=== PATIENT | male | born 1950 | race Caucasian/White ===

== ENCOUNTER 2017-08-29 11:04 | Emergency (ER) | payer MEDICARE, OTHER ==
[~2017-08-29] VITALS: Ht 170.2 cm; Wt 131.5 kg
[~2017-08-29 11:04] MED LIST: CERAVE355 ML TP; IBUPROFEN800 MG PO; LEVOTHYROXINE25 MCG PO; NORCO 5-325 TA1 EACH PO; NYSTATIN15 GM TOP; TRAMADOL HCL50 MG PO; TYLENOL325 MG PO
[2017-08-29] MEDS ORDERED: FLOMAX0.4 MG PO (11:17)
[2017-08-29] MEDS ORDERED: PREPARATION H1 EAC3 PR (12:56)
== END 2017-08-29 13:23 | disposition home or self-care (01) ==
LOC: ED 11:04
DX: K64.9 Unspecified hemorrhoids (principal); I10 Essential (primary) hypertension; E66.01 Morbid (severe) obesity due to excess calories; E03.9 Hypothyroidism, unspecified; Z88.8 Allergy status to other drugs, medicaments and biological substances; Z88.2 Allergy status to sulfonamides; Z88.1 Allergy status to other antibiotic agents; Z79.899 Other long term (current) drug therapy
CPT/HCPCS: 99283

== ENCOUNTER 2019-04-09 03:25 | Inpatient (IN) | payer MEDICARE, OTHER ==
[~2019-04-09] VITALS: Ht 170.2 cm; Wt 156.0 kg
--- OUTSIDE RECORDS SUMMARY | ~2019-04-09 | XMS | Encounter Summary ---
Demographics + + + | Address | [address] | | | [place] [address] | + + + | Home Phone | | + + + | Preferred Language | Unknown | + + + | Marital Status | Single | + + + | Quaker Affiliation | 1041 | + + + | Race | Unknown | + + + | Ethnic Group | Unknown | + + + Author + + + | Author | [facility] | | | and [place] | + + + | Organization | [facility] | | | and [place] | + + + | Address | Unknown | + + + | Phone | Unavailable | + + + Support + + +---------+ + | Name | Relationship | Address | Phone | + + +---------+ + | Ingrid Patel | ECON | Unknown | | + + +---------+ + Care Team Providers + +------+ + | Care Medical Record Transcriber Name | Role | Phone | + +------+ + PCP | Unavailable | + +------+ + Encounter Details +--------+ + + + + | Date | Type | Department | Care Team | Description | +--------+ + + + + | 06/21/ | Hospital | [facility] | Jaziel Billy, | Ulcer of other part | | 2013 | Encounter | CENTER OUTPATIENT | MD Umm AMADOR | of lower limb (HCC) | | | | WOUND CARE [address] | [facility] [address], | | | | | [place] | [place] [address] | | | | | [address] | [phone] | | | | | [phone] | | | +--------+ + + + + Social History + +-------+ +--------+------+ | Tobacco Use | Types | Packs/Day | Years | Date | | | | | Used | | + +-------+ +--------+------+ | Never Assessed | | | | | + +-------+ +--------+------+ + + + | Sex Assigned at | Date Recorded | | | | + + + | Not on file | | + + + + + + + | Job Start Date | Occupation | Industry | + + + + | Not on file | Not on file | Not on file | + + + + + + + + | Travel History | Travel Start | Travel End | + + + + + + | No recent travel history available. | + + documented as of this encounter Progress Notes Jaziel Billy MD - 06/21/2013 3:28 PM PDTFormatting of this note might be different fro m the original. Progress Notes by Jaziel Billy MD at 06/21/13 1528 Author: Jaziel Billy MD Service: (none) Author Type: Physician Filed: 06/21/13 1531 Encounter Date: 06/21/2013 Status: Signed Specimen Preparation Assistant: Jaziel Billy MD (Physician) Subjective: Jono Tabares is a 62 y.o. male who presents for follow up for wound healing. He reports th at the wound has been doing well. He reports that he has been compliant with his treatment regimen. See flowsheet for measurements and specific treatment data. Review of Systems Constitutional: negative Respiratory: negative Cardiovascular: negative Gastrointestinal: negative Integument/breast: wound stable Objective: General appearance: alert, appears stated age and cooperative Head: Normocephalic, without obvious abnormality, atraumatic Musculoskeletal: there is no redness, warmth, or swelling of the joints Skin: wound stalled Assessment / Plan: [place] ulcer tissues examined. There is no induration, is no signs of skin breakdown, is no tenderness, is no redness, is no odor, is no discharge.right leg debridement of wound floor . Left leg selective debridement Excisional debridement medically necessary to accelerate wound healing. Excisional debride ment performed, after appropriate wound cleansing and topical anesthetic application as/as n ot required, by using a 15 blade scalpel/sharp metal currette to go into the level of the SQ tissue and remove fibrin/slough and necrotic as well as other nonviable and devitalized SQ tissue from the base of the ulcer. Rolled edges sharply excised. Pt had a small amount of bleeding controlled w/pressure. Pt t olerated procedure well. See flowsheet for wound details (pre and post). No exposed tendon, muscle or bone noted. Dressing applied by nursing. Pt to f/u as scheduled. Continue treatmen t onversio n Transaction, Provider Unknown - 06/21/2013 2:14 PM PDTFormatting of this note might be di fferent from the original. Progress Notes by Brooklyn Garcia RN at 06/21/13 2967 Author: Brooklyn Garcia RN Service: (none) Author Type: Registered Nurse Filed: 06/21/13 1416 Encounter Date: 06/21/2013 Status: Signed Specimen Preparation Assistant: Brooklyn Garcia RN (Registered Nurse) Jono Tabares is a 62 y.o. male who presents today for Wound Care visit. He presents accom panied by transport assistance. He arrived: Wheelchair. Transfer Assistance: None Patient identification verified: yes Secondary verification process completed: yes Patient in isolation precaution: no If yes, what kind?: Fall Risk Assessment reviewed: yes Experienced any changes in pain level or management since last visit?: no Any signs or symptoms of abuse and/or neglect?: no Hospitalized since last visit: no Dressing in place as prescribed: yes Compression in place as prescribed: n/a Offloading in place as prescribed: n/a Footwear in place on this visit: Other Footwear: socks Ronal fernandes in this encounter Plan of Treatment Not on filedocumented as of this encounter Visit Diagnoses + + | Diagnosis | + + | Ulcer of other part of lower limb | + + documented in this encounter Additional Health Concerns + + + + | Infection | Noted Time | Resolved Time | + + + + | Methicillin-resistant Staphylococcus aureus | 12/13/2012 12:00 AM | | | | PDT | | + + + + documented as of this encounter"
--- OUTSIDE RECORDS SUMMARY | ~2019-04-09 | XMS | Encounter Summary ---
Demographics + + + | Address | [address] | | | [place] [address] | + + + | Home Phone | | + + + | Preferred Language | Unknown | + + + | Marital Status | Single | + + + | Holiness Affiliation | 1041 | + + + | Race | Unknown | + + + | Ethnic Group | Unknown | + + + Author + + + | Author | [facility] | | | and [place] | + + + | Organization | [facility] | | | [...] Team Providers + +------+ + | Care Slot Floorperson Name | Role | Phone | + +------+ + PCP | Unavailable | + +------+ + Encounter Details +--------+ + + + + | Date | Type | Department | Care Team | Description | +--------+ + + + + | 06/13/ | Hospital | [facility] | Conversion | Open wound of knee, | | 2013 | Encounter | MEDICAL [facility]ENTER | Transaction, | leg (except thigh), | | | | ULTRASOUND [address] | Provider Unknown | and ankle, | | | | [address] | [phone] | complicated | | | | [place], [place] | | | | | | [address] | | | | | | [phone] | | | +--------+ + + + [...] + + documented as of this encounter Plan of Treatment Not on filedocumented as of this encounter Procedures + +--------+ + + + | Procedure Name | Priori | Date/Time | Associated Diagnosis | Comments | | | ty | | | | + +--------+ + + + | VAS LOWER EXTREMITY | Routin | 06/13/2013 | | Results for this | | ARTERIES BILATERAL | e | 3:15 PM | | procedure are in the | | | | PDT | | results section. | + +--------+ + + + documented in this encounter Results VAS Lower Extremity Arteries Bilateral (06/13/2013 3:15 PM PDT) + + | Specimen | + + | | + + + + + | Impressions | Performed At | + + + | 1. Normal triphasic waveforms seen bilaterally. Electronically | | | signed by Jaziel Aguero MD on 06/13/2013 7:17 PM | | + + + + + + | Narrative | Performed At | + + + | [facility] LOWER EXTREMITY ARTERIAL DUPLEX BILAT 06/13/2013 | | | 3:15 PM HISTORY: 62 years. Male. Wounds both knees, open | | | TECHNIQUE: Imaging was performed using a linear array transducer. | | | Josue scale, color flow, and power Doppler techniques utilized. This | | | included a duplex study with Doppler spectral analysis including color | | | flow imaging. COMPARISON: None. FINDINGS: RIGHT LEG: | | | Common femoral artery: PSV: 96 (cm/s). Flow: Triphasic. Profunda | | | femoral artery: PSV: 49 (cm/s). Flow: Triphasic. Superficial femoral | | | artery - proximal: PSV: 105 (cm/s). Flow: Triphasic. Superficial | | | femoral artery - mid: PSV: 82 (cm/s). Flow: Triphasic. Superficial | | | femoral artery - distal: PSV: 90 (cm/s). Flow: Triphasic. Popliteal | | | artery: PSV: 67 (cm/s). Flow: Triphasic. Anterior tibial artery: PSV: | | | 89 (cm/s). Flow: Triphasic. Posterior tibial artery: PSV: 132 | | | (cm/s). Flow: Triphasic. Dorsalis pedis artery: PSV: 63 (cm/s). Flow: | | | Triphasic. Peroneal artery: PSV: 89 (cm/s). Flow: Triphasic. | | | LEFT LEG: Common femoral artery: PSV: 92 (cm/s). Flow: Triphasic. | | | Profunda femoral artery: PSV: 49 (cm/s). Flow: Triphasic. Superficial | | | femoral artery - proximal: PSV: 90 (cm/s). Flow: Triphasic. | | | Superficial femoral artery - mid: PSV: 76 (cm/s). Flow: Triphasic. | | | Superficial femoral artery - distal: PSV: 71 (cm/s). Flow: Triphasic. | | | Popliteal artery: PSV: 67 (cm/s). Flow: Triphasic. Anterior tibial | | | artery: PSV: 74 (cm/s). Flow: Triphasic. Posterior tibial artery: | | | PSV: 74 (cm/s). Flow: Triphasic. Dorsalis pedis artery: PSV: 100 | | | (cm/s). Flow: Triphasic. Peroneal artery: PSV: 67 (cm/s). Flow: | | | Triphasic. | | + + + + + | Procedure Note | + + | Jorge Alberto, Rad Conversion - 11/17/2018 12:43 PM PDT [facility] LOWER EXTREMITY | | ARTERIAL DUPLEX BIL06/13/2013 3:15 PM HISTORY:62 years. Male. Wounds both knees, open | | TECHNIQUE:Imaging was performed using a linear array transducer. Josue scale, color | | flow, and power Doppler techniques utilized. This included a duplex study with Doppler | | spectral analysis including color flow imaging. COMPARISON:None. FINDINGS: RIGHT | | LEG:Common femoral artery: PSV: 96 (cm/s). Flow: Triphasic.Profunda femoral artery: PSV: | | 49 (cm/s). Flow: Triphasic.Superficial femoral artery - proximal: PSV: 105 (cm/s). | | Flow: Triphasic.Superficial femoral artery - mid: PSV: 82 (cm/s). Flow: | | Triphasic.Superficial femoral artery - distal: PSV: 90 (cm/s). Flow: Triphasic.Popliteal | | artery: PSV: 67 (cm/s). Flow: Triphasic.Anterior tibial artery: PSV: 89 (cm/s). Flow: | | Triphasic.Posterior tibial artery: PSV: 132 (cm/s). Flow: Triphasic.Dorsalis pedis | | artery: PSV: 63 (cm/s). Flow: Triphasic.Peroneal artery: PSV: 89 (cm/s). Flow: | | Triphasic. LEFT LEG:Common femoral artery: PSV: 92 (cm/s). Flow: Triphasic.Profunda | | femoral artery: PSV: 49 (cm/s). Flow: Triphasic.Superficial femoral artery - proximal: | | PSV: 90 (cm/s). Flow: Triphasic.Superficial femoral artery - mid: PSV: 76 (cm/s). Flow: | | Triphasic.Superficial femoral artery - distal: PSV: 71 (cm/s). Flow: Triphasic.Popliteal | | artery: PSV: 67 (cm/s). Flow: Triphasic.Anterior tibial artery: PSV: 74 (cm/s). Flow: | | Triphasic.Posterior tibial artery: PSV: 74 (cm/s). Flow: Triphasic.Dorsalis pedis | | artery: PSV: 100 (cm/s). Flow: Triphasic.Peroneal artery: PSV: 67 (cm/s). Flow: | | Triphasic. IMPRESSION: 1. Normal triphasic waveforms seen bilaterally. Electronically | | signed by Jaziel Aguero MD on 06/13/2013 7:17 PM | |Popliteal artery: PSV: 67 (cm/s). Flow: Triphasic. | |Anterior tibial artery: PSV: 89 (cm/s). Flow: Triphasic. | |Posterior tibial artery: PSV: 132 (cm/s). Flow: Triphasic. | |Dorsalis pedis artery: PSV: 63 (cm/s). Flow: Triphasic. | |Peroneal artery: PSV: 89 (cm/s). Flow: Triphasic. | | | |LEFT LEG: | |Common femoral artery: PSV: 92 (cm/s). Flow: Triphasic. | |Profunda femoral artery: PSV: 49 (cm/s). Flow: Triphasic. | |Superficial femoral artery - proximal: PSV: 90 (cm/s). Flow: Triphasic. | |Superficial femoral artery - mid: PSV: 76 (cm/s). Flow: Triphasic. | |Superficial femoral artery - distal: PSV: 71 (cm/s). Flow: Triphasic. | |Popliteal artery: PSV: 67 (cm/s). Flow: Triphasic. | |Anterior tibial artery: PSV: 74 (cm/s). Flow: Triphasic. | |Posterior tibial artery: PSV: 74 (cm/s). Flow: Triphasic. | |Dorsalis pedis artery: PSV: 100 (cm/s). Flow: Triphasic. | |Peroneal artery: PSV: 67 (cm/s). Flow: Triphasic. | | | |IMPRESSION: | |1. Normal triphasic waveforms seen bilaterally. | | | | | + + documented in this encounter Visit Diagnoses + + | Diagnosis | + + | Open wound of knee, leg (except thigh), and ankle, complicated | + + documented in this encounter Additional Health Concerns + + + + | Infection | Noted Time | Resolved Time | + + + + | Methicillin-resistant Staphylococcus aureus | 12/13/2012 12:00 AM | | | | PDT | | + + + + documented as of this encounter"
--- OUTSIDE RECORDS SUMMARY | ~2019-04-09 | XMS | Encounter Summary ---
Demographics + + + | Address | [address] | | | [place] [address] | + + + | Home Phone | | + + + | Preferred Language | Unknown | + + + | Marital Status | Single | + + + | Catholic Affiliation | 1041 | + + + | Race | Unknown | + + + | Ethnic Group | Unknown | + + + Author + + + | Author | [facility] | | | and [place] | + + + | Organization | [facility] | | | and [...] Team Providers + +------+ + | Care Buffer Inflated Pad Name | Role | Phone | + +------+ + PCP | Unavailable | + +------+ + Encounter Details +--------+ + + + + | Date | Type | Department | Care Team | Description | +--------+ + + + + | 05/31/ | Hospital | [facility] | Jaziel Billy, | Open wound of both | | 2014 | Encounter | CENTER OUTPATIENT | MD Umm AMADOR | legs with | | | | WOUND CARE [address] | [place], | complication | | | | [place] | [place] [address] | | | | | [address] | [phone] | | | | | [phone] | | | +--------+ + + + [...] encounter Progress Notes Jaziel Billy MD - 05/31/2013 4:51 PM PSTFormatting of this note might be different fro m the original. Progress Notes by Jaziel Billy MD at 05/31/13 2509 Author: Jaziel Billy MD Service: (none) Author Type: Physician Filed: 06/07/13 1236 Encounter Date: 05/31/2013 Status: Signed Scrap Metal Collector: Jaziel Billy MD (Physician) Related Notes: Original Note by Jaziel Billy MD (Physician) filed at 05/31/13 2489 CHIEF COMPLAINT This is a 62-year-old man who was seen at the wound care clinic for the first time because of wounds to his lower extremities. HISTORY OF PRESENT ILLNESS Patient's difficulties started approximately 1 month ago, when he had a rash with possible open area and was placed on antibiotic by his primary physician in the [facility]. The r camron went on to become more extensive after the antibiotic. Steroids were tried and patient w as sent to [facility] 3 days later for possible redmans' or scalde d skin syndrome-type problems; the patient is unsure of exactly what the diagnosis was. He w as treated with IV antibiotics, etc., at the [facility] and his up per and lower extremities were involved in rash, bright-red rash. The upper extremities and lower extremities did develop some pustules. The upper extremity wounds have now almost totally closed. There are eschars and papules th at are scattered, approximately 4 lesions per 10 square centimeters are noted. Patient state s this is significantly less than when he first had the difficulty. His lower extremities zapata ve expansive areas of sloughing or dry skin along with some much smaller areas of deroo fed lesions. The patient has a history of lymphedema symptoms before the current difficulty that are consistent with the open wounds that he currently has. Patient's history is significant for morbid obesity. 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 See our Epic note for vital signs, allergies, medications history, problem list, etc., that I reviewed before this dictation. PAST SURGICAL HISTORY His hospitalizations are few, but they do include: 1. 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 2. Tonsillectomy in [facility] in 1957. FAMILY HISTORY Positive for his father having throat cancer. He at 99. His mother at 94 from an NH. She had had renal failure as well as a CVA shortly before she . His oldest half-brot her had pancreatic cancer and at 78. SOCIAL HISTORY He is a long-term member of the [facility] community and is currently in a nursing faci lity in that area until he is more able to care for himself. He states the wounds are much m ore improved than just earlier last week. REVIEW OF SYSTEMS ALLERGIC/IMMUNOLOGIC: Negative. CARDIOVASCULAR: Negative. HEENT: Ears, nose, and throat: Negative. Eyes: Negative. IMMUNIZATIONS: Negative. ENDOCRINE: Negative. GASTROINTESTINAL: Negative. GENITOURINARY: Negative. HEMATOLOGIC/LYMPHATICS: Negative. MUSCULOSKELETAL: Negative except for osteoarthritis symptoms. He also states there are some osteoarthritis-type symptoms in his feet as well. NEUROLOGIC: Negative. PSYCHIATRIC: No psychiatric history. No confinement history. RESPIRATORY: Negative. DERMATOLOGIC: Negative. ONCOLOGIC: Negative. REPRODUCTIVE: No complaints. PHYSICAL EXAMINATION HEENT: Normocephalic, atraumatic. Sclerae are anicteric. Pupils are pinpoint, consistent wi narcotic use currently. NECK: Supple. No stepoff or tenderness. Anterior and posterior nodes are not increased. Thy roid gland shows no nodularity. Trachea is midline. LUNGS: Sounds are clear anteriorly, posteriorly, and laterally. HEART: Distant S1 and S2, hardly appreciable. No murmurs or gallops appreciated. ABDOMEN: Morbid obesity. No tenderness. EXTREMITIES: Upper and lower extremities show grossly normal motor and sensory function. SKIN: Multiple 1 to 2 mm papules, some of which are nearly flattened and healed; others hav e crust or eschar on top of them and are scattered on the upper extremities up to his deltoi d areas. 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 There are s ome areas open that appear consistent with ruptured lymphedema blebs. The lymphedema bleb ar eas were not healing well and had a fibrin slough, were dressed with wound cleanser, then li docaine, then debrided with curettes. This was a small area and was done gently, as not to p rovoke further infection, etc. The other extremity and the majority of the wound areas on th e left extremity had large amounts of hyperkeratotic, superfluous skin that were remove d vigorously by nursing staff and myself. Patient expressed pleasure with the results of stef ridement. IMPRESSION/PLAN He was warned to be very careful about possible infection, given that some areas had slight bleeding after the debridement, but this was a small number. We will ask the people at the facility where the patient resides to redress the area every 2 to 3 days, sooner if the woun d dressings become saturated. We will use silver Aquacel and Kerlix mainly to help with the drainage and infection control. Recheck here in 1 week. onversio n Transaction, Provider Unknown - 05/31/2013 3:05 PM PSTFormatting of this note might be di fferent from the original. Progress Notes by Brooklyn Garcia RN at 05/31/13 7350 Author: Brooklyn Garcia RN Service: (none) Author Type: Registered Nurse Filed: 05/31/13 1507 Encounter Date: 05/31/2013 Status: Signed Scrap Metal Collector: Brooklyn Garcia RN (Registered Nurse) Jono Tabares is a 62 y.o. male who presents today for InitialWound Care visit. He present s accompanied by [employer]. He arrived: Wheelchair. Transfer Assistance: Manual Pending Amputation on Presentation: no Wound under treatment by Physician outside of Wound Care Center: no Patient identification verified: yes Secondary verification process completed: yes Patient in isolation precaution: no If yes, what kind?: Nutrition Risk Screen Score: Nutrition Screen Score: 1 Fall Risk Assessment Score: Score: 40 Abuse/Suicide Risk Screening: See Wound Care New Patient Flowsheet Education Assessment: See Wound Care New Patient Flowsheet Neuropathy Assessment: See Lower Extremity Assessment Flowsheet Patient temporarily living at [facility] in [place]. States developed bright red rash ab out 3 weeks ago after taking antibiotics (unknown type) and steroids. Wounds on legs and fee t developed About two days later. Presents with wrap bilaterally to lower extremities. docume nted in this encounter Plan of Treatment Not on filedocumented as of this encounter Visit Diagnoses + + | Diagnosis | + + | Open wound of both legs with complication Open wound of knee, leg (except thigh), and | | ankle, complicated | + + documented in this encounter Additional Health Concerns + + + + | Infection | Noted Time | Resolved Time | + + + + | Methicillin-resistant Staphylococcus aureus | 12/13/2012 12:00 AM | | | | PDT | | + + + + documented as of this encounter"
--- OUTSIDE RECORDS SUMMARY | ~2019-04-09 | XMS | Encounter Summary ---
Demographics + + + | Address | [address] | | | [place] [address] | + + + | Home Phone | | + + + | Preferred Language | Unknown | + + + | Marital Status | Single | + + + | Baptism Affiliation | 1041 | + + + | Race | Unknown | + + + | Ethnic Group | Unknown | + + + Author + + + | Author | [facility] | | | and [place] | + + + | Organization | [facility] | | | and [...] Team Providers + +------+ + | Care High School Football Coach Name | Role | Phone | + +------+ + PCP | Unavailable | + +------+ + Encounter Details +--------+ + + + + | Date | Type | Department | Care Team | Description | +--------+ + + + + | 09/27/ | Hospital | [facility] | Jaziel Billy, | Ulcer of leg, | | 2013 | Encounter | CENTER OUTPATIENT | MD Umm AMADOR | chronic, unspecified | | | | WOUND CARE [address] | [place], | laterality, limited | | | | [place] | [place] [address] | to breakdown of | | | | [address] | [phone] | skin (HCC) | | | | [phone] | | | +--------+ + + + [...] encounter Progress Notes Jaziel Billy MD - 09/27/2013 1:08 PM PDTFormatting of this note might be different fro m the original. Progress Notes by Jaziel Billy MD at 09/27/13 0272 Author: Jaziel Billy MD Service: (none) Author Type: Physician Filed: 09/27/13 1914 Encounter Date: 09/27/2013 Status: Signed Funeral Car Driver: Jaziel Billy MD (Physician) Subjective: Jono Tabares is a 63 y.o. male who presents for follow up for wound healing. He reports th at the wound has been doing poorly. He reports that he has not been compliant with his jill tment regimen.new support hose from Dr. Saha rx too tight skin breakdown with a day of use l eft wounds deep into subcutaneous tissue on posterior calf . Right leg larger area of more s uperfical skin breakdown See flowsheet for measurements and specific treatment data. Review of Systems Constitutional: negative Respiratory: negative Cardiovascular: negative Gastrointestinal: negative Integument/breast: wounds open after new compreeion socks Objective: General appearance: alert, appears stated age and cooperative Head: Normocephalic, without obvious abnormality, atraumatic Musculoskeletal: there is no redness, warmth, or swelling of the joints Skin: large area of superfical pin point skin denuding on right left similar but blebs on c alg with deeper ulceration Assessment / Plan: [place] ulcer tissues examined. There is induration, is signs of skin breakdown, is no tender ness, is redness, is no odor, is discharge.right leg with large area of superificial skin br eakdown left leg same but with deeper ruptured blebs on calf Excisional debridement medically necessary to accelerate wound healing. Excisional debride ment performed, after appropriate wound cleansing and topical anesthetic application as/as n ot required, by using a 15 blade scalpel/sharp metal currette to go into the level of the SQ tissue and remove fibrin/slough and necrotic as well as other nonviable and devitalized SQ tissue from the base of the ulcer. Pt had a medium amount of bleeding controlled w/pressure. Pt tolerated procedure well. See flowsheet for wound details (pre and post). No exposed tendon, muscle or bone noted. Dressin g applied by nursing. Pt to f/u as scheduled. Continue with gent twice daily and tubigrip as tolerated one ot two layers. Discuss possible alternative compression with Dr. Steele onversio n Transaction, Provider Unknown - 09/27/2013 12:49 PM PDTFormatting of this note might be di fferent from the original. Progress Notes by Brooklyn Garcia RN at 09/27/13 0347 Author: Brooklyn Garcia RN Service: (none) Author Type: Registered Nurse Filed: 09/27/13 8868 Encounter Date: 09/27/2013 Status: Signed Funeral Car Driver: Brooklyn Garcia RN (Registered Nurse) Jono Tabares is a 63 y.o. male who presents today for Wound Care visit. He presents accom panied by driver salesman. He arrived: Wheelchair. Transfer Assistance: None Patient [...] prescribed: yes Compression in place as prescribed: tubi systems administrator Offloading in place as prescribed: n/a Footwear in place on this visit: Other Footwear: socks Patient was wearing compression socks provided by Dr. Steele; new wounds noted with compressio n; has not been wearing them this week because of deterioration with them. Has been wearing tubigrips. docume nted in this encounter Plan of Treatment Not on filedocumented as of this encounter Visit Diagnoses + + | Diagnosis | + + | Ulcer of leg, chronic, unspecified laterality, limited to breakdown of skin (HCC) | + + documented in this encounter Additional Health Concerns + + + + | Infection | Noted Time | Resolved Time | + + + + | Methicillin-resistant Staphylococcus aureus | 12/13/2012 12:00 AM | | | | PDT | | + + + + documented as of this encounter"
--- OUTSIDE RECORDS SUMMARY | ~2019-04-09 | XMS | Encounter Summary ---
Demographics + + + | Address | [address] | | | [place] [address] | + + + | Home Phone | | + + + | Preferred Language | Unknown | + + + | Marital Status | Single | + + + | Voodoo Affiliation | 1041 | + + + | Race | Unknown | + + + | Ethnic Group | Unknown | + + + Author + + + | Author | [facility] | | | and [place] | + + + | Organization | [facility] | | [...] Team Providers + +------+ + | Care Level Vial Sealer Name | Role | Phone | + +------+ + PCP | Unavailable | + +------+ + Encounter Details +--------+ + + + + | Date | Type | Department | Care Team | Description | +--------+ + + + + | 07/12/ | Hospital | [facility] | Jaziel Billy, | Venous insufficiency | | 2013 | Encounter | CENTER OUTPATIENT | MD Umm AMADOR | | | | | WOUND CARE [address] | [facility] [place], | | | | | [place] | [place] [address] | | | | | [address] | [phone] | | | | | [phone] | | | +--------+ + + + [...] encounter Progress Notes Jaziel Billy MD - 07/12/2013 2:43 PM PDTFormatting of this note might be different fro m the original. Progress Notes by Jaziel Billy MD at 07/12/13 1446 Author: Jaziel Billy MD Service: (none) Author Type: Physician Filed: 07/12/13 4697 Encounter Date: 07/12/2013 Status: Signed Patient Financial Services Coordinator: Jaziel Billy MD (Physician) Subjective: Jono Tabares is a 63 y.o. male who presents for follow up for wound healing. He reports th at the wound has been doing well. He reports that he has been compliant with his treatment regimen. See flowsheet for measurements and specific treatment data. Review of Systems Constitutional: negative Eyes: negative Respiratory: negative Cardiovascular: negative Gastrointestinal: negative Integument/breast: wounds closing new wound forv 2 days Objective: General appearance: alert, appears stated age and cooperative Head: Normocephalic, without obvious abnormality, atraumatic Musculoskeletal: there is no redness, warmth, or swelling of the joints Skin: wound closing on ankle new bleb type wound on right lateral lower leg Assessment / Plan: [place] ulcer tissues examined. There is no induration, is signs of skin breakdown, is tender ness, is no redness, is odor, is discharge. Excisional debridement medically necessary to accelerate [...] by nursing. Pt to f/u as scheduled. treat as before on open wounds where tubies at night to stop nail injuries onversio n Transaction, Provider Unknown - 07/12/2013 12:43 PM PDTFormatting of this note might be di fferent from the original. Progress Notes by Demetria Padilla RN at 07/12/13 1703 Author: Demetria Padilla RN Service: (none) Author Type: Registered Nurse Filed: 07/12/13 1453 Encounter Date: 07/12/2013 Status: Signed Patient Financial Services Coordinator: Demetria Padilla RN (Registered Nurse) Jono Tabares is a 63 y.o. male who presents today for Wound Care visit. He presents alone . He arrived: Wheelchair. Transfer Assistance: None Patient identification verified: yes Secondary verification process completed: yes Patient in isolation precaution: no If yes, what kind?: n/a Fall Risk Assessment reviewed: yes Experienced any changes in pain level or management since last visit?: no Any signs or symptoms of abuse and/or neglect?: no Hospitalized since last visit: no Dressing in place as prescribed: yes Compression in place as prescribed: n/a Offloading in place as prescribed: n/a Footwear in place on this visit: Waldemar: Ronal fernandes in this encounter Plan of Treatment Not on filedocumented as of this encounter Visit Diagnoses + + | Diagnosis | + + | Venous insufficiency Unspecified venous (peripheral) insufficiency | + + documented in this encounter Additional Health Concerns + + + + | Infection | Noted Time | Resolved Time | + + + + | Methicillin-resistant Staphylococcus aureus | 12/13/2012 12:00 AM | | | | PDT | | + + + + documented as of this encounter"
--- OUTSIDE RECORDS SUMMARY | ~2019-04-09 | XMS | Clinical Summary ---
Demographics + + + | Address | [address] | | | [place] [address] | + + + | Home Phone | | + + + | Preferred Language | Unknown | + + + | Marital Status | Single | + + + | Rastafarian Affiliation | 1041 | + + + | Race | Unknown | + + + | Ethnic Group | Unknown | + + + Author + + + | Author | [facility] | | | and [place] | + + + | Organization | [facility] | | | and [...] Team Providers + +------+ + | Care Appraisal Specialist Name | Role | Phone | + +------+ + | Tay Chino MD | PCP | | + +------+ + Allergies Not on File Medications Not on file Active Problems Not on file Family History + + +------+ + | Medical History | Relation | Name | Comments | + + +------+ + | Cancer | Father | | | + + +------+ + | Kidney disease | Mother | | | + + +------+ + | Seizures | Mother | | | + + +------+ + | Cancer | Sister | | | + + +------+ + + +------+ + + | Relation | Name | Status | Comments | + +------+ + + | Brother | | Alive | | + +------+ + + | Brother | | Alive | | + +------+ + + | Father | | | | + +------+ + + | Father | | | | + +------+ + + | Mother | | | | + +------+ + + | Mother | | | | + +------+ + + | Sister | | | | + +------+ + + | Sister | | Alive | | + +------+ + + | Sister | | Alive | | + +------+ + + | Sister | | | | + +------+ + + Social History + +-------+ +--------+------+ | Tobacco Use | Types | Packs/Day | Years | Date | | | | | Used | | + +-------+ +--------+------+ | Never Smoker | | | | | + +-------+ [...] recent travel history available. | + + Last Filed Vital Signs Not on file Plan of Treatment + + + + + | Health Maintenance | Due Date | Last Done | Comments | + + + + + | Vaccine: | | | | | Dtap/Tdap/Td (1 - | 4 | | | | Tdap) | | | | + + + + + | Vaccine: Zoster (1 | | | | | of 2) | 3 | | | + + + + + | Vaccine: | | | | | Pneumococcal 65+ (1 | 8 | | | | of 2 - PCV13) | | | | + + + + + | Vaccine: Influenza | | | | | (#1) | 9 | | | + + + + + Results Not on filefrom Last 3 Months Additional Health Concerns + + + + | Infection | Noted Time | Resolved Time | + + + + | Methicillin-resistant Staphylococcus aureus | 12/13/2012 12:00 AM | | | | PDT | | + + + +"
--- OUTSIDE RECORDS SUMMARY | ~2019-04-09 | XMS | Encounter Summary ---
Demographics + + + | Address | [address] | | | [place] [address] | + + + | Home Phone | | + + + | Preferred Language | Unknown | + + + | Marital Status | Single | + + + | Oriental Orthodox Affiliation | 1041 | + + + | Race | Unknown | + + + | Ethnic Group | Unknown | + + + Author + + + | Author | [facility] | | | and [place] | + + + | Organization | [facility] | | [...] Team Providers + +------+ + | Care Child & Adolescent Psychiatrist Name | Role | Phone | + +------+ + PCP | Unavailable | + +------+ + Encounter Details +--------+ + + + + | Date | Type | Department | Care Team | Description | +--------+ + + + + | 09/06/ | Hospital | [facility] | Jaziel Billy, | Ulcer of leg, | | 2013 | Encounter | CENTER OUTPATIENT | MD Umm AMADOR | chronic, unspecified | | | | WOUND CARE [address] | [place], | laterality, limited | | | | [place] | [place] [address] | to breakdown of | | | | [address] | [phone] | skin (HCC) | | | | [phone] | | | +--------+ + + + [...] encounter Progress Notes Jaziel Billy MD - 09/06/2013 1:43 PM PDTFormatting of this note might be different fro m the original. Progress Notes by Jaziel Billy MD at 09/06/13 6113 Author: Jaziel Billy MD Service: (none) Author Type: Physician Filed: 09/06/13 1412 Encounter Date: 09/06/2013 Status: Signed Process Improvement Consultant: Jaziel Billy MD (Physician) Subjective: Jono Tabares is a 63 y.o. male who presents for follow up for wound healing. He reports th at the wound has been doing well. He reports that he has been compliant with his treatment regimen. See flowsheet for measurements and specific treatment data. Review of Systems Constitutional: negative Respiratory: negative Cardiovascular: negative Gastrointestinal: negative Integument/breast: skin torn with tubi and bandage removal Objective: General appearance: alert, appears stated age and cooperative Head: Normocephalic, without obvious abnormality, atraumatic Skin: wound s healing new skin tearsd apparent` Assessment / Plan: [place] ulcer tissues examined. [...] by nursing. Pt to f/u as scheduled. onversio n Transaction, Provider Unknown - 09/06/2013 12:45 PM PDTFormatting of this note might be di fferent from the original. Progress Notes by Elaine Bach RN at 09/06/13 3259 Author: Elaine Bahc RN Service: (none) Author Type: Registered Nurse Filed: 09/06/13 1246 Encounter Date: 09/06/2013 Status: Signed Process Improvement Consultant: Elaine Bach RN (Registered Nurse) Jono Tabares is a 63 y.o. male who presents today for Wound Care visit. He presents alone . He arrived: Wheelchair. Transfer Assistance: Manual Patient identification verified: yes Secondary verification process completed: yes Patient in isolation precaution: no If yes, what kind?: NA Fall Risk Assessment reviewed: yes Experienced any changes in pain level or management since last visit?: no Any signs or symptoms of abuse and/or neglect?: no Hospitalized since last visit: no Dressing in place as prescribed: yes Compression in place as prescribed: yes Offloading in place as prescribed: no Footwear in place on this visit: Other Footwear: SOCKS docume vinayed in this encounter Plan of Treatment Not [...]
--- OUTSIDE RECORDS SUMMARY | ~2019-04-09 | XMS | Encounter Summary ---
Demographics + + + | Address | [address] | | | [place] [address] | + + + | Home Phone | | + + + | Preferred Language | Unknown | + + + | Marital Status | Single | + + + | Hinduism Affiliation | 1041 | + + + | Race | Unknown | + + + | Ethnic Group | Unknown | + + + Author + + + | Author | [facility] | | | and [place] | + + + | Organization | [facility] | | | and [...] Team Providers + +------+ + | Care Collection Card Clerk Name | Role | Phone | + +------+ + PCP | Unavailable | + +------+ + Encounter Details +--------+ + + + + | Date | Type | Department | Care Team | Description | +--------+ + + + + | 07/26/ | Hospital | [facility] | Cassie Yin, | Ulcer of leg, | | 2013 | Encounter | CENTER OUTPATIENT | MD Umm Saravia | chronic, left, with | | | | WOUND CARE [address] | [address] | unspecified severity | | | | [address] [place], [place] | [place] [address] | (HCC); Ulcer of | | | | [address] | [phone] | leg, chronic, right, | | | | [phone] | | with unspecified | | | | | | severity (HCC); | | | | | | Blister; Edema; | | | | | | Venous insufficiency | +--------+ + + + + Social [...] + documented as of this encounter Progress Cassie Zaldivar - 07/26/2013 1:23 PM PDTFormatting of this note might be different from tripp mccann. Progress Notes by Cassie Yin MD at 07/26/13 1323 Author: Cassie Yin MD Service: (none) Author Type: Physician Filed: 07/26/13 1548 Encounter Date: 07/26/2013 Status: Signed Agri Business Agent: Cassie Yin MD (Physician) Subjective: Jono Tabares is a pleasant 63 y.o. male who presents for follow up for wound care for chronic ulceration of right and leg legs. he reports that the wound has been doing well. he reports that he has been compliant with his treatment regimen. No significant changes in PMHx since last visit. Has a new blister on the left leg. Review of Systems Constitutional: No fatigue, sweats or weight loss HEENT: No visual changes, loss of vision, blurriness or sinus complaints Throat: No sore throat or stridor Lungs: No cough productive of blood GI: No blood in stools, no vomiting blood : No hematuria or urinary incontinence Skeletal: No swelling of joints, no atrophy of muscles, no loss of strength Skin: Ulcers right and left legs Neuro: No new loss of sensation in arms/legs, no new weakness, no seizures All systems reviewed and otherwise negative Pertinent items are noted in HPI. Objective: General appearance: alert, appears stated age and cooperative Skin - ulcers left leg with blisters and right leg lateral and posterior calf clean looking but wet. Edema. See above note for wound description and measurements. Assessment / Plan: PROCEDURE left leg and right leg lateral: Excisional debridement medically necessary to accelerate wound healing. Excisional debride ment performed, after appropriate topical anesthetic application as required, by using a 15 blade scalpel to go into the level of the SQ tissue and remove fibrin/slough and necrotic a s well as other nonviable and devitalized SQ tissue from the base of the ulcer.Pt had a smal l amount of bleeding controlled w/pressure. Will continue plain Aquacel and compressions. Pt tolerated procedure well. See flowsheet for wound details (pre and post). No exposed tendon , muscle or bone noted. Dressing applied by nursing. Pt to f/u as scheduled. CASSIE YIN MD 07/26/2013 PROCEDURE: Selective debridement performed by using a 15 blade scalpel after appropriate topical anest hetic application as required. Tissue debrided included fibrin/slough, necrotic, as well a s other nonviable and devitalized tissue. No bleeding was noted. Will continue plain Aquace l and compressions. Pt tolerated procedure well. See flowsheet for wound details (pre and post). Dressing applied by nursing. Pt to f/u as scheduled. CASSIE YIN MD 07/26/2013 I am evaluating this patient for their wound care needs. They will continue to be seen and taken care of by their primary physician/Specialist and have their medications prescribed as well. See below for procedure(s) if applicable. CASSIE YIN MD 07/26/2013 onversion Transaction, Provider Unknown - 07/26/2013 1:09 PM PDTFormatting of this note might be different from tripp mccann. Progress Notes by Brooklyn Garcia RN at 07/26/13 6189 Author: Brooklyn Garcia RN Service: (none) Author Type: Registered Nurse Filed: 07/26/13 2865 Encounter Date: 07/26/2013 Status: Signed Agri Business Agent: Brooklyn Garcia RN (Registered Nurse) Jono Tabares is a 63 y.o. male who presents today for Wound Care visit. He presents accom panied by caregiver. He arrived: Wheelchair. Transfer Assistance: None Patient [...] prescribed: yes Offloading in place as prescribed: n/a Footwear in place on this visit: Other Footwear: socks Patient arrives with 2 layer 3M wraps intact; upon removal new open areas noted to left low er leg, open blisters with large amount of serous fluid. docume nted in this encounter Plan of Treatment Not on filedocumented as of this encounter Visit Diagnoses + + | Diagnosis | + + | Ulcer of leg, chronic, left, with unspecified severity (HCC) | + + | Ulcer of leg, chronic, right, with unspecified severity (HCC) | + + | Blister Other, multiple, and unspecified sites, blister, without mention of infection | + + | Edema | + + | Venous insufficiency Unspecified [...]
--- OUTSIDE RECORDS SUMMARY | ~2019-04-09 | XMS | Encounter Summary ---
Demographics + + + | Address | [address] | | | [place] [address] | + + + | Home Phone [...] Author + + + | Author | [facility] | | | and [place] | + + + | Organization | Located [facility] | | [...] Team Providers + +------+ + | Care Entertainment Centre Manager Name | Role | Phone | + +------+ + | Tay Chino MD | PCP | | + +------+ + Encounter Details +--------+ + + + + | Date | Type | Department | Care Team | Description | +--------+ + + + + | 05/07/ | Orders Only | [facility] | Lorenzo Chan MD | | | 2013 | | NEPHROLOGY [facility] | [address] [place] | | | | | [address] [place] | [address] [place], [place] | | | | | [address] [place], [place] | [address] | | | | | [address] | | | | | | [phone] | | | +--------+ + + + [...] | + +--------+ + + + | URINALYSIS WITH | Routin | 05/07/2013 | | Results for this | | MICROSCOPIC WITH | e | 12:00 AM | | procedure are in the | | CULTURE IF INDICATED | | PST | | results section. | + +--------+ + + + | PROTEIN/CREATININE | Routin | 05/07/2013 | | Results for this | | RATIO, URINE | e | 12:00 AM | | procedure are in the | | | | PST | | results section. | + +--------+ + + + | PROTEIN, URINE, | Routin | 05/07/2013 | | Results for this | | RANDOM | e | 12:00 AM | | procedure are in the | | | | PST | | results section. | + +--------+ + + + | CREATININE, URINE, | Routin | 05/07/2013 | | Results for this | | RANDOM | e | 12:00 AM | | procedure are in the | | | | PST | | results section. | + +--------+ + + + | CULTURE, URINE | Routin | 05/07/2013 | | Results for this | | | e | 12:00 AM | | procedure are in the | | | | PST | | results section. | + +--------+ + + + | EXTERNAL LAB: CBC | Routin | 05/02/2013 | | Results for this | | | e | 12:00 AM | | procedure are in the | | | | PST | | results section. | + +--------+ + + + | URIC ACID | Routin | 05/02/2013 | | Results for this | | | e | 12:00 AM | | procedure are in the | | | | PST | | results section. | + +--------+ + + + | TSH | Routin | 05/02/2013 | | Results for this | | | e | 12:00 AM | | procedure are in the | | | | PST | | results section. | + +--------+ + + + | T4, FREE | Routin | 05/02/2013 | | Results for this | | | e | 12:00 AM | | procedure are in the | | | | PST | | results section. | + +--------+ + + + | B TYPE NATRIURETIC | Routin | 05/02/2013 | | Results for this | | PEPTIDE | e | 12:00 AM | | procedure are in the | | | | PST | | results section. | + +--------+ + + + | MAGNESIUM | Routin | 05/02/2013 | | Results for this | | | e | 12:00 AM | | procedure are in the | | | | PST | | results section. | + +--------+ + + + | RENAL FUNCTION PANEL | Routin | 05/02/2013 | | Results for this | | | e | 12:00 AM | | procedure are in the | | | | PST | | results section. | + +--------+ + + + | COMPREHENSIVE | Routin | 05/02/2013 | | Results for this | | METABOLIC PANEL | e | 12:00 AM | | procedure are in the | | | | PST | | results section. | + +--------+ + + + documented in this encounter Results Urinalysis with Microscopic with Culture if Indicated (05/07/2013 12:00 AM PST) + + + + + + | Component | Value | Ref Range | Performed | Pathologist | | | | | At | Signature | + + + + + + | Color | Jannie | | EXTERNAL | | | | | | LAB | | + + + + + + | Clarity | Clear | | EXTERNAL | | | | | | LAB | | + + + + + + | Spec Grav, | 1.020 | | EXTERNAL | | | Fluid | | | LAB | | + + + + + + | Leukocyte | Negative | | EXTERNAL | | | Esterase, | | | LAB | | | Urine | | | | | + + + + + + | Nitrite, | Negative | | EXTERNAL | | | Urine | | | LAB | | + + + + + + | Urobilinoge | Normal | | EXTERNAL | | | n, Urine | | | LAB | | + + + + + + | Total | 75 | | EXTERNAL | | | Protein | | | LAB | | + + + + + + | pH, Urine | 6 | | EXTERNAL | | | | | | LAB | | + + + + + + | Blood, | PositiveComment: 250 | | EXTERNAL | | | Urine | | | LAB | | + + + + + + | Ketones | Negative | | EXTERNAL | | | | | | LAB | | + + + + + + | Bilirubin, | Negative | | EXTERNAL | | | Urine | | | LAB | | + + + + + + | Glucose, | Negative | | EXTERNAL | | | Urine | | | LAB | | + + + + + + | WBC, UA | | | EXTERNAL | | | | | | LAB | | + + + + + + | RBC, UA | | | EXTERNAL | | | | | | LAB | | + + + + + + | Epithelial | | | EXTERNAL | | | Cells | | | LAB | | + + + + + + | Bacteria, | | | EXTERNAL | | | UA | | | LAB | | + + + + + + | HYALINE | | | EXTERNAL | | | CASTS UA | | | LAB | | + + + + + + + + | Specimen | + + | | + + + +---------+ + + | Performing | Address | City/State/Zipcode | Phone Number | | Organization | | | | + +---------+ + + | EXTERNAL LAB | | | | + +---------+ + + Protein/Creatinine Ratio, Urine (05/07/2013 12:00 AM PST) + +-------+ + + + | Component | Value | Ref Range | Performed | Pathologist | | | | | At | Signature | + +-------+ + + + | Protein/Cre | 949.2 | | EXTERNAL | | | at Ratio | | | LAB | | + +-------+ + + + + + | Specimen | + + | Urine specimen | | (specimen) | + + + +---------+ + + | Performing | Address | City/State/Zipcode | Phone Number | | Organization | | | | + +---------+ + + | EXTERNAL LAB | | | | + +---------+ + + Protein, Urine, Random (05/07/2013 12:00 AM PST) + +-------+ + + + | Component | Value | Ref Range | Performed | Pathologist | | | | | At | Signature | + +-------+ + + + | Protein, | 168 | | EXTERNAL | | | Urine | | | LAB | | + +-------+ + + + + + | Specimen | + + | Urine specimen | | (specimen) | + + + +---------+ + + | Performing | Address | City/State/Zipcode | Phone Number | | Organization | | | | + +---------+ + + | EXTERNAL LAB | | | | + +---------+ + + Creatinine, Urine, Random (05/07/2013 12:00 AM PST) + +-------+ + + + | Component | Value | Ref Range | Performed | Pathologist | | | | | At | Signature | + +-------+ + + + | Creatinine, | 177 | | EXTERNAL | | | 24H Ur | | | LAB | | + +-------+ + + + + + | Specimen | + + | Urine specimen | | (specimen) | + + + +---------+ + + | Performing | Address | City/State/Zipcode | Phone Number | | Organization | | | | + +---------+ + + | EXTERNAL LAB | | | | + +---------+ + + Culture, Urine (05/07/2013 12:00 AM PST) + + | Specimen | + + | Urine specimen | | (specimen) | + + + + + | Narrative | Performed At | + + + | Specimen Description Urine CULTURE | EXTERNAL LAB | | Probable Contaminants, suggest | | | recollection. REPORT STATUS Final | | | | | + + + + +---------+ + + | Performing | Address | City/State/Zipcode | Phone Number | | Organization | | | | + +---------+ + + | EXTERNAL LAB | | | | + +---------+ + + External Lab: CBC (05/02/2013 12:00 AM PST) + +-------+ + + + | Component | Value | Ref Range | Performed | Pathologist | | | | | At | Signature | + +-------+ + + + | WBC | 7.9 | 10 | EXTERNAL | | | | | | LAB | | + +-------+ + + + | RED CELL | 4.48 | 10 | EXTERNAL | | | COUNT | | | LAB | | + +-------+ + + + | Hgb | 12.7 | g/dL | EXTERNAL | | | | | | LAB | | + +-------+ + + + | Hematocrit, | 38.8 | % | EXTERNAL | | | POC | | | LAB | | + +-------+ + + + | MCV | 86.5 | fL | EXTERNAL | | | | | | LAB | | + +-------+ + + + | MCH | 28 | pg | EXTERNAL | | | | | | LAB | | + +-------+ + + + | MCHC | 33 | g/dL | EXTERNAL | | | | | | LAB | | + +-------+ + + + | Platelet | 336 | K/ L | EXTERNAL | | | Count | | | LAB | | | Plasma | | | | | + +-------+ + + + | RDW-CV | 15.9 | % | EXTERNAL | | | | | | LAB | | + +-------+ + + + | MPV | | fL | EXTERNAL | | | | | | LAB | | + +-------+ + + + | Differentia | Auto | | EXTERNAL | | | l Type | | | LAB | | + +-------+ + + + | % Segmented | 72.4 | % | EXTERNAL | | | | | | LAB | | | Neutrophils | | | | | + +-------+ + + + | % | 13.2 | % | EXTERNAL | | | Lymphocytes | | | LAB | | + +-------+ + + + | % Monocytes | 9.2 | % | EXTERNAL | | | | | | LAB | | + +-------+ + + + | % | 4.0 | % | EXTERNAL | | | Eosinophils | | | LAB | | + +-------+ + + + | % Basophils | 1.2 | % | EXTERNAL | | | | | | LAB | | + +-------+ + + + | Absolute | | / L | EXTERNAL | | | Segmented | | | LAB | | | Neutrophils | | | | | + +-------+ + + + | Absolute | | / L | EXTERNAL | | | Lymphocytes | | | LAB | | + +-------+ + + + | Absolute | | / L | EXTERNAL | | | Monocytes | | | LAB | | + +-------+ + + + | Absolute | | / L | EXTERNAL | | | Eosinophils | | | LAB | | + +-------+ + + + | Absolute | | / L | EXTERNAL | | | Basophils | | | LAB | | + +-------+ + + + + + | Specimen | + + | Blood specimen | | (specimen) | + + + +---------+ + + | Performing | Address | City/State/Zipcode | Phone Number | | Organization | | | | + +---------+ + + | EXTERNAL LAB | | | | + +---------+ + + Uric Acid (05/02/2013 12:00 AM PST) + +-------+ + + + | Component | Value | Ref Range | Performed | Pathologist | | | | | At | Signature | + +-------+ + + + | Uric Acid | 9.2 | | EXTERNAL | | | | | | LAB | | + +-------+ + + + + + | Specimen | + + | Blood specimen | | (specimen) | + + + +---------+ + + | Performing | Address | City/State/Zipcode | Phone Number | | Organization | | | | + +---------+ + + | EXTERNAL LAB | | | | + +---------+ + + TSH (05/02/2013 12:00 AM PST) + +-------+ + + + | Component | Value | Ref Range | Performed | Pathologist | | | | | At | Signature | + +-------+ + + + | TSH | 5.84 | uIU/mL | EXTERNAL | | | | | | LAB | | + +-------+ + + + + + | Specimen | + + | Blood specimen | | (specimen) | + + + +---------+ + + | Performing | Address | City/State/Zipcode | Phone Number | | Organization | | | | + +---------+ + + | EXTERNAL LAB | | | | + +---------+ + + T4, Free (05/02/2013 12:00 AM PST) + +-------+ + + + | Component | Value | Ref Range | Performed | Pathologist | | | | | At | Signature | + +-------+ + + + | FREE T4 | 0.796 | | EXTERNAL | | | (REF) | | | LAB | | + +-------+ + + + + + | Specimen | + + | Blood specimen | | (specimen) | + + + +---------+ + + | Performing | Address | City/State/Zipcode | Phone Number | | Organization | | | | + +---------+ + + | EXTERNAL LAB | | | | + +---------+ + + B Type Natriuretic Peptide (05/02/2013 12:00 AM PST) + +-------+ + + + | Component | Value | Ref Range | Performed | Pathologist | | | | | At | Signature | + +-------+ + + + | BNP | 12 | pg/mL | EXTERNAL | | | | | | LAB | | + +-------+ + + + + + | Specimen | + + | Blood specimen | | (specimen) | + + + +---------+ + + | Performing | Address | City/State/Zipcode | Phone Number | | Organization | | | | + +---------+ + + | EXTERNAL LAB | | | | + +---------+ + + Magnesium (05/02/2013 12:00 AM PST) + +-------+ + + + | Component | Value | Ref Range | Performed | Pathologist | | | | | At | Signature | + +-------+ + + + | Magnesium | 1.9 | mg/dL | EXTERNAL | | | | | | LAB | | + +-------+ + + + + + | Specimen | + + | Blood specimen | | (specimen) | + + + +---------+ + + | Performing | Address | City/State/Zipcode | Phone Number | | Organization | | | | + +---------+ + + | EXTERNAL LAB | | | | + +---------+ + + Renal Function Panel (05/02/2013 12:00 AM PST) + +-------+ + + + | Component | Value | Ref Range | Performed | Pathologist | | | | | At | Signature | + +-------+ + + + | Glucose, | 90 | mg/dL | EXTERNAL | | | Fasting | | | LAB | | + +-------+ + + + | BUN | 11 | mg/dL | EXTERNAL | | | | | | LAB | | + +-------+ + + + | Creatinine | 0.89 | mg/dL | EXTERNAL | | | | | | LAB | | + +-------+ + + + | PHOSPHORUS | | mg/dL | EXTERNAL | | | | | | LAB | | + +-------+ + + + | Albumin | 3.5 | | EXTERNAL | | | | | | LAB | | + +-------+ + + + | Na | 139 | mmol/L | EXTERNAL | | | | | | LAB | | + +-------+ + + + | K | 4.1 | mmol/L | EXTERNAL | | | | | | LAB | | + +-------+ + + + | Cl | 105 | mmol/L | EXTERNAL | | | | | | LAB | | + +-------+ + + + | CO2 | 25 | mmol/L | EXTERNAL | | | | | | LAB | | + +-------+ + + + | Anion Gap | 16.1 | mmol/L | EXTERNAL | | | | | | LAB | | + +-------+ + + + | eGFR if not | | | EXTERNAL | | | | | | LAB | | | PERUVIAN | | | | | + +-------+ + + + | Phosphorus, | 3.8 | | EXTERNAL | | | Inorganic | | | LAB | | + +-------+ + + + | BUN/Creatin | 12.4 | | EXTERNAL | | | ine Ratio | | | LAB | | + +-------+ + + + | Calcium | 8.8 | mg/dL | EXTERNAL | | | | | | LAB | | + +-------+ + + + | Estimated | 93 | mg/dL | EXTERNAL | | | GFR | | | LAB | | + +-------+ + + + + + | Specimen | + + | Blood specimen | | (specimen) | + + + +---------+ + + | Performing | Address | City/State/Zipcode | Phone Number | | Organization | | | | + +---------+ + + | EXTERNAL LAB | | | | + +---------+ + + Comprehensive Metabolic Panel (05/02/2013 12:00 AM PST) + +-------+ + + + | Component | Value | Ref Range | Performed | Pathologist | | | | | At | Signature | + +-------+ + + + | Glucose, | 94 | mg/dL | EXTERNAL | | | Fasting | | | LAB | | + +-------+ + + + | BUN | 11 | mg/dL | EXTERNAL | | | | | | LAB | | + +-------+ + + + | Creatinine | 0.92 | mg/dL | EXTERNAL | | | | | | LAB | | + +-------+ + + + | BUN/Creatin | 12.0 | | EXTERNAL | | | ine Ratio | | | LAB | | + +-------+ + + + | Calcium | 8.8 | mg/dL | EXTERNAL | | | | | | LAB | | + +-------+ + + + | Protein, | 6.3 | g/dL | EXTERNAL | | | Total | | | LAB | | + +-------+ + + + | Albumin | 3.6 | | EXTERNAL | | | | | | LAB | | + +-------+ + + + | Globulin | 2.7 | | EXTERNAL | | | | | | LAB | | + +-------+ + + + | A/G Ratio | 1.3 | | EXTERNAL | | | | | | LAB | | + +-------+ + + + | Bilirubin | 1.1 | mg/dL | EXTERNAL | | | Total | | | LAB | | + +-------+ + + + | ALP, | 111 | | EXTERNAL | | | External | | | LAB | | + +-------+ + + + | ALT | 11 | U/L | EXTERNAL | | | | | | LAB | | + +-------+ + + + | AST | 12 | U/L | EXTERNAL | | | | | | LAB | | + +-------+ + + + | Na | 139 | mmol/L | EXTERNAL | | | | | | LAB | | + +-------+ + + + | K | 4.2 | mmol/L | EXTERNAL | | | | | | LAB | | + +-------+ + + + | Cl | 103 | mmol/L | EXTERNAL | | | | | | LAB | | + +-------+ + + + | CO2 | 29 | mmol/L | EXTERNAL | | | | | | LAB | | + +-------+ + + + | Anion Gap | 11.2 | mmol/L | EXTERNAL | | | | | | LAB | | + +-------+ + + + | Estimated | 90 | mg/dL | EXTERNAL | | | GFR | | | LAB | | + +-------+ + + + + + | Specimen | + + | Blood specimen | | (specimen) | + + + +---------+ + + | Performing | Address | City/State/Zipcode | Phone Number | | Organization | | | | + +---------+ + + | EXTERNAL LAB | | | | + +---------+ + + documented in this encounter Visit Diagnoses Not on filedocumented in this encounter Additional Health Concerns + + + + | Infection | Noted Time | Resolved Time | + + + + | Methicillin-resistant Staphylococcus aureus | 12/13/2012 12:00 AM | | | | PDT | | + + + + documented as of this encounter"
--- OUTSIDE RECORDS SUMMARY | ~2019-04-09 | XMS | Encounter Summary ---
Demographics + + + | Address | [address] | | | [place] [address] | + + + | Home Phone | | + + + | Preferred Language | Unknown | + + + | Marital Status | Single | + + + | Taoism Affiliation | 1041 | + + + | Race | Unknown | + + + | Ethnic Group | Unknown | + + + Author + + + | Author | [facility] | | | and [place] | + + + | Organization | [facility] | | [...] Team Providers + +------+ + | Care C 13 Catapult Operator Name | Role | Phone | + +------+ + PCP | Unavailable | + +------+ + Encounter Details +--------+ + + + + | Date | Type | Department | Care Team | Description | +--------+ + + + + | 06/21/ | Hospital | [facility] | Conversion | Open wound of knee, | | 2013 | Encounter | [facility] | Transaction, | leg (except thigh), | | | | [address] | Provider Unknown | and ankle, | | | | [place] | [phone] | complicated | | | | [place], [place] | | | | | | [address] | | | | | | [phone] | | | +--------+ + + + [...] + + | SETH TABARES LOWER EXTREMITY REFLUX BILATERAL 06/21/2013 1:45 | [...] Note | + + | Dennis Azul Conversion - 11/17/2018 12:43 PM PDT SETH KEATON LOWER EXTREMITY REFLUX | | BILATERAL06/21/2013 1:45 PM HISTORY:62 years. Male. TECHNIQUE:Bilateral lower [...]
--- OUTSIDE RECORDS SUMMARY | ~2019-04-09 | XMS | Encounter Summary ---
Demographics + + + | Address | [address] | | | [place] [address] | + + + | Home Phone | | + + + | Preferred Language | Unknown | + + + | Marital Status | Single | + + + | Uatsdin Affiliation | 1041 | + + + | Race | Unknown | + + + | Ethnic Group | Unknown | + + + Author + + + | Author | [facility] | | | and [place] | + + + | Organization | [facility] | | | [...] Team Providers + +------+ + | Care Business Continuity Planner Name | Role | Phone | + +------+ + PCP | Unavailable | + +------+ + Encounter Details +--------+ + + + + | Date | Type | Department | Care Team | Description | +--------+ + + + + | 06/14/ | Hospital | [facility] | Conversion | Open wound of knee, | | 2013 | Encounter | [facility]ICAL [facility]ENTER | Transaction, | leg (except thigh), | | | | [address] | Provider Unknown | and ankle, | | | | [place] | [phone] | complicated | | | | [place], [place] | | | | | | [address] | | | | | | [phone] | | | +--------+ + + + [...] + +--------+ + + + | VAS ANKLE BRACHIAL | Routin | 06/14/2013 | | Results for this | | INDEX RESTING | e | 5:29 PM | | procedure are in the | | | | PDT | | results section. | + +--------+ + + + documented in this encounter Results VAS Ankle Brachial Index Resting (06/14/2013 5:29 PM PDT) + + | Specimen | + + | | + + + + + | Impressions | Performed At | + + + | 1. Marked reduction right TBI, clearly ischemic at 0.21. Other | | | stations inquired are normal | | + + + + + + | Narrative | Performed At | + + + | SETH TABARES SANIYA RESTING 06/14/2013 5:29 PM HISTORY: 62 | | | years. Male. Patient has an open and in the knee. Evaluate for | | | vascular compromise. SANIYA and TBI request TECHNIQUE: Bilateral SANIYA | | | and TBI acquired with right brachial artery of the index vessel. Left | | | brachial artery is 0.91. COMPARISON: None FINDINGS: Right | | | posterior tibialis 1.03, right dorsalis pedis 1.08 and the right TBI | | | is 0.21. Left posterior tibialis SANIYA is 1.01 and the left dorsalis | | | pedis is 1.13. Left TBI 0.83. The right TBI is only 0.21. A small | | | phasic pulse is seen in the right great toe; a better pulse is seen on | | | the left side. | | + + + + + | Procedure Note | + + | Dennis Azul Conversion - 11/17/2018 12:43 PM PDT SETH PUGH SANIYA RESTING06/14/2013 | | 5:29 PM HISTORY:62 years. Male. Patient has an open and in the knee. Evaluate for | | vascular compromise. SANIYA and TBI request TECHNIQUE:Bilateral SANIYA and TBI acquired with | | right brachial artery of the index vessel. Left brachial artery is 0.91. COMPARISON:None | | FINDINGS:Right posterior tibialis 1.03, right dorsalis pedis 1.08 and the right TBI is | | 0.21. Left posterior tibialis SANIYA is 1.01 and the left dorsalis pedis is 1.13. Left TBI | | 0.83. The right TBI is only 0.21. A small phasic pulse is seen in the right great toe; a | | better pulse is seen on the left side. IMPRESSION: 1. Marked reduction right TBI, | | clearly ischemic at 0.21. Other stations inquired are normal | |COMPARISON: | |None | | | |FINDINGS: | |Right posterior tibialis 1.03, right dorsalis pedis 1.08 and the right TBI is 0.21. | | | |Left posterior tibialis SANIYA is 1.01 and the left dorsalis pedis is 1.13. Left TBI 0.83. The right TBI is only 0.21. A small phasic pulse is seen in the right great toe; a better pulse is seen on the left side. | | | |IMPRESSION: | |1. Marked reduction right TBI, clearly ischemic at 0.21. Other stations inquired are monica l | | | | | + + [...]
--- OUTSIDE RECORDS SUMMARY | ~2019-04-09 | XMS | Encounter Summary ---
Demographics + + + | Address | [address] | | | [place] [address] | + + + | Home Phone | | + + + | Preferred Language | Unknown | + + + | Marital Status | Single | + + + | Scientology Affiliation | 1041 | + + + | Race | Unknown | + + + | Ethnic Group | Unknown | + + + Author + + + | Author | [facility] | | | and [place] | + + + | Organization | [facility] | | | [...] Team Providers + +------+ + | Care Boring Mill Set Up Operator Name | Role | Phone | + +------+ + PCP | Unavailable | + +------+ + Encounter Details +--------+ + + + + | Date | Type | Department | Care Team | Description | +--------+ + + + + | 07/19/ | Hospital | [facility] | Jaziel Billy, | Venous insufficiency | | 2013 | Encounter | CENTER OUTPATIENT | MD [place] | | | | | WOUND CARE [address] | [facility] [place], | | | | | [place] | [place] [address] | | | | | [address] | [phone] | | | | | [phone] | | | +--------+ + + + [...] encounter Progress Notes Jaziel Billy MD - 07/19/2013 1:41 PM PDTFormatting of this note might be different fro m the original. Progress Notes by Jaziel Billy MD at 07/19/13 7321 Author: Jaziel Billy MD Service: (none) Author Type: Physician Filed: 07/19/13 0604 Encounter Date: 07/19/2013 Status: Addendum Sugar Grinder: Jaziel Billy MD (Physician) Related Notes: Original Note by Jaziel Billy MD (Physician) filed at 07/19/13 7463 Subjective: Jono Tabares is a 63 y.o. male who presents for follow up for wound healing. He reports th at the wound has been doing well. He reports that he has been compliant with his treatment regimen. See flowsheet for measurements and specific treatment data. Review of Systems Constitutional: negative Respiratory: negative Cardiovascular: negative Gastrointestinal: negative Integument/breast: wound closing Objective: General appearance: alert, appears stated age and cooperative Head: Normocephalic, without obvious abnormality, atraumatic Musculoskeletal: there is no redness, warmth, or swelling of the joints Skin: wound closing Assessment / Plan: [place] ulcer tissues examined. There is no induration, no change noted signs of skin breakdo wn, is no tenderness, is no redness, is [...] base of the ulcer. Pt had a small amount of bleeding controlled w/pressure. Pt tolerated procedure well. See f theodore for wound details (pre and post). No exposed tendon, muscle or bone noted. Dressing applied by nursing. Pt to f/u as scheduled.more wounds opening will try 2 layer wrap bilate rally onversio n Transaction, Provider Unknown - 07/19/2013 1:04 PM PDTFormatting of this note might be di fferent from the original. Progress Notes by Leon Pierre RN at 07/19/13 6912 Author: Leon Pierre RN Service: (none) Author Type: Registered Nurse Filed: 07/19/13 2874 Encounter Date: 07/19/2013 Status: Signed Sugar Grinder: Leon Pierre RN (Registered Nurse) Jono Tabares is a [...] prescribed: yes Offloading in place as prescribed: N/A Footwear in place on this visit: Slipper: PERLITA SAW DR. ENGEL TODAY. PATIENT REPORTS THAT DR. ENGEL WANTS HIM TO WEAR COMPRESSION WRAPS AT ALL TIMES BILATERAL LOWER LEGS. docume nted in this encounter Plan of [...]
--- OUTSIDE RECORDS SUMMARY | ~2019-04-09 | XMS | Encounter Summary ---
Demographics + + + | Address | [address] | | | [place] [address] | + + + | Home Phone | | + + + | Preferred Language | Unknown | + + + | Marital Status | Single | + + + | Anglican Affiliation | 1041 | + + + | Race | Unknown | + + + | Ethnic Group | Unknown | + + + Author + + + | Author | [facility] | | | and [place] | + + + | Organization | [facility] | | [...] Team Providers + +------+ + | Care Wheel Roller Name | Role | Phone | + +------+ + PCP | Unavailable | + +------+ + Encounter Details +--------+ + + + + | Date | Type | Department | Care Team | Description | +--------+ + + + + | 08/16/ | Hospital | [facility] | Jaziel Billy, | Ulcer of leg, | | 2013 | Encounter | CENTER OUTPATIENT | MD Umm AMADOR | chronic, left, | | | | WOUND CARE [address] | [facility] [place], | limited to breakdown | | | | [place] | [place] [address] | of skin (HCC) | | | | [address] | [phone] | | | | | [phone] | | | +--------+ + + + [...] documented as of this encounter Progress Notes Jaizel Billy MD - 08/16/2013 1:42 PM PDTFormatting of this note might be different fro m the original. Progress Notes by Jaziel Billy MD at 08/16/13 9995 Author: Jaziel Billy MD Service: (none) Author Type: Physician Filed: 08/16/13 0536 Encounter Date: 08/16/2013 Status: Signed Educational Technology Coordinator: Jaziel Billy MD (Physician) Subjective: Jono [...] Cardiovascular: negative Gastrointestinal: negative Integument/breast: wound closing new wounds on left leg Objective: General appearance: alert, appears stated age and cooperative Head: Normocephalic, without obvious abnormality, atraumatic Musculoskeletal: there is no redness, warmth, or swelling of the joints Skin: wound has edema blebs and open wounds Assessment / Plan: [place] ulcer tissues examined. There is induration, is no signs of skin breakdown, is no ten derness, is redness, is no odor, is no discharge. [...] scheduled. onversio n Transaction, Provider Unknown - 08/16/2013 12:32 PM PDTFormatting of this note might be di fferent from the original. Progress Notes by Elaine Bach RN at 08/16/13 5709 Author: Elaine Bach RN Service: (none) Author Type: Registered Nurse Filed: 08/16/13 1232 Encounter Date: 08/16/2013 Status: Signed Educational Technology Coordinator: Elaine Bach RN (Registered Nurse) Jono Tabares is a 63 y.o. male who presents today for Wound Care visit. He presents alone . He arrived: Wheelchair. Transfer Assistance: Manual Patient identification verified: yes Secondary verification process completed: yes Patient in isolation precaution: no If yes, what kind?: na Fall Risk Assessment reviewed: yes Experienced any changes in pain level or management since last visit?: no Any signs or symptoms of abuse and/or neglect?: no Hospitalized since last visit: no Dressing in place as prescribed: yes Compression in place as prescribed: yes Offloading in place as prescribed: yes Footwear in place on this visit: Other Footwear: slippers docume fernandes in this encounter Plan of Treatment Not on filedocumented as of this encounter Visit Diagnoses + + | Diagnosis | + + | Ulcer of leg, chronic, left, limited to breakdown of skin (HCC) | [...]
--- OUTSIDE RECORDS SUMMARY | ~2019-04-09 | XMS | Encounter Summary ---
Demographics + + + | Address | [address] | | | [place] [address] | + + + | Home Phone [...] + + + | Author | [facility] | | | and [place] | + + + | Organization | [facility] | | [...] Team Providers + +------+ + | Care Civil Engineer'S Aide Name | Role | Phone | + +------+ + PCP | Unavailable | + +------+ + Encounter Details +--------+ + + + + | Date | Type | Department | Care Team | Description | +--------+ + + + + | 10/18/ | Hospital | [facility] | Jaziel Billy, | Ulcer of leg, | | 2013 | Encounter | CENTER OUTPATIENT | MD Umm AMADOR | chronic, unspecified | | | | WOUND CARE [address] | [place], | laterality, limited | | | | [place] | [place] [address] | to breakdown of | | | | [address] | [phone] | skin (HCC) | | | | [phone] | | | +--------+ + + + [...] encounter Progress Notes Jaziel Billy MD - 10/18/2013 1:03 PM PDTFormatting of this note might be different fro m the original. Progress Notes by Jaziel Billy MD at 10/18/13 2114 Author: Jaziel Billy MD Service: (none) Author Type: Physician Filed: 10/25/13 1093 Encounter Date: 10/18/2013 Status: Addendum Tire Mechanic: Jaziel Billy MD (Physician) Related Notes: Original Note by Jaziel Billy MD (Physician) filed at 10/18/13 5665 Subjective: Jono Tabares is a 63 y.o. male who presents for follow up for wound healing. He reports th at the wound has been doing well. He reports that he has been compliant with his treatment regimen. See flowsheet for measurements and specific treatment data. Review of Systems Constitutional: negative Respiratory: negative Cardiovascular: negative Gastrointestinal: negative Integument/breast: legs no discharge for several days Objective: General appearance: alert, appears stated age and cooperative Head: Normocephalic, without obvious abnormality, atraumatic Musculoskeletal: there is no redness, warmth, or swelling of the joints Skin: wounds closed except small area 1cm on left cafv that is bloody Assessment / Plan: [place] ulcer tissues examined. There is induration, is signs of skin breakdown, is no tender ness, is redness, is no odor, is no discharge. Wound healed no debridement needed. Continue with dressings with home health in [place] . recheck here soul new wounds develop or per provider . You are still our patient for 30 days . YConlc Venegas, Provider Unknown - 10/18/2013 12:31 PM PDTFormatting of this note might be di fferent from the original. Progress Notes by Joann Leigh RN at 10/18/13 1231 Author: Joann Leigh RN Service: (none) Author Type: Registered Nurse Filed: 10/18/13 1238 Encounter Date: 10/18/2013 Status: Signed Tire Mechanic: Joann Leigh RN (Registered Nurse) Jono Tabares is a [...] prescribed: yes Offloading in place as prescribed: na Footwear in place on this visit: Other Footwear: na docume nted in this encounter Plan of [...]
--- OUTSIDE RECORDS SUMMARY | ~2019-04-09 | XMS | Encounter Summary ---
Demographics + + + | Address | [address] | | | [place] [address] | + + + | Home Phone | | + + + | Preferred Language | Unknown | + + + | Marital Status | Single | + + + | Pentecostalism Affiliation | 1041 | + + + | Race | Unknown | + + + | Ethnic Group | Unknown | + + + Author + + + | Author | [facility] | | | and [place] | + + + | Organization | [facility] | | | [...] Team Providers + +------+ + | Care English Language Arts Teacher Name | Role | Phone | + +------+ + PCP | Unavailable | + +------+ + Encounter Details +--------+ + + + + | Date | Type | Department | Care Team | Description | +--------+ + + + + | 10/04/ | Hospital | [facility] | Jaziel Billy, | Ulcer of leg, | | 2013 | Encounter | CENTER OUTPATIENT | MD Umm AMADOR | chronic, left, | | | | WOUND CARE [address] | [facility] [place], | limited to breakdown | | | | [place] | [place] [address] | of skin (HCC) | | | | [address] | [phone] | | | | | [phone] | | | +--------+ + + + [...] encounter Progress Notes Jaziel Billy MD - 10/04/2013 3:23 PM PDTFormatting of this note might be different fro m the original. Progress Notes by Jaziel Billy MD at 10/04/13 1523 Author: Jaziel Billy MD Service: (none) Author Type: Physician Filed: 10/04/13 1525 Encounter Date: 10/04/2013 Status: Signed Continuous Mining Machine Coal Miner: Jaziel Billy MD (Physician) Subjective: Jono Tabares [...] Head: Normocephalic, without obvious abnormality, atraumatic Musculoskeletal: full range of motion noted Skin: wound closing Assessment / Plan: [place] [...] scheduled. onversio n Transaction, Provider Unknown - 10/04/2013 12:32 PM PDTFormatting of this note might be di fferent from the original. Progress Notes by Nyasia Graham RN at 10/04/13 1142 Author: Nyasia Graham RN Service: (none) Author Type: Registered Nurse Filed: 10/04/13 1525 Encounter Date: 10/04/2013 Status: Signed Continuous Mining Machine Coal Miner: Nyasia Graham RN (Registered Nurse) Jono Tabares is a 63 y.o. male who presents today for Wound Care visit. He presents accom panied by train driver. He arrived: Wheelchair. Transfer Assistance: None [...] yes Compression in place as prescribed: tubi oracle fusion middleware architect Offloading in place as prescribed: n/a Footwear in place on this visit: Other Footwear: socks Patient was wearing compression socks provided by Dr. Steele; new wounds noted with compressio n; has not been wearing them this week because of deterioration with them. Has been wearing tubigrips. Ronal fernandes in this encounter Plan of [...]
--- OUTSIDE RECORDS SUMMARY | ~2019-04-09 | XMS | Encounter Summary ---
Demographics + + + | Address | [address] | | | [place] [address] | + + + | Home Phone | | + + + | Preferred Language | Unknown | + + + | Marital Status | Single | + + + | Jain Affiliation | [id number] | + + + [...] Team Providers + +------+ + | Care Shingles Roofer Name | Role | Phone | + +------+ + PCP | Unavailable | + +------+ + Encounter Details +--------+ + + + + | Date | Type | Department | Care Team | Description | +--------+ + + + + | 12/12/ | Hospital | [facility] | Alexx Boyd MD | Urosepsis; Chest | | 2012 - | Encounter | [facility] | [address] | pain; Hip pain, | | | | CLINICAL DECISION | RYAN Wilson | chronic; Acute | | 12/16/ | | [address] | [address] | kidney injury ([facility]); | | 2012 | | [place], [place] | | Morbid obesity | | | | [address] | | ([facility]); Septic shock | | | | [phone] | | ([facility]); Urinary tract | | | | | | infection, site not | | | | | | specified | +--------+ + + + + Social [...] + + documented as of this encounter Discharge Summaries Pete Fish - 12/16/2012 10:00 AM PDT Discharge Summaries by Pete Fish MD at 12/16/12 1000 Author: Pete Fish MD Service: Hospitalist Author Type: Physician Filed: 12/16/12 1002 Date of Service: 12/16/12 1000 Status: Signed Machine Silk Screen Printer: Pete Fish MD (Physician) [facility] Service: Hospitalist Physician Discharge Summary Pt: Seth Tabares AGE/SEX: 62 y.o. male ROOM: [facility]317-1 PCP: ABRAN VALDOVINOS : 1950 Admit date: 12/12/2012 Discharge date and time: 12/16/2012 10:01 AM Admitting Physician: Alexx Boyd MD Discharge Physician: Pete Fish MD Consults: Nill Primary Discharge Diagnoses: Morbid obesity [278.01] Urinary tract infection, site not specified [599.0] Septic shock [785.52] Urosepsis [599.0] Chest pain [786.50] Acute kidney injury [584.9] Hip pain, chronic [719.45] Secondary Discharge Diagnoses: Nill Discharged Condition: stable Significant Diagnostic Studies: Ct Abdomen Pelvis Without Contrast 12/13/2012 1. Inflammatory or irregular 8 mm nodule in the posterior right lung. 2. Sever e destructive and remodeled cystic change to both femoral acetabular joints 3. No hydroneph rosis, but some equivocal perinephric fat changes and a 13 x 7 mm calcification in the pelvi s of the left kidney, which could be explanatory to some symptoms described above. Electron ically signed by Bran Juarez MD on 12/13/2012 12:34 PM X-ray Chest 1 View 12/14/2012 1. Stable position of right IJ central catheter. 2. Improvement in peribronchi al thickening which suggests improvement in edema or bronchitis. 3. There is a residual sma ll right pleural effusion or scarring. Electronically signed by Remi Shelley MD on 12/03 7:49 AM HPI and Hospital Course: The patient is a 62 y.o. male with significant past medical history of OA, GERD presents wi th generalised weakness to [facility] in [place] Pt had a fever of 101.3, maintained a BP over 100 systolic per EMS and admitted to ICU with Sepsis From E-Coli UTI Septic shock due to E-Coli Urinary tract infection: Resolved. velazquez sensitive E-coli and will continue with Cipro for 7 days Morbid obesity: counseled regarding Wt reduction Acute kidney injury: Resolved He Had no CP, SOB, N/V, Diarrhea, Abdominal pain or MOORE. No constipation or change in bowel habits. No orthopnea or PND. Appetite is good without abdominal bloating. No cough or fever. No dizziness, lightheadedness or any symptoms suggestive of stroke. Discharge Vitals: Filed Vitals: 12/15/12 2010 12/15/12 2258 12/16/12 0333 12/16/12 0748 BP: 147/75 145/76 144/68 156/75 Pulse: 68 60 59 60 Temp: 98.5 F (36.9 C) 97.6 F (36.4 C) 97.6 F (36.4 C) 98.5 F (36.9 C) TempSrc: Oral Oral Oral Oral Resp: 18 18 16 16 Height: Weight: 180 kg (396 lb 13.3 oz) SpO2: 96% 96% 98% 93% Discharge Exam: Constitutional: Alert and oriented to person, place, and time. Appears well-developed and w ell-nourished. Cardiovascular: Normal rate, regular rhythm, normal heart sounds with S1 and S2 and intact distal pulses. Exam reveals no gallop and no friction rub. No murmur heard. Pulmonary/Chest: Effort normal and breath sounds normal. No stridor. No respiratory distres s. no wheezes. no rales. exhibits no tenderness. Abdominal: Soft. Bowel sounds are normal. exhibits no distension and no mass. There is no t enderness. There is no rebound and no guarding. Musculoskeletal: Normal range of motion.exhibits no tenderness. exhibits no edema. Neurological: Alert and oriented to person, place, and time. Has normal reflexes. display s normal reflexes. No cranial nerve deficit. Exhibits normal muscle tone. Coordination norm al. Skin: Skin is warm and dry. No rash noted. No erythema. No pallor. Psychiatric: Has a normal mood and affect. Behavior is normal. Judgment normal. LABS: Lab 12/15/128 12/14/12 0416 12/13/12 0233 WBC 6.6 8.7 21.8* HGB 11.6* 11.7* 11.7* HCT 34.6* 34.8* 35.5* PLT 200 190 268 NEUTOPHILPCT 76.5* 83.8* -- MONOPCT 7.6 7.1 -- Lab 12/15/12 0457 12/14/12 1255 12/13/12 0233 12/12/12 2130 NA 137 -- 142 140 K 4.0 4.2 4.0 -- CL 104 -- 109 108 CO2 27 -- 22* 22* BUN 13 -- 22 21 CREATININE 0.63* -- 1.58* 1.85* CALCIUM -- -- -- -- PROT -- -- -- 6.1* BILITOT -- -- -- 1.9* ALKPHOS -- -- -- -- ALT -- -- -- 47 AST -- -- -- 78* GLUCOSE -- -- -- -- Lab 12/15/12 0457 12/14/12 1255 12/14/12 0416 MG 1.8 2.0 2.0 Lab 12/12/12 2130 APTT 35 INR 1.4 PTT -- Lab 12/13/12 1838 12/13/12 1247 12/13/12 0233 CKTOTAL 473* 660* 838* TROPONINI 0.035 0.037 0.083 TROPONINT -- -- -- CKMBINDEX 1.6 1.3 0.9 Disposition: Same facility Patient Instructions: Current Discharge Medication List START taking these medications Details ciprofloxacin (CIPRO) 500 MG tablet Take 1 tablet by mouth 2 (two) times daily. Qty: 14 tablet, Refills: 0 CONTINUE these medications which have CHANGED Details HYDROcodone-acetaminophen (NORCO) 5-325 MG per tablet Take 1 tablet by mouth every 6 (six) hours as needed. Qty: 30 tablet, Refills: 0 Activity: activity as tolerated Diet: regular diet Wound Care: as directed and none needed Discharge took more than 35 minutes, to include final examination, discussion of admission, and preparation of prescriptions, instructions for ongoing care, follow up and dictation of summary. Follow-up with PCP 1 week Signed: PETE FISH MD 12/16/2012 10:01 AM documented in this encount er Progress Notes Conversion Transaction, Provider Unknown - 12/16/2012 4:15 PM PDTFormatting of this note m ight be different from the original. Progress Notes by Ignacio Tobar RN at 12/16/12 6235 Author: Ignacio Tobar RN Service: (none) Author Type: Registered Nurse Filed: 12/16/12 5750 Date of Service: 09/14/13 1615 Status: Signed Machine Silk Screen Printer: Ignacio Tobar RN (Registered Nurse) Pt VSS. Pt transported to [place] by [facility]. Pt has no complaints at this time. IGNACIO VILLANUEVA RN onver keith Transaction, Provider Unknown - 12/15/2012 5:58 PM PDT Progress Notes by Cady Collins RN at 12/15/121757 Author: Cady Collins RN Service: (none) Author Type: Registered Nurse Filed: 12/15/12 180 Date of Service: 12/15/121757 Status: Signed Machine Silk Screen Printer: Cady Collins RN (Registered Nurse) Pt up in chair for most of morning shift. Pt worked with PT and is looking forward to worki ng with PT tomorrow. Medicated with tylenol for hip pain which was ineffective and was given Percocet with good relief. Vital signs stable. Will continue to monitor. Cady Collins RN onver keith Transaction, Provider Unknown - 12/15/2012 2:35 PM PDT Case Management by Ruth Giron RN at 12/15/12 1435 Author: Ruth Giron RN Service: (none) Author Type: Registered Nurse Filed: 12/15/12 1440 Date of Service: 12/15/12 1435 Status: Signed Machine Silk Screen Printer: Ruth Giron RN (Registered Nurse) Discharge Planning: Called [facility] ph: [phone] and spoke to Luna pa re: transport back to [facility] in [place], [place]. Milo stated pt is in their syste m and is eligible to receive free rides under his [facility] ([facility] [employer]) . After several calls-Milo called back and stated that d/t to issues surrounding pt's requi ring at least 2 person max assist for transfers, requiring a W/C (they do not provide), requ iring oxygen they would not be able to provide transportation over the weekend. They do not have adequate staff over the weekend to provide this level of transportation-however, if pt discharges on Tuesday they will likely be able to provide ride (pt or [facility] will still need t o provide W/C and 02 will need to be arranged). Milo recommended that pt be transferred to [place] via ambulance. Will notify MD. RUTH GIRON 12/15/2012 2:40 PM onver keith Transaction, Provider Unknown - 12/15/2012 1:14 PM PDT Case Management by Ruth Giron RN at 12/15/12 1314 Author: Ruth Giron RN Service: (none) Author Type: Registered Nurse Filed: 12/15/12 2044 Date of Service: 12/15/124 Status: Signed Machine Silk Screen Printer: Ruth Giron RN (Registered Nurse) Discharge Planning: Received return call from Manny at [facility] in [place], [place]. Stated they have obta ined insur auth from [facility] for pt to return to [facility]. Manny stated they will accept pt over weekend. SNF paperwork placed on chart-MD needs to s ign. Dr. Ravi will be accepting MD at [facility], MD to MD call is not needed per Manny. If pt is discharged over weekend, please call Manny #[phone] and she will coordinate admit time with their charge nurse. Please fax completed orders and copies of prescription s, and updated MD notes/dc summary to [facility] fax#[phone]. RUTH GIRON 12/15/2012 1:28 PM onver keith Transaction, Provider Unknown - 12/15/2012 11:07 AM PDT Case Management by Ruth Giron RN at 12/15/12 7577 Author: Ruth Giron RN Service: (none) Author Type: Registered Nurse Filed: 12/15/12 1116 Date of Service: 12/15/12 1107 Status: Signed Machine Silk Screen Printer: Ruth Giron RN (Registered Nurse) Discharge Planning: Per MD, anticipate possible discharge tomorrow (12/16/12). Reviewed previous CRM notes. Met w/pt in room to discuss dc plan. Pt sitting up in chair, A/O, pleasant, conversant. Stated he has been living at [facility] prior to admit to hospital. He would like to return to [facility] until he gets stronger, then possibly go to an [facility] in the future. Discussed transportation-stated his friend Ingrid Patel ph#[phone] may be able to give him a ride-called this no# left VM, requested he call myself or pt re: if she can provide t ransportation. Pt stated he also has a friend Scott Palafox who is the deacon of his scientology ph#[phone] who may be able to help if Ingrid can't. Stated he has a couple of other friends but does n ot have their phone numbers. Briefly discussed cost of taxi, keenan, w/c taxi-stated he cannot afford to pay anything for a ride. Called Manny-transfer coordinator at [facility] [phone]-stated they will accept pt back to their facility pending auth from [facility] (she will try to obtain auth to day). Faxed MD Tika notes to [place] fax# [phone]. Awaiting call from [place] re: final acceptance/insurance auth. RUTH GIRON 12/15/2012 11:16 AM Pete Nogueira 12/15/2012 9:41 AM PDTFormatting of this note might be different from the marylu chandra. Progress Notes by Pete Fish MD at 12/15/12 0941 Author: Pete Fish MD Service: Hospitalist Author Type: Physician Filed: 12/15/12 0956 Date of Service: 12/15/12 0941 Status: Signed Machine Silk Screen Printer: Pete Fish MD (Physician) [facility] Service: Hospitalist Progress Note Pt: Seth Tabares AGE/SEX: 62 y.o. male ROOM: 317/317-1 : 1950 PCP: ABRAN VALDOVINOS ADMIT DATE: 12/12/2012 TODAY'S DATE: 12/15/2012 Hospital Day/Hospital Course: LOS: 3 days The patient is a 62 y.o. male with significant past medical history of OA, GERD presents wi th generalised weakness to [facility] in [place] Pt had a fever of 101.3, maintained a BP over 100 systolic per EMS and admitted to ICU with Sepsis From E-Coli UTI SUBJECTIVE: Patient seen and examine. He is feeling better and showed concern about safe DC plan. No c hest pain, SOB, MOORE. No cough on recumbency. Had no orthopnea or PND. No Abdominal pain, N/V or fever. Still feeling tired and fatigued. No dizziness or lightheadedness. Scheduled Medications: cefTRIAXone 1 g Intravenous Q24H docusate sodium 100 mg Oral BID Or docusate 100 mg Oral BID heparin (porcine) 5,000 Units Subcutaneous Q8H lidocaine buffered 1% 0.5 mL Intradermal Once sodium chloride 10 mL Intravenous Q8H DISCONTD: chlorhexidine gluconate 15 mL Mouth/Throat Q12H Continuous Infusions lactated ringers 75 mL/hr at 12/15/12 0759 DISCONTD: norepinephrine in D5W 64 mcg/mL Stopped (12/13/12 0530) PRN Medications acetaminophen, acetaminophen, HYDROcodone-acetaminophen, HYDROcodone-acetaminophen, lip herb sturizer, nystatin, ondansetron, ondansetron, petrolatum, DISCONTD: magnesium sulfate, DISCO NTD: magnesium sulfate, DISCONTD: magnesium sulfate, DISCONTD: nystatin, DISCONTD: potassium chloride, DISCONTD: potassium chloride, DISCONTD: potassium chloride, DISCONTD: sodium glyc erophosphate IVPB 20 mMol, DISCONTD: sodium glycerophosphate IVPB 45 mMol Allergy: No Known Allergies OBJECTIVE: Vitals: Patient Vitals for the past 24 hrs: BP Temp Temp src Pulse Resp SpO2 Height Weight 12/15/12 0726 143/67 mmHg 98.4 F (36.9 C) Oral 69 18 92 % - - 12/15/12 0600 - - - - - - - 181 kg (399 lb 0.5 oz) 12/15/12 0432 142/68 mmHg 97.9 F (36.6 C) Oral 60 18 97 % - - 12/15/12 0024 135/74 mmHg 98.7 F (37.1 C) Oral 62 20 93 % - - 12/14/12 1908 131/71 mmHg 98 F (36.7 C) Oral 75 20 94 % - - 12/14/12 1448 104/56 mmHg 98.7 F (37.1 C) Oral 64 20 96 % - - 12/14/12 1100 105/56 mmHg 97.9 F (36.6 C) Oral 77 20 95 % 1.727 m (5' 8") 181.2 kg (3 99 lb 7.6 oz) 12/14/12 1000 109/54 mmHg - - 73 - 97 % - - I&O Detailed Table: Intake/Output Summary (Last 24 hours) at 12/15/12 0941 Last data filed at 12/15/12 0833 Gross per 24 hour Intake 3462.53 ml Output 2850 ml Net 612.53 ml Patient Vitals for the past 96 hrs: Weight 12/15/12 0600 181 kg (399 lb 0.5 oz) 12/14/12 1100 181.2 kg (399 lb 7.6 oz) 12/14/12 0407 180.8 kg (398 lb 9.5 oz) 12/13/12 0400 178.6 kg (393 lb 11.9 oz) 12/13/12 0000 178.6 kg (393 lb 11.9 oz) 12/12/12 2120 181.439 kg (400 lb) Hemodynamics Last 24hrs: Physical Examination: Constitutional: Alert and oriented to person, place, and time. Appears well-developed and w ell-nourished. HEENT: Neck supple, no JVD, non icteric sclera. Cardiovascular: Normal rate, regular rhythm, normal heart sounds with S1 and S2, and intact distal pulses. Exam reveals no gallop and no friction rub. No murmur heard. Pulmonary/Chest: Effort normal and breath sounds normal. No stridor. No respiratory distres s. no wheezes. no rales. exhibits no tenderness. Abdominal: Obese. Soft. Bowel sounds are normal. exhibits no distension and no mass. There is no tenderness. There is no rebound and no guarding. Extremeties/Musculoskeletal: Normal range of motion.exhibits no tenderness. exhibits no ed pamella. Neurological: Alert and oriented to person, place, and time. Has normal reflexes. display s normal reflexes. No cranial nerve deficit. Exhibits normal muscle tone. Coordination norm al. Skin: Skin is warm and dry. No rash noted. No erythema. No pallor. Psychiatric: Has a normal mood and affect. Behavior is normal. Judgment normal. LABS: Lab 12/15/128 12/14/12 0416 12/13/12 0233 WBC 6.6 8.7 21.8* HGB 11.6* 11.7* 11.7* HCT 34.6* 34.8* 35.5* PLT 200 190 268 NEUTOPHILPCT 76.5* 83.8* -- MONOPCT 7.6 7.1 -- Lab 12/15/12 0457 12/14/12 1255 12/13/12 0233 12/12/12 2130 NA 137 -- 142 140 K 4.0 4.2 4.0 -- CL 104 -- 109 108 CO2 27 -- 22* 22* BUN 13 -- 22 21 CREATININE 0.63* -- 1.58* 1.85* CALCIUM -- -- -- -- PROT -- -- -- 6.1* BILITOT -- -- -- 1.9* ALKPHOS -- -- -- -- ALT -- -- -- 47 AST -- -- -- 78* GLUCOSE -- -- -- -- Phosphorus: Lab Results Component Value Date PHOS 2.0* 12/15/2012 Lab 12/15/127 12/14/12 1255 12/14/12 0416 MG 1.8 2.0 2.0 Lab 12/12/12 2130 APTT 35 INR 1.4 PTT -- Lab 12/13/12 1838 12/13/12 1247 12/13/12 0233 CKTOTAL 473* 660* 838* TROPONINI 0.035 0.037 0.083 TROPONINT -- -- -- CKMBINDEX 1.6 1.3 0.9 PROBLEM LIST Active Problems: Septic shock Urinary tract infection, site not specified Morbid obesity Acute kidney injury ASSESSMENT & PLAN The patient is a 62 y.o. male with significant past medical history Of OA, GERD presents w ith generalised weakness to [facility] in [place] Pt had a fever of 101.3, maintained a BP over 100 systolic per EMS and admitted to ICU with Sepsis From E-Coli UTI Septic shock due to E-Coli Urinary tract infection: Resolved. velazquez sensitive E-coli and will continue with ceftriaxone for now. Morbid obesity: counseled regarding Wt reduction Acute kidney injury: Resolved SENIOR STAFF PSYCHOLOGIST to initiate the DC plan PETE FISH MD, FACP 12/15/2012 9:41 AM onversion Transaction, Pr ovider Unknown - 12/15/2012 8:15 AM PDT Progress Notes by Meño Miller PT at 12/15/12814 Author: Meño Miller PT Service: (none) Author Type: Physical Therapist Filed: 12/15/12916 Date of Service: 12/15/12814 Status: Signed Machine Silk Screen Printer: Meño Miller PT (Physical Therapist) 12/15/12814 PT Last Visit PT Received On 12/15/12 Requires PT Follow Up Yes Follow up PT Only? No Assistance Required 2 person Other Comments Comments Pt. seems to be in better spirits today. Pt. reports 3/10 pain in L hip/knee. BP is 143/67, HR 67. After activity HR is 79 bpm. SpO2 97 on 2L. Pt. tolerated activity dewey r. Amb'd approx. 15 ft. w/ multiple standing rest breaks for 3-4 minutes each. Pt. amb'd a total of 60 ft. using FWW and modA from PT. PT tech followed close behind w/ chair/IV pole . Cognition Overall Cognitive Status WFL Bed Mobility Supine to Sit Max assist (BLEs OOB & trunk to upright);x 2 person Scooting Moderate assist;Maximal assist Transfers Sit to/from Stand Maximal assist (to arise AND lower);x 2 person Bed to/from Chair Maximal assist (to arise AND lower);x 2 person Mobility Ambulation Assistance Moderate assist;X2;Verbal instruction Maximal Ambulation Distance (feet) 15 Total Ambulation Distance (feet) 60 Distance limited by? Patient's ability Pattern Decreased johann;Right swing foot doesn't pass stance foot;Left swing foot doesn't pass stance foot;Wide base;Forward flexed Assistive Device Walker front wheeled Activity Tolerance Activity Tolerance Patient tolerated treatment without report of fatigue Nurse Made Aware yes Plan Treatment/Interventions Continue per Primary PT POC Progress Progressing toward goals Recommendation Recommendations SNF (rec. continued PT while at SNF) Equipment Recommended Walker front wheeled Alexx Campos MD - 12/14/2012 3:57 AM PDTFormatting of this note might be different from the domenica jh. Progress Notes by Alexx Boyd MD at 12/14/12 0357 Author: Alexx Boyd MD Service: Java J2Ee Application Developer Author Type: Physician Filed: 12/14/12 0704 Date of Service: 12/14/12 035 Status: Addendum Machine Silk Screen Printer: Alexx Boyd MD (Physician) Related Notes: Original Note by Alexx Boyd MD (Physician) filed at 12/14/12 0703 [facility] Service: Java J2Ee Application Developer Progress Note Seth Tabares 62 y.o. Hospital Day: LOS: 2 days Post-Op Day: * No surgery found * Treatment Team: Admitting Provider: Alexx Boyd MD SUBJECTIVE Patient Summary: The patient is a 62 y.o. male with significant past medical history as below who presents with generalised weakness to [facility] in [place] . The pt was a t [facility] around 4 pm with complaints of chest pain, SOB, and nausea. Pt was weak and unable to stand very well per EMS. Pt was treated with 9 liters of normal saline, and 3.375 Zosyn. Pt had a fever of 101.3, maintained a BP over 100 systolic per EMS. While the pt was being transferred his BP was 104/77. Pt did not come with any imaging. Pt indicates that his hips were hurting him from chronic pain but has no other complaints at this time. He also c omplains of pain while urination and occasional blood. He was told by his warehouse hand that he has thickening of his carotid artery. The patient was seen in the Er and he was found to be hypotensive. He was started on presso rs which was increased to current level. The patient is dependent for his activities on the senior care staff due to being obese. ICU TIMELINE:12/13/2012 started in pressors. A line and central line. Managed with ear ly goal directed therapy of sepsis Events Overnight: Patient remained off pressors. He has good urine output . Afebrile PAST MEDICAL HISTORY: Past Medical History Diagnosis Date E. coli sepsis Cellulitis GERD (gastroesophageal reflux disease) Osteoarthrosis PAST SURGICAL HISTORY: Past Surgical History Procedure Date Tonsillectomy Testicle surgery MEDICATION ALLERGIES: No Known Allergies MEDICATIONS PRIOR TO ADMISSION: Prescriptions prior to admission Medication Sig Dispense Refill HYDROcodone-acetaminophen (NORCO) 5-325 MG per tablet Take 1 tablet by mouth every 6 (s ix) hours as needed. Scheduled Medications cefTRIAXone 1 g Intravenous Q24H chlorhexidine gluconate 15 mL Mouth/Throat Q12H docusate sodium 100 mg Oral BID Or docusate 100 mg Oral BID heparin (porcine) 5,000 Units Subcutaneous Q8H lidocaine buffered 1% 0.5 mL Intradermal Once sodium chloride 10 mL Intravenous Q8H DISCONTD: influenza trivalent-split vaccine 0.5 mL Intramuscular Once Immunization Continuous Infusions lactated ringers 75 mL/hr at 12/14/12 0407 norepinephrine in D5W 64 mcg/mL Stopped (12/13/12 0530) PRN Medications acetaminophen, acetaminophen, HYDROcodone-acetaminophen, HYDROcodone-acetaminophen, lip herb sturizer, magnesium sulfate, magnesium sulfate, magnesium sulfate, nystatin, nystatin, ondan setron, ondansetron, petrolatum, potassium chloride, potassium chloride, potassium chloride, sodium glycerophosphate IVPB 20 mMol, sodium glycerophosphate IVPB 45 mMol OBJECTIVE Vital Signs: BP 123/57 | Pulse 63 | Temp 98.8 F (37.1 C) (Axillary) | Resp 16 | Ht 1.727 m (5' 8") | Wt 180.8 kg (398 lb 9.5 oz) | BMI 60.61 kg/m2 | SpO2 98% Intake/Output Summary (Last 24 hours) at 12/14/12 0703 Last data filed at 12/14/12 0500 Gross per 24 hour Intake 3264 ml Output 2270 ml Net 994 ml EXAM GEN: Awake, alert, oriented x3, NAD NEURO: PERRLA, EOMI, no facial asymmetry, speech normal, moves all extremities well GCS: 15 HEENT: sclerae clear, nonicteric, oral mmm, pink, no exudates NECK: supple, trachea midline HEART: RRR, no murmur, rub or gallop LUNGS: clear b/l, no wheezing, crackles or rhonchi ABD: obese nondistended, nontender to palpation, no masses EXTR: no edema, clubbing or cyanosis SKIN: warm, dry, no rash or mottling; no e/o skin breakdown over the occiput, scapulae, elb ows, sacrum or heels He has abrasion on the buttocks bilterally . Please see the photo documentation of the nurs es. DATA Lab 12/14/12 0416 12/13/12 0233 12/12/12 2130 WBC 8.7 21.8* 12.8* HGB 11.7* 11.7* 11.7* HCT 34.8* 35.5* 35.6* PLT 190 268 248 Lab 12/13/12 0233 12/12/12 2130 NA 142 140 K 4.0 3.7 CL 109 108 CO2 22* 22* BUN 22 21 CREATININE 1.58* 1.85* LABGLOM -- -- GLUCOSE -- -- CALCIUM -- -- Lab 12/14/12 0416 MG 2.0 Lab 12/12/12 2130 INR 1.4 Xray chest 12/14/[address] Abdomen Pelvis Without Contrast 12/13/2012 1. Inflammatory or irregular 8 mm nodule in the posterior right lung. 2. Sever e destructive and remodeled cystic change to both femoral acetabular joints 3. No hydroneph rosis, but some equivocal perinephric fat changes and a 13 x 7 mm calcification in the pelvi s of the left kidney, which could be explanatory to some symptoms described above. Electron ically signed by Bran Juarez MD on 12/13/2012 12:34 PM X-ray Chest 1 View 12/13/2012 1. Status post placement of a right IJ central catheter without complication. 2 . There is mild bronchitis versus interstitial edema. There is no significant change from p revious exam. LEM LIST Active Problems: Septic shock Urinary tract infection, site not specified Morbid obesity Acute kidney injury ASSESSMENT & PLAN NEURO: The patient is awake and alert . CARDIOVASCULAR: Hemodynamically stable . Off pressors PULMONARY: Oxygen as needed Possible sleep apnea. Sleep study as outpatient Solitary pulmonary nodule- follow up CT in 3 months GI: Po diet as tolerated RENAL: LESLY resolving Monitor the renal function Increased po intake Urology follow up for the renal calculi INFECTIOUS DISEASE: Ecoli UTI pansensitive organism as per [facility] cultures Continue ceftriaxone HEME: Leucocytosis resolved Stable H/h ENDOCRINE: Blood sugar goal 140-180 MUSCULOSKELETAL: Patient will beed PT,OT for his knees osteoarthrosis PROPHYLAXIS: Stress ulcer prophylaxis: not indicated DVT prophylaxis: Heparin sq. scd Disposition: Will transfer the patient to the floors Code Status: Full Code *Please bill 35 minutes of critical care time spent evaluating the patient, reviewing the d abril and formulating a plan exclusive of all other procedures. Alexx Boyd MD 12/14/2012 7:03 AM onversion Transaction , Provider Unknown - 12/13/2012 4:25 PM PDT Case Management by CAMERON Bryant at 12/13/12 0233 Author: CAMERON Bryant Service: (none) Author Type: Traffic Director Filed: 12/13/12 8922 Date of Service: 12/13/124 Status: Signed Machine Silk Screen Printer: CAMERON Bryant (Traffic Director) Called [place] Stock Unloader Manny to discuss 62 y.o pt's referral. CM spoke to Manny about pt's financial concerns about going over the 20 day coverage at [facility]. MARIKA let Manny know that [place] Medicaid application had been started, as per guarantor account maint enance notes, and is pending. Manny assured MARIKA that Valente would check in on the pt's application at the local office as soon as possible. Benjamin Nunes Food Service Utility Worker Student Supervised, CAMERON Bryant onver keith Transaction, Provider Unknown - 12/13/2012 3:51 PM PDT Case Management by CAMERON Bryant at 12/13/12 1551 Author: CAMERON Bryant Service: (none) Author Type: Traffic Director Filed: 12/13/12 6394 Date of Service: 12/13/121550 Status: Signed Machine Silk Screen Printer: CAMERON Bryant (Traffic Director) Met with 62 y.o. Pt to discuss future d/c plans. Introduced CM's role in d/c planning and meeting pts needs. Before being transferred from [place] pt was a resident at [facility]. Pt reports being in and out of [place] twice. The pt was first in [place] for PT rehab from July 24-August 11. Pt returned to [place] after a fall on Dec 10. Whe n he is not at [facility] pt lives alone in a one-story apartment. The apartment has four steps to get in and out of the residence. Pt reports that he believes a ramp was to be put in. Pt uses a walker and cane to ambulate but does not have a wheelchair. Pt has no bed ba rs and reports having trouble getting in and out of bed. Pt also reports having trouble get ting on and off commode and that bars or a heightened commode would be necessary for pt to r eturn home. Pt states that he can no longer get in and out of his bathtub. Pt was driving and cooking his own meals. Pt's social support appears to be lacking as he reports that his neighbors are constantly changing. Though pt has a half brother and half sister in [facility] [place] he has not seen or talked to them for five years. CM explained to pt that he would l ikely need rehab and discussed options. Pt prefers to go back to [facility] but fears abou t paying for it when his 20 days coverage expires. CM faxed referral to [facility]. Benjamin Nunes Food Service Utility Worker Student Supervised, CAMERON Bryant onver keith Transaction, Provider Unknown - 12/13/2012 3:14 PM PDT Progress Notes by Lisa Bowen RN at 12/13/121513 Author: Lisa Bowen RN Service: Infectious Disease Author Type: Registered Nurse Filed: 12/13/121513 Date of Service: 12/13/121513 Status: Signed Machine Silk Screen Printer: Lisa Bowen RN (Registered Nurse) Infection Prevention Note: Patient with hx of MRSA. Currently, nasal PCR is positive for MRSA on 12/13/12. Contact Pr ecautions are required for this admission. Lisa Bowen RN, BA, Blast Furnace Keeper Helper onver keith Transaction, Provider Unknown - 12/13/2012 9:36 AM PDT Progress Notes by Nohemy Uribe RN at 12/13/12935 Author: Nohemy Uribe RN Service: Wound/Ostomy Care Author Type: Registered Nurse Filed: 12/13/12938 Date of Service: 12/13/12935 Status: Signed Machine Silk Screen Printer: Nohemy Uribe RN (Registered Nurse) Patient seen today by sample book maker for evaluation due to a low Catrachito score. Today's Brade n scale score is 11 indicating the patient is at high risk for pressure ulcer development or injury. Pt is not very mobile and has a moderate sized abrasion to his buttocks/hip area bu t has no s/s of pressure at this time. However, due to his high risk for pressure ulcer deve lopment, please implement SPOT precautions. If pt is incontinent, use sensicare on his butto cks but if he is not please use a PUP. Please consult wound care if further needs arise. Thank you, Nohemy Uribe RN 9:36 AM 12/13/2012 onver keith Transaction, Provider Unknown - 12/13/2012 1:01 AM PDT Progress Notes by Cheli Crowley RPH at 12/13/12 0101 Author: Cheli Crowley RPH Service: (none) Author Type: Pharmacist Filed: 12/13/12100 Date of Service: 12/13/12100 Status: Signed Machine Silk Screen Printer: Cheli Crowley RPH (Pharmacist) Clinical Pharmacy Note: Renal Monitoring Seth Tabares 62 y.o. male Height: 172.7 cm Weight: 181.4 kg Serum Creatinine: 1.85 mg/dL Pharmacy dosing for renal function per Dr. Boyd. Currently, there are no medications needing to be adjusted. Pharmacy will continue to monit or for changes in medication orders and in renal function and adjust accordingly. Cheli Crowley, PharmD 12/13/2012 1:00 AM docume nted in this encounter Plan of Treatment Not on filedocumented as of this encounter Procedures + +--------+ + + + | Procedure Name | Priori | Date/Time | Associated Diagnosis | Comments | | | ty | | | | + +--------+ + + + | XR CHEST 1 VIEW | Routin | 12/14/2012 | | Results for this | | | e | 5:17 AM | | procedure are in the | | | | PDT | | results section. | + +--------+ + + + | CT ABDOMEN PELVIS WO | Routin | 12/13/2012 | | Results for this | | CONTRAST | e | 11:36 AM | | procedure are in the | | | | PDT | | results section. | + +--------+ + + + | CULTURE, BLOOD | Timed | 12/13/2012 | | Results for this | | | | 3:54 AM | | procedure are in the | | | | PDT | | results section. | + +--------+ + + + | CULTURE, BLOOD | Timed | 12/13/2012 | | Results for this | | | | 3:50 AM | | procedure are in the | | | | PDT | | results section. | + +--------+ + + + | MRSA NAAT | Timed | 12/13/2012 | | Results for this | | | | 1:58 AM | | procedure are in the | | | | PDT | | results section. | + +--------+ + + + | XR CHEST 1 VIEW | Routin | 12/13/2012 | | Results for this | | | e | 1:41 AM | | procedure are in the | | | | PDT | | results section. | + +--------+ + + + | ECG 12 LEAD | Routin | 12/12/2012 | | Results for this | | | e | 9:53 PM | | procedure are in the | | | | PDT | | results section. | + +--------+ + + + | XR CHEST 1 VIEW | Routin | 12/12/2012 | | Results for this | | | e | 9:44 PM | | procedure are in the | | | | PDT | | results section. | + +--------+ + + + | CULTURE, URINE | STAT | 12/12/2012 | | Results for this | | | | 9:30 PM | | procedure are in the | | | | PDT | | results section. | + +--------+ + + + documented in this encounter Results XR Chest 1 Vw (12/14/2012 5:17 AM PDT) + + | Specimen | + + | | + + + + + | Impressions | Performed At | + + + | 1. Stable position of right IJ central catheter. 2. Improvement | | | in peribronchial thickening which suggests improvement in edema or | | | bronchitis. 3. There is a residual small right pleural effusion or | | | scarring. Electronically signed by Remi Shelley MD on | | | 12/14/2012 7:49 AM | | + + + + + + | Narrative | Performed At | + + + | SETH TABARES 1950 62 years XR CHEST 1 VIEW 12/14/2012 5:17 | | | AM INDICATION: Urinary tract infection, septic shock and chest | | | pain, line placement COMPARISON: 12/13/12 TECHNIQUE: Chest 1 | | | view, AP view of the chest FINDINGS: Position of the right IJ | | | central catheter is stable. There is moderate cardiomegaly. There is | | | no mediastinal widening or shift. There is no pneumothorax. Scattered | | | patchy bibasilar atelectasis is noted. Mild peribronchial thickening | | | is slightly improved from previous study. There is a opacity along | | | the right lower lung which may reflect some pleural fluid. The | | | vasculature is normal in caliber. | | + + + + + | Procedure Note | + + | Jorge Alberto, Rad Conversion - 11/24/2018 7:30 PM PDT S[facility] TAB[facility]89 yearsXR CHEST 1 | | VIEW12/14/2012 5:17 AM INDICATION: Urinary tract infection, septic shock and chest pain, | | line placement COMPARISON: 12/13/12 TECHNIQUE: Chest 1 view, AP view of the chest | | FINDINGS: Position of the right IJ central catheter is stable. There is moderate | | cardiomegaly. There is no mediastinal widening or shift. There is no pneumothorax. | | Scattered patchy bibasilar atelectasis is noted. Mild peribronchial thickening is | | slightly improved from previous study. There is a opacity along the right lower lung | | which may reflect some pleural fluid. The vasculature is normal in caliber. IMPRESSION: | | 1. Stable position of right IJ central catheter.2. Improvement in peribronchial | | thickening which suggests improvement in edema or bronchitis.3. There is a residual | | small right pleural effusion or scarring. | |FINDINGS: Position of the right IJ central catheter is stable. There is moderate cardiomeg carmencita. There is no mediastinal widening or shift. There is no pneumothorax. Scattered patchy b ibasilar atelectasis is noted. Mild peribronchial thickening is | |slightly improved from previous study. There is a opacity along the right lower lung which may reflect some pleural fluid. The vasculature is normal in caliber. | | | |IMPRESSION: | |1. Stable position of right IJ central catheter. | |2. Improvement in peribronchial thickening which suggests improvement in edema or bronchit is. | |3. There is a residual small right pleural effusion or scarring. | | | | | + + CT Abdomen Pelvis wo Contrast (12/13/2012 11:36 AM PDT) + + | Specimen | + + | | + + + + + | Impressions | Performed At | + + + | 1. Inflammatory or irregular 8 mm nodule in the posterior right | | | lung. 2. Severe destructive and remodeled cystic change to both | | | femoral acetabular joints 3. No hydronephrosis, but some equivocal | | | perinephric fat changes and a 13 x 7 mm calcification in the pelvis | | | of the left kidney, which could be explanatory to some symptoms | | | described above. Electronically signed by Bran Juarez MD on | | | 12/13/2012 12:34 PM | | + + + + + + | Narrative | Performed At | + + + | HISTORY: 62-year-old male with urosepsis, hematuria-possible stone. | | | TECHNIQUE: Non-contrast enhanced CT through the urinary system, | | | abdomen and pelvis. With coronal reconstructions of the kidneys and | | | ureters. Prior study for comparison -- none. FINDINGS: Analytics Manager | | | demonstrates prominent body habitus which is limiting. There is | | | pronounced arthropathy of both hips with cystic loss of joint space | | | -remodeling and deformity of both femoral acetabular joints. Lung | | | bases demonstrate some peripheral pleural thickening. A small but | | | reticular nodule in the posterior sulcus of the right lung which | | | measures 8 mm. Pleural thickening and pulmonary parenchymal scarring.. | | | Bone windows demonstrate pars defects of the lumbosacral junction | | | and severe destructive and cystic arthropathy of both femoral | | | acetabular joints. Demineralization and more conventional appearing | | | osteoarthropathy of the lower lumbar spine and SI joints. Soft | | | tissue windows: Are limited by combination of lower contrast | | | sensitivity due to body habitus and lack of contrast. There is a | | | hiatus hernia. Some fatty infiltration and reticular change about the | | | pancreas and celiac axis. The kidneys are without hydronephrosis | | | or perinephric fat stranding but there is a dense exophytic uniform | | | lesion of about 13 mm arising from the anterior cortex of the lower | | | left kidney does perhaps a dense cyst. At least Bosniak 2. About | | | the lower pole of the left kidney there is a dense calcification which | | | on image 133 series 4 measures about 13 x 7 mm. Samuels catheter in | | | a collapsed urinary bladder. There is no other potential urolithiasis | | | or of, although there are vascular calcifications in the pelvis | | | Bowel demonstrates no evidence of obstruction, not fully imaged here | | | though as the patient is not entirely within the field of view | | | obtained. The kidneys demonstrate : Some subtle reticular changes | | | about the kidneys, perhaps greater on the right. No adjacent fluid or | | | abscess Within the pelvis there are distal enteric | | | diverticula occasionally seen. | | + + + + -------+ | Procedure Note | + -------+ | Jorge Alberto, Rad Conversion - 11/24/2018 7:30 PM PDT HISTORY: 62-year-old male with | | urosepsis, hematuria-possible stone. TECHNIQUE: Non-contrast enhanced CT through the | | urinary system, abdomen and pelvis. With coronal reconstructions of the kidneys and | | ureters. Prior study for comparison -- none. FINDINGS: Analytics Manager demonstrates prominent body | | habitus which is limiting. There is pronounced arthropathy of both hips with cystic | | loss of joint space -remodeling and deformity of both femoral acetabular joints. Lung | | bases demonstrate some peripheral pleural thickening. A small but reticular nodule in | | the posterior sulcus of the right lung which measures 8 mm. Pleural thickening and | | pulmonary parenchymal scarring.. Bone windows demonstrate pars defects of the | | lumbosacral junction and severe destructive and cystic arthropathy of both femoral | | acetabular joints. Demineralization and more conventional appearing osteoarthropathy of | | the lower lumbar spine and SI joints. Soft tissue windows: Are limited by combination of | | lower contrast sensitivity due to body habitus and lack of contrast. There is a hiatus | | hernia. Some fatty infiltration and reticular change about the pancreas and celiac axis. | | The kidneys are without hydronephrosis or perinephric fat stranding but there is a | | dense exophytic uniform lesion of about 13 mm arising from the anterior cortex of the | | lower left kidney does perhaps a dense cyst. At least Bosniak 2. About the lower pole of | | the left kidney there is a dense calcification which on image 133 series 4 measures | | about 13 x 7 mm. Samuels catheter in a collapsed urinary bladder. There is no other | | potential urolithiasis or of, although there are vascular calcifications in the pelvis | | Bowel demonstrates no evidence of obstruction, not fully imaged here though as the | | patient is not entirely within the field of view obtained. The kidneys demonstrate : | | Some subtle reticular changes about the kidneys, perhaps greater on the right. No | | adjacent fluid or abscess Within the pelvis there are distal enteric diverticula | | occasionally seen. IMPRESSION: 1. Inflammatory or irregular 8 mm nodule in the | | posterior right lung. 2. Severe destructive and remodeled cystic change to both femoral | | acetabular joints 3. No hydronephrosis, but some equivocal perinephric fat changes and a | | 13 x 7 mm calcification in the pelvis of the left kidney, which could be explanatory to | | some symptoms described above. Electronically signed by Bran Juarez MD on | | 12/13/2012 12:34 PM | | | |IMPRESSION: | | | |1. Inflammatory or irregular 8 mm nodule in the posterior right lung. | | | |2. Severe destructive and remodeled cystic change to both femoral acetabular joints | | | |3. No hydronephrosis, but some equivocal perinephric fat changes and a 13 x 7 mm calcificat ion in the pelvis of the left kidney, which could be explanatory to some symptoms described above. | | | | | + -------+ Culture, Blood (12/13/2012 3:54 AM PDT) + + | Specimen | + + | Blood specimen | | (specimen) | + + + + + | Narrative | Performed At | + + + | Specimen Description BLOOD, LINE DRAW | EXTERNAL LAB | | Testing performed at | | | [address] [address] SPECIAL REQUESTS | | | CENTRAL | | | Testing performed at [facility];[address] [place] [id number] | | | CULTURE NO GROWTH 6 DAYS | | | Testing performed at | | | [address], [address] [place] [address] REPORT STATUS | | | 12/19/2012 FINAL | | + + + + +---------+ + + | Performing | Address | City/State/Zipcode | Phone Number | | Organization | | | | + +---------+ + + | EXTERNAL LAB | | | | + +---------+ + + Culture, Blood (12/13/2012 3:50 AM PDT) + + | Specimen | + + | Blood specimen | | (specimen) | + + + + + | Narrative | Performed At | + + + | Specimen Description BLOOD, LINE DRAW | EXTERNAL LAB | | Testing performed at | | | [facility];[address] [place] [address];[place] [address] SPECIAL REQUESTS | | | ART LINE | | | Testing performed at [facility];[address] [place] [address];[place] [address] | | | CULTURE NO GROWTH 6 DAYS | | | Testing performed at | | | [facility], [address] [place] [address] REPORT STATUS | | | 12/19/2012 FINAL | | + + + + +---------+ + + | Performing | Address | City/State/Zipcode | Phone Number | | Organization | | | | + +---------+ + + | EXTERNAL LAB | | | | + +---------+ + + MRSA NAAT (12/13/2012 1:58 AM PDT) + + | Specimen | + + | | + + + + + | Narrative | Performed At | + + + | SOURCE NARES(NOSE) | EXTERNAL LAB | | Testing performed at [facility];[address] [place] [address];[place] [address] MRSA PCR | | | POSITIVE for MRSA by PCRAbnormal | | | Testing performed at [facility];[address] [place] [address];[place] [address] | | + + + + +---------+ + + | Performing | Address | City/State/Zipcode | Phone Number | | Organization | | | | + +---------+ + + | EXTERNAL LAB | | | | + +---------+ + + XR Chest 1 Vw (12/13/2012 1:41 AM PDT) + + | Specimen | + + | | + + + + + | Impressions | Performed At | + + + | 1. Status post placement of a right IJ central catheter without | | | complication. 2. There is mild bronchitis versus interstitial | | | edema. There is no significant change from previous exam. | | | | | + + + + + + | Narrative | Performed At | + + + | SETH TABARES 1950 62 years XR CHEST 1 VIEW 12/13/2012 1:41 | | | AM INDICATION: Urosepsis, chest pain COMPARISON: 12/12/12 | | | TECHNIQUE: Chest 1 view, AP view of the chest FINDINGS: There is | | | a new right IJ central catheter is in position with the tip overlying | | | the SVC. The cardiac silhouette is stable in size without mediastinal | | | widening. There is no pneumothorax. Peribronchial cuffing is | | | demonstrated along the right hilar region. Coarsened bronchovascular | | | markings are noted bilaterally. The vasculature is mildly distended | | | in appearance. No overt pulmonary edema is noted. Bony structures | | | appear within normal limits. | | + + + + + | Procedure Note | + + | Dennis Azul Conversion - 11/24/2018 7:30 PM EMELY [id number] yearsXR CHEST 1 | | VIEW12/13/2012 1:41 AM INDICATION: Urosepsis, chest pain COMPARISON: 12/12/12 TECHNIQUE: | | Chest 1 view, AP view of the chest FINDINGS: There is a new right IJ central catheter | | is in position with the tip overlying the SVC. The cardiac silhouette is stable in size | | without mediastinal widening. There is no pneumothorax. Peribronchial cuffing is | | demonstrated along the right hilar region. Coarsened bronchovascular markings are noted | | bilaterally. The vasculature is mildly distended in appearance. No overt pulmonary edema | | is noted. Bony structures appear within normal limits. IMPRESSION: 1. Status post | | placement of a right IJ central catheter without complication.2. There is mild | | bronchitis versus interstitial edema. There is no significant change from previous exam. | | | | | |FINDINGS: There is a new right IJ central catheter is in position with the tip overlying t he SVC. The cardiac silhouette is stable in size without mediastinal widening. There is no p neumothorax. Peribronchial cuffing is demonstrated along the right | |hilar region. Coarsened bronchovascular markings are noted bilaterally. The vasculature is mildly distended in appearance. No overt pulmonary edema is noted. Bony structures appear wi thin normal limits. | | | |IMPRESSION: | |1. Status post placement of a right IJ central catheter without complication. | |2. There is mild bronchitis versus interstitial edema. There is no significant change from previous exam. | | | | | + + ECG 12 lead (12/12/2012 9:53 PM PDT) + + + + + + | Component | Value | Ref Range | Performed | Pathologist | | | | | At | Signature | + + + + + + | DIAGNOSIS: | Sinus | | EXTERNAL | | | | tachycardiaOtherwise | | LAB | | | | normal ECGNo previous | | | | | | ECGs availableThis ECG | | | | | | contains Unconfirmed | | | | | | Interpretation | | | | | | Statements. See ED | | | | | | Record for Physician | | | | | | Interpretation. | | | | | | Confirmed by MUSE READ | | | | | | ONLY, -COMPUTER ([id number]), | | | | | | magazine editor SANDIP KAMARA (2) | | | | | | on 12/13/2012 8:58:48 AM | | | | | | | | | | + + + + + + + + | Specimen | + + | | + + + + + | Narrative | Performed At | + + + | Historically converted procedure from [facility] Epic environment | EXTERNAL LAB | + + + + +---------+ + + | Performing | Address | City/State/Zipcode | Phone Number | | Organization | | | | + +---------+ + + | EXTERNAL LAB | | | | + +---------+ + + XR Chest 1 Vw (12/12/2012 9:44 PM PDT) + + | Specimen | + + | | + + + + + | Impressions | Performed At | + + + | 1. Probable mild interstitial pulmonary edema. 2. Right basilar | | | atelectasis. Electronically signed by Rocky Falcon MD on | | | 12/12/2012 9:55 PM | | + + + + + + | Narrative | Performed At | + + + | SETH TABARES XR CHEST 1 VIEW 12/12/2012 9:44 PM History: 62 | | | years. Male. Acute dyspnea and chest pain, presenting to the | | | emergency room. Technique: AP portable supine technique was | | | performed at 0939 hours. Comparison: No prior exam. Findings: | | | The inspiratory effort is moderate. Interstitial peribronchial | | | infiltrates suggest mild interstitial pulmonary edema. Some increased | | | density partially secures the right hemidiaphragm, suggesting | | | atelectasis. The right hemidiaphragm is mildly elevated, probably | | | a chronic finding. The cardiac volume is normal. The upper lobe | | | pulmonary vasculature is distended due to the supine position. | | | Ossicles appear intact. The thoracic aorta is normal, without | | | dilatation or calcification. | | + + + + + | Procedure Note | + + | Jorge Alberto, Rad Conversion - 11/24/2018 7:30 PM PDT [facility] CHEST 1 VIEW12/12/2012 | | 9:44 PM History: 62 years. Male. Acute dyspnea and chest pain, presenting to the | | emergency room. Technique: AP portable supine technique was performed at 0939 | | hours.Comparison: No prior exam. Findings: The inspiratory effort is moderate. | | Interstitial peribronchial infiltrates suggest mild interstitial pulmonary edema. Some | | increased density partially secures the right hemidiaphragm, suggesting atelectasis. The | | right hemidiaphragm is mildly elevated, probably a chronic finding. The cardiac volume | | is normal. The upper lobe pulmonary vasculature is distended due to the supine position. | | Ossicles appear intact. The thoracic aorta is normal, without dilatation or | | calcification. IMPRESSION: 1. Probable mild interstitial pulmonary edema.2. Right | | basilar atelectasis. | |The right hemidiaphragm is mildly elevated, probably a chronic finding. The cardiac volume is normal. The upper lobe pulmonary vasculature is distended due to the supine position. Oss icles appear intact. The thoracic | |aorta is normal, without dilatation | |or calcification. | | | |IMPRESSION: | |1. Probable mild interstitial pulmonary edema. | |2. Right basilar atelectasis. | | | | | + + Culture, Urine (12/12/2012 9:30 PM PDT) + + | Specimen | + + | Urine specimen | | (specimen) | + + + + + | Narrative | Performed At | + + + | Specimen Description CATHETERIZED URINE | EXTERNAL LAB | | CULTURE 10,000 TO 50,000 | | | CFU/ML MIXED GRAM NEGATIVE BENTLEY | | | NO FURTHER WORKUP | | | Testing performed at [facility], [address] [place] [address], | | | [place] [address] REPORT STATUS | | | 12/14/2012 FINAL | | + + + + +---------+ + + | Performing | Address | City/State/Zipcode | Phone Number | | Organization | | | | + +---------+ + + | EXTERNAL LAB | | | | + +---------+ + + documented in this encounter Visit Diagnoses + + | Diagnosis | + + | Urosepsis Urinary tract infection, site not specified | + + | Chest pain Chest pain, unspecified | + + | Hip pain, chronic Pain in joint, pelvic region and thigh | + + | Acute kidney injury (HCC) Acute kidney failure, unspecified | + + | Morbid obesity (HCC) Morbid obesity | + + | Septic shock(785.52) Septic shock | + + | Urinary tract infection, site not specified | + + documented in this encounter Additional Health Concerns + + + + | Infection | Noted Time | Resolved Time | + + + + | Methicillin-resistant Staphylococcus aureus | 12/13/2012 12:00 AM | | | | PDT | | + + + + documented as of this encounter
--- OUTSIDE RECORDS SUMMARY | ~2019-04-09 | XMS | Encounter Summary ---
Demographics + + + | Address | [address] | | | [place] [address] | + + + | Home Phone | | + + + | Preferred Language | Unknown | + + + | Marital Status | Single | + + + | Mandaeism Affiliation | 1041 | + + + | Race | Unknown | + + + | Ethnic Group | Unknown | + + + Author + + + | Author | [facility] | | | and [place] | + + + | Organization | [facility] | | | [...] Team Providers + +------+ + | Care Incident Response Analyst Name | Role | Phone | + +------+ + PCP | Unavailable | + +------+ + Encounter Details +--------+ + + + + | Date | Type | Department | Care Team | Description | +--------+ + + + + | 08/16/ | Hospital | [facility] | Jaziel Billy, | Ulcer of leg, | | 2013 | Encounter | CENTER OUTPATIENT | MD Umm AMADOR | chronic, left, | | | | WOUND CARE [address] | [facility] [place], | limited to breakdown | | | | [place] | [place] [address] | of skin (HCC) | | | | [address] | [phone] | | | | | [phone] | | | +--------+ + + + [...] encounter Progress Notes Jaziel Billy MD - 08/16/2013 1:42 PM PDTFormatting of this note might be different fro m the original. Progress Notes by Jaziel Billy MD at 08/16/13 4004 Author: Jaziel Billy MD Service: (none) Author Type: Physician Filed: 08/16/13 0735 Encounter Date: 08/16/2013 Status: Signed Real Estate Salesperson: Jaziel Billy MD (Physician) Subjective: Jono Tabares [...] Notes by Elaine Bach RN at 08/16/13 8955 Author: Elaine Bach RN Service: (none) Author Type: Registered Nurse Filed: 08/16/13 1233 Encounter Date: 08/16/2013 Status: Signed Real Estate Salesperson: Elaine Bach RN (Registered Nurse) Jono Tabares [...]
--- OUTSIDE RECORDS SUMMARY | ~2019-04-09 | XMS | Encounter Summary ---
Demographics + + + | Address | [address] | | | [place] [address] | + + + | Home Phone [...] Author + + + | Author | [facility] | | | and [place] | + + + | Organization | [facility] | | | and [...] Team Providers + +------+ + | Care Lap Winding Machine Operator Name | Role | Phone | + +------+ + PCP | Unavailable | + +------+ + Encounter Details +--------+ + + + + | Date | Type | Department | Care Team | Description | +--------+ + + + + | 09/13/ | Hospital | [facility] | Jaziel Billy, | Ulcer of leg, | | 2013 | Encounter | CENTER OUTPATIENT | MD Umm AMADOR | chronic, unspecified | | | | WOUND CARE [address] | [place], | laterality, limited | | | | [place] | [place] [address] | to breakdown of | | | | [address] | [phone] | skin (HCC); Venous | | | | [phone] | | insufficiency | +--------+ + + + + [...] encounter Progress Notes Jaziel Billy MD - 09/13/2013 1:36 PM PDTFormatting of this note might be different fro m the original. Progress Notes by Jaziel Billy MD at 09/13/13 0781 Author: Jaziel Billy MD Service: (none) Author Type: Physician Filed: 09/13/13 6012 Encounter Date: 09/13/2013 Status: Signed Carton Counter Feeder: Jaziel Billy MD (Physician) Subjective: Jono Tabares is a 63 y.o. male who presents for follow up for wound healing. He reports th at the wound has been doing well. He reports that he has been compliant with his treatment regimen. See flowsheet for measurements and specific treatment data. Review of Systems Constitutional: negative Respiratory: negative Cardiovascular: negative Gastrointestinal: negative Integument/breast: wound closed on left anterior right leg open Objective: General appearance: alert, appears stated age and cooperative Head: Normocephalic, without obvious abnormality, atraumatic Musculoskeletal: there is no redness, warmth, or swelling of the joints Skin: wound closed on left open right Assessment / Plan: [place] ulcer tissues examined. [...] SQ tissue from the base of the ulcer.. Pt had a small amount of bleeding controlled w/pressure. Pt tolerated procedure well. See f theodore for wound details (pre and post). No exposed tendon, muscle or bone noted. Dressing applied by nursing. Pt to f/u as scheduled. onversio n Transaction, Provider Unknown - 09/13/2013 12:57 PM PDTFormatting of this note might be di fferent from the original. Progress Notes by Deonna Adkins RN at 09/13/13 1257 Author: Deonna Adkins RN Service: (none) Author Type: Registered Nurse Filed: 09/13/13 1259 Encounter Date: 09/13/2013 Status: Signed Carton Counter Feeder: Deonna Adkins RN (Registered Nurse) Jono Tabares is a [...] yes Compression in place as prescribed: yes single layer tubigrip Offloading in place as prescribed: yes Footwear in place on this visit: Slipper: skid free sock Ronal fernandes in this encounter Plan of Treatment Not on filedocumented as of this encounter Visit Diagnoses + + | Diagnosis | + + | Ulcer of leg, chronic, unspecified laterality, limited to breakdown of skin (HCC) | + + | Venous insufficiency Unspecified [...]
--- OUTSIDE RECORDS SUMMARY | ~2019-04-09 | XMS | Encounter Summary ---
Demographics + + + | Address | [address] | | | [place] [address] | + + + | Home Phone | | + + + | Preferred Language | Unknown | + + + | Marital Status | Single | + + + | Jehovah'S Witness Affiliation | 1041 | + + + | Race | Unknown | + + + | Ethnic Group | Unknown | + + + Author + + + | Author | [facility] | | | and [place] | + + + | Organization | [facility] | | | [...] Team Providers + +------+ + | Care Phlebotomy Manager Name | Role | Phone | + +------+ + PCP | Unavailable | + +------+ + Encounter Details +--------+ + + + + | Date | Type | Department | Care Team | Description | +--------+ + + + + | 06/14/ | Hospital | [facility] | Jaziel Billy, | Ulcer of lower limb, | | 2013 | Encounter | CENTER OUTPATIENT | MD Umm AMADOR | unspecified (HCC) | | | | WOUND CARE [address] | [facility] [place], | | | | | [place] | [place] [address] | | | | | [address] | [phone] | | | | | [phone] | | | +--------+ + + + [...] MD Service: (none) Author Type: Physician Filed: 06/14/131810 Encounter Date: 06/14/2013 Status: Signed Poultry Raiser: Jaziel Billy MD (Physician) Subjective: Jono Tabares [...] for debridement documente d in this encounter Plan of Treatment Not [...]
--- OUTSIDE RECORDS SUMMARY | ~2019-04-09 | XMS | Encounter Summary ---
Demographics + + + | Address | [address] | | | [place] [address] | + + + | Home Phone [...] Author + + + | Author | [facility] | | | and [place] | + + + | Organization | [facility] | | | [...] Team Providers + +------+ + | Care Community Liaison Name | Role | Phone | + +------+ + PCP | Unavailable | + +------+ + Encounter Details +--------+ + + + + | Date | Type | Department | Care Team | Description | +--------+ + + + + | 07/26/ | Hospital | [facility] | Cassie Yin, | Ulcer of leg, | | 2013 | Encounter | CENTER OUTPATIENT | MD Umm [place] | chronic, left, with | | | | WOUND CARE [address] | [address] | unspecified severity | | | | [address] [place], [place] | [place] [address] | (HCC); Ulcer of | | | | [address] | [phone] | leg, chronic, right, | | | | [phone] | | with unspecified | | | [...] 07/26/13 1548 Encounter Date: 07/26/2013 Status: Signed Ecology Professor: Cassie Yin MD (Physician) Subjective: Jono Tabares [...] Notes by Brooklyn Garcia RN at 07/26/13 0631 Author: Brooklyn Garcia RN Service: (none) Author Type: Registered Nurse Filed: 07/26/13 7946 Encounter Date: 07/26/2013 Status: Signed Ecology Professor: Brooklyn Garcia RN (Registered Nurse) Jono Tabares [...]
--- OUTSIDE RECORDS SUMMARY | ~2019-04-09 | XMS | Encounter Summary ---
Demographics + + + | Address | [address] | | | [place] [address] | + + + | Home Phone | | + + + | Preferred Language | Unknown | + + + | Marital Status | Single | + + + | Episcopalian Affiliation | 1041 | + + + [...] Team Providers + +------+ + | Care Certified Orthotic Fitter Name | Role | Phone | + +------+ + PCP | Unavailable | + +------+ + Encounter Details +--------+ + + + + | Date | Type | Department | Care Team | Description | +--------+ + + + + | 05/31/ | Hospital | [facility] | Jaziel Billy, | Open wound of both | | 2014 | Encounter | CENTER OUTPATIENT | MD Umm AMADOR | legs with | | | | WOUND CARE [address] | [place], | complication | | | | [place] | [place] [address] | | | | | [address] | [phone] | | | | | [phone] | | | +--------+ + + + [...] Notes by Jaziel Billy MD at 05/31/13 5755 Author: Jaziel Billy MD Service: (none) Author Type: Physician Filed: 06/07/13 1236 Encounter Date: 05/31/2013 Status: Signed Manager Club: Jaziel Billy MD (Physician) Related Notes: Original Note by Jaziel Billy MD (Physician) filed at 05/31/13 9835 CHIEF COMPLAINT This is a 62-year-old man who was seen at the wound care clinic for the first time because of wounds to his lower extremities. HISTORY OF PRESENT ILLNESS Patient's difficulties started approximately 1 month ago, when he had a rash with possible open area and was placed on antibiotic by his primary physician in the [facility]. The r camron went on to become more extensive after the antibiotic. Steroids were tried and patient w as sent to [facility] 3 days later for possible redmans' or scalde d skin syndrome-type problems; the patient is unsure of exactly what the diagnosis was. He w as treated with IV antibiotics, etc., at the [facility] and his up per and lower extremities [...] he has been to ld he has [id number] grinding on the left hip and 80% [...] a left undescended testis. 2. Tonsillectomy in [facility] in 1957. FAMILY HISTORY Positive for his father having throat cancer. He at 99. His mother at 94 from an OR. She had had renal failure as well as a CVA shortly before she . His oldest half-brot her had pancreatic cancer and at 78. SOCIAL HISTORY He is a long-term member of the [facility] community and is currently in a nursing [...] Notes by Brooklyn Garcia RN at 05/31/13 9565 Author: Brooklyn Garcia RN Service: (none) Author Type: Registered Nurse Filed: 05/31/13 1507 Encounter Date: 05/31/2013 Status: Signed Manager Club: Brooklyn Garcia RN (Registered Nurse) Jono Tabares is a 62 y.o. male who presents today for InitialWound Care visit. He present s accompanied by ADJUNCT PSYCHOLOGY FACULTY MEMBER. He arrived: Wheelchair. Transfer Assistance: Manual Pending [...] Extremity Assessment Flowsheet Patient temporarily living at [facility] in [place]. States developed bright red rash ab out [...]
--- OUTSIDE RECORDS SUMMARY | ~2019-04-09 | XMS | Encounter Summary ---
Demographics + + + | Address | [address] | | | [place] [address] | + + + | Home Phone [...] + + + | Author | [facility] | | | and [place] | + + + | Organization | [facility] | | [...] Team Providers + +------+ + | Care [employer] Dean Name | Role | Phone | + +------+ + PCP | Unavailable | + +------+ + Encounter Details +--------+ + + + + | Date | Type | Department | Care Team | Description | +--------+ + + + + | 08/02/ | Hospital | [facility] | Jaziel Billy, | Ulcer of leg, | | 2013 | Encounter | CENTER OUTPATIENT | MD Umm AMADOR | chronic, unspecified | | | | WOUND CARE [address] | [facility] [place], | laterality, with | | | | [place] | [place] [address] | unspecified severity | | | | [address] | [phone] | (HCC); Venous | | | | [phone] | | insufficiency | +--------+ + + [...] Notes by Jaziel Billy MD at 08/02/13 2580 Author: Jaziel Billy MD Service: (none) Author Type: Physician Filed: 08/02/13 7937 Encounter Date: 08/02/2013 Status: Signed Clinical Support Tech: Jaziel Billy MD (Physician) Subjective: Jono Tabares [...] Notes by Leon Pierre RN at 08/02/13 6640 Author: Leon Pierre RN Service: (none) Author Type: Registered Nurse Filed: 08/02/13 1524 Encounter Date: 08/02/2013 Status: Signed Clinical Support Tech: Leon Pierre RN (Registered Nurse) Jono Tabares [...] Slipper: PATIENT HAS MOVED FROM [facility] TO [facility] [place]. doar fernandes in this encounter Plan of Treatment [...]
--- OUTSIDE RECORDS SUMMARY | ~2019-04-09 | XMS | Encounter Summary ---
Demographics + + + | Address | [address] | | | [place] [address] | + + + | Home Phone | | + + + | Preferred Language | Unknown | + + + | Marital Status | Single | + + + | Sabianist Affiliation | 1041 | + + + | Race | Unknown | + + + | Ethnic Group | Unknown | + + + Author + + + | Author | [facility] | | | and [place] | + + + | Organization | [facility] | | | [...] Team Providers + +------+ + | Care Expeller Operator Name | Role | Phone | + +------+ + PCP | Unavailable | + +------+ + Encounter Details +--------+ + + + + | Date | Type | Department | Care Team | Description | +--------+ + + + + | 10/18/ | Hospital | [facility] | Jaziel Billy, | Ulcer of leg, | | 2013 | Encounter | CENTER OUTPATIENT | MD Umm AMADOR | chronic, unspecified | | | | WOUND CARE [address] | [place], | laterality, limited | | | | [place] | [place] [address] | to breakdown of | | | | [address] | [phone] | skin (HCC) | | | | [phone] | | | +--------+ + + + [...] Notes by Jaziel Billy MD at 10/18/13 9530 Author: Jaziel Billy MD Service: (none) Author Type: Physician Filed: 10/25/13 1003 Encounter Date: 10/18/2013 Status: Addendum Front Of House Manager: Jaziel Billy MD (Physician) Related Notes: Original Note by Jaziel Billy MD (Physician) filed at 10/18/13 2905 Subjective: Jono Tabares is a 63 y.o. [...] Continue with dressings with home health in [place] . recheck here soul new wounds develop [...] 10/18/13 1238 Encounter Date: 10/18/2013 Status: Signed Front Of House Manager: Joann Leigh RN (Registered Nurse) Jono Tabares [...]
--- OUTSIDE RECORDS SUMMARY | ~2019-04-09 | XMS | Encounter Summary ---
Demographics + + + | Address | [address] | | | [place] [address] | + + + | Home Phone | | + + + | Preferred Language | Unknown | + + + | Marital Status | Single | + + + | Restoration Affiliation | 1041 | + + + | Race | Unknown | + + + | Ethnic Group | Unknown | + + + Author + + + | Author | [facility] | | | and [place] | + + + | Organization | [facility]erged [facility] | | | [...] Team Providers + +------+ + | Care Tobacco Sprayer Name | Role | Phone | + +------+ + PCP | Unavailable | + +------+ + Encounter Details +--------+ + + + + | Date | Type | Department | Care Team | Description | +--------+ + + + + | 12/12/ | Hospital | [facility] | Alexx Boyd MD | Urosepsis; Chest | | 2012 - | Encounter | [facility] | [address] | pain; Hip pain, | | | | CLINICAL DECISION | [place] | chronic; Acute | | 12/16/ | | [address] | [address] | kidney injury ([facility]); | | 2012 | | [place], [place] | | Morbid obesity | | | | [address] | | ([facility]); Septic shock | | | | [phone] | | ([facility]); Urinary tract | | | | | [...] Date of Service: 12/16/12 1000 Status: Signed Vasc Tech: Pete Fish MD (Physician) [facility] Service: Hospitalist Physician Discharge Summary Pt: Seth Tabares AGE/SEX: 62 y.o. male ROOM: [facility]317-1 PCP: ABRAN VALDOVINOS : 1950 Admit date: [...] GERD presents wi th generalised weakness to [facility] in [place] Pt had a fever of 101.3, maintained [...] Notes by Ignacio Tobar RN at 12/16/12 1302 Author: Ignacio Tobar RN Service: (none) Author Type: Registered Nurse Filed: 12/16/12 4259 Date of Service: 09/14/13 1615 Status: Signed Vasc Tech: Ignacio Tobar RN (Registered Nurse) Pt VSS. Pt transported to [facility] by [facility]. Pt has no complaints at this time. IGNACIO VILLANUEVA RN onver keith Transaction, Provider Unknown - 12/15/2012 5:58 PM PDT Progress Notes by Cady Collins RN at 12/15/121757 Author: Cady Collins RN Service: (none) Author Type: Registered Nurse Filed: 12/15/12 180 Date of Service: 12/15/121757 Status: Signed Vasc Tech: Cady Collins RN (Registered Nurse) Pt up [...] Date of Service: 12/15/12 1435 Status: Signed Vasc Tech: Ruth Giron RN (Registered Nurse) Discharge Planning: Called [place] [employer] [facility] ph: [phone] and spoke to Luna pa re: transport back to [facility] in [place], [place]. Milo stated pt is in their syste m and is eligible to receive free rides under his [facility] Health Plan ([facility]) . After [...] Milo recommended that pt be transferred to [facility] via ambulance. Will notify MD. RUTH GIRON 12/15/2012 2:40 PM onver keith Transaction, Provider Unknown - 12/15/2012 1:14 PM PDT Case Management by Ruth Giron RN at 12/15/12 1314 Author: Ruth Giron RN Service: (none) Author Type: Registered Nurse Filed: 12/15/12 5878 Date of Service: 12/15/124 Status: Signed Vasc Tech: Ruth Giron RN (Registered Nurse) Discharge Planning: Received return call from Manny at [facility] in [place], [place]. Stated they have obta ined insur auth from [facility] Health Plan for pt to return to [facility]. Manny stated they will accept pt over weekend. SNF paperwork placed on chart-MD needs to s ign. Dr. Ravi will be accepting MD at [facility], MD to MD call is not needed per Manny. If pt is discharged over weekend, please call Manny #[phone] and she will coordinate admit time with their charge nurse. Please fax completed orders and copies of prescription s, and updated MD notes/dc summary to [facility] fax#[phone]. RUTH GIRON 12/15/2012 1:28 PM onver keith Transaction, Provider Unknown - 12/15/2012 11:07 AM PDT Case Management by Ruth Giron RN at 12/15/12 0906 Author: Ruth Giron RN Service: (none) Author Type: Registered Nurse Filed: 12/15/12 1116 Date of Service: 12/15/12 1107 Status: Signed Vasc Tech: Ruth Giron RN (Registered Nurse) Discharge Planning: Per MD, anticipate possible discharge tomorrow (12/16/12). Reviewed previous CRM notes. Met w/pt in room to discuss dc plan. Pt sitting up in chair, A/O, pleasant, conversant. Stated he has been living at [facility] prior to admit to hospital. He would like to return to [facility] until he gets stronger, then possibly go to an [facility] in the future. Discussed transportation-stated his friend Ingrid Patel ph#[phone] may be able to give him a ride-called this no# left VM, requested he call myself or pt re: if she can provide t ransportation. Pt stated he also has a friend Scott Palafox who is the deacon of his voodoo ph#[phone] who may be able to help if Ingrid can't. Stated he has a couple of other friends but does n ot have their phone numbers. Briefly discussed cost of taxi, keenan, w/c taxi-stated he cannot afford to pay anything for a ride. Called Manny-college admissions counselor at [facility] [phone]-stated they will accept pt back to their facility pending auth from [facility] Health Plan (she will try to obtain auth to day). Faxed MD Tika notes to [facility] fax# [phone]. Awaiting call from [facility] re: final acceptance/insurance auth. RUTH GIRON 12/15/2012 11:16 AM Pete Nogueira 12/15/2012 9:41 AM PDTFormatting of this note might be different from the marylu chandra. Progress Notes by Pete Fish MD at 12/15/12 0941 Author: Pete Fish MD Service: Hospitalist Author Type: Physician Filed: 12/15/12 0956 Date of Service: 12/15/12 0941 Status: Signed Vasc Tech: Pete Fish MD (Physician) [facility] Service: Hospitalist Progress Note Pt: Seth Tabares AGE/SEX: 62 y.o. male ROOM: 317/317-1 : 1950 PCP: ABRAN VALDOVINOS ADMIT DATE: 12/12/2012 TODAY'S DATE: 12/15/2012 Hospital Day/Hospital Course: LOS: 3 days The patient is a 62 y.o. male with significant past medical history of OA, GERD presents wi th generalised weakness to [facility] in [place] Pt had a fever of 101.3, maintained [...] GERD presents w ith generalised weakness to [facility] in [place] Pt had a fever of 101.3, maintained a BP over 100 systolic per EMS and admitted to ICU with Sepsis From E-Coli UTI Septic shock due to E-Coli Urinary tract infection: Resolved. velazquez sensitive E-coli and will continue with ceftriaxone for now. Morbid obesity: counseled regarding Wt reduction Acute kidney injury: Resolved CLOCK MECHANIC to initiate the DC plan PETE FISH MD, FACP 12/15/2012 9:41 AM onversion Transaction, Pr ovider Unknown - 12/15/2012 8:15 AM PDT Progress Notes by Meño Miller PT at 12/15/12814 Author: Meño Miller PT Service: (none) Author Type: Physical Therapist Filed: 12/15/12916 Date of Service: 12/15/12814 Status: Signed Vasc Tech: Meño Miller PT (Physical Therapist) 12/15/12814 PT [...] 12/14/12 0357 Author: Alexx Boyd MD Service: Fpga Engineer Author Type: Physician Filed: 12/14/12 0704 Date of Service: 12/14/12 035 Status: Addendum Vasc Tech: Alexx Boyd MD (Physician) Related Notes: Original Note by Alexx Boyd MD (Physician) filed at 12/14/12 0703 [facility] Service: Fpga Engineer Progress Note Seth Tabares 62 y.o. Hospital Day: LOS: 2 days Post-Op Day: * No surgery found * Treatment Team: Admitting Provider: lAexx Boyd MD SUBJECTIVE Patient Summary: The patient is a 62 y.o. male with significant past medical history as below who presents with generalised weakness to [facility] in [place] . The pt was a t [facility] around 4 pm with complaints of chest [...] occasional blood. He was told by his oven laborer that he has thickening of his carotid [...] DISEASE: Ecoli UTI pansensitive organism as per [facility] cultures Continue ceftriaxone HEME: Leucocytosis resolved Stable [...] Case Management by CAMERON Bryant at 12/13/12 3987 Author: CAMERON Bryant Service: (none) Author Type: Marine Services Technician Filed: 12/13/12 9003 Date of Service: 12/13/122 Status: Signed Vasc Tech: CAMERON Bryant (Marine Services Technician) Called [facility] [employer] Manny to discuss 62 y.o pt's referral. CM spoke to Manny about pt's financial concerns about going over the [address] [facility]. MARIKA let Manny know that [place] Medicaid application had been started, as per guarantor account maint enance notes, and is pending. Manny assured MARIKA that Valente would check in on the pt's application at the local office as soon as possible. Benjamin Nunes Medical Transcriber Student Supervised, CAMERON Bryant onver keith Transaction, Provider Unknown - 12/13/2012 3:51 PM PDT Case Management by CAMERON Bryant at 12/13/12 1551 Author: CAMERON Bryant Service: (none) Author Type: Marine Services Technician Filed: 12/13/12 5215 Date of Service: 12/13/121550 Status: Signed Vasc Tech: CAMERON Bryant (Marine Services Technician) Met with 62 y.o. Pt to discuss future d/c plans. Introduced CM's role in d/c planning and meeting pts needs. Before being transferred from [facility] pt was a resident at [facility]. Pt reports being in and out of [facility] twice. The pt was first in [facility] for PT rehab from July 24-August 11. Pt returned to [facility] after a fall on Dec 10. Whe n he is not at [facility] pt lives alone in a one-story apartment. [...] a half brother and half sister in [facility] [place], [place] he has not seen or talked to them for five years. CM explained to pt that he would l ikely need rehab and discussed options. Pt prefers to go back to [facility] but fears abou t paying for it when his 20 days coverage expires. CM faxed referral to [facility]. Benjamin Nunes Medical Transcriber Student Supervised, CAMERON Bryant onver keith Transaction, Provider Unknown - 12/13/2012 3:14 PM PDT Progress Notes by Lisa Bowen RN at 12/13/121513 Author: Lisa Bowen RN Service: Infectious Disease Author Type: Registered Nurse Filed: 12/13/121513 Date of Service: 12/13/121513 Status: Signed Vasc Tech: Lisa Bowen RN (Registered Nurse) Infection Prevention Note: Patient with hx of MRSA. Currently, nasal PCR is positive for MRSA on 12/13/12. Contact Pr ecautions are required for this admission. Lisa Bowen RN, BA, Alum Plant Operator onver keith Transaction, Provider Unknown - 12/13/2012 9:36 AM PDT Progress Notes by Nohemy Uribe RN at 12/13/12935 Author: Nohemy Uribe RN Service: Wound/Ostomy Care Author Type: Registered Nurse Filed: 12/13/12938 Date of Service: 12/13/12935 Status: Signed Vasc Tech: Nohemy Uribe RN (Registered Nurse) Patient seen today by biofuels plant construction worker for evaluation due to a low Catrachito [...] 12/13/12100 Date of Service: 12/13/12100 Status: Signed Vasc Tech: Cheli Crowley RPH (Pharmacist) Clinical Pharmacy Note: [...] Prior study for comparison -- none. FINDINGS: Cleaning Machine Operator | | | demonstrates prominent body habitus [...] Prior study for comparison -- none. FINDINGS: Cleaning Machine Operator demonstrates prominent body | | habitus which [...] | Testing performed at | | | [address] [address] SPECIAL REQUESTS | | | CENTRAL | | | Testing performed at [facility];[address] [place] [address] | | | CULTURE NO GROWTH 6 DAYS | | | Testing performed at | | | [address], [address] [place] [address] REPORT STATUS | | | 12/19/2012 FINAL [...] | Testing performed at | | | [facility];[address] [place] [address];[place] [address] SPECIAL REQUESTS | | | ART LINE | | | Testing performed at [facility];[address] [place] [address];[place] [address] | | | CULTURE NO GROWTH 6 DAYS | | | Testing performed at | | | [facility], [address] [place] [address] REPORT STATUS | | | 12/19/2012 FINAL [...] EXTERNAL LAB | | Testing performed at [facility];[address] [place] [address];[place] [address] MRSA PCR | | | POSITIVE for MRSA by PCRAbnormal | | | Testing performed at [facility];[address] [place] [address];[place] [address] | | + + + + +---------+ [...] Azul Conversion - 11/24/2018 7:30 PM EMELY [id number] yearsXR CHEST 1 | | VIEW12/13/2012 1:41 [...] (500), | | | | | | features editor SANDIP KAMARA (2) | | | | | | on 12/13/2012 8:58:48 AM | | | | | | | | | | + + + + + + + + | Specimen | + + | | + + + + + | Narrative | Performed At | + + + | Historically converted procedure from [facility] Epic environment | EXTERNAL LAB | [...] Rad Conversion - 11/24/2018 7:30 PM PDT [facility] CHEST 1 VIEW12/12/2012 | | 9:44 [...] WORKUP | | | Testing performed at [facility], [address] [place] [address], | | | [place] [address] REPORT STATUS | | | 12/14/2012 FINAL [...]
--- OUTSIDE RECORDS SUMMARY | ~2019-04-09 | XMS | Encounter Summary ---
Demographics + + + | Address | [address] | | | [place] [address] | + + + | Home Phone | | + + + | Preferred Language | Unknown | + + + | Marital Status | Single | + + + | Yazidi Affiliation | 1041 | + + + | Race | Unknown | + + + | Ethnic Group | Unknown | + + + Author + + + | Author | [facility] | | | and [place] | + + + | Organization | [facility] | | | [...] Team Providers + +------+ + | Care Aspnet Developer Name | Role | Phone | + +------+ + PCP | Unavailable | + +------+ + Encounter Details +--------+ + + + + | Date | Type | Department | Care Team | Description | +--------+ + + + + | 06/21/ | Hospital | [facility] | Conversion | Open wound of knee, | | 2013 | Encounter | MEDICAL CENTER | Transaction, | leg (except thigh), | | | | [address]OUND [address] | Provider Unknown | and ankle, | | | | [address] [place] | [phone] | complicated | | | | [place], [place] | | | | | | [address] | | | | | | [phone] | | | +--------+ + + + [...]
--- OUTSIDE RECORDS SUMMARY | ~2019-04-09 | XMS | Encounter Summary ---
Demographics + + + | Address | [address] | | | [place] [address] | + + + | Home Phone | | + + + | Preferred Language | Unknown | + + + | Marital Status | Single | + + + | Faith Affiliation | 1041 | + + + | Race | Unknown | + + + | Ethnic Group | Unknown | + + + Author + + + | Author | [facility] | | | and [place] | + + + | Organization | [facility] | [...] Team Providers + +------+ + | Care Trimmer Sorter Name | Role | Phone | + +------+ + PCP | Unavailable | + +------+ + Encounter Details +--------+ + + + + | Date | Type | Department | Care Team | Description | +--------+ + + + + | 06/13/ | Hospital | [facility] | Conversion | Open wound of knee, | | 2013 | Encounter | MEDICAL CENTER | Transaction, | leg (except thigh), | | | | UL[address]OUND [address] | Provider Unknown | and ankle, | | | | [address] | [phone] | complicated | | | | [place], [place] | | | | | | [address] | | | | | | [phone] | | | +--------+ + + + [...]
--- OUTSIDE RECORDS SUMMARY | ~2019-04-09 | XMS | Encounter Summary ---
Demographics + + + | Address | [address] | | | [place] [address] | + + + | Home Phone | | + + + | Preferred Language | Unknown | + + + | Marital Status | Single | + + + | Denominational Affiliation | 1041 | + + + | Race | Unknown | + + + | Ethnic Group | Unknown | + + + Author + + + | Author | [facility] | | | and [place] | + + + | Organization | [facility] | | [...] Team Providers + +------+ + | Care Precision Honer Name | Role | Phone | + +------+ + PCP | Unavailable | + +------+ + Encounter Details +--------+ + + + + | Date | Type | Department | Care Team | Description | +--------+ + + + + | 07/12/ | Hospital | [facility] | Jaziel Billy, | Venous insufficiency | | 2013 | Encounter | CENTER OUTPATIENT | MD [address] | | | | | WOUND CARE [address] | [facility] [place], | | | | | [place] | [place] [address] | | | | | [address] | [phone] | | | | | [phone] | | | +--------+ + + + [...] Notes by Jaziel Billy MD at 07/12/13 1442 Author: Jaziel Billy MD Service: (none) Author Type: Physician Filed: 07/12/13 4575 Encounter Date: 07/12/2013 Status: Signed Reducing Machine Operator: Jaziel Billy MD (Physician) Subjective: Jono Tabares [...] Notes by Demetria Padilla RN at 07/12/13 5473 Author: Demetria Padilla RN Service: (none) Author Type: Registered Nurse Filed: 07/12/13 1457 Encounter Date: 07/12/2013 Status: Signed Reducing Machine Operator: Demetria Padilla RN (Registered Nurse) Jono Tabares [...]
--- OUTSIDE RECORDS SUMMARY | ~2019-04-09 | XMS | Encounter Summary ---
Demographics + + + | Address | [address] | | | [place] [address] | + + + | Home Phone | | + + + | Preferred Language | Unknown | + + + | Marital Status | Single | + + + | Methodist Affiliation | 1041 | + + + | Race | Unknown | + + + | Ethnic Group | Unknown | + + + Author + + + | Author | [facility] | | | and [place] | + + + | Organization | [facility] | | | [...] Team Providers + +------+ + | Care Professional Employer Consultant Name | Role | Phone | + +------+ + PCP | Unavailable | + +------+ + Encounter Details +--------+ + + + + | Date | Type | Department | Care Team | Description | +--------+ + + + + | 07/19/ | Hospital | [facility] | Jaziel Billy, | Venous insufficiency | | 2013 | Encounter | CENTER OUTPATIENT | MD [address] [place] | | | | | WOUND CARE [address] | [facility] [place], | | | | | [place] | [place] [address] | | | | | [address] | [phone] | | | | | [phone] | | | +--------+ + + + [...] Notes by Jaziel Billy MD at 07/19/13 7666 Author: Jaziel Billy MD Service: (none) Author Type: Physician Filed: 07/19/13 3715 Encounter Date: 07/19/2013 Status: Addendum Target Setter: Jaziel Billy MD (Physician) Related Notes: Original Note by Jaziel Billy MD (Physician) filed at 07/19/13 5453 Subjective: Jono Tabares is a 63 y.o. [...] Notes by Leon Pierre RN at 07/19/13 8331 Author: Leon Pierre RN Service: (none) Author Type: Registered Nurse Filed: 07/19/13 9737 Encounter Date: 07/19/2013 Status: Signed Target Setter: Leon Pierre RN (Registered Nurse) Jono Tabares [...]
--- OUTSIDE RECORDS SUMMARY | ~2019-04-09 | XMS | Clinical Summary ---
Demographics + + + | Address | [address] | | | [place] [address] | + + + | Home Phone | | + + + | Preferred Language | Unknown | + + + | Marital Status | Single | + + + | Confucianist Affiliation | 1041 | + + + | Race | Unknown | + + + | Ethnic Group | Unknown | + + + Author + + + | Author | [facility] (Historical as of | | | 11-18-18) | + + + | Organization | [facility] (Historical as of | | | 11-18-18) | + + + | Address | Unknown | + + + | Phone | Unavailable | + + + Support + + +---------+ + | Name | Relationship | Address | Phone | + + +---------+ + | Ingrid Patel | ECON | Unknown | | + + +---------+ + Care Team Providers + +------+ + | Care Product Development Chemist Name | Role | Phone | + +------+ + | Tay Chino MD | PP | | + +------+ + Allergies + + + + + + | Active Allergy | Reactions | Severity | Noted | Comments | | | | | Date | | + + + + + + | Other-Drug | Rash | Medium | 05/31/19 | Took an antibiotic | | | | | 14 | last month and had | | | | | | general body rash, | | | | | | bright red, still | | | | | | resolving. Patient | | | | | | will ask care | | | | | | provider which | | | | | | antibiotic. | + + + + + + | Sulfamethoxazole-Tri | Red Man Syndrome | Medium | 06/09/19 | | | methoprim | | | 14 | | + + + + + + Current Medications + + +-------+---------+------+------+-------+ | Prescription | Sig. | Disp. | Refills | Star | End | Statu | | | | | | t | Date | s | | | | | | Date | | | + + +-------+---------+------+------+-------+ | Multiple Vitamin | Take 1 capsule by | | | | | Activ | | (MULTIVITAMIN) | mouth daily. | | | | | e | | capsule | | | | | | | + + +-------+---------+------+------+-------+ | levothyroxine | Take 50 mcg by mouth | | | | | Activ | | (SYNTHROID, | every morning | | | | | e | | LEVOTHROID) 25 MCG | before breakfast. | | | | | | | tabletIndications: | | | | | | | | Ulcer of other part | | | | | | | | of lower limb | | | | | | | + + +-------+---------+------+------+-------+ | senna-docusate | Take 1 tablet by | | | | | Activ | | (PERICOLACE) 8.6-50 | mouth daily. | | | | | e | | MG per | | | | | | | | tabletIndications: | | | | | | | | Ulcer of other part | | | | | | | | of lower limb | | | | | | | + + +-------+---------+------+------+-------+ | tamsulosin | Take 0.4 mg by mouth | | | | | Activ | | (FLOMAX) 0.4 MG | After dinner. | | | | | e | | capsuleIndications: | Administer 30 | | | | | | | Ulcer of other part | minutes after the | | | | | | | of lower limb | same meal each day. | | | | | | | | Capsules should be | | | | | | | | swallowed whole; do | | | | | | | | not crush, chew, or | | | | | | | | open | | | | | | + + +-------+---------+------+------+-------+ | Ascorbic Acid | Take 500 mg by mouth | | | | | Activ | | (VITAMIN C) 500 MG | daily. | | | | | e | | tabletIndications: | | | | | | | | Ulcer of other part | | | | | | | | of lower limb | | | | | | | + + +-------+---------+------+------+-------+ | HYDROmorphone | Take 2 mg by mouth | | | | | Activ | | (DILAUDID) 2 MG | every 4 (four) hours | | | | | e | | tabletIndications: | as needed. | | | | | | | Ulcer of other part | | | | | | | | of lower limb | | | | | | | + + +-------+---------+------+------+-------+ | nystatin | Apply topically 2 | | | | | Activ | | (MYCOSTATIN) | (two) times daily. | | | | | e | | powderIndications: | | | | | | | | Ulcer of other part | | | | | | | | of lower limb | | | | | | | + + +-------+---------+------+------+-------+ | acetaminophen | Take 650 mg by mouth | | | | | Activ | | (TYLENOL) 650 MG CR | every 4 (four) | | | | | e | | tablet | hours. | | | | | | + + +-------+---------+------+------+-------+ | bisacodyl | Place 10 mg rectally | | | | | Activ | | (DULCOLAX) 10 MG | as needed. | | | | | e | | suppository | | | | | | | + + +-------+---------+------+------+-------+ | | Take 3 mLs by | | | | | Activ | | ipratropium-albutero | nebulization. | | | | | e | | l (DUO-NEB) 0.5-2.5 | | | | | | | | mg/3mL | | | | | | | + + +-------+---------+------+------+-------+ | Skin Protectants, | Apply topically as | | | | | Activ | | Misc. (EUCERIN) | needed. | | | | | e | | cream | | | | | | | + + +-------+---------+------+------+-------+ | gabapentin | Take 300 mg by mouth | | | | | Activ | | (NEURONTIN) 300 MG | nightly. | | | | | e | | capsule | | | | | | | + + +-------+---------+------+------+-------+ | magnesium citrate | Take 150 mLs by | | | | | Activ | | solution | mouth once. | | | | | e | + + +-------+---------+------+------+-------+ | Magnesium | Take 30 mLs by mouth | | | | | Activ | | Hydroxide (MP MILK | daily. | | | | | e | | OF MAGNESIA PO) | | | | | | | + + +-------+---------+------+------+-------+ | Dimethicone | Apply topically. | | | | | Activ | | (CAVILON DURABLE | | | | | | e | | BARRIER) 1.3 % CREA | | | | | | | + + +-------+---------+------+------+-------+ | Vitamin D, | Take 1 capsule by | | | | | Activ | | Cholecalciferol, | mouth 2 (two) times | | | | | e | | 1000 UNITS TABS | daily. | | | | | | + + +-------+---------+------+------+-------+ Active Problems + + + | Problem | Noted Date | + + + | Ulcer of leg, chronic | 07/26/2013 | + + + | Ulcer of leg, chronic | 07/26/2013 | + + + | Blister | 07/26/2013 | + + + | Edema | 07/26/2013 | + + + | Venous insufficiency | 2013 | + + + | Septic shock(785.52) | 12/12/2012 | + + + | Urinary tract infection, site not specified | 12/12/2012 | + + + | Morbid obesity (HCC) | 12/12/2012 | + + + | Acute kidney injury (HCC) | 12/12/2012 | + + + Family History + + +------+ + | [...] Alive | | + +------+ + + Social History + +-------+ +--------+------+ | Tobacco Use | Types | Packs/Day | Years | Date | | | | | Used | | + +-------+ +--------+------+ | Never Smoker | | | | | + +-------+ +--------+------+ + +---+---+---+ | Smokeless Tobacco: | | | | | Never Used | | | | + +---+---+---+ + + +---------+ + | Alcohol Use | Drinks/We | oz/Week | Comments | | | ek | | | + + +---------+ + | No | | | | + + +---------+ + + + + | Sex Assigned at | Date Recorded | | | | + + + | Not on file | | + + + Last Filed Vital Signs + + + + | Vital Sign | Reading | Time Taken | + + + + | Blood Pressure | 131/76 | 03/21/2014 1:37 PM PST | + + + + | Pulse | 55 | 03/21/2014 1:37 PM PST | + + + + | Temperature | 36.4 C (97.5 F) | 03/21/2014 1:37 PM PST | + + + + | Respiratory Rate | 18 | 10/18/2013 12:28 PM PDT | + + + + | Oxygen Saturation | 97% | 03/21/2014 1:37 PM PST | + + + + | Inhaled Oxygen | - | - | | Concentration | | | + + + + | Weight | 150.1 kg (331 lb) | 09/10/2013 1:12 PM PDT | + + + + | Height | 170.2 cm (5' 7") | 09/10/2013 1:12 PM PDT | + + + + | Body Mass Index | 51.84 | 09/10/2013 1:12 PM PDT | + + + + Plan of Treatment + + + + + | Health Maintenance | Due Date | Last Done | Comments | + + + + + | Vaccine: | | | | | Dtap/Tdap/Td (1 - | 2 | | | | Tdap) | | | | + + + + + | Vaccine: Zoster (1 | | | | | of 2) | 3 | | | + + + + + | Vaccine: | | | | | Pneumococcal 65+ | 8 | | | | Low/Medium Risk (1 | | | | | of 2 - PCV13) | | | | + + + + + | Vaccine: Influenza | | | | | (#1) | 9 | | | + + + + + Results Not on filefrom Last 3 Months Insurance + +--------+ +------+-------+ + | Payer | Benefi | Subscriber | Type | Phone | Address | | | t Plan | ID | | | | | | / | | | | | | | Group | | | | | + +--------+ +------+-------+ + | MEDICAID | [employer]ER | [id number] | | | [address] | | | N | | | | [place] | | | [place] | | | | [address] | | | FORENSIC SERGEANT | | | | | + +--------+ +------+-------+ + + +--------+ +--------+ + + | Guarantor Name | Accoun | Relation to | Date | Phone | Billing Address | | | t Type | Patient | of | | | | | | | | | | + +--------+ +--------+ + + | SETH DUGGAN | Person | Self | [birth year] | Home: | [address] | | | al/Fam | | [phone] | [phone] [place] | | | [place] | | | [phone] | [address] | + +--------+ +--------+ + +
--- OUTSIDE RECORDS SUMMARY | ~2019-04-09 | XMS | Encounter Summary ---
Demographics + + + | Address | [address] | | | [place] [address] | + + + | Home Phone | | + + + | Preferred Language | Unknown | + + + | Marital Status | Single | + + + | Samaritan Affiliation | 1041 | + + + | Race | Unknown | + + + | Ethnic Group | Unknown | + + + Author + + + | Author | [facility] | | | and [place] | + + + | Organization | [facility] | | | [...] Team Providers + +------+ + | Care Pipe Washer Name | Role | Phone | + +------+ + PCP | Unavailable | + +------+ + Encounter Details +--------+ + + + + | Date | Type | Department | Care Team | Description | +--------+ + + + + | 08/30/ | Hospital | [facility] | Jaziel Billy, | Ulcer of leg, | | 2013 | Encounter | CENTER OUTPATIENT | MD Umm AMADOR | chronic, unspecified | | | | WOUND CARE [address] | [facility] [place], | laterality, with | | | | [place] | [place] [address] | unspecified severity | | | | [address] | [phone] | (HCC) | | | | [phone] | | | +--------+ + + + [...] encounter Progress Notes Jaziel Billy MD - 08/30/2013 2:24 PM PDTFormatting of this note might be different fro m the original. Progress Notes by Jaziel Billy MD at 08/30/13 1423 Author: Jaziel Billy MD Service: (none) Author Type: Physician Filed: 09/06/13 1226 Encounter Date: 08/30/2013 Status: Addendum Coil Winding Machines Set Up Mechanic: Jaziel Billy MD (Physician) Related Notes: Original Note by Jaziel Billy MD (Physician) filed at 08/30/13 0723 Subjective: Jono Tabares is a 63 y.o. male who presents for follow up for wound healing. He reports th at the wound has been doing well. He reports that he has been compliant with his treatment regimen. See flowsheet for measurements and specific treatment data. Review of Systems Constitutional: negative Respiratory: negative Cardiovascular: negative Gastrointestinal: negative Integument/breast: wounds are smaller Objective: General appearance: alert, appears stated age and cooperative Head: Normocephalic, without obvious abnormality, atraumatic Musculoskeletal: there is no redness, warmth, or swelling of the joints Skin: wound closing Assessment / Plan: [place] ulcer tissues examined. There is no induration, is no signs of skin breakdown, is no tenderness, is no redness, is no odor, is no discharge. Selective debridement only . Pt tolerated procedure well. See flowsheet for wound details (pre and post). No exposed t endon, muscle or bone noted. Dressing applied by nursing. Pt to f/u as scheduled. Erna Venegas, Provider Unknown - 08/30/2013 1:38 PM PDTFormatting of this note might be di fferent from the original. Progress Notes by Leon Pierre RN at 08/30/13 9899 Author: Leon Pierre RN Service: (none) Author Type: Registered Nurse Filed: 08/30/13 1427 Encounter Date: 08/30/2013 Status: Signed Coil Winding Machines Set Up Mechanic: Leon Pierre RN (Registered Nurse) Jono Tabares [...] Footwear in place on this visit: Slipper: docume nted in this encounter Plan of Treatment Not on filedocumented as of this encounter Visit Diagnoses + + | Diagnosis | + + | Ulcer of leg, chronic, unspecified laterality, with unspecified severity (HCC) | + + documented in this encounter Additional Health Concerns + + + + | Infection | Noted Time | Resolved Time | + + + + | Methicillin-resistant Staphylococcus aureus | 12/13/2012 12:00 AM | | | | PDT | | + + + + documented as of this encounter"
--- OUTSIDE RECORDS SUMMARY | ~2019-04-09 | XMS | Encounter Summary ---
Demographics + + + | Address | [address] | | | [place] [address] | + + + | Home Phone | | + + + | Preferred Language | Unknown | + + + | Marital Status | Single | + + + | Pentecostal Affiliation | 1041 | + + + [...] Team Providers + +------+ + | Care Composition Roll Maker And Cutter Name | Role | Phone | + +------+ + PCP | Unavailable | + +------+ + Encounter Details +--------+ + + + + | Date | Type | Department | Care Team | Description | +--------+ + + + + | 06/28/ | Hospital | [facility] | Jaziel Billy, | Ulcer of other part | | 2013 | Encounter | CENTER OUTPATIENT | MD Umm AMADOR | of lower limb (HCC) | | | | WOUND CARE [address] | [facility] [place], | | | | | [place] | [place] [address] | | | | | [address] | [phone] | | | | | [phone] | | | +--------+ + + + [...] encounter Progress Notes Jaziel Billy MD - 06/28/2013 4:18 PM PDTFormatting of this note might be different fro m the original. Progress Notes by Jaziel Billy MD at 06/28/13 0262 Author: Jaziel Billy MD Service: (none) Author Type: Physician Filed: 06/28/13 1542 Encounter Date: 06/28/2013 Status: Signed Yarn Preparation Supervisor: Jaziel Billy MD (Physician) Subjective: Jono Tabares is a 62 y.o. male who presents for follow up for wound healing. He reports th at the wound has been doing well. He reports that he has been compliant with his treatment regimen. See flowsheet for measurements and specific treatment data. Review of Systems Constitutional: negative Respiratory: negative Cardiovascular: negative Gastrointestinal: negative Integument/breast: legs wounds resolving Objective: General appearance: alert, appears stated age and cooperative Head: Normocephalic, without obvious abnormality, atraumatic Musculoskeletal: there is no redness, warmth, or swelling of the joints Skin: wound closing Assessment / Plan: [place] ulcer tissues examined. There is no induration, is signs of skin breakdown, is no ten derness, is no redness, is no [...] Pt to f/u as scheduled. See discharge for wound treatments onlc n Transaction, Provider Unknown - 06/28/2013 1:51 PM PDTFormatting of this note might be di fferent from the original. Progress Notes by Elaine Bach RN at 06/28/13 9567 Author: Elaine Bach RN Service: (none) Author Type: Registered Nurse Filed: 06/28/13 6960 Encounter Date: 06/28/2013 Status: Signed Yarn Preparation Supervisor: Elaine Bach RN (Registered Nurse) Jono Tabares [...] prescribed: yes Compression in place as prescribed: no Offloading in place as prescribed: no Footwear in place on this visit: Regular Shoe: bilateral doar fernandes in this encounter Plan of [...]
--- OUTSIDE RECORDS SUMMARY | ~2019-04-09 | XMS | Encounter Summary ---
Demographics + + + | Address | [address] | | | [place] [address] | + + + | Home Phone [...] Team Providers + +------+ + | Care Senior International Tax Manager Name | Role | Phone | + +------+ + PCP | Unavailable | + +------+ + Encounter Details +--------+ + + + + | Date | Type | Department | Care Team | Description | +--------+ + + + + | 08/16/ | Hospital | [facility] | Jaziel Billy, | Ulcer of leg, | | 2013 | Encounter | CENTER OUTPATIENT | MD Umm AMADOR | chronic, left, | | | | WOUND CARE [address] | [facility] [place], | limited to breakdown | | | | [place] | [place] [address] | of skin (HCC) | | | | [address] | [phone] | | | | | [phone] | | | +--------+ + + + [...] Notes by Jaziel Billy MD at 08/16/13 7510 Author: Jaziel Billy MD Service: (none) Author Type: Physician Filed: 08/16/13 1513 Encounter Date: 08/16/2013 Status: Signed Treating Engineer Helper: Jaziel Billy MD (Physician) Subjective: Jono Tabares [...] Notes by Elaine Bach RN at 08/16/13 3758 Author: Elaine Bach RN Service: (none) Author Type: Registered Nurse Filed: 08/16/13 1239 Encounter Date: 08/16/2013 Status: Signed Treating Engineer Helper: Elaine Bach RN (Registered Nurse) Jono Tabares [...]
--- OUTSIDE RECORDS SUMMARY | ~2019-04-09 | XMS | Encounter Summary ---
Demographics + + + | Address | [address] | | | [place] [address] | + + + | Home Phone | | + + + | Preferred Language | Unknown | + + + | Marital Status | Single | + + + | Jewish Affiliation | 1041 | + + + | Race | Unknown | + + + | Ethnic Group | Unknown | + + + Author + + + | Author | [facility] | | | and [place] | + + + | Organization | [facility] | | [...] Team Providers + +------+ + | Care Merchandise Flow Team Member Name | Role | Phone | + +------+ + PCP | Unavailable | + +------+ + Encounter Details +--------+ + + + + | Date | Type | Department | Care Team | Description | +--------+ + + + + | 07/05/ | Hospital | [facility] | Jaziel Billy, | Open wound of ankle, | | 2013 | Encounter | CENTER OUTPATIENT | MD Umm AMADOR | right, subsequent | | | | WOUND CARE [address] | [address] [address] [place], | encounter; Venous | | | | [place] | [place] [address] | insufficiency | | | | [address] | [phone] | | | | | [phone] | | | +--------+ + + + [...] documented as of this encounter Progress Notes [facility] Transaction, Provider Unknown - 2013 4:22 PM PDTFormatting of this note m ight be different from the original. Progress Notes by Deonna Adkins RN at 07/05/13 1628 Author: Deonna Adkins RN Service: (none) Author Type: Registered Nurse Filed: 07/05/13 1623 Encounter Date: 2013 Status: Signed Welt Rougher: Deonna Adkins RN (Registered Nurse) PT H&P, VENOUS, SANIYA, & ARTERIAL DUPLEX STUDIES FAXED TO DR WHITESIDE FOR VASCULAR EVAL, CONFIR MED WITH ANDREY THAT RECORDS WERE RECEIVED. Jaziel Boudreaux MD - 2013 2:16 PM PDTFormatting of this note might be different from the o riginal. Progress Notes by Jaziel Billy MD at 07/05/13 1416 Author: Jaziel Billy MD Service: (none) Author Type: Physician Filed: 07/05/13 1422 Encounter Date: 2013 Status: Signed Welt Rougher: Jaziel Billy MD (Physician) Subjective: Jono Tabares is a 63 y.o. male who presents for follow up for wound healing. He reports th at the wound has been doing well. He reports that he has been compliant with his treatment regimen. See flowsheet for measurements and specific treatment data. Review of Systems Constitutional: negative Respiratory: negative Cardiovascular: negative Gastrointestinal: negative, negitive Integument/breast: wound closing Objective: General appearance: alert, [...] scheduled. onversio n Transaction, Provider Unknown - 2013 1:28 PM PDTFormatting of this note might be di fferent from the original. Progress Notes by Elaine Bach RN at 07/05/13 9285 Author: Elaine Bach RN Service: (none) Author Type: Registered Nurse Filed: 07/05/13 1199 Encounter Date: 2013 Status: Signed Welt Rougher: Elaine Bach RN (Registered Nurse) Jono Tabares [...] place on this visit: Other Footwear: socks bilateral docume nted in this encounter Plan of Treatment Not on filedocumented as of this encounter Visit Diagnoses + + | Diagnosis | + + | Open wound of ankle, right, subsequent encounter | + + | Venous insufficiency Unspecified [...]
--- OUTSIDE RECORDS SUMMARY | ~2019-04-09 | XMS | Encounter Summary ---
Demographics + + + | Address | [address] | | | [place] [address] | + + + | Home Phone | | + + + | Preferred Language | Unknown | + + + | Marital Status | Single | + + + | Cheondoism Affiliation | 1041 | + + + | Race | Unknown | + + + | Ethnic Group | Unknown | + + + Author + + + | Author | [facility] | | | and [place] | + + + | Organization | [facility] | | | [...] Team Providers + +------+ + | Care Calender Let Off Helper Name | Role | Phone | + +------+ + PCP | Unavailable | + +------+ + Encounter Details +--------+ + + + + | Date | Type | Department | Care Team | Description | +--------+ + + + + | 06/21/ | Hospital | [facility] | Jaziel Billy, | Ulcer of other part | | 2013 | Encounter | CENTER OUTPATIENT | MD Umm AMADOR | of lower limb (HCC) | | | | WOUND CARE [address] | [facility] [address], | | | | | [place] | [place] [address] | | | | | [address] | [phone] | | | | | [phone] | | | +--------+ + + + [...] 06/21/13 1531 Encounter Date: 06/21/2013 Status: Signed Tactical Intelligence Officer: Jaziel Billy MD (Physician) Subjective: Jono Tabares [...] Notes by Brooklyn Garcia RN at 06/21/13 7318 Author: Brooklyn Garcia RN Service: (none) Author Type: Registered Nurse Filed: 06/21/13 1416 Encounter Date: 06/21/2013 Status: Signed Tactical Intelligence Officer: Brooklyn Garcia RN (Registered Nurse) Jono Tabares [...]
--- OUTSIDE RECORDS SUMMARY | ~2019-04-09 | XMS | Encounter Summary ---
Demographics + + + | Address | [address] | | | [place] [address] | + + + | Home Phone | | + + + | Preferred Language | Unknown | + + + | Marital Status | Single | + + + | Sikhism Affiliation | 1041 | + + + | Race | Unknown | + + + | Ethnic Group | Unknown | + + + Author + + + | Author | [facility] | | | and [place] | + + + | Organization | [facility] | | | [...] Team Providers + +------+ + | Care Polymerization Kettle Operator Name | Role | Phone | + +------+ + PCP | Unavailable | + +------+ + Encounter Details +--------+ + + + + | Date | Type | Department | Care Team | Description | +--------+ + + + + | 08/23/ | Hospital | [facility] | Jaziel Billy, | Morbid obesity | | 2013 | Encounter | CENTER OUTPATIENT | MD Umm AMADOR | ([facility]); Ulcer of leg, | | | | WOUND CARE [address] | [place] [address], | chronic, | | | | [address] [place] | [place] [address] | unspecified | | | | [address] | [phone] | laterality, limited | | | | [phone] | | to breakdown of skin | | | | | | (HCC) | +--------+ + + + + Social [...] encounter Progress Notes Jaziel Billy MD - 08/23/2013 1:04 PM PDTFormatting of this note might be different fro m the original. Progress Notes by Jaziel Billy MD at 08/23/13 6955 Author: Jaziel Billy MD Service: (none) Author Type: Physician Filed: 08/23/13 6678 Encounter Date: 08/23/2013 Status: Signed Exhibit Designer: Jaziel Billy MD (Physician) Subjective: Jono Tabares is a 63 y.o. male who presents for follow up for wound healing. He reports th at the wound has been doing well. He reports that he has been compliant with his treatment regimen. See flowsheet for measurements and specific treatment data. Review of Systems Constitutional: negative Respiratory: negative Cardiovascular: negative Gastrointestinal: negative Integument/breast: wound elements smaller overall size same Objective: General appearance: alert, appears stated age and cooperative Head: Normocephalic, without obvious abnormality, atraumatic Musculoskeletal: there is no redness, warmth, or swelling of the joints Skin: wounds idividually smaller wound easley same new blister left inner foot stop wraps t ubi electronic installer Assessment / Plan: [place] ulcer tissues examined. There is no induration, is no signs of skin breakdown, is no tenderness, is no redness, is no odor, is discharge. Excisional debridement medically necessary [...] scheduled. onversio n Transaction, Provider Unknown - 08/23/2013 12:38 PM PDTFormatting of this note might be di fferent from the original. Progress Notes by Demetria Padilla RN at 08/23/13 1231 Author: Demetria Padilla RN Service: (none) Author Type: Registered Nurse Filed: 08/23/13 1535 Encounter Date: 08/23/2013 Status: Signed Exhibit Designer: Demetria Padilla RN (Registered Nurse) Jono Tabares [...] n/a Footwear in place on this visit: Regular Shoe: docume vinayed in this encounter Plan of Treatment Not on filedocumented as of this encounter Visit Diagnoses + + | Diagnosis | + + | Morbid obesity (HCC) Morbid obesity | + + | Ulcer of leg, [...]
--- OUTSIDE RECORDS SUMMARY | ~2019-04-09 | XMS | Encounter Summary ---
Demographics + + + | Address | [address] | | | [place] [address] | + + + | Home Phone | | + + + | Preferred Language | Unknown | + + + | Marital Status | Single | + + + | Roman Catholic Affiliation | 1041 | + + [...] Team Providers + +------+ + | Care Director Of Partnerships Name | Role | Phone | + +------+ + PCP | Unavailable | + +------+ + Encounter Details +--------+ + + + + | Date | Type | Department | Care Team | Description | +--------+ + + + + | 07/19/ | Hospital | [facility] | Jaziel Billy, | Venous insufficiency | | 2013 | Encounter | CENTER OUTPATIENT | MD Umm AMADOR | | | | | WOUND CARE [address] | [facility] [place], | | | | | [place] | [place] [address] | | | | | [address] | [phone] | | | | | [phone] | | | +--------+ + + + [...] Notes by Jaziel Billy MD at 07/19/13 7723 Author: Jaziel Billy MD Service: (none) Author Type: Physician Filed: 07/19/13 5145 Encounter Date: 07/19/2013 Status: Addendum Build And Deployment Engineer: Jaziel Billy MD (Physician) Related Notes: Original Note by Jaziel Billy MD (Physician) filed at 07/19/13 2311 Subjective: Jono Tabares is a 63 y.o. [...] Notes by Leon Pierre RN at 07/19/13 0619 Author: Leon Pierre RN Service: (none) Author Type: Registered Nurse Filed: 07/19/13 4972 Encounter Date: 07/19/2013 Status: Signed Build And Deployment Engineer: Leon Pierre RN (Registered Nurse) Jono Tabares [...]
--- OUTSIDE RECORDS SUMMARY | ~2019-04-09 | XMS | Encounter Summary ---
Demographics + + + | Address | [address] | | | [place] [address] | + + + | Home Phone [...] Team Providers + +------+ + | Care Capital Project Engineer Name | Role | Phone | + +------+ + PCP | Unavailable | + +------+ + Encounter Details +--------+ + + + + | Date | Type | Department | Care Team | Description | +--------+ + + + + | 07/05/ | Hospital | [facility] | Jaziel Billy, | Open wound of ankle, | | 2013 | Encounter | CENTER OUTPATIENT | MD Umm AMADOR | right, subsequent | | | | WOUND CARE [address] | [place] [address], | encounter; Venous | | | | [place] | [place] [address] | insufficiency | | | | [address] | [phone] | | | | | [phone] | | | +--------+ + + + [...] documented as of this encounter Progress Notes [facility] Transaction, Provider Unknown - 2013 4:22 PM PDTFormatting of this note m ight be different from the original. Progress Notes by Deonna Adkins RN at 07/05/13 1620 Author: Deonna Adkins RN Service: (none) Author Type: Registered Nurse Filed: 07/05/13 1623 Encounter Date: 2013 Status: Signed Dynamicist: Deonna Adkins RN (Registered Nurse) PT H&P, [...] 07/05/13 1422 Encounter Date: 2013 Status: Signed Dynamicist: Jaziel Billy MD (Physician) Subjective: Jono Tabares [...] Notes by Elaine Bach RN at 07/05/13 0368 Author: Elaine Bach RN Service: (none) Author Type: Registered Nurse Filed: 07/05/13 9041 Encounter Date: 2013 Status: Signed Dynamicist: Elaine Bach RN (Registered Nurse) Jono Tabares [...]
--- OUTSIDE RECORDS SUMMARY | ~2019-04-09 | XMS | Encounter Summary ---
Demographics + + + | Address | [address] | | | [place] [address] | + + + | Home Phone | | + + + | Preferred Language | Unknown | + + + | Marital Status | Single | + + + | Mandaen Affiliation | 1041 | + + + [...] Team Providers + +------+ + | Care Coldfusion Name | Role | Phone | + +------+ + PCP | Unavailable | + +------+ + Encounter Details +--------+ + + + + | Date | Type | Department | Care Team | Description | +--------+ + + + + | 09/27/ | Hospital | [facility] | Jaziel Billy, | Ulcer of leg, | | 2013 | Encounter | CENTER OUTPATIENT | MD Umm AMADOR | chronic, unspecified | | | | WOUND CARE [address] | [place], | laterality, limited | | | | [place] | [place] [address] | to breakdown of | | | | [address] | [phone] | skin (HCC) | | | | [phone] | | | +--------+ + + + [...] Notes by Jaziel Billy MD at 09/27/13 7851 Author: Jaziel Billy MD Service: (none) Author Type: Physician Filed: 09/27/13 3123 Encounter Date: 09/27/2013 Status: Signed Sustainable Landscape Architect: Jaziel Billy MD (Physician) Subjective: Jono Tabares [...] Notes by Brooklyn Garcia RN at 09/27/13 4299 Author: Brooklyn Garcia RN Service: (none) Author Type: Registered Nurse Filed: 09/27/13 3894 Encounter Date: 09/27/2013 Status: Signed Sustainable Landscape Architect: Brooklyn Garcia RN (Registered Nurse) Jono Tabares is a 63 y.o. male who presents today for Wound Care visit. He presents accom panied by drivers' cash clerk. He arrived: Wheelchair. 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
--- OUTSIDE RECORDS SUMMARY | ~2019-04-09 | XMS | Encounter Summary ---
Demographics + + + | Address | [address] | | | [place] [address] | + + + | Home Phone | | + + + | Preferred Language | Unknown | + + + | Marital Status | Single | + + + | Zoroastrian Affiliation | 1041 | + + + [...] Team Providers + +------+ + | Care Billet Heater Name | Role | Phone | + +------+ + PCP | Unavailable | + +------+ + Encounter Details +--------+ + + + + | Date | Type | Department | Care Team | Description | +--------+ + + + + | 08/02/ | Hospital | [facility] | Jaziel Billy, | Ulcer of leg, | | 2013 | Encounter | CENTER OUTPATIENT | MD Umm AMADOR | chronic, unspecified | | | | WOUND CARE [address] | [facility] [place], | laterality, with | | | | [place] | [place] [address] | unspecified severity | | | | [address] | [phone] | (HCC); Venous | | | | [phone] | | insufficiency | +--------+ + + [...] Notes by Jaziel Billy MD at 08/02/13 8528 Author: Jaziel Billy MD Service: (none) Author Type: Physician Filed: 08/02/13 0867 Encounter Date: 08/02/2013 Status: Signed Trash Collector: Jaziel Billy MD (Physician) Subjective: Jono Tabares [...] Notes by Leon Pierre RN at 08/02/13 0835 Author: Leon Pierre RN Service: (none) Author Type: Registered Nurse Filed: 08/02/13 0394 Encounter Date: 08/02/2013 Status: Signed Trash Collector: Leon Pierre RN (Registered Nurse) Jono Tabares [...] this visit: Slipper: PATIENT HAS MOV[facility] FROM [facility] TO [facility] [place]. doar fernandes in this encounter Plan of [...]
--- OUTSIDE RECORDS SUMMARY | ~2019-04-09 | XMS | Encounter Summary ---
Demographics + + + | Address | [address] | | | [place] [address] | + + + | Home Phone [...] Team Providers + +------+ + | Care Labor Supervisor Name | Role | Phone | + +------+ + PCP | Unavailable | + +------+ + Encounter Details +--------+ + + + + | Date | Type | Department | Care Team | Description | +--------+ + + + + | 08/30/ | Hospital | [facility] | Jaziel Billy, | Ulcer of leg, | | 2013 | Encounter | CENTER OUTPATIENT | MD Umm AMADOR | chronic, unspecified | | | | WOUND CARE [address] | [facility] [place], | laterality, with | | | | [place] | [place] [address] | unspecified severity | | | | [address] | [phone] | (HCC) | | | | [phone] | | | +--------+ + + + [...] Notes by Jaziel Billy MD at 08/30/13 1422 Author: Jaziel Billy MD Service: (none) Author Type: Physician Filed: 09/06/13 1226 Encounter Date: 08/30/2013 Status: Addendum Oriental Medicine Practitioner: Jaziel Billy MD (Physician) Related Notes: Original Note by Jaziel Billy MD (Physician) filed at 08/30/13 7219 Subjective: Jono Tabares is a 63 y.o. [...] Notes by Leon Pierre RN at 08/30/13 4746 Author: Leon Pierre RN Service: (none) Author Type: Registered Nurse Filed: 08/30/13 1427 Encounter Date: 08/30/2013 Status: Signed Oriental Medicine Practitioner: Leon Pierre RN (Registered Nurse) Jono Tabares [...]
--- OUTSIDE RECORDS SUMMARY | ~2019-04-09 | XMS | Encounter Summary ---
Demographics + + + | Address | [address] | | | [place] [address] | + + + | Home Phone | | + + + | Preferred Language | Unknown | + + + | Marital Status | Single | + + + | Adventist Affiliation | 1041 | + + + | Race | Unknown | + + + | Ethnic Group | Unknown | + + + Author + + + | Author | [facility] | | | and [place] | + + + | Organization | [facility] | | [...] Team Providers + +------+ + | Care Supervisor Boilermaking Shop Name | Role | Phone | + +------+ + PCP | Unavailable | + +------+ + Encounter Details +--------+ + + + + | Date | Type | Department | Care Team | Description | +--------+ + + + + | 08/23/ | Hospital | [facility] | Jaziel Billy, | Morbid obesity | | 2013 | Encounter | CENTER OUTPATIENT | MD Umm AMADOR | ([facility]); Ulcer of leg, | | | | WOUND CARE [address] | [place] [address], | chronic, | | | | [address] [place] | [place] [address] | unspecified | | | | [address] | [phone] | laterality, limited | | | | [phone] | | to breakdown of skin | [...] Notes by Jaziel Billy MD at 08/23/13 9569 Author: Jaziel Billy MD Service: (none) Author Type: Physician Filed: 08/23/13 5343 Encounter Date: 08/23/2013 Status: Signed Disposal Operator: Jaziel Billy MD (Physician) Subjective: Jono [...] 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 [...] Notes by Demetria Padilla RN at 08/23/13 8088 Author: Demetria Padilla RN Service: (none) Author Type: Registered Nurse Filed: 08/23/13 1535 Encounter Date: 08/23/2013 Status: Signed Disposal Operator: Demetria Padilla RN (Registered Nurse) Jono [...]
--- OUTSIDE RECORDS SUMMARY | ~2019-04-09 | XMS | Encounter Summary ---
Demographics + + + | Address | [address] | | | [place] [address] | + + + | Home Phone | | + + + | Preferred Language | Unknown | + + + | Marital Status | Single | + + + | Muslim Affiliation | 1041 | + + + [...] Team Providers + +------+ + | Care Order Entry Administrator Name | Role | Phone | + +------+ + PCP | Unavailable | + +------+ + Encounter Details +--------+ + + + + | Date | Type | Department | Care Team | Description | +--------+ + + + + | 06/07/ | Hospital | [facility] | Jaziel Billy, | Open wound of knee, | | 2013 | Encounter | CENTER OUTPATIENT | MD Umm AMADOR | leg (except thigh), | | | | WOUND CARE [address] | [place] [address], | and ankle, | | | | [address] [place], [place] | [place] [address] | complicated | | | | [address] | [phone] | | | | | [phone] | | | +--------+ + + + [...] Notes by Jaziel Billy MD at 06/07/13 162 Author: Jaziel Billy MD Service: (none) Author Type: Physician Filed: 06/07/13 1626 Encounter Date: 06/07/2013 Status: Signed Veneer Clipper: Jaziel Billy MD (Physician) Subjective: Jono Tabares [...] Notes by Demetria Padilla RN at 06/07/13 5514 Author: Demetria Padilla RN Service: (none) Author Type: Registered Nurse Filed: 06/07/13 3649 Encounter Date: 06/07/2013 Status: Signed Veneer Clipper: Demetria Padilla RN (Registered Nurse) Jono Tabares [...] place on this visit: Other Footwear: wraps doar fernandes in this encounter Plan of [...]
--- OUTSIDE RECORDS SUMMARY | ~2019-04-09 | XMS | Encounter Summary ---
Demographics + + + | Address | [address] | | | [place] [address] | + + + | Home Phone | | + + + | Preferred Language | Unknown | + + + | Marital Status | Single | + + + | Shinto Affiliation | 1041 | + + + [...] Team Providers + +------+ + | Care Change Lead Name | Role | Phone | + +------+ + PCP | Unavailable | + +------+ + Encounter Details +--------+ + + + + | Date | Type | Department | Care Team | Description | +--------+ + + + + | 12/12/ | Hospital | [facility] | Alexx Boyd MD | Urosepsis; Chest | | 2012 - | Encounter | [facility] | [address] | pain; Hip pain, | | | | CLINICAL DECISION | RYAN Wilson | chronic; Acute | | 12/16/ | | [address] | [address] | kidney injury ([facility]); | | 2012 | | [place], [place] | | Morbid obesity | | | | [address] | | ([facility]); Septic shock | | | | [phone] | | ([facility]); Urinary tract | | | | [...] Date of Service: 12/16/12 1000 Status: Signed Political Cartoonist: Pete Fish MD (Physician) [facility] Service: Hospitalist Physician Discharge Summary Pt: Seth Tabares AGE/SEX: 62 y.o. male ROOM: [facility]317-1 PCP: ABRAN VALDOVINOS : 1950 Admit [...] GERD presents wi th generalised weakness to [facility] in [place] Pt had a fever of 101.3, maintained [...] Notes by Ignacio Tobar RN at 12/16/12 6399 Author: Ignacio Tobar RN Service: (none) Author Type: Registered Nurse Filed: 12/16/12 8570 Date of Service: 09/14/13 1615 Status: Signed Political Cartoonist: Ignacio Tobar RN (Registered Nurse) Pt VSS. Pt transported to [facility] by [facility]. Pt has no complaints at this time. IGNACIO VILLANUEVA RN onver keith Transaction, Provider Unknown - 12/15/2012 5:58 PM PDT Progress Notes by Cady Collins RN at 12/15/121757 Author: Cady Collins RN Service: (none) Author Type: Registered Nurse Filed: 12/15/12 180 Date of Service: 12/15/121757 Status: Signed Political Cartoonist: Cady Collins RN (Registered Nurse) Pt up [...] Date of Service: 12/15/12 1435 Status: Signed Political Cartoonist: Ruth Giron RN (Registered Nurse) Discharge Planning: Called [place] [facility] ph: [phone] and spoke to Luna pa re: transport back to [facility] in [place], [place]. Milo stated pt is in their syste m and is eligible to receive free rides under his [facility] Plan ([facility]) . After [...] Milo recommended that pt be transferred to [facility] via ambulance. Will notify MD. RUTH GIRON 12/15/2012 2:40 PM onver keith Transaction, Provider Unknown - 12/15/2012 1:14 PM PDT Case Management by Ruth Giron RN at 12/15/12 1314 Author: Ruth Giron RN Service: (none) Author Type: Registered Nurse Filed: 12/15/12 9988 Date of Service: 12/15/124 Status: Signed Political Cartoonist: Ruth Giron RN (Registered Nurse) Discharge Planning: Received return call from Manny at [facility] in [place], [place]. Stated they have obta ined insur auth from [facility] Health Plan for pt to return to [facility]. Manny stated they will accept pt over weekend. SNF paperwork placed on chart-MD needs to s ign. Dr. Ravi will be accepting MD at [facility], MD to MD call is not needed per Manny. If pt is discharged over weekend, please call Manny #[phone] and she will coordinate admit time with their charge nurse. Please fax completed orders and copies of prescription s, and updated MD notes/dc summary to [facility] fax#[phone]. RUTH GIRON 12/15/2012 1:28 PM onver keith Transaction, Provider Unknown - 12/15/2012 11:07 AM PDT Case Management by Ruth Giron RN at 12/15/12 0362 Author: Ruth Giron RN Service: (none) Author Type: Registered Nurse Filed: 12/15/12 1116 Date of Service: 12/15/12 1107 Status: Signed Political Cartoonist: Ruth Giron RN (Registered Nurse) Discharge Planning: Per MD, anticipate possible discharge tomorrow (12/16/12). Reviewed previous CRM notes. Met w/pt in room to discuss dc plan. Pt sitting up in chair, A/O, pleasant, conversant. Stated he has been living at [facility] prior to admit to hospital. He would like to return to [facility] until he gets stronger, then possibly go to an [facility] in the future. Discussed transportation-stated his friend Ingrid Patel ph#[phone] may be able to give him a ride-called this no# left VM, requested he call myself or pt re: if she can provide t ransportation. Pt stated he also has a friend Scott Palafox who is the deacon of his voodoo ph#[phone] who may be able to help if Ingrid can't. Stated he has a couple of other friends but does n ot have their phone numbers. Briefly discussed cost of taxi, keenan, w/c taxi-stated he cannot afford to pay anything for a ride. Called Manny-rehabilitation program coordinator at [facility] [phone]-stated they will accept pt back to their facility pending auth from [facility] Health Plan (she will try to obtain auth to day). Faxed MD Tika notes to [facility] fax# [phone]. Awaiting call from [facility] re: final acceptance/insurance auth. RUTH GIRON 12/15/2012 11:16 AM Pete Nogueira 12/15/2012 9:41 AM PDTFormatting of this note might be different from the marylu chandra. Progress Notes by Pete Fish MD at 12/15/12 0941 Author: Pete Fish MD Service: Hospitalist Author Type: Physician Filed: 12/15/12 0956 Date of Service: 12/15/12 0941 Status: Signed Political Cartoonist: Pete Fish MD (Physician) [facility] Service: Hospitalist Progress Note Pt: Seth Tabares AGE/SEX: 62 y.o. male ROOM: 317/317-1 : 1950 PCP: ABRAN VALDOVINOS ADMIT DATE: 12/12/2012 TODAY'S DATE: 12/15/2012 Hospital Day/Hospital Course: LOS: 3 days The patient is a 62 y.o. male with significant past medical history of OA, GERD presents wi th generalised weakness to [facility] in [place] Pt had a fever of 101.3, maintained [...] GERD presents w ith generalised weakness to [facility] in [place] Pt had a fever of 101.3, maintained a BP over 100 systolic per EMS and admitted to ICU with Sepsis From E-Coli UTI Septic shock due to E-Coli Urinary tract infection: Resolved. velazquez sensitive E-coli and will continue with ceftriaxone for now. Morbid obesity: counseled regarding Wt reduction Acute kidney injury: Resolved FARM MECHANIC APPRENTICE to initiate the DC plan PETE FISH MD, FACP 12/15/2012 9:41 AM onversion Transaction, Pr ovider Unknown - 12/15/2012 8:15 AM PDT Progress Notes by Meño Miller PT at 12/15/12814 Author: Meño Miller PT Service: (none) Author Type: Physical Therapist Filed: 12/15/12916 Date of Service: 12/15/12814 Status: Signed Political Cartoonist: Meño Miller PT (Physical Therapist) 12/15/12814 PT [...] 12/14/12 0357 Author: Alexx Boyd MD Service: Photographic Plate Maker Author Type: Physician Filed: 12/14/12 0704 Date of Service: 12/14/12 035 Status: Addendum Political Cartoonist: Alexx Boyd MD (Physician) Related Notes: Original Note by Alexx Boyd MD (Physician) filed at 12/14/12 0703 [facility] Service: Photographic Plate Maker Progress Note Seth Tabares 62 y.o. Hospital Day: LOS: 2 days Post-Op Day: * No surgery found * Treatment Team: Admitting Provider: Alexx Boyd MD SUBJECTIVE Patient Summary: The patient is a 62 y.o. male with significant past medical history as below who presents with generalised weakness to [facility] in [place] . The pt was a t [facility] around 4 pm with complaints of chest [...] occasional blood. He was told by his parts control clerk that he has thickening of his carotid artery. The patient was seen in the Er and he was found to be hypotensive. He was started on presso rs which was increased to current level. 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 ICU TIMELINE:12/13/2012 [...] DISEASE: Ecoli UTI pansensitive organism as per [facility] cultures Continue ceftriaxone HEME: Leucocytosis resolved Stable [...] Case Management by CAMERON Bryant at 12/13/12 2654 Author: CAMERON Bryant Service: (none) Author Type: Data Compiler Filed: 12/13/12 0106 Date of Service: 12/13/121 Status: Signed Political Cartoonist: CAMERON Bryant (Data Compiler) Called [facility] Manny to discuss 62 y.o pt's referral. CM spoke to Manny about pt's financial concerns about going over the 20 day coverage at [facility]. MARIKA let Manny know that [place] Medicaid application had been started, as per guarantor account maint enance notes, and is pending. Manny assured MARIKA that Valente would check in on the pt's application at the local office as soon as possible. Benjamin Nunes Rpg Developer Student Supervised, CAMERON Bryant onver keith Transaction, Provider Unknown - 12/13/2012 3:51 PM PDT Case Management by CAMERON Bryant at 12/13/12 1551 Author: CAMERON Bryant Service: (none) Author Type: Data Compiler Filed: 12/13/12 9972 Date of Service: 12/13/121550 Status: Signed Political Cartoonist: CAMERON Bryant (Data Compiler) Met with 62 y.o. Pt to discuss future d/c plans. Introduced CM's role in d/c planning and meeting pts needs. Before being transferred from [facility] pt was a resident at [facility]. Pt reports being in and out of [facility] twice. The pt was first in [facility] for PT rehab from July 24-August 11. Pt returned to [facility] after a fall on Dec 10. Whe n he is not at [facility] pt lives alone in a one-story apartment. [...] a half brother and half sister in [facility] [place], [place] he has not seen or talked to them for five years. CM explained to pt that he would l ikely need rehab and discussed options. Pt prefers to go back to [facility] but fears abou t paying for it when his 20 days coverage expires. CM faxed referral to [facility]. Benjamin Nunes Rpg Developer Student Supervised, CAMERON Bryant onver keith Transaction, Provider Unknown - 12/13/2012 3:14 PM PDT Progress Notes by Lisa Bowen RN at 12/13/121513 Author: Lisa Bowen RN Service: Infectious Disease Author Type: Registered Nurse Filed: 12/13/121513 Date of Service: 12/13/121513 Status: Signed Political Cartoonist: Lisa Bowen RN (Registered Nurse) Infection Prevention Note: Patient with hx of MRSA. Currently, nasal PCR is positive for MRSA on 12/13/12. Contact Pr ecautions are required for this admission. Lisa Bowen RN, BA, Bell Captain onver keith Transaction, Provider Unknown - 12/13/2012 9:36 AM PDT Progress Notes by Nohemy Uribe RN at 12/13/12935 Author: Nohemy Uribe RN Service: Wound/Ostomy Care Author Type: Registered Nurse Filed: 12/13/12938 Date of Service: 12/13/12935 Status: Signed Political Cartoonist: Nohemy Uribe RN (Registered Nurse) Patient seen today by heat and vent aircraft mechanic for evaluation due to a low Catrachito [...] 12/13/12100 Date of Service: 12/13/12100 Status: Signed Political Cartoonist: Cheli Crowley RPH (Pharmacist) Clinical Pharmacy Note: [...] Prior study for comparison -- none. FINDINGS: Senior Construction Manager | | | demonstrates prominent body [...] Prior study for comparison -- none. FINDINGS: Senior Construction Manager demonstrates prominent body | | habitus [...] | Testing performed at | | | [address] [address] SPECIAL REQUESTS | | | CENTRAL | | | Testing performed at [facility];[address] [place] [address] | | | CULTURE NO GROWTH 6 DAYS | | | Testing performed at | | | [address], [address] [place] [address] REPORT STATUS | | | 12/19/2012 FINAL [...] | Testing performed at | | | [facility];[address] [place] [address];[place] [address] SPECIAL REQUESTS | | | ART LINE | | | Testing performed at [facility];[address] [place] [address];[place] [address] | | | CULTURE NO GROWTH 6 DAYS | | | Testing performed at | | | [facility], [address] [place] [address] REPORT STATUS | | | 12/19/2012 FINAL [...] EXTERNAL LAB | | Testing performed at [facility];[address] [place] [address];[place] [address] MRSA PCR | | | POSITIVE for MRSA by PCRAbnormal | | | Testing performed at [facility];[address] [place] [address];[place] [address] | | + + + + +---------+ [...] Azul Conversion - 11/24/2018 7:30 PM EMELY [id number] yearsXR CHEST 1 | | VIEW12/13/2012 1:41 [...] (500), | | | | | | editor managing newspaper SANDIP KAMARA (2) | | | | | | on 12/13/2012 8:58:48 AM | | | | | | | | | | + + + + + + + + | Specimen | + + | | + + + + + | Narrative | Performed At | + + + | Historically converted procedure from [facility] Epic environment | EXTERNAL LAB | + [...] Rad Conversion - 11/24/2018 7:30 PM PDT [facility] CHEST 1 VIEW12/12/2012 | | 9:44 [...] WORKUP | | | Testing performed at [facility], [address] [place] [address], | | | [place] [address] REPORT STATUS | | | 12/14/2012 FINAL [...]
--- OUTSIDE RECORDS SUMMARY | ~2019-04-09 | XMS | Encounter Summary ---
Demographics + + + | Address | [address] | | | [place] [address] | + + + | Home Phone [...] Providers + +------+ + | Care Director Zone Name | Role | Phone | + +------+ + PCP | Unavailable | + +------+ + Encounter Details +--------+ + + + + | Date | Type | Department | Care Team | Description | +--------+ + + + + | 06/13/ | Hospital | [facility] | Conversion | Open wound of knee, | | 2013 | Encounter | MEDICAL [facility]ENTER | Transaction, | leg (except thigh), | | | | [address] | Provider Unknown | and ankle, | | | | [address] | [phone] | complicated | | | | [place], [place] | | | | | | [address] | | | | | | [phone] | | | +--------+ + + + [...]
--- OUTSIDE RECORDS SUMMARY | ~2019-04-09 | XMS | Encounter Summary ---
Demographics + + + | Address | [address] | | | [place] [address] | + + + | Home Phone | | + + + | Preferred Language | Unknown | + + + | Marital Status | Single | + + + | Religion Affiliation | 1041 | + + + [...] Team Providers + +------+ + | Care Sorting Machine Attendant Name | Role | Phone | + +------+ + PCP | Unavailable | + +------+ + Encounter Details +--------+ + + + + | Date | Type | Department | Care Team | Description | +--------+ + + + + | 06/21/ | Hospital | [facility] | Conversion | Open wound of knee, | | 2013 | Encounter | MEDICAL CENTER | Transaction, | leg (except thigh), | | | | [address] | Provider Unknown | and ankle, | | | | [address] | [phone] | complicated | | | | [place], [place] | | | | | | [address] | | | | | | [phone] | | | +--------+ + + + [...]
--- OUTSIDE RECORDS SUMMARY | ~2019-04-09 | XMS | Encounter Summary ---
Demographics + + + | Address | [address] | | | [place] [address] | + + + | Home Phone | | + + + | Preferred Language | Unknown | + + + | Marital Status | Single | + + + | Rastafari Affiliation | 1041 | + + + | Race | Unknown | + + + | Ethnic Group | Unknown | + + + Author + + + | Author | [facility] | | | and [place] | + + + | Organization | [facility] [...] Team Providers + +------+ + | Care Skylights Assembler Name | Role | Phone | + +------+ + PCP | Unavailable | + +------+ + Encounter Details +--------+ + + + + | Date | Type | Department | Care Team | Description | +--------+ + + + + | 09/06/ | Hospital | [facility] | Jaziel Billy, | Ulcer of leg, | | 2013 | Encounter | CENTER OUTPATIENT | MD [address] | chronic, unspecified | | | | WOUND CARE [address] | [place], | laterality, limited | | | | [place] | [place] [address] | to breakdown of | | | | [address] | [phone] | skin (HCC) | | | | [phone] | | | +--------+ + + + [...] Notes by Jaziel Billy MD at 09/06/13 9053 Author: Jaziel Billy MD Service: (none) Author Type: Physician Filed: 09/06/13 1412 Encounter Date: 09/06/2013 Status: Signed Oxyacetylene Cutter: Jaziel Billy MD (Physician) Subjective: Jono Tabares [...] Notes by Elaine Bach RN at 09/06/13 3740 Author: Elaine Bach RN Service: (none) Author Type: Registered Nurse Filed: 09/06/13 1246 Encounter Date: 09/06/2013 Status: Signed Oxyacetylene Cutter: Elaine Bach RN (Registered Nurse) Jono Tabares [...]
--- OUTSIDE RECORDS SUMMARY | ~2019-04-09 | XMS | Encounter Summary ---
Demographics + + + | Address | [address] | | | [place] [address] | + + + | Home Phone | | + + + | Preferred Language | Unknown | + + + | Marital Status | Single | + + + | Synagogue Affiliation | 1041 | + + + [...] Team Providers + +------+ + | Care Furniture Detailer Name | Role | Phone | + +------+ + PCP | Unavailable | + +------+ + Encounter Details +--------+ + + + + | Date | Type | Department | Care Team | Description | +--------+ + + + + | 10/18/ | Hospital | [facility] | Jaziel Billy, | Ulcer of leg, | | 2013 | Encounter | CENTER OUTPATIENT | MD [address] [place] | chronic, unspecified | | | | WOUND CARE [address] | [place], | laterality, limited | | | | [place] | [place] [address] | to breakdown of | | | | [address] | [phone] | skin (HCC) | | | | [phone] | | | +--------+ + + + [...] Notes by Jaziel Billy MD at 10/18/13 7352 Author: Jaziel Billy MD Service: (none) Author Type: Physician Filed: 10/25/13 2869 Encounter Date: 10/18/2013 Status: Addendum Specialty Molder: Jaziel Billy MD (Physician) Related Notes: Original Note by Jaziel Billy MD (Physician) filed at 10/18/13 9177 Subjective: Jono Tabares is a 63 y.o. [...] Continue with dressings with home health in [place] . recheck here soul new wounds develop [...] 10/18/13 1238 Encounter Date: 10/18/2013 Status: Signed Specialty Molder: Joann Leigh RN (Registered Nurse) Jono Tabares [...]
--- OUTSIDE RECORDS SUMMARY | ~2019-04-09 | XMS | Clinical Summary ---
Demographics + + + | Address | [address] | | | [place] [address] | + + + | Home Phone | | + + + | Preferred Language | Unknown | + + + | Marital Status | Single | + + + | Scientology Affiliation | 1041 | + + + | Race | Unknown | + + + | Ethnic Group | Unknown | + + + Author + + + | Author | [facility] | | | and [place] | + + + | Organization | [facility] | | | [...] Team Providers + +------+ + | Care Court Reporter Name | Role | Phone | + [...]
--- OUTSIDE RECORDS SUMMARY | ~2019-04-09 | XMS | Encounter Summary ---
Demographics + + + | Address | [address] | | | [place] [address] | + + + | Home Phone | | + + + | Preferred Language | Unknown | + + + | Marital Status | Single | + + + | Taoist Affiliation | 1041 | + + + [...] Team Providers + +------+ + | Care Tattoo Identifier Name | Role | Phone | + +------+ + PCP | Unavailable | + +------+ + Encounter Details +--------+ + + + + | Date | Type | Department | Care Team | Description | +--------+ + + + + | 06/28/ | Hospital | [facility] | Jaziel Billy, | Ulcer of other part | | 2013 | Encounter | CENTER OUTPATIENT | MD [address] [place] | of lower limb (HCC) | | | | WOUND CARE [address] | [facility] [address], | | | | | [place] | [place] [address] | | | | | [address] | [phone] | | | | | [phone] | | | +--------+ + + + [...] Notes by Jaziel Billy MD at 06/28/13 0326 Author: Jaziel Billy MD Service: (none) Author Type: Physician Filed: 06/28/13 3581 Encounter Date: 06/28/2013 Status: Signed Cutter Operator: Jaziel Billy MD (Physician) Subjective: Jono [...] Notes by Elaine Bach RN at 06/28/13 7273 Author: Elaine Bach RN Service: (none) Author Type: Registered Nurse Filed: 06/28/13 8702 Encounter Date: 06/28/2013 Status: Signed Cutter Operator: Elaine Bach RN (Registered Nurse) Jono Tabares [...]
--- OUTSIDE RECORDS SUMMARY | ~2019-04-09 | XMS | Encounter Summary ---
Demographics + + + | Address | [address] | | | [place] [address] | + + + | Home Phone [...] Team Providers + +------+ + | Care Grader Tender Name | Role | Phone | + +------+ + PCP | Unavailable | + +------+ + Encounter Details +--------+ + + + + | Date | Type | Department | Care Team | Description | +--------+ + + + + | 06/07/ | Hospital | [facility] | Jazeil Billy, | Open wound of knee, | | 2013 | Encounter | CENTER OUTPATIENT | MD [address] [place] | leg (except thigh), | | | | WOUND CARE [address] | [place] [address], | and ankle, | | | | [address] [place], [place] | [place] [address] | complicated | | | | [address] | [phone] | | | | | [phone] | | | +--------+ + + + [...] Notes by Jaziel Billy MD at 06/07/13 1620 Author: Jaziel Billy MD Service: (none) Author Type: Physician Filed: 06/07/13 1626 Encounter Date: 06/07/2013 Status: Signed National Accounts Sales: Jaziel Billy MD (Physician) Subjective: Jono Tabares [...] Notes by Demetria Padilla RN at 06/07/13 4615 Author: Demetria Padilla RN Service: (none) Author Type: Registered Nurse Filed: 06/07/13 9249 Encounter Date: 06/07/2013 Status: Signed National Accounts Sales: Demetria Padilla RN (Registered Nurse) Jono Tabares [...]
--- OUTSIDE RECORDS SUMMARY | ~2019-04-09 | XMS | Encounter Summary ---
Demographics + + + | Address | [address] | | | [place] [address] | + + + | Home Phone | | + + + | Preferred Language | Unknown | + + + | Marital Status | Single | + + + | Tenriism Affiliation | 1041 | + + + | Race | Unknown | + + + | Ethnic Group | Unknown | + + + Author + + + | Author | [facility] | | | and [place] | + + + | Organization | [facility] | | | and [...] Team Providers + +------+ + | Care Freelance Data Entry Name | Role | Phone | + +------+ + | Tay Chino MD | PCP | | + +------+ + Encounter Details +--------+ + + + + | Date | Type | Department | Care Team | Description | +--------+ + + + + | 05/07/ | Orders Only | [facility] | Lorenzo Chan MD | | | 2013 | | [facility] | [address] [place] | | | | | [address] [place] | [address] [place], [place] | | | | | [address] [place], [place] | [address] | | | | | [address] | | | | | | [phone] | | | +--------+ + + + [...] | | | LAB | | | GABONESE | | | | | + +-------+ [...]
--- OUTSIDE RECORDS SUMMARY | ~2019-04-09 | XMS | Encounter Summary ---
Demographics + + + | Address | [address] | | | [place] [address] | + + + | Home Phone [...] + + + | Author | [facility] | | | and [place] | + + + | Organization | [facility] | | | [...] Team Providers + +------+ + | Care Gluing Crew Leader Name | Role | Phone | + +------+ + PCP | Unavailable | + +------+ + Encounter Details +--------+ + + + + | Date | Type | Department | Care Team | Description | +--------+ + + + + | 10/04/ | Hospital | [facility] | Jaziel Billy, | Ulcer of leg, | | 2013 | Encounter | CENTER OUTPATIENT | MD Umm AMADOR | chronic, left, | | | | WOUND CARE [address] | [facility] [place], | limited to breakdown | | | | [place] | [place] [address] | of skin (HCC) | | | | [address] | [phone] | | | | | [phone] | | | +--------+ + + + [...] 10/04/13 1525 Encounter Date: 10/04/2013 Status: Signed Health Actuary: Jaziel Billy MD (Physician) Subjective: Jono Tabares [...] Notes by Nyasia Graham RN at 10/04/13 0652 Author: Nyasia Graham RN Service: (none) Author Type: Registered Nurse Filed: 10/04/13 1525 Encounter Date: 10/04/2013 Status: Signed Health Actuary: Nyasia Graham RN (Registered Nurse) Jono Tabares is a 63 y.o. male who presents today for Wound Care visit. 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 He arrived: Wheelchair. 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
--- OUTSIDE RECORDS SUMMARY | ~2019-04-09 | XMS | Encounter Summary ---
Demographics + + + | Address | [address] | | | [place] [address] | + + + | Home Phone | | + + + | Preferred Language | Unknown | + + + | Marital Status | Single | + + + | Mandaen Affiliation | 1041 | + + + | Race | Unknown | + + + | Ethnic Group | Unknown | + + + Author + + + | Author | [facility] | | | and [place] | + + + | Organization | [facility] | | [...] Providers + +------+ + | Care Supervisor Kosher Dietary Service Name | Role | Phone | + +------+ + PCP | Unavailable | + +------+ + Encounter Details +--------+ + + + + | Date | Type | Department | Care Team | Description | +--------+ + + + + | 06/14/ | Hospital | [facility] | Jaziel Billy, | Ulcer of lower limb, | | 2013 | Encounter | CENTER OUTPATIENT | MD Umm AMADOR | unspecified (HCC) | | | | WOUND CARE [address] | [facility] [place], | | | | | [place] | [place] [address] | | | | | [address] | [phone] | | | | | [phone] | | | +--------+ + + + [...] Filed: 06/14/131810 Encounter Date: 06/14/2013 Status: Signed Oiler Helper: Jaziel Billy MD (Physician) Subjective: Jono [...] as scheduled. See discharge instructions for debridement Electronically signed by Jorge Alberto, Novelty Balloon Assembler And Packer Conversion at 11/29/2018 12:08 AM PDTdocumente d in this encounter Plan of Treatment [...]
--- OUTSIDE RECORDS SUMMARY | ~2019-04-09 | XMS | Encounter Summary ---
Demographics + + + | Address | [address] | | | [place] [address] | + + + | Home Phone [...] Providers + +------+ + | Care Hot Roll Inspector Name | Role | Phone | + +------+ + PCP | Unavailable | + +------+ + Encounter Details +--------+ + + + + | Date | Type | Department | Care Team | Description | +--------+ + + + + | 06/14/ | Hospital | [facility] | Conversion | Open wound of knee, | | 2013 | Encounter | [facility]ENTER | Transaction, | leg (except thigh), | | | | [address] | Provider Unknown | and ankle, | | | | [place] | [phone] | complicated | | | | [place], [place] | | | | | | [address] | | | | | | [phone] | | | +--------+ + + + [...]
--- OUTSIDE RECORDS SUMMARY | ~2019-04-09 | XMS | Encounter Summary ---
Demographics + + + | Address | [address] | | | [place] [address] | + + + | Home Phone | | + + + | Preferred Language | Unknown | + + + | Marital Status | Single | + + + | Hinduism Affiliation | 1041 | + + + | Race | Unknown | + + + | Ethnic Group | Unknown | + + + Author + + + | Author | [facility] | | | and [place] | + + + | Organization | [facility] | | | [...] Team Providers + +------+ + | Care Non Destructive Testing Supervisor Name | Role | Phone | + +------+ + PCP | Unavailable | + +------+ + Encounter Details +--------+ + + + + | Date | Type | Department | Care Team | Description | +--------+ + + + + | 06/07/ | Hospital | [facility] | Jazeil Billy, | Open wound of knee, | | 2013 | Encounter | CENTER OUTPATIENT | MD Umm AMADOR | leg (except thigh), | | | | WOUND CARE [address] | [place] [address], | and ankle, | | | | BL[place], [place] | [place] [address] | complicated | | | | [address] | [phone] | | | | | [phone] | | | +--------+ + + + [...] Notes by Jaziel Billy MD at 06/07/13 1623 Author: Jaziel Billy MD Service: (none) Author Type: Physician Filed: 06/07/13 1626 Encounter Date: 06/07/2013 Status: Signed Jewelry Casting Model Maker Apprentice: Jaziel Billy MD (Physician) Subjective: Jono Tabares [...] Notes by Demetria Padilla RN at 06/07/13 2069 Author: Demetria Padilla RN Service: (none) Author Type: Registered Nurse Filed: 06/07/13 0638 Encounter Date: 06/07/2013 Status: Signed Jewelry Casting Model Maker Apprentice: Demetria Padilla RN (Registered Nurse) Jono Tabares [...]
--- OUTSIDE RECORDS SUMMARY | ~2019-04-09 | XMS | Encounter Summary ---
Demographics + + + | Address | [address] | | | [place] [address] | + + + | Home Phone | | + + + | Preferred Language | Unknown | + + + | Marital Status | Single | + + + | Yazidi Affiliation | 1041 | + + + | Race | Unknown | + + + | Ethnic Group | Unknown | + + + Author + + + | Author | [facility] | | | and [place] | + + + | Organization | [facility] | | [...] Team Providers + +------+ + | Care Remote Control Mirror Installer Name | Role | Phone | + +------+ + PCP | Unavailable | + +------+ + Encounter Details +--------+ + + + + | Date | Type | Department | Care Team | Description | +--------+ + + + + | 06/28/ [facility] | Jaziel Billy, | Ulcer of other part | | 2013 | Encounter | CENTER OUTPATIENT | MD Umm AMADOR | of lower limb (HCC) | | | | WOUND CARE [address] | [facility] [place], | | | | | [place] | [place] [address] | | | | | [address] | [phone] | | | | | [phone] | | | +--------+ + + + [...] Notes by Jaziel Billy MD at 06/28/13 4764 Author: Jaziel Billy MD Service: (none) Author Type: Physician Filed: 06/28/13 1837 Encounter Date: 06/28/2013 Status: Signed Blanket Binder: Jaziel Billy MD (Physician) Subjective: Jono Tabares [...] Notes by Elaine Bach RN at 06/28/13 6532 Author: Elaine Bach RN Service: (none) Author Type: Registered Nurse Filed: 06/28/13 0690 Encounter Date: 06/28/2013 Status: Signed Blanket Binder: Elaine Bach RN (Registered Nurse) Jono Tabares [...]
--- OUTSIDE RECORDS SUMMARY | ~2019-04-09 | XMS | Encounter Summary ---
Demographics + + + | Address | [address] | | | [place] [address] | + + + | Home Phone | | + + + | Preferred Language | Unknown | + + + | Marital Status | Single | + + + | Methodist Affiliation | 1041 | + + + | Race | Unknown | + + + | Ethnic Group | Unknown | + + + Author + + + | Author | [facility] | | | and [place] | + + + | Organization | [facility] | | [...] Team Providers + +------+ + | Care Thermodynamics Engineer Name | Role | Phone | + +------+ + PCP | Unavailable | + +------+ + Encounter Details +--------+ + + + + | Date | Type | Department | Care Team | Description | +--------+ + + + + | 08/02/ | Hospital | [facility] | Jaziel Billy, | Ulcer of leg, | | 2013 | Encounter | CENTER OUTPATIENT | MD Umm AMADOR | chronic, unspecified | | | | WOUND CARE [address] | [facility] [place], | laterality, with | | | | [place] | [place] [address] | unspecified severity | | | | [address] | [phone] | (HCC); Venous | | | | [phone] | | insufficiency | +--------+ + + [...] Notes by Jaziel Billy MD at 08/02/13 7548 Author: Jaziel Billy MD Service: (none) Author Type: Physician Filed: 08/02/13 3867 Encounter Date: 08/02/2013 Status: Signed Long Filler Cigar Roller Machine: Jaziel Billy MD (Physician) Subjective: Jono Tabares [...] Notes by Leon Pierre RN at 08/02/13 2520 Author: Leon Pierre RN Service: (none) Author Type: Registered Nurse Filed: 08/02/13 3454 Encounter Date: 08/02/2013 Status: Signed Long Filler Cigar Roller Machine: Leon Pierre RN (Registered Nurse) Jono Tabares [...] MOVED FROM [facility] TO [facility], [place]. doar fernandes in this encounter Plan of [...]
--- OUTSIDE RECORDS SUMMARY | ~2019-04-09 | XMS | Encounter Summary ---
Demographics + + + | Address | [address] | | | [place] [address] | + + + | Home Phone | | + + + | Preferred Language | Unknown | + + + | Marital Status | Single | + + + | Mu-Ism Affiliation | 1041 | + + + [...] Team Providers + +------+ + | Care Pneumatic Hoist Operator Name | Role | Phone | + +------+ + PCP | Unavailable | + +------+ + Encounter Details +--------+ + + + + | Date | Type | Department | Care Team | Description | +--------+ + + + + | 09/06/ | Hospital | [facility] | Jaziel Billy, | Ulcer of leg, | | 2013 | Encounter | CENTER OUTPATIENT | MD Umm AMADOR | chronic, unspecified | | | | WOUND CARE [address] | [place], | laterality, limited | | | | [place] | [place] [address] | to breakdown of | | | | [address] | [phone] | skin (HCC) | | | | [phone] | | | +--------+ + + + [...] Notes by Jaziel Billy MD at 09/06/13 4153 Author: Jaziel Billy MD Service: (none) Author Type: Physician Filed: 09/06/13 1412 Encounter Date: 09/06/2013 Status: Signed Outreach Librarian: Jaziel Billy MD (Physician) Subjective: Jono Tabares [...] Notes by Elaine Bach RN at 09/06/13 4432 Author: Elaine Bach RN Service: (none) Author Type: Registered Nurse Filed: 09/06/13 1246 Encounter Date: 09/06/2013 Status: Signed Outreach Librarian: Elaine Bach RN (Registered Nurse) Jono Tabares [...]
--- OUTSIDE RECORDS SUMMARY | ~2019-04-09 | XMS | Encounter Summary ---
Demographics + + + | Address | [address] | | | [place] [address] | + + + | Home Phone | | + + + | Preferred Language | Unknown | + + + | Marital Status | Single | + + + | Church Affiliation | 1041 | + + + [...] Team Providers + +------+ + | Care Artificial Breast Fabricator Name | Role | Phone | + +------+ + PCP | Unavailable | + +------+ + Encounter Details +--------+ + + + + | Date | Type | Department | Care Team | Description | +--------+ + + + + | 07/12/ | Hospital | [facility] | Jaziel Billy, | Venous insufficiency | | 2013 | Encounter | CENTER OUTPATIENT | MD Umm AMADOR | | | | | WOUND CARE [address] | [facility] [place], | | | | | [place] | [place] [address] | | | | | [address] | [phone] | | | | | [phone] | | | +--------+ + + + [...] Notes by Jaziel Billy MD at 07/12/13 1444 Author: Jaziel Billy MD Service: (none) Author Type: Physician Filed: 07/12/13 5735 Encounter Date: 07/12/2013 Status: Signed Battery Repairer: Jaziel Billy MD (Physician) Subjective: Jono Tabares [...] Notes by Demetria Padilla RN at 07/12/13 5583 Author: Demetria Padilla RN Service: (none) Author Type: Registered Nurse Filed: 07/12/13 1458 Encounter Date: 07/12/2013 Status: Signed Battery Repairer: Demetria Padilla RN (Registered Nurse) Jono Tabares [...]
--- OUTSIDE RECORDS SUMMARY | ~2019-04-09 | XMS | Encounter Summary ---
Demographics + + + | Address | [address] | | | [place] [address] | + + + | Home Phone [...] Team Providers + +------+ + | Care Risk And Insurance Consultant Name | Role | Phone | + +------+ + PCP | Unavailable | + +------+ + Encounter Details +--------+ + + + + | Date | Type | Department | Care Team | Description | +--------+ + + + + | 09/13/ | Hospital | [facility] | Jaziel Billy, | Ulcer of leg, | | 2013 | Encounter | CENTER OUTPATIENT | MD Umm AMADOR | chronic, unspecified | | | | WOUND CARE [address] | [place], | laterality, limited | | | | [place] | [place] [address] | to breakdown of | | | | [address] | [phone] | skin (HCC); Venous | | | | [phone] | | insufficiency | +--------+ + + [...] Notes by Jaziel Billy MD at 09/13/13 9455 Author: Jaziel Billy MD Service: (none) Author Type: Physician Filed: 09/13/13 0582 Encounter Date: 09/13/2013 Status: Signed Patient Registration Rep: Jaziel Billy MD (Physician) Subjective: Jono Tabares [...] 09/13/13 1259 Encounter Date: 09/13/2013 Status: Signed Patient Registration Rep: Deonna Adkins RN (Registered Nurse) Jono Tabares [...]
--- OUTSIDE RECORDS SUMMARY | ~2019-04-09 | XMS | Encounter Summary ---
Demographics + + + | Address | [address] | | | [place] [address] | + + + | Home Phone | | + + + | Preferred Language | Unknown | + + + | Marital Status | Single | + + + | Gnosticist Affiliation | 1041 | + + + [...] Team Providers + +------+ + | Care Lock Stitch Channeler Name | Role | Phone | + +------+ + PCP | Unavailable | + +------+ + Encounter Details +--------+ + + + + | Date | Type | Department | Care Team | Description | +--------+ + + + + | 06/21/ | Hospital | [facility] | Jaziel Billy, | Ulcer of other part | | 2013 | Encounter | CENTER OUTPATIENT | MD Umm AMADOR | of lower limb (HCC) | | | | WOUND CARE [address] | [facility] [address], | | | | | [place] | [place] [address] | | | | | [address] | [phone] | | | | | [phone] | | | +--------+ + + + [...] 06/21/13 1531 Encounter Date: 06/21/2013 Status: Signed Mineral Surveyor: Jaziel Billy MD (Physician) Subjective: Jono Tabares [...] to f/u as scheduled. Continue treatmen t Electronically signed by Jorge Alberto, Melter Supervisor Electric Arc Furnace Conversion at 11/29/2018 12:08 AM PDTConversio n Transaction, Provider Unknown - 06/21/2013 2:14 PM PDTFormatting of this note might be di fferent from the original. Progress Notes by Brooklyn Garcia RN at 06/21/13 9796 Author: Brooklyn Garcia RN Service: (none) Author Type: Registered Nurse Filed: 06/21/13 1416 Encounter Date: 06/21/2013 Status: Signed Mineral Surveyor: Brooklyn Garcia RN (Registered Nurse) Jono Tabares [...]
--- OUTSIDE RECORDS SUMMARY | ~2019-04-09 | XMS | Encounter Summary ---
Demographics + + + | Address | [address] | | | [place] [address] | + + + | Home Phone | | + + + | Preferred Language | Unknown | + + + | Marital Status | Single | + + + | Uatsdin Affiliation | 1041 | + + + | Race | Unknown | + + + | Ethnic Group | Unknown | + + + Author + + + | Author | [facility] | | | and [place] | + + + | Organization | [facility] | | | and [...] Team Providers + +------+ + | Care Stockfeed Miller Name | Role | Phone | + +------+ + PCP | Unavailable | + +------+ + Encounter Details +--------+ + + + + | Date | Type | Department | Care Team | Description | +--------+ + + + + | 07/26/ | Hospital | [facility] | Cassie Yin, | Ulcer of leg, | | 2013 | Encounter | CENTER OUTPATIENT | MD Umm Saravia | chronic, left, with | | | | WOUND CARE [address] | [address] | unspecified severity | | | | [address] [place], [place] | [place] [address] | (HCC); Ulcer of | | | | [address] | [phone] | leg, chronic, right, | | | | [phone] | | with unspecified | | | [...] 07/26/13 1548 Encounter Date: 07/26/2013 Status: Signed Reliner: Cassie Yin MD (Physician) Subjective: Jono Tabares [...] Notes by Brooklyn Garcia RN at 07/26/13 5598 Author: Brooklyn Garcia RN Service: (none) Author Type: Registered Nurse Filed: 07/26/13 3251 Encounter Date: 07/26/2013 Status: Signed Reliner: Brooklyn Garcia RN (Registered Nurse) Jono Tabares [...]
--- OUTSIDE RECORDS SUMMARY | ~2019-04-09 | XMS | Clinical Summary ---
Demographics + + + | Address | [address] | | | [place] [address] | + + + | Home Phone | | + + + | Preferred Language | Unknown | + + + | Marital Status | Single | + + + | Jew Affiliation | 1041 | + + + [...] Team Providers + +------+ + | Care Doula Name | Role | Phone | + [...]
--- OUTSIDE RECORDS SUMMARY | ~2019-04-09 | XMS | Encounter Summary ---
Demographics + + + | Address | [address] | | | [place] [address] | + + + | Home Phone | | + + + | Preferred Language | Unknown | + + + | Marital Status | Single | + + + | Alevism Affiliation | 1041 | + + + | Race | Unknown | + + + | Ethnic Group | Unknown | + + + Author + + + | Author | [facility] | | | and [place] | + + + | Organization | [facility] | | | [...] Team Providers + +------+ + | Care Fusing Line Inspector Name | Role | Phone | + +------+ + PCP | Unavailable | + +------+ + Encounter Details +--------+ + + + + | Date | Type | Department | Care Team | Description | +--------+ + + + + | 05/31/ | Hospital | [facility] | Jaziel Billy, | Open wound of both | | 2014 | Encounter | CENTER OUTPATIENT | MD Umm AMADOR | legs with | | | | WOUND CARE [address] | [place], | complication | | | | [place] | [place] [address] | | | | | [address] | [phone] | | | | | [phone] | | | +--------+ + + + [...] Notes by Jaziel Billy MD at 05/31/13 9499 Author: Jaziel Billy MD Service: (none) Author Type: Physician Filed: 06/07/13 1236 Encounter Date: 05/31/2013 Status: Signed Sales Representative Groceries: Jaziel Billy MD (Physician) Related Notes: Original Note by Jaziel Billy MD (Physician) filed at 05/31/13 4750 CHIEF COMPLAINT This is a 62-year-old man who was seen at the wound care clinic for the first time because of wounds to his lower extremities. HISTORY OF PRESENT ILLNESS Patient's difficulties started approximately 1 month ago, when he had a rash with possible open area and was placed on antibiotic by his primary physician in the [facility]. The r camron went on to become more extensive after the antibiotic. Steroids were tried and patient w as sent to [facility] 3 days later for possible redmans' or scalde d skin syndrome-type problems; the patient is unsure of exactly what the diagnosis was. He w as treated with IV antibiotics, etc., at the [facility] and his up per and lower [...] he has been to ld he has zcaf-fb-dbbw grinding on the left hip and 80% [...] a left undescended testis. 2. Tonsillectomy in [facility] in 1957. FAMILY HISTORY Positive for his father having throat cancer. He at 99. His mother at 94 from an [place]. She had had renal failure as well as a CVA shortly before she . His oldest half-brot her had pancreatic cancer and at 78. SOCIAL HISTORY He is a long-term member of the [facility] community and is currently in a nursing [...] Notes by Brooklyn Garcia RN at 05/31/13 6064 Author: Brooklyn Garcia RN Service: (none) Author Type: Registered Nurse Filed: 05/31/13 1507 Encounter Date: 05/31/2013 Status: Signed Sales Representative Groceries: Brooklyn Garcia RN (Registered Nurse) Jono Tabares is a 62 y.o. male who presents today for InitialWound Care visit. He present s accompanied by ACID EXTRACTOR. He arrived: Wheelchair. Transfer Assistance: Manual Pending [...] Extremity Assessment Flowsheet Patient temporarily living at [facility] in [place]. States developed bright red rash ab out [...]
--- OUTSIDE RECORDS SUMMARY | ~2019-04-09 | XMS | Encounter Summary ---
Demographics + + + | Address | [address] | | | [place] [address] | + + + | Home Phone [...] + +------+ + | Care Upper Cutter Out Name | Role | Phone | + +------+ + PCP | Unavailable | + +------+ + Encounter Details +--------+ + + + + | Date | Type | Department | Care Team | Description | +--------+ + + + + | 10/04/ | Hospital | [facility] | Jaziel Billy, | Ulcer of leg, | | 2013 | Encounter | CENTER OUTPATIENT | MD Umm AMADOR | chronic, left, | | | | WOUND CARE [address] | [facility] [place], | limited to breakdown | | | | [place] | [place] [address] | of skin (HCC) | | | | [address] | [phone] | | | | | [phone] | | | +--------+ + + + [...] 10/04/13 1525 Encounter Date: 10/04/2013 Status: Signed Technical Illustrator: Jaziel Billy MD (Physician) Subjective: Jono Tabares [...] Notes by Nyasia Graham RN at 10/04/13 3432 Author: Nyasia Graham RN Service: (none) Author Type: Registered Nurse Filed: 10/04/13 1525 Encounter Date: 10/04/2013 Status: Signed Technical Illustrator: Nyasia Graham RN (Registered Nurse) Jono Tabares is a 63 y.o. male who presents today for Wound Care visit. He presents accom panied by sales driver. He arrived: Wheelchair. Transfer Assistance: None [...] yes Compression in place as prescribed: tubi workplace relations adviser Offloading in place as prescribed: n/a Footwear [...]
--- OUTSIDE RECORDS SUMMARY | ~2019-04-09 | XMS | Encounter Summary ---
Demographics + + + | Address | [address] | | | [place] [address] | + + + | Home Phone [...] + + + | Author | [facility] | | | and [place] | + + + | Organization | [facility] | | | and [...] Team Providers + +------+ + | Care Instrumental Music Teacher Name | Role | Phone | + +------+ + PCP | Unavailable | + +------+ + Encounter Details +--------+ + + + + | Date | Type | Department | Care Team | Description | +--------+ + + + + | 09/27/ | Hospital | [facility] | Jaziel Billy, | Ulcer of leg, | | 2013 | Encounter | CENTER OUTPATIENT | MD Umm AMADOR | chronic, unspecified | | | | WOUND CARE [address] | [place], | laterality, limited | | | | [place] | [place] [address] | to breakdown of | | | | [address] | [phone] | skin (HCC) | | | | [phone] | | | +--------+ + + + [...] Notes by Jaziel Billy MD at 09/27/13 2634 Author: Jaziel Billy MD Service: (none) Author Type: Physician Filed: 09/27/13 8432 Encounter Date: 09/27/2013 Status: Signed Statue Maker: Jaziel Billy MD (Physician) Subjective: Jono Tabares [...] Notes by Brooklyn Garcia RN at 09/27/13 0731 Author: Brooklyn Garcia RN Service: (none) Author Type: Registered Nurse Filed: 09/27/13 6553 Encounter Date: 09/27/2013 Status: Signed Statue Maker: Brooklyn Garcia RN (Registered Nurse) Jono Tabares is a 63 y.o. male who presents today for Wound Care visit. He presents accom panied by regional flatbed truck driver. He arrived: Wheelchair. Transfer Assistance: [...] yes Compression in place as prescribed: tubi construction driver Offloading in place as prescribed: n/a Footwear [...]
--- OUTSIDE RECORDS SUMMARY | ~2019-04-09 | XMS | Encounter Summary ---
Demographics + + + | Address | [address] | | | [place] [address] | + + + | Home Phone | | + + + | Preferred Language | Unknown | + + + | Marital Status | Single | + + + | Quaker Affiliation | 1041 | + + + | Race | Unknown | + + + | Ethnic Group | Unknown | + + + Author + + + | Author | [facility] | | | and [place] | + + + | Organization | [facility] | | | [...] Team Providers + +------+ + | Care Stage Manager Name | Role | Phone | + +------+ + PCP | Unavailable | + +------+ + Encounter Details +--------+ + + + + | Date | Type | Department | Care Team | Description | +--------+ + + + + | 09/13/ | Hospital | [facility] | Jaziel Billy, | Ulcer of leg, | | 2013 | Encounter | CENTER OUTPATIENT | MD Umm AMADOR | chronic, unspecified | | | | WOUND CARE [address] | [place], | laterality, limited | | | | [place] | [place] [address] | to breakdown of | | | | [address] | [phone] | skin (HCC); Venous | | | | [phone] | | insufficiency | +--------+ + + [...] Notes by Jaziel Billy MD at 09/13/13 9867 Author: Jaziel Billy MD Service: (none) Author Type: Physician Filed: 09/13/13 4470 Encounter Date: 09/13/2013 Status: Signed Delivery Truck Driver Heavy: Jaziel Billy MD (Physician) Subjective: Jono Tabares [...] 09/13/13 1259 Encounter Date: 09/13/2013 Status: Signed Delivery Truck Driver Heavy: Deonna Adkins RN (Registered Nurse) Jono Tabares [...]
--- OUTSIDE RECORDS SUMMARY | ~2019-04-09 | XMS | Encounter Summary ---
Demographics + + + | Address | [address] | | | [place] [address] | + + + | Home Phone [...] + + + | Author | [facility] | | | and [place] | + + + | Organization | [facility] | | | [...] Team Providers + +------+ + | Care Franchise Sales Director Name | Role | Phone | + +------+ + PCP | Unavailable | + +------+ + Encounter Details +--------+ + + + + | Date | Type | Department | Care Team | Description | +--------+ + + + + | 08/09/ | Hospital | [facility] | Jaziel Billy, | Ulcer of leg, | | 2013 | Encounter | CENTER OUTPATIENT | MD Umm AMADOR | chronic, unspecified | | | | WOUND CARE [address] | [place], | laterality, limited | | | | [place] | [place] [address] | to breakdown of | | | | [address] | [phone] | skin (HCC) | | | | [phone] | | | +--------+ + + + [...] Notes by Jaziel Billy MD at 08/09/13 1349 Author: Jaziel Billy MD Service: (none) Author Type: Physician Filed: 08/09/13 3022 Encounter Date: 08/09/2013 Status: Signed Acid Dipper: Jaziel Billy MD (Physician) Subjective: Jono Tabares [...] Notes by Demetria Padilla RN at 08/09/13 0237 Author: Demetria Padilla RN Service: (none) Author Type: Registered Nurse Filed: 08/09/13 1517 Encounter Date: 08/09/2013 Status: Signed Acid Dipper: Demetria Padilla RN (Registered Nurse) Jono Tabares [...] place on this visit: Other Footwear: socks Ydocume fernandes in this encounter Plan of Treatment [...]
--- OUTSIDE RECORDS SUMMARY | ~2019-04-09 | XMS | Encounter Summary ---
Demographics + + + | Address | [address] | | | [place] [address] | + + + | Home Phone | | + + + | Preferred Language | Unknown | + + + | Marital Status | Single | + + + | Caodaism Affiliation | 1041 | + + + | Race | Unknown | + + + | Ethnic Group | Unknown | + + + Author + + + | Author | [facility] | | | and [place] | + + + | Organization | [facility] | | | [...] Team Providers + +------+ + | Care Service Engine Repairer Name | Role | Phone | + +------+ + PCP | Unavailable | + +------+ + Encounter Details +--------+ + + + + | Date | Type | Department | Care Team | Description | +--------+ + + + + | 07/05/ | Hospital | [facility] | Jaziel Billy, | Open wound of ankle, | | 2013 | Encounter | CENTER OUTPATIENT | MD Umm AMADOR | right, subsequent | | | | WOUND CARE [address] | [place] [address], | encounter; Venous | | | | [place] | [place] [address] | insufficiency | | | | [address] | [phone] | | | | | [phone] | | | +--------+ + + + [...] documented as of this encounter Progress Notes [facility] Transaction, Provider Unknown - 2013 4:22 PM PDTFormatting of this note m ight be different from the original. Progress Notes by Deonna Adkins RN at 07/05/13 1623 Author: Deonna Adkins RN Service: (none) Author Type: Registered Nurse Filed: 07/05/13 1623 Encounter Date: 2013 Status: Signed Adhesion Tester: Deonna Adkins RN (Registered Nurse) PT H&P, [...] 07/05/13 1422 Encounter Date: 2013 Status: Signed Adhesion Tester: Jaziel Billy MD (Physician) Subjective: Jono Tabares [...] Notes by Elaine Bach RN at 07/05/13 7450 Author: Elaine Bach RN Service: (none) Author Type: Registered Nurse Filed: 07/05/13 7263 Encounter Date: 2013 Status: Signed Adhesion Tester: Elaine Bach RN (Registered Nurse) Jono Tabares [...]
--- OUTSIDE RECORDS SUMMARY | ~2019-04-09 | XMS | Encounter Summary ---
Demographics + + + | Address | [address] | | | [place] [address] | + + + | Home Phone | | + + + | Preferred Language | Unknown | + + + | Marital Status | Single | + + + | Quaker Affiliation | 1041 | + + + | Race | Unknown | + + + | Ethnic Group | Unknown | + + + Author + + + | Author | [facility] | | | and [place] | + + + | Organization | [facility] | | [...] Team Providers + +------+ + | Care Beater Lead Name | Role | Phone | + +------+ + PCP | Unavailable | + +------+ + Encounter Details +--------+ + + + + | Date | Type | Department | Care Team | Description | +--------+ + + + + | 06/14/ | Hospital | [facility] | Conversion | Open wound of knee, | | 2013 | Encounter | MEDICAL CENTER | Transaction, | leg (except thigh), | | | | [facility] [address] | Provider Unknown | and ankle, | | | | [address] | [phone] | complicated | | | | [place], [place] | | | | | | [address] | | | | | | [phone] | | | +--------+ + + + [...]
--- OUTSIDE RECORDS SUMMARY | ~2019-04-09 | XMS | Encounter Summary ---
Demographics + + + | Address | [address] | | | [place] [address] | + + + | Home Phone | | + + + | Preferred Language | Unknown | + + + | Marital Status | Single | + + + | Latter-Day Affiliation | 1041 | + + + [...] Team Providers + +------+ + | Care Gas Maker Helper Name | Role | Phone | + +------+ + PCP | Unavailable | + +------+ + Encounter Details +--------+ + + + + | Date | Type | Department | Care Team | Description | +--------+ + + + + | 06/14/ | Hospital | [facility] | Jaziel Billy, | Ulcer of lower limb, | | 2013 | Encounter | CENTER OUTPATIENT | MD Umm AMADOR | unspecified (HCC) | | | | WOUND CARE [address] | [facility] [place], | | | | | [place] | [place] [address] | | | | | [address] | [phone] | | | | | [phone] | | | +--------+ + + + [...] Filed: 06/14/131810 Encounter Date: 06/14/2013 Status: Signed Sole Layer: Jaziel Billy MD (Physician) Subjective: Jono Tabares [...]
--- OUTSIDE RECORDS SUMMARY | ~2019-04-09 | XMS | Encounter Summary ---
Demographics + + + | Address | [address] | | | [place] [address] | + + + | Home Phone | | + + + | Preferred Language | Unknown | + + + | Marital Status | Single | + + + | Sabianism Affiliation | 1041 | + + + [...] Team Providers + +------+ + | Care Actuarial Trainee Name | Role | Phone | + +------+ + PCP | Unavailable | + +------+ + Encounter Details +--------+ + + + + | Date | Type | Department | Care Team | Description | +--------+ + + + + | 08/09/ | Hospital | [facility] | Jaziel Billy, | Ulcer of leg, | | 2013 | Encounter | CENTER OUTPATIENT | MD Umm AMADOR | chronic, unspecified | | | | WOUND CARE [address] | [place], | laterality, limited | | | | [place] | [place] [address] | to breakdown of | | | | [address] | [phone] | skin (HCC) | | | | [phone] | | | +--------+ + + + [...] Notes by Jaziel Billy MD at 08/09/13 7146 Author: Jaziel Billy MD Service: (none) Author Type: Physician Filed: 08/09/13 3854 Encounter Date: 08/09/2013 Status: Signed Reading Recovery Teacher: Jaziel Billy MD (Physician) Subjective: Jono Tabares [...] Notes by Demetria Padilla RN at 08/09/13 7682 Author: Demetria Padilla RN Service: (none) Author Type: Registered Nurse Filed: 08/09/13 1516 Encounter Date: 08/09/2013 Status: Signed Reading Recovery Teacher: Demetria Padilla RN (Registered Nurse) Jono Tabares [...]
--- OUTSIDE RECORDS SUMMARY | ~2019-04-09 | XMS | Encounter Summary ---
Demographics + + + | Address | [address] | | | [place] [address] | + + + | Home Phone | | + + + | Preferred Language | Unknown | + + + | Marital Status | Single | + + + | Orthodox Affiliation | 1041 | + + [...] Team Providers + +------+ + | Care Wood Calker Name | Role | Phone | + +------+ + | Tay Chino MD | PCP | | + +------+ + Encounter Details +--------+ + + + + | Date | Type | Department | Care Team | Description | +--------+ + + + + | 05/07/ | Orders Only | [facility] | Lorenzo Chan MD | | | 2013 | | [facility] | [address] [place] | | | | | [address] [place] | [address] [place], [place] | | | | | [address] [place], [place] | [address] | | | | | [address] | | | | | | [phone] | | | +--------+ + + + [...] | | | LAB | | | [facility] | | | | | + +-------+ [...]
--- OUTSIDE RECORDS SUMMARY | ~2019-04-09 | XMS | Encounter Summary ---
Demographics + + + | Address | [address] | | | [place] [address] | + + + | Home Phone | | + + + | Preferred Language | Unknown | + + + | Marital Status | Single | + + + | Mormonism Affiliation | 1041 | + + + [...] Team Providers + +------+ + | Care Sponge Diver Name | Role | Phone | + +------+ + PCP | Unavailable | + +------+ + Encounter Details +--------+ + + + + | Date | Type | Department | Care Team | Description | +--------+ + + + + | 08/09/ | Hospital | [facility] | Jaziel Billy, | Ulcer of leg, | | 2013 | Encounter | CENTER OUTPATIENT | MD Umm AMADOR | chronic, unspecified | | | | WOUND CARE [address] | [place], | laterality, limited | | | | [place] | [place] [address] | to breakdown of | | | | [address] | [phone] | skin (HCC) | | | | [phone] | | | +--------+ + + + [...] Notes by Jaziel Billy MD at 08/09/13 0967 Author: Jaziel Billy MD Service: (none) Author Type: Physician Filed: 08/09/13 9092 Encounter Date: 08/09/2013 Status: Signed Patent Leather Sorter: Jaziel Billy MD (Physician) Subjective: Jono Tabares [...] Notes by Demetria Padilla RN at 08/09/13 1638 Author: Demetria Padilla RN Service: (none) Author Type: Registered Nurse Filed: 08/09/13 1519 Encounter Date: 08/09/2013 Status: Signed Patent Leather Sorter: Demetria Padilla RN (Registered Nurse) Jono Tabares [...]
--- OUTSIDE RECORDS SUMMARY | ~2019-04-09 | XMS | Clinical Summary ---
Demographics + + + | Address | [address] | | | [place] [address] | + + + | Home Phone | | + + + | Preferred Language | Unknown | + + + | Marital Status | Single | + + + | Caodaism Affiliation | 1041 | + + + | Race | Unknown | + + + | Ethnic Group | Unknown | + + + Author + + + | Author | [facility] (Historical as of | | | 11-18-18) | + + + | Organization | [facility] (Historical as of | | | 11-18-18) [...] Team Providers + +------+ + | Care Lead Shipper Name | Role | Phone | + [...] +------+-------+ + | MEDICAID | AMPAROER | [id number] | | | [address] | | | [place] | | | | [place] | | | [place] | | | | [address] | | | MAINTENANCE AND ENGINEERING MANAGER | | | | | + +--------+ [...] | Self | [birth year] | Home: | [address] | | | al/Fam | | 1950 | [phone] | [place] | | | [place] | | | [phone] | [address] | + +--------+ +--------+ + +
--- OUTSIDE RECORDS SUMMARY | ~2019-04-09 | XMS | Clinical Summary ---
Demographics + + + | Address | [address] | | | [place] [address] | + + + | Home Phone | | + + + | Preferred Language | Unknown | + + + | Marital Status | Single | + + + | Restorationist Affiliation | 1041 | + + + | Race | Unknown | + + + | Ethnic Group | Unknown | + + + Author + + + | Author | [facility] (Historical as of | | | 11-18-18) | + + + | Organization | [facility] (Historical as of | | | 11-18-18) [...] Team Providers + +------+ + | Care Probation Manager Name | Role | Phone | [...] +------+-------+ + | MEDICAID | AMPAROER | [id number] | | | [address] | | | N | | | | [place] | | | [place] | | | | [address] | | | CLERK OF COURT | | | | | + +--------+ [...] | Self | [birth year] | Home: | [address] | | | al/Fam | | 1950 | [phone] | [place] | | | [place] | | | [phone] | [address] | + +--------+ +--------+ + +
--- OUTSIDE RECORDS SUMMARY | ~2019-04-09 | XMS | Encounter Summary ---
Demographics + + + | Address | [address] | | | [place] [address] | + + + | Home Phone | | + + + | Preferred Language | Unknown | + + + | Marital Status | Single | + + + | Christianity Affiliation | 1041 | + + + | Race | Unknown | + + + | Ethnic Group | Unknown | + + + Author + + + | Author | [facility] | | | and [place] | + + + | Organization | [facility] | | | [...] Team Providers + +------+ + | Care Financial Business Analyst Name | Role | Phone | + +------+ + PCP | Unavailable | + +------+ + Encounter Details +--------+ + + + + | Date | Type | Department | Care Team | Description | +--------+ + + + + | 08/30/ | Hospital | [facility] | Jaziel Billy, | Ulcer of leg, | | 2013 | Encounter | CENTER OUTPATIENT | MD Umm AMADOR | chronic, unspecified | | | | WOUND CARE [address] | [facility] [place], | laterality, with | | | | [place] | [place] [address] | unspecified severity | | | | [address] | [phone] | (HCC) | | | | [phone] | | | +--------+ + + + [...] Notes by Jaziel Billy MD at 08/30/13 1421 Author: Jaziel Billy MD Service: (none) Author Type: Physician Filed: 09/06/13 1226 Encounter Date: 08/30/2013 Status: Addendum Service Restorer Emergency: Jaziel Billy MD (Physician) Related Notes: Original Note by Jaziel Billy MD (Physician) filed at 08/30/13 1965 Subjective: Jono Tabares is a 63 y.o. [...] Notes by Leon Pierre RN at 08/30/13 7908 Author: Leon Pierre RN Service: (none) Author Type: Registered Nurse Filed: 08/30/13 1427 Encounter Date: 08/30/2013 Status: Signed Service Restorer Emergency: Leon Pierre RN (Registered Nurse) Jono Tabares [...]
--- OUTSIDE RECORDS SUMMARY | ~2019-04-09 | XMS | Encounter Summary ---
Demographics + + + | Address | [address] | | | [place] [address] | + + + | Home Phone | | + + + | Preferred Language | Unknown | + + + | Marital Status | Single | + + + | Denominational Affiliation | 1041 | + + + | Race | Unknown | + + + | Ethnic Group | Unknown | + + + Author + + + | Author | [facility] | | | and [place] | + + + | Organization | [facility] | | [...] Team Providers + +------+ + | Care Telephone Operator Name | Role | Phone | + +------+ + PCP | Unavailable | + +------+ + Encounter Details +--------+ + + + + | Date | Type | Department | Care Team | Description | +--------+ + + + + | 08/23/ | Hospital | [facility] | Jaziel Billy, | Morbid obesity | | 2013 | Encounter | CENTER OUTPATIENT | MD Umm AMADOR | ([facility] Ulcer of leg, | | | | WOUND CARE [address] | [place] [address], | chronic, | | | | [address] [place] | [place] [address] | unspecified | | | | [address] | [phone] | laterality, limited | | | | [phone] | | to breakdown of skin | [...] Notes by Jaziel Billy MD at 08/23/13 0952 Author: Jaziel Billy MD Service: (none) Author Type: Physician Filed: 08/23/13 8566 Encounter Date: 08/23/2013 Status: Signed Maintenance Shop Manager: Jaziel Billy MD (Physician) Subjective: Jono Tabares [...] left inner foot stop wraps t ubi treating plant pumper Assessment / Plan: [place] ulcer tissues examined. [...] Notes by Demetria Padilla RN at 08/23/13 8119 Author: Demetria Padilla RN Service: (none) Author Type: Registered Nurse Filed: 08/23/13 1535 Encounter Date: 08/23/2013 Status: Signed Maintenance Shop Manager: Demetria Padilla RN (Registered Nurse) Jono [...]
[~2019-04-09 03:25] MED LIST changes: +FLOMAX0.4 MG PO; +MAPAP500 MG PO; +PREPARATION H1 EAC3 PR; -TYLENOL325 MG PO
[2019-04-09] MEDS ORDERED: PRAVACHOL40 MG PO (09:33)
[2019-04-09] MEDS ORDERED: ZESTRIL20 MG PO (09:33)
[2019-04-09] MEDS ORDERED: FLOMAX0.4 MG PO (09:35)
[2019-04-09] MEDS ORDERED: VITAMIN D325 MC2 PO (09:37)
[2019-04-09] MEDS ORDERED: HYDROCORTISON28.4 G5 PR (09:38)
[2019-04-09] MEDS ORDERED: NYSTATIN1 EAC9 TOP (09:39)
[2019-04-09] MEDS ORDERED: LEVOTHYROXINE100 MCG PO (10:03)
[2019-04-09] MEDS ORDERED: NYSTATIN15 G1 TOP (10:26)
[2019-04-11] MEDS ORDERED: CEFPODOXIME PR200 MG PO (08:24)
== END 2019-04-11 11:15 | disposition home or self-care (01) | DRG 872 ==
LOC: ED 03:25 → CCU 03:26 → MS 04-10 11:25
PROVIDERS: ADMIT Student in an Organized Health Care Education/Training Program
DX: A40.1 Sepsis due to streptococcus, group B (principal); N39.0 Urinary tract infection, site not specified; Z68.43 Body mass index [BMI] 50.0-59.9, adult; R65.20 Severe sepsis without septic shock; B35.4 Tinea corporis; I10 Essential (primary) hypertension; E78.5 Hyperlipidemia, unspecified; G89.29 Other chronic pain; E03.9 Hypothyroidism, unspecified; R53.81 Other malaise; N40.0 Benign prostatic hyperplasia without lower urinary tract symptoms; E66.9 Obesity, unspecified; Z79.899 Other long term (current) drug therapy; Z66 Do not resuscitate; Z88.2 Allergy status to sulfonamides; Z88.8 Allergy status to other drugs, medicaments and biological substances
CPT/HCPCS: 36415; 51701; 71045; 80048; 80053; 81001; 83605; 83735; 85025; 87077; 87088; 87186; 87502; 97162; 97165; 99285-25; J0692; J1650; J3475; J7030; J7060; J7121

== ENCOUNTER 2020-01-19 08:10 | Emergency (ER) | payer MEDICARE, OTHER ==
[~2020-01-19] VITALS: Ht 170.2 cm; Wt 156.0 kg
--- OUTSIDE RECORDS SUMMARY | ~2020-01-19 | XMS | Encounter Summary ---
Demographics + + + | Address | [address] | | | [place] [address] | + + + | Home Phone | | + + + | Preferred Language | Unknown | + + + | Marital Status | Single | + + + | Rastafarian Affiliation | 1041 | + + + | Race | White | + + + | Ethnic Group | Not or | + + + Author + + + | Author | [facility] | | | and [place] | + + + | Organization | [facility] | | | and [...] Team Providers + +------+ + | Care Ad Clerk Name | Role | Phone | + +------+ + PCP | Unavailable | + +------+ + Encounter Details +--------+ + + + + | Date | Type | Department | Care Team | Description | +--------+ + + + + | 06/14/ | Hospital | [facility] | Jaziel Billy, | Ulcer of lower limb, | | 2013 | Encounter | CENTER OUTPATIENT | MD Umm AMADOR | unspecified (HCC) | | | | WOUND CARE [address] | [place], | | | | | [place] | [place] [address] | | | | | [address] | [phone] | | | | | [phone] | | | +--------+ + + + [...] on file | | + + + documented as of this encounter Progress Notes Jaziel Billy MD - 06/14/2013 6:07 PM PDTFormatting of this note might be different fro m the original. Progress Notes by Jaziel Billy MD at 06/14/131806 Author: Jaziel Billy MD Service: (none) Author Type: Physician Filed: 06/14/13 181 Encounter Date: 06/14/2013 Status: Signed Doctor Of Veterinary Medicine: Jaziel Billy MD (Physician) Subjective: Jono Tabares is a 62 y.o. male who presents for follow up for wound healing. He reports th at the wound has been doing well. He reports that he has been compliant with his treatment regimen. See flowsheet for measurements and specific treatment data. Review of Systems Constitutional: negative Respiratory: negative Cardiovascular: negative Gastrointestinal: negative Integument/breast: wound open Objective: Assessment / Plan: [place] ulcer tissues examined. There is no induration, is no signs of skin breakdown, is ten derness, is no redness, is no odor, is no discharge. Excisional debridement medically necessary to accelerate wound healing. Excisional debride ment performed, after appropriate wound cleansing and topical anesthetic application as/as n ot required, by using a 15 blade scalpel/sharp metal currette to go into the level of the SQ tissue and remove fibrin/slough and necrotic as well as other nonviable and devitalized SQ tissue from the base of the ulcer.P t had a small amount of bleeding controlled w/pressure. Pt tolerated procedure well. See robert wsheet for wound details (pre and post). No exposed tendon, muscle or bone noted. Dressing a pplied by nursing. Pt to f/u as scheduled. See discharge instructions for debridement documente d in this encounter Miscellaneous Notes Miscellaneous - Conversion Transaction, Provider Unknown - 06/14/2013 3:33 PM PDTFormattin g of this note might be different from the original. Patient Instructions by Deonna Adkins RN at 06/14/13 0020 Author: Deonna Adkins RN Service: (none) Author Type: Registered Nurse Filed: 06/14/13 1542 Encounter Date: 06/14/2013 Status: Addendum Doctor Of Veterinary Medicine: Deonna Adkins RN (Registered Nurse) Related Notes: Original Note by Deonna Adkins RN (Registered Nurse) filed at 06/14/13 5902 PLEASE READ THE FOLLOWING INSTRUCTIONS THOROUGHLY THERE ARE SOME CHANGES. BEFORE DOING WOUND CARE: 1. Wash your hands. 2. Put on gloves. 3. Remove dressing. 4. Remove gloves. 5. Wash your hands. 6. Put on new gloves. Every Other Day TO RIGHT AND LEFT LEGS: 1. Cleanse wound with Normal Saline or WOUND CLEANSER. (NOTE: DO NOT USE TAP WATER.) 2. PUT WOUND GEL ON BOTH LOWER LEGS AND FEET, IF APPLYING LOTION. THEN PUT EXTRA WOUND GEL (DOLLOP) ON THE OPEN AREAS WHERE AQUACEL SILVER WILL BE PLACED. 3. THEN COVER OPEN WOUNDS WITH AQUACEL SILVER 4. COVER WITH DRY GAUZE. 5. COVER ENTIRE LOWER LEGS AND OPEN AREAS WITH KERLIX AND SECURE WITH TAPE. Left toes are healed, or to leave open to air, if needed cover with dry gauze to protect. Please apply skin lotion to dry leg skin daily NOTE: Return to clinic in 1 Week(s) for doctor visit. Please bring your dressing sup plies to each visit. Hygiene of general wound care: Avoid tap water cleansing. Do not expose your wound to tim wer/bath water. Cleanse it only with wound center recommended solutions. Keep wound covere d with prescribed dressing. Maintain dressing clean and dry. 0.9% NORMAL SALINE RECIPE: 1 teaspoon salt in 2 cups boiling water. Allow to cool. Pour into container. Store in refrigerator one week. Dump out when one week old, or if left out of refrigerator for 24 hours. Pressure Relief Information: Use a pressure relief device on your bed, and in your wheelchair. (avoid donut styles) Reposition every 2 hours in bed. Reposition every 15 minutes while resting in a chair (jus t lifting bottom, adjusting to slight different position will make a difference). Avoid pressure to bony prominences like back of head, shoulder blades, elbows, hips, buttoc ks, and heels. Wear Foam boots on feet in bed. Or elevate lower legs with a towel/pillow so heels do not touch on resting surface. When resting on side in bed, place pillow between legs. If using an adjustable bed, Keep h ead as low as possible to prevent sheer from sliding. Do not rub reddened areas over bony prominences. Avoid pressure on your wound. These wound care orders are being faxed to: [facility] [place] MD Signature Date: 06/07/2013 Ronal fernandes in this encounter Plan of Treatment Not on filedocumented as of this encounter Visit Diagnoses + + | Diagnosis | + + | Ulcer of lower limb, unspecified | + + documented in this encounter Additional Health Concerns + + + + + | Infection | Onset Date | Last Indicated | Resolved Time | + + + + + | Methicillin-resistan | 12/13/2012 | 12/13/2012 | | | t Staphylococcus | | | | | aureus | | | | + + + + + documented as of this encounter"
--- OUTSIDE RECORDS SUMMARY | ~2020-01-19 | XMS | Encounter Summary ---
Demographics + + + | Address | [address] | | | [place] [address] | + + + | Home Phone | | + + + | Preferred Language | Unknown | + + + | Marital Status | Single | + + + | Buddhist Affiliation | 1041 | + + + | Race | White | + + + | Ethnic Group | Not or | + + + Author + + + | Author | [facility] | | | and [place] | + + + | Organization | [facility] | | | [...] Team Providers + +------+ + | Care Aids Counselor Name | Role | Phone | + +------+ + PCP | Unavailable | + +------+ + Encounter Details +--------+ + + + + | Date | Type | Department | Care Team | Description | +--------+ + + + + | 06/21/ | Hospital | [facility] | Conversion | Open wound of knee, | | 2013 | Encounter | [facility]ICAL [facility]ENTER | Transaction, | leg (except thigh), | | | | [address] | Provider Unknown | and ankle, | | | | [address] | [phone] | complicated | | | | [place], [place] | | | | | | [address] | | | | | | [phone] | | | +--------+ + + + [...] + +--------+ + + + | VAS VENOUS REFLUX | Routin | 06/21/2013 | | Results for this | | BILATERAL | e | 1:45 PM | | procedure are in the | | | | PDT | | results section. | + +--------+ + + + documented in this encounter Results VAS Venous Reflux Bilateral (06/21/2013 1:45 PM PDT) + + | Specimen | + + | | + + + + + | Impressions | Performed At | + + + | 1. No evidence of lower extremity deep vein thrombosis in either | | | leg. 2. Bilateral saphenofemoral junction reflux of greater than 1 | | | second. 3. Bilateral segmental greater saphenous vein reflux below | | | the knee greater than 1 second. 4. Right common femoral vein reflux | | | greater than 0.5 seconds. 5. Left superficial femoral vein reflux | | | greater than 1 second. 6. Right proximal calf lesser saphenous vein | | | reflux greater than 0.5 seconds. | | + + + + + + | Narrative | Performed At | + + + | SETH DEUTSCH LOWER EXTREMITY REFLUX BILATERAL 06/21/2013 1:45 | | | PM HISTORY: 62 years. Male. TECHNIQUE: Bilateral lower | | | extremity venous exam using grayscale, color Doppler and pulsed wave | | | spectral Doppler techniques. COMPARISON: None. FINDINGS: | | | RIGHT LEG: Normal compressibility, augmentation of flow, and Doppler | | | flow evident within the deep venous system. No evidence of deep venous | | | thrombosis. Deep venous reflux: Common femoral vein: >0.5s | | | reflux. Superficial femoral vein: No reflux. Greater saphenous vein: | | | Saphenofemoral junction: Diameter: 8.7 mm. Depth: 31 mm. >1s | | | reflux. Middle thigh: Diameter: 7.7 mm. Depth: 27 mm. No reflux. | | | Distal thigh: Diameter: 6.4 mm. Depth: 16 mm. No reflux. Knee: | | | Diameter: 5.5 mm. Depth: 15 mm. No reflux. Proximal calf: | | | Diameter: 5.5 mm. Depth: 17 mm. >1s reflux. Mid calf: Diameter: | | | 4.2 mm. Depth: 10 mm. >1s reflux. Distal calf: Diameter: 4.4 mm. | | | Depth: 15 mm. >1s reflux. Lesser saphenous vein: Proximal calf: | | | Diameter: 3.4 mm. Depth: 15 mm. >0.5s reflux. Mid calf: Diameter: | | | mm. Depth: mm. No reflux. LEFT LEG: Normal | | | compressibility, augmentation of flow, and Doppler flow evident within | | | the deep venous system. No evidence of deep venous thrombosis. Deep | | | venous reflux: Common femoral vein: No reflux. Superficial femoral | | | vein: >1s reflux. Greater saphenous vein: Saphenofemoral junction: | | | Diameter: 6.0 mm. Depth: 24 mm. >1s reflux. Middle thigh: | | | Diameter: 7.4 mm. Depth: 20 mm. No reflux. Distal thigh: | | | Diameter: 7.2 mm. Depth: 26 mm. No reflux. Knee: Diameter: 5.5 | | | mm. Depth: 19 mm. No reflux. Proximal calf: Diameter: 5.1 mm. | | | Depth: 7.2 mm. >1s reflux. Mid calf: Diameter: 4.7 mm. Depth: | | | 9.0 mm. >1s reflux. Distal calf: Diameter: 4.9 mm. Depth: 14 mm. | | | >1s reflux. Lesser saphenous vein: Saphenopopliteal junction: | | | Diameter: mm. Depth: mm. No reflux. Proximal calf: | | | Diameter: mm. Depth: mm. No reflux. Mid calf: | | | Diameter: mm. Depth: mm. No reflux. Distal calf: | | | Diameter: mm. Depth: mm. No reflux. | | + + + + + | Procedure Note | + + | Dennis Azul - 11/17/2018 12:43 PM PDT SETH PUGH LOWER EXTREMITY REFLUX | | 06/21/2013 1:45 PM HISTORY:62 years. Male. TECHNIQUE:Bilateral lower extremity | | venous exam using grayscale, color Doppler and pulsed wave spectral Doppler techniques. | | COMPARISON:None. FINDINGS:RIGHT LEG:Normal compressibility, augmentation of flow, and | | Doppler flow evident within the deep venous system. No evidence of deep venous | | thrombosis.Deep venous reflux:Common femoral vein: >0.5s reflux.Superficial femoral | | vein: No reflux.Greater saphenous vein:Saphenofemoral junction: Diameter: 8.7 mm. | | Depth: 31 mm. >1s reflux.Middle thigh: Diameter: 7.7 mm. Depth: 27 mm. No | | reflux.Distal thigh: Diameter: 6.4 mm. Depth: 16 mm. No reflux.Knee: Diameter: 5.5 mm. | | Depth: 15 mm. No reflux.Proximal calf: Diameter: 5.5 mm. Depth: 17 mm. >1s | | reflux.Mid calf: Diameter: 4.2 mm. Depth: 10 mm. >1s reflux.Distal calf: Diameter: 4.4 | | mm. Depth: 15 mm. >1s reflux.Lesser saphenous vein:Proximal calf: Diameter: 3.4 mm. | | Depth: 15 mm. >0.5s reflux.Mid calf: Diameter: mm. Depth: mm. No reflux. LEFT | | LEG:Normal compressibility, augmentation of flow, and Doppler flow evident within the | | deep venous system. No evidence of deep venous thrombosis.Deep venous reflux:Common | | femoral vein: No reflux.Superficial femoral vein: >1s reflux.Greater saphenous | | vein:Saphenofemoral junction: Diameter: 6.0 mm. Depth: 24 mm. >1s reflux.Middle thigh: | | Diameter: 7.4 mm. Depth: 20 mm. No reflux.Distal thigh: Diameter: 7.2 mm. Depth: 26 | | mm. No reflux.Knee: Diameter: 5.5 mm. Depth: 19 mm. No reflux.Proximal calf: | | Diameter: 5.1 mm. Depth: 7.2 mm. >1s reflux.Mid calf: Diameter: 4.7 mm. Depth: 9.0 | | mm. >1s reflux.Distal calf: Diameter: 4.9 mm. Depth: 14 mm. >1s reflux.Lesser | | saphenous vein:Saphenopopliteal junction: Diameter: mm. Depth: mm. No | | reflux.Proximal calf: Diameter: mm. Depth: mm. No reflux.Mid calf: Diameter: | | mm. Depth: mm. No reflux.Distal calf: Diameter: mm. Depth: mm. No | | reflux. IMPRESSION: 1. No evidence of lower extremity deep vein thrombosis in either | | leg.2. Bilateral saphenofemoral junction reflux of greater than 1 second.3. Bilateral | | segmental greater saphenous vein reflux below the knee greater than 1 second.4. Right | | common femoral vein reflux greater than 0.5 seconds.5. Left superficial femoral vein | | reflux greater than 1 second.6. Right proximal calf lesser saphenous vein reflux | | greater than 0.5 seconds. | | PM | |LEFT LEG: | |Normal compressibility, augmentation of flow, and Doppler flow evident within the deep veno us system. No evidence of deep venous thrombosis. | |Deep venous reflux: | |Common femoral vein: No reflux. | |Superficial femoral vein: >1s reflux. | |Greater saphenous vein: | |Saphenofemoral junction: Diameter: 6.0 mm. Depth: 24 mm. >1s reflux. | |Middle thigh: Diameter: 7.4 mm. Depth: 20 mm. No reflux. | |Distal thigh: Diameter: 7.2 mm. Depth: 26 mm. No reflux. | |Knee: Diameter: 5.5 mm. Depth: 19 mm. No reflux. | |Proximal calf: Diameter: 5.1 mm. Depth: 7.2 mm. >1s reflux. | |Mid calf: Diameter: 4.7 mm. Depth: 9.0 mm. >1s reflux. | |Distal calf: Diameter: 4.9 mm. Depth: 14 mm. >1s reflux. | |Lesser saphenous vein: | |Saphenopopliteal junction: Diameter: mm. Depth: mm. No reflux. | |Proximal calf: Diameter: mm. Depth: mm. No reflux. | |Mid calf: Diameter: mm. Depth: mm. No reflux. | |Distal calf: Diameter: mm. Depth: mm. No reflux. | | | |IMPRESSION: | |1. No evidence of lower extremity deep vein thrombosis in either leg. | |2. Bilateral saphenofemoral junction reflux of greater than 1 second. | |3. Bilateral segmental greater saphenous vein reflux below the knee greater than 1 second. | |4. Right common femoral vein reflux greater than 0.5 seconds. | |5. Left superficial femoral vein reflux greater than 1 second. | |6. Right proximal calf lesser saphenous vein reflux greater than 0.5 seconds. | | | | | + + [...]
--- OUTSIDE RECORDS SUMMARY | ~2020-01-19 | XMS | Encounter Summary ---
Demographics + + + | Address | [address] | | | [place] [address] | + + + | Home Phone | | + + + | Preferred Language | Unknown | + + + | Marital Status | Single | + + + | Christian Affiliation | 1041 | + + + | Race | White | + + + | Ethnic Group | Not or | + + + Author + + + | Author | [facility] | | | and [place] | + + + | Organization | [facility] | | | [...] Team Providers + +------+ + | Care Baker Head Name | Role | Phone | + +------+ + PCP | Unavailable | + +------+ + Encounter Details +--------+ + + + + | Date | Type | Department | Care Team | Description | +--------+ + + + + | 09/27/ | Hospital | [facility] | Jaziel Billy, | Ulcer of leg, | | 2013 | Encounter | CENTER OUTPATIENT | MD Umm AMADOR | chronic, unspecified | | | | WOUND CARE [address] | [facility] [address] [place], | laterality, limited | | | | [address] [place], [place] | [place] [address] | to breakdown of | | | | [address] | [phone] | skin (HCC) | | | | [phone] | | | +--------+ + + + [...] Notes by Jaziel Billy MD at 09/27/13 0939 Author: Jaziel Billy MD Service: (none) Author Type: Physician Filed: 09/27/13 7254 Encounter Date: 09/27/2013 Status: Signed Paint Stripper: Jaziel Billy MD (Physician) Subjective: Seth Tabares is a 63 y.o. male who [...] Notes by Brooklyn Garcia RN at 09/27/13 0526 Author: Brooklyn Garcia RN Service: (none) Author Type: Registered Nurse Filed: 09/27/13 1251 Encounter Date: 09/27/2013 Status: Signed Paint Stripper: Brooklyn Garcia RN (Registered Nurse) Seth Tabares is a 63 y.o. male who presents today for Wound Care visit. 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 He arrived: Wheelchair. 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 Steele; new wounds noted with compressio n; has not been wearing them this week because of deterioration with them. Has been wearing tubigrips. docume nted in this encounter Miscellaneous Notes Miscellaneous - Conversion Transaction, Provider Unknown - 09/27/2013 12:56 PM PDTFormattin g of this note might be different from the original. Patient Instructions by Elaine Bach RN at 09/27/13 1257 Author: Elaine Bach RN Service: (none) Author Type: Registered Nurse Filed: 09/27/13 0182 Encounter Date: 09/27/2013 Status: Addendum Paint Stripper: Elaine Bach RN (Registered Nurse) Related Notes: Original Note by Elaine Bach RN (Registered Nurse) filed at 09/27/13 13 17 BEFORE DOING WOUND CARE: 1. Wash your hands. 2. Put on gloves. 3. Remove dressing. 4. Remove gloves. 5. Wash your hands. 6. Put on new gloves. APPLY LOTION TO BOTH LOWER LEGS IN AREAS OF DRY SKIN DAILY EVERY OTHER DAY Wound Care TO Open areas on right lower leg : HOME HEALTH PLEASE THORNTON E ON MON/WED/FRI 1. Cleanse wound with normal saline. And pat dry. 2. Apply Gentamicin antibiotic ointment to wound bed. 3. Cover with gauze. Secure with gauze roll & tape. Do not apply tape directly to skin. DO CONTINUE TO HAVE SETH USE LIFT RECLINER. THE ENERGY HE SAVES USING IT TO GET UP AND D OWN WILL BE BEST USED TO WALK FURTHER. DO NOT HAVE SETH SHOWER EVERYDAY, 3 PER WEEK AT MOST IS SUFFICIENT. Tubigrips need to be put on upon arising. They should be taken off at bedtime. They may b e laundered in the washing machine, then machine dry on LOW heat setting. The doctor is veronica gamboaesting you wear a 1 Layer tubigrip that is equal to 8-10 mmHg compression. Please elevate legs as much as possible, when not in bed, a reclining chair would be prefer red. Short walks throughout the day with improve circulation. NOTE: Return to clinic in 1 Week(s) for doctor visit. Please bring your dressing sup plies to each visit. Hygiene of general wound care: Avoid tap water cleansing. Do not expose your wound to tim wer/bath water. Cleanse it only with wound center recommended solutions. Keep wound covere d with prescribed dressing. Maintain dressing clean and dry. Adequate protein is important to enhance wound healing. Unless otherwise medically restric moustapha 40% of your daily dietary intake should consist of protein. The formula to determine da otis grams of protein is: # of pounds you weigh divided by 2.2 = Kilograms. Multiply that b y 1.5 = daily grams of protein. *PLEASE INCREASE PATIENT'S PROTEIN INTAKE WE HAVE PRESCRIBED GENTAMICIN FOR YOU.PLEASE HAVE IT FILLED. 0.9% NORMAL SALINE RECIPE: 1 teaspoon salt in 2 cups boiling water. Allow to cool. Pour into container. Store in refrigerator one week. Dump out when one week old, or if left out of refrigerator for 24 hours. These wound care orders are being faxed to: [facility] (DR KASHIF Mike/RAFFAELE PUGA) Signature Date: 08/30/13 docume nted in this encounter Plan of [...]
--- OUTSIDE RECORDS SUMMARY | ~2020-01-19 | XMS | Encounter Summary ---
Demographics + + + | Address | [address] | | | [place] [address] | + + + | Home Phone | | + + + | Preferred Language | Unknown | + + + | Marital Status | Single | + + + | Gnosticism Affiliation | 1041 | + + + | Race | White | + + + | Ethnic Group | Not or | + + + Author + + + | Author | [facility] | | | and [place] | + + + | Organization | [facility] | | [...] Team Providers + +------+ + | Care Byproducts Supervisor Name | Role | Phone | + +------+ + PCP | Unavailable | + +------+ + Encounter Details +--------+ + + + + | Date | Type | Department | Care Team | Description | +--------+ + + + + | 08/09/ | Hospital | [facility] | Jaziel Billy, | Ulcer of leg, | | 2013 | Encounter | CENTER OUTPATIENT | MD Umm AMADOR | chronic, unspecified | | | | WOUND CARE [address] | [facility] [address], | laterality, limited | | | | [address] [place], [place] | [place] [address] | to breakdown of | | | | [address] | [phone] | skin (HCC) | | | | [phone] | | | +--------+ + + + [...] encounter Progress Notes Jaziel Billy MD - 08/09/2013 1:54 PM PDTFormatting of this note might be different fro m the original. Progress Notes by Jaziel Billy MD at 08/09/13 9962 Author: Jaziel Billy MD Service: (none) Author Type: Physician Filed: 08/09/13 7386 Encounter Date: 08/09/2013 Status: Signed Dish Up Person: Jaziel Billy MD (Physician) Subjective: Jono Tabares [...] controlled w/pressure. Pt tolerated procedure well. See jimmie luz for wound details (pre and post). No exposed tendon, muscle or bone noted. Dressing applied by nursing. Pt to f/u as scheduled. onversio n Transaction, Provider Unknown - 08/09/2013 1:17 PM PDTFormatting of this note might be di fferent from the original. Progress Notes by Demetria Padilla RN at 08/09/13 6032 Author: Demetria Padilla RN Service: (none) Author Type: Registered Nurse Filed: 08/09/13 7164 Encounter Date: 08/09/2013 Status: Signed Dish Up Person: Demetria Padilla RN (Registered Nurse) Jono Tabares [...] place on this visit: Other Footwear: socks docume nted in this encounter Miscellaneous Notes Miscellaneous - Conversion Transaction, Provider Unknown - 08/09/2013 1:28 PM PDTFormattin g of this note might be different from the original. Patient Instructions by Nyasia Graham RN at 08/09/13 1328 Author: Nyasia Graham RN Service: (none) Author Type: Registered Nurse Filed: 08/09/13 1636 Encounter Date: 08/09/2013 Status: Addendum Dish Up Person: Nyasia Graham RN (Registered Nurse) Related Notes: Original Note by Nyasia Graham RN (Registered Nurse) filed at 08/09/13 16 30 BEFORE DOING WOUND CARE: 1. Wash your hands. 2. Put on gloves. 3. Remove dressing. 4. Remove gloves. 5. Wash your hands. 6. Put on new gloves. [facility]: AT YOUR FIRST VISIT, PLEASE CUT THE 2 LAYER WRAP OFF OF THE LEFT LEG. THEN PROCEED WITH THE FOLLOWING WOUND INSTRUCTIONS: Every Other Day TO LEFT LOWER EXTREMITY : 1. Cleanse wound with Normal Saline. If residual zinc remains, may wipe off with mineral o il on a gauze. 2. Then reapply protective barrier (zinc oxide-desitin like) around wound. 3. Put Wound Gel on base of wound. 4. Then Alginate Silver. 5. Cover with dry gauze. 6. Secure with roll gauze, & tape. 7. APPLY 2 LAYER TUBI FINANCIAL CONTROLLER SIZE F RIGHT LEG: HAS NO OPEN WOUNDS AT THIS TIME. WEAR TUBI FINANCIAL CONTROLLER TO HELP WITH SWELLING. PLEASE APPLY LOTION TO THE RIGHT LEG FOR DRY SKIN. Tubigrips need to be put on upon arising. They should be taken off at bedtime. They may b e laundered in the washing machine, then hang to dry. The doctor is requesting you wear a 2 Layer tubigrip that is equal to 8-10 [...] of protein. *PLEASE INCREASE PATIENT'S PROTEIN INTAKE 0.9% NORMAL SALINE RECIPE: 1 teaspoon salt in 2 cups boiling water. Allow to cool. Pour into container. Store in refrigerator one week. Dump out when one week old, or if left out of refrigerator for 24 hours. These wound care orders are being faxed to: [facility] docume nted in this encounter Plan of [...]
--- OUTSIDE RECORDS SUMMARY | ~2020-01-19 | XMS | Encounter Summary ---
Demographics + + + | Address | [address] | | | [place] [address] | + + + | Home Phone | | + + + | Preferred Language | Unknown | + + + | Marital Status | Single | + + + | Yarsani Affiliation | 1041 | + + + | Race | White | + + + | Ethnic Group | Not or | + + + Author + + + | Author | [facility] | | | and [place] | + + + | Organization | [facility] | | | and [...] Team Providers + +------+ + | Care Surgical Supply Assistant Name | Role | Phone | + +------+ + PCP | Unavailable | + +------+ + Encounter Details +--------+ + + + + | Date | Type | Department | Care Team | Description | +--------+ + + + + | 06/14/ | Hospital | [facility] | Conversion | Open wound of knee, | | 2013 | Encounter | MEDICAL CENTER | Transaction, | leg (except thigh), | | | | [address] | Provider Unknown | and ankle, | | | | [address] | [phone] | complicated | | | | [place], [place] | | | | | | [address] | | | | | | [phone] | | | +--------+ + + + [...]
--- OUTSIDE RECORDS SUMMARY | ~2020-01-19 | XMS | Encounter Summary ---
Demographics + + + | Address | [address] | | | [place] [address] | + + + | Home Phone | | + + + | Preferred Language | Unknown | + + + | Marital Status | Single | + + + | Caodaism Affiliation | 1041 | + + + | Race | White | + + + | Ethnic Group | Not or | + + + Author + + + | Author | [facility] | | | and [place] | + + + | Organization | [facility] | | | [...] Team Providers + +------+ + | Care Upper Cutter Machine Name | Role | Phone | + +------+ + PCP | Unavailable | + +------+ + Encounter Details +--------+ + + + + | Date | Type | Department | Care Team | Description | +--------+ + + + + | 06/13/ | Hospital | [facility] | Conversion | Open wound of knee, | | 2013 | Encounter | MEDICAL CENTER | Transaction, | leg (except thigh), | | | | [address] | Provider Unknown | and ankle, | | | | [address] | [phone] | complicated | | | | [place], [place] | | | | | | [address] | | | | | | [phone] | | | +--------+ + + + [...] 12:43 PM PDT SETH KEATON LOWER EXTREMITY | | ARTERIAL DUPLEX BIL06/13/2013 [...]
--- OUTSIDE RECORDS SUMMARY | ~2020-01-19 | XMS | Encounter Summary ---
Demographics + + + | Address | [address] | | | [place] [address] | + + + | Home Phone | | + + + | Preferred Language | Unknown | + + + | Marital Status | Single | + + + | Latter Day Affiliation | 1041 | + + + | Race | White | + + + | Ethnic Group | Not or | + + + Author + + + | Author | [facility] | | | and [place] | + + + | Organization | [facility] | | [...] Team Providers + +------+ + | Care Social Economist Name | Role | Phone | + +------+ + PCP | Unavailable | + +------+ + Encounter Details +--------+ + + + + | Date | Type | Department | Care Team | Description | +--------+ + + + + | 08/02/ | Hospital | [facility] | Jaziel Billy, | Ulcer of leg, | | 2013 | Encounter | CENTER OUTPATIENT | MD Umm AMADOR | chronic, unspecified | | | | WOUND CARE [address] | [place] [address] [place], | laterality, with | | | | [place], [place] | [place] [address] | unspecified severity | | | | [address] | [phone] | (HCC); Venous | | | | [phone] | | insufficiency | +--------+ + + [...] encounter Progress Notes Jaziel Billy MD - 08/02/2013 2:55 PM PDTFormatting of this note might be different fro m the original. Progress Notes by Jaziel Billy MD at 08/02/13 5979 Author: Jaziel Billy MD Service: (none) Author Type: Physician Filed: 08/02/13 5493 Encounter Date: 08/02/2013 Status: Signed Gold Wheel Blocker And Polisher: Jaziel Billy MD (Physician) Subjective: Jono Tabares is a 63 y.o. male who presents for follow up for wound healing. He reports th at the wound has been doing well. He reports that he has been compliant with his treatment regimen. See flowsheet for measurements and specific treatment data. Review of Systems Constitutional: negative Respiratory: negative Cardiovascular: negative Gastrointestinal: negative Integument/breast: wound open new opening Objective: General appearance: alert, appears stated age and cooperative Head: Normocephalic, without obvious abnormality, atraumatic Musculoskeletal: there is no redness, warmth, or swelling of the joints Skin: wound opening Assessment / Plan: [place] ulcer tissues examined. [...] base of the ulcer.. Pt had a medium amount of bleeding controlled w/pressure. Pt tolerated procedure well. See flowsheet for wound details (pre and post). No exposed tendon, muscle or bone noted. Dressin g applied by nursing. Pt to f/u as scheduled. onversio n Transaction, Provider Unknown - 08/02/2013 12:58 PM PDTFormatting of this note might be di fferent from the original. Progress Notes by Leon Pierre RN at 08/02/13 0922 Author: Leon Pierre RN Service: (none) Author Type: Registered Nurse Filed: 08/02/13 0616 Encounter Date: 08/02/2013 Status: Signed Gold Wheel Blocker And Polisher: Leon Pierre RN (Registered Nurse) Jono Tabares [...] Footwear in place on this visit: Slipper: PATIENT HAS MOVED FROM [facility] TO [facility] [place]. docume nted in this encounter Miscellaneous Notes Miscellaneous - Conversion Transaction, Provider Unknown - 08/02/2013 1:15 PM PDTFormattin g of this note might be different from the original. Patient Instructions by Nyasia Graham RN at 08/02/13 5343 Author: Nyasia Graham RN Service: (none) Author Type: Registered Nurse Filed: 08/02/13 1319 Encounter Date: 08/02/2013 Status: Addendum Gold Wheel Blocker And Polisher: Nyasia Graham RN (Registered Nurse) Related Notes: Original Note by Nyasia Graham RN (Registered Nurse) filed at 08/02/13 13 17 [address] this wrap in place for 7 days. Do not get the wrap wet. IF THERE IS INCREASED PAIN, TINGLING, NUMBNESS, COLD TOES PLEASE CUT THE WRAPS OFF AND DRESS BEFORE AND USE THE TUBI PUBLIC IMPROVEMENT INSPECTOR. BEFORE DOING WOUND CARE: 1. Wash your hands. 2. Put on gloves. 3. Remove dressing. 4. Remove gloves. 5. Wash your hands. 6. Put on new gloves. Every Other Day TO RIGHT LOWER LEG AND LEFT LOWER LEG: Only if the compression wraps hav e been removed. 1. Cleanse WOUNDS with Normal Saline or WOUND CLEANSER. (NOTE: DO NOT USE TAP WATER.) 2. PUT WOUND GEL ON BOTH LOWER LEGS AND FEET, IF APPLYING LOTION. 3. THEN COVER OPEN WOUNDS WITH AQUACEL PLAIN 4. COVER WITH DRY GAUZE. 5. COMPRESSION WRAP. (IF YOU HAVE TO CUT WRAPS OFF THEN SECURE DRESSING WITH KERLIX) COMPRESSION WRAP CARE INSTRUCTIONS: Keep bandages in place at all times. Protect bandage from getting wet. Report signs of constriction: Swelling, numbness, tingling, blue toes, s evere discomfort, or shortness of breath that is unrelieved by lying down with elevation of leg for 30-60 minutes. IF bandage loosens, or slips call wound center at [phone]. If it is after our hours of 8-4, Tuesday through Tuesday, cut wrap off. Protect wound with clean , dry dressing until able to contact us. Please elevate legs as much as possible, when not in bed, a reclining chair would be prefer red. NOTE: Return to clinic in 1 Week(s) for doctor visit. Please bring your dressing sup plies to each visit. A culture has been taken of your wound today. The results should be available in 3 to 5 da ys. We will notify you if there is a need for antibiotic treatment. Hygiene of general wound care: Avoid tap [...] orders are being faxed to: MARIETTA BREWER MD Signature Date: docume fernandes in this encounter Plan of Treatment Not on filedocumented as of this encounter Procedures + +--------+ + + + | Procedure Name | Priori | Date/Time | Associated Diagnosis | Comments | | | ty | | | | + +--------+ + + + | CULTURE, WOUND, | Routin | 08/02/2013 | | Results for this | | SMEAR, W/ANAEROBE | e | 4:12 PM | | procedure are in the | | | | PDT | | results section. | + +--------+ + + + documented in this encounter Results Culture, Wound, Smear, w/Anaerobe (08/02/2013 4:12 PM PDT) + + | Specimen | + + | | + + + + + | Narrative | Performed At | + + + | Specimen Description OTHER SPECIAL | EXTERNAL LAB | | REQUESTS LLE CULTURE | | | 1+ | | | STAPHYLOCOCCUS AUREUSAbnormal REPORT | | | STATUS FINAL | | | 08/04/2013 Suscepibility for - | | | STAPHYLOCOCCUS AUREUS Penicillin G | | | RESISTANT Resistant Clindamycin | | | RESISTANT Resistant Erythromycin RESISTANT | | | Resistant Gentamicin | | | SUSCEPTIBLESensitive Levofloxacin | | | RESISTANT Resistant Moxifloxacin | | | RESISTANT Resistant Oxacillin | | | SUSCEPTIBLESensitive Tetracycline | | | SUSCEPTIBLESensitive Trimethoprim + | | | SulfamethoxazoleSUSCEPTIBLESensitive Vancomycin | | | SUSCEPTIBLESensitive | | + + + + +---------+ + + | Performing | Address | City/State/Zipcode | Phone Number | | Organization | | | | + +---------+ + + | EXTERNAL LAB | | | | + +---------+ + + documented in this encounter Visit Diagnoses + + | Diagnosis | + + | Ulcer of leg, chronic, unspecified laterality, with unspecified severity (HCC) | + + | Venous insufficiency [...]
--- OUTSIDE RECORDS SUMMARY | ~2020-01-19 | XMS | Encounter Summary ---
Demographics + + + | Address | [address] | | | [place] [address] | + + + | Home Phone | | + + + | Preferred Language | Unknown | + + + | Marital Status | Single | + + + | Cheondoism Affiliation | 1041 | + + + | Race | White | + + + | Ethnic Group | Not or | + + + Author + + + | Author | [facility] | | | and [place] | + + + | Organization | [facility] | | | and [...] Team Providers + +------+ + | Care Clinical Administrator Name | Role | Phone | + +------+ + PCP | Unavailable | + +------+ + Encounter Details +--------+ + + + + | Date | Type | Department | Care Team | Description | +--------+ + + + + | 06/07/ | Hospital | [facility] | Jaziel Billy, | Open wound of knee, | | 2013 | Encounter | CENTER OUTPATIENT | MD Umm AMADOR | leg (except thigh), | | | | WOUND CARE [address] | [place], | and ankle, | | | | [place] [place], [place] | [place] [address] | complicated | | | | [address] | [phone] | | | | | [phone] | | | +--------+ + + + [...] encounter Progress Notes Jaziel Billy MD - 06/07/2013 4:21 PM PSTFormatting of this note might be different fro m the original. Progress Notes by Jaziel Billy MD at 06/07/13 1621 Author: Jaziel Billy MD Service: (none) Author Type: Physician Filed: 06/07/13 1936 Encounter Date: 06/07/2013 Status: Signed Audio Recording Engineer: Jaziel Billy MD (Physician) Subjective: Seth Tabares is a 62 y.o. male who [...] redness, is no odor, is no discharge. Most areas on legs hyperkeratotic selective d ebrideement needed right lateral ankle open needed full debridement Excisional debridement medically necessary to accelerate [...] nursing. Pt to f/u as scheduled. Continue treatments onversio n Transaction, Provider Unknown - 06/07/2013 2:10 PM PSTFormatting of this note might be di fferent from the original. Progress Notes by Demetria Padilla RN at 06/07/13 1410 Author: Demetria Padilla RN Service: (none) Author Type: Registered Nurse Filed: 06/07/13 1626 Encounter Date: 06/07/2013 Status: Signed Audio Recording Engineer: Demetria Padilla RN (Registered Nurse) Seth Tabares is a 62 y.o. male who [...] in place on this visit: Other Footwear: wraps docume nted in this encounter Miscellaneous Notes Miscellaneous - Conversion Transaction, Provider Unknown - 06/07/2013 2:53 PM PSTFormattin g of this note might be different from the original. Patient Instructions by Nyasia Graham RN at 06/07/13 8424 Author: Nyasia Graham RN Service: (none) Author Type: Registered Nurse Filed: 06/07/13 1533 Encounter Date: 06/07/2013 Status: Addendum Audio Recording Engineer: Leon Pierre RN (Registered Nurse) Related Notes: Original Note by Leon Pierre RN (Registered Nurse) filed at 06/07/13 15 31 PLEASE READ THE FOLLOWING INSTRUCTIONS THOROUGHLY THERE ARE SOME CHANGES. ATTN: PLEASE FAX US A CURRENT MEDICATION LIST FOR SETH AND THE NAME OF THE ANTIBIOTIC TH AT CAUSED HIS LOWER EXTREMITY OUTBREAK. BEFORE DOING WOUND CARE: 1. Wash your hands. 2. Put on gloves. 3. Remove dressing. 4. Remove gloves. 5. Wash your hands. 6. Put on new gloves. Every Other Day TO RIGHT AND LEFT LEGS AND TOES: 1. Cleanse wound with Normal Saline or [...] AREAS WITH KERLIX AND SECURE WITH TAPE. NOTE: Return to clinic in 1 Week(s) for doctor visit. Please bring your dressing sup plies to each visit. NOTE: Call the [facility] Scheduling Department to make an appointment for your lower extremit y ultrasound studies at [phone]. Hygiene of general wound care: Avoid tap [...] HARPAL QUINTERO [place] MD Signature Date: 06/07/2013 docume nted in this encounter Plan of [...]
--- OUTSIDE RECORDS SUMMARY | ~2020-01-19 | XMS | Encounter Summary ---
Demographics + + + | Address | [address] | | | [place] [address] | + + + | Home Phone [...] Author + + + | Author | [facility] | | | and [place] | + + + | Organization | [facility] | | [...] Team Providers + +------+ + | Care Meat Team Lead Name | Role | Phone | + +------+ + PCP | Unavailable | + +------+ + Encounter Details +--------+ + + + + | Date | Type | Department | Care Team | Description | +--------+ + + + + | 10/18/ | Hospital | [facility] | Jaziel Billy, | Ulcer of leg, | | 2013 | Encounter | CENTER OUTPATIENT | MD Umm AMADOR | chronic, unspecified | | | | WOUND CARE [address] | [facility] [place], | laterality, limited | | | | [address] [place], [place] | [place] [address] | to breakdown of | | | | [address] | [phone] | skin (HCC) | | | | [phone] | | | +--------+ + + + [...] Notes by Jaziel Billy MD at 10/18/13 1303 Author: Jaziel Billy MD Service: (none) Author Type: Physician Filed: 10/25/13 1646 Encounter Date: 10/18/2013 Status: Addendum Product Lead: Jaziel Bilyl MD (Physician) Related Notes: Original Note by Jaziel Billy MD (Physician) filed at 10/18/13 1319 Subjective: Jono Tabares is a 63 y.o. [...] Continue with dressings with home health in [place] . recheck here soul new wounds develop or per provider . You are still our patient for 30 days . onversio n Transaction, Provider Unknown - 10/18/2013 12:31 PM PDTFormatting of this note might be di fferent from the original. Progress Notes by Joann Leigh RN at 10/18/13 1231 Author: Joann Leigh RN Service: (none) Author Type: Registered Nurse Filed: 10/18/13 6970 Encounter Date: 10/18/2013 Status: Signed Product Lead: Joann Leigh RN (Registered Nurse) Jono Tabares [...] Footwear: na docume nted in this encounter Miscellaneous Notes Miscellaneous - Conversion Transaction, Provider Unknown - 10/18/2013 12:54 PM PDTFormattin g of this note might be different from the original. Patient Instructions by Nyasia Graham RN at 10/18/13 4987 Author: Nyasia Graham RN Service: (none) Author Type: Registered Nurse Filed: 10/18/13 1258 Encounter Date: 10/18/2013 Status: Addendum Product Lead: Nyasia Graham RN (Registered Nurse) Related Notes: Original Note by Nyasia Graham RN (Registered Nurse) filed at 10/18/13 12 57 Congratulations! Your wound is healed. If you have any wound care questions, or experienc e a problem with continued healing, please call us, [facility], at [phone]. If a concern arises within 30 days of today, you will be scheduled as a returning pat ient. If beyond the 30 days, you will be scheduled as a new patient. The new skin is fragile, to protect it while it continues to mature and become stronger ple ase follow the guidelines below. General wound site directions: Avoid prolonged pressure on the wound site Inspect skin daily for new breaks, redness, tenderness, unusual warmth. Report changes pro mptly to your primary care provider. Apply non-fragranced moisturizer to skin daily. However, do not put between toes or in ski n folds as this can cause irritation & breakdown. Foot Wounds: Wear proper fitting shoes with inserts. Obtain them from a termite control service representative or an client development consultant. Wear white cotton socks without toe seams. Check shoes for objects that may have fallen into them prior to putting on. Do not soak feet. This dries them out. As well, if you have decreased sensation in your f eet, temperature of the water is difficult to assess which may result in ruano. Pressure Wounds: Use designed for pressure reduction products such as wheelchair, and bed mattress cushions. When repositioning, Lift-do not slide. This avoids shearing of skin. Do not massage reddened areas as this further aggravates damaged skin. Swelling of lower extremities: Wear the recommended compression device daily. Put them on first thing in the morning befo re swelling starts to worsen. Take them off when going to bed. These devices have a limited lifespan. Abran the date purchased on inside of cuff with a la undry marker to know when need to replace. Replace them as often as manufacture recommends for full effectiveness. Other: Patient Signature Date/T kassie Nurse Signature kassie docume nted in this encounter Plan of [...]
--- OUTSIDE RECORDS SUMMARY | ~2020-01-19 | XMS | Encounter Summary ---
Demographics + + + | Address | [address] | | | [place] [address] | + + + | Home Phone [...] Author + + + | Author | [facility] | | | and [place] | + + + | Organization | [facility] | | | and [...] Team Providers + +------+ + | Care Hot Cell Technician Name | Role | Phone | + +------+ + | Tay Chino MD | PCP | | + +------+ + Encounter Details +--------+ + + + + | Date | Type | Department | Care Team | Description | +--------+ + + + + | 05/07/ | Orders Only | [facility] | Lorenzo Chan MD | | | 2013 | | NEPHROLOGY ADONIS | [address] | | | | | [address] [place] | [address] [place], [place] | | | | | [address] [place] | [id number] | | | | | [address] | | | | | | [phone] | | | +--------+ + + + [...] + + + + + + | Clarity, | Clear | | EXTERNAL | | | Urine [...] | + +-------+ + + + | Non- | 4.48 | 10 | EXTERNAL | | | Red Blood | | | LAB | | | Cells | | | | | | Counted | | | | | + +-------+ + + + | Hemoglobin | 12.7 | g/dL | EXTERNAL | [...] | + +-------+ + + + | eGFR, | | | EXTERNAL | | | non- | | | LAB | | | [place] | | | | | + +-------+ [...]
--- OUTSIDE RECORDS SUMMARY | ~2020-01-19 | XMS | Encounter Summary ---
Demographics + + + | Address | [address] | | | [place] [address] | + + + | Home Phone | | + + + | Preferred Language | Unknown | + + + | Marital Status | Single | + + + | Confucianism Affiliation | 1041 | + + + [...] Team Providers + +------+ + | Care Sanforizing Machine Operator Name | Role | Phone | + +------+ + PCP | Unavailable | + +------+ + Encounter Details +--------+ + + + + | Date | Type | Department | Care Team | Description | +--------+ + + + + | 09/13/ | Hospital | [facility] | Jaziel Billy, | Ulcer of leg, | | 2013 | Encounter | CENTER OUTPATIENT | MD Umm AMADOR | chronic, unspecified | | | | WOUND CARE [address] | [facility] [place], | laterality, limited | | | | [address] [place], [place] | [place] [address] | to breakdown of | | | | [address] | [phone] | skin (HCC); Venous | | | | [phone] | | insufficiency | +--------+ + + [...] Notes by Jaziel Billy MD at 09/13/13 4313 Author: Jaziel Billy MD Service: (none) Author Type: Physician Filed: 09/13/13 1139 Encounter Date: 09/13/2013 Status: Signed Tunnel Inspector: Jaziel Billy MD (Physician) Subjective: Seth Tabares [...] controlled w/pressure. Pt tolerated procedure well. See matilda jaimes for wound details (pre and post). No exposed tendon, muscle or bone noted. Dressing applied by nursing. Pt to f/u as scheduled. onversio n Transaction, Provider Unknown - 09/13/2013 12:57 PM PDTFormatting of this note might be di fferent from the original. Progress Notes by Deonna Adkins RN at 09/13/13 1257 Author: Deonna Adkins RN Service: (none) Author Type: Registered Nurse Filed: 09/13/13 2222 Encounter Date: 09/13/2013 Status: Signed Tunnel Inspector: Deonna Adkins RN (Registered Nurse) Seth Tabares is a [...] on this visit: Slipper: skid free sock docume nted in this encounter Miscellaneous Notes Miscellaneous - Conversion Transaction, Provider Unknown - 09/13/2013 1:16 PM PDTFormattin g of this note might be different from the original. Patient Instructions by Elaine Bach RN at 09/13/13 1316 Author: Elaine Bach RN Service: (none) Author Type: Registered Nurse Filed: 09/13/13 5290 Encounter Date: 09/13/2013 Status: Addendum Tunnel Inspector: Elaine Bach RN (Registered Nurse) Related Notes: Original Note by Elaine Bach RN (Registered Nurse) filed at 09/13/13 13 37 BEFORE DOING WOUND CARE: 1. Wash your [...]
--- OUTSIDE RECORDS SUMMARY | ~2020-01-19 | XMS | Encounter Summary ---
Demographics + + + | Address | [address] | | | [place] [address] | + + + | Home Phone | | + + + | Preferred Language | Unknown | + + + | Marital Status | Single | + + + | Nondenominational Affiliation | 1041 | + + + | Race | White | + + + | Ethnic Group | Not or | + + + Author + + + | Author | [facility] | | | and [place] | + + + | Organization | [facility] | | | [...] Team Providers + +------+ + | Care Cable Braider Name | Role | Phone | + +------+ + PCP | Unavailable | + +------+ + Encounter Details +--------+ + + + + | Date | Type | Department | Care Team | Description | +--------+ + + + + | 07/19/ | Hospital | [facility] | Jaziel Allison, | Venous insufficiency | | 2013 | Encounter | CENTER OUTPATIENT | MD Umm AMADOR | | | | | WOUND CARE [address] | [facility] [place] | | | | | [place] | [place] [address] | | | | | [address] | [phone] | | | | | [phone] | | | +--------+ + + + [...] as of this encounter Progress Notes Jaziel Allison MD - 07/19/2013 1:41 PM PDTFormatting of this note might be different fro m the original. Progress Notes by Jaziel Allison MD at 07/19/13 1345 Author: Jaziel Allison MD Service: (none) Author Type: Physician Filed: 07/19/13 8499 Encounter Date: 07/19/2013 Status: Addendum Environmental Health Aide: Jaziel Allison MD (Physician) Related Notes: Original Note by Jaziel Allison MD (Physician) filed at 07/19/13 0747 Subjective: Jono Tabares is a 63 y.o. [...] wounds opening will try 2 layer wrap markos shearer onversio n Transaction, Provider Unknown - 07/19/2013 1:04 PM PDTFormatting of this note might be di fferent from the original. Progress Notes by Leon Pierre RN at 07/19/13 0306 Author: Leon Pierre RN Service: (none) Author Type: Registered Nurse Filed: 07/19/13 1346 Encounter Date: 07/19/2013 Status: Signed Environmental Health Aide: Leon Pierre RN (Registered Nurse) Jono Tabares [...] Footwear in place on this visit: Slipper: SOCK SAW DR. ENGEL TODAY. PATIENT REPORTS THAT DR. ENGEL WANTS HIM TO WEAR COMPRESSION WRAPS AT ALL TIMES BILATERAL LOWER LEGS. docume nted in this encounter Miscellaneous Notes Miscellaneous - Conversion Transaction, Provider Unknown - 07/19/2013 1:26 PM PDTFormattin g of this note might be different from the original. Patient Instructions by Nyasia Graham RN at 07/19/13 1326 Author: Nyasia Graham RN Service: (none) Author Type: Registered Nurse Filed: 07/24/13 1301 Encounter Date: 07/19/2013 Status: Addendum Environmental Health Aide: Yolie Pan RN (Registered Nurse) Related Notes: Original Note by Nyasia Graham RN (Registered Nurse) filed at 07/19/13 13 30 PLEASE READ THE FOLLOWING INSTRUCTIONS THOROUGHLY THERE ARE SOME CHANGES. WE HAVE DRESS ED THE WOUNDS WITH THE ALGINATE BEFORE AND THEN APPLIED GAUZE AND WRAPPED THE ENTIRE CALF WITH A 2 LAYER WRAP. Leave this wrap in place for 7 days. Do not get the wrap wet. IF THERE IS INCREASED PAIN, TINGLING, NUMBNESS, COLD TOES PLEASE CUT THE WRAPS OFF AND DRESS BEFORE AND USE THE TUBI ELECTRONIC BENCH TECHNICIAN. BEFORE DOING WOUND CARE: 1. Wash your hands. 2. Put on gloves. 3. Remove dressing. 4. Remove gloves. 5. Wash your hands. 6. Put on new gloves. Every Other Day TO RIGHT [place] Right lateral calf and right posterior calf: 1. Cleanse wound with Normal Saline or WOUND CLEANSER. (NOTE: DO NOT USE TAP WATER.) 2. PUT WOUND GEL ON BOTH LOWER LEGS AND FEET, IF APPLYING LOTION. THEN PUT EXTRA WOUND GEL (DOLLOP) ON THE OPEN AREAS WHERE AQUACEL SILVER WILL BE PLACED. 3. THEN COVER OPEN WOUNDS WITH AQUACEL PLAIN 4. COVER WITH DRY GAUZE. 5. COVER ENTIRE LOWER LEGS AND OPEN AREAS WITH KERLIX AND SECURE WITH TAPE. COMPRESSION WRAP CARE INSTRUCTIONS: Keep bandages in place at all times. Protect bandage from getting wet. Report signs of constriction: Swelling, numbness, tingling, blue toes, s evere discomfort, or shortness of breath that is unrelieved by lying down with elevation of leg for 30-60 minutes. IF bandage loosens, or slips call wound center at [phone]. If it is after our hours of 8-4, Tuesday through Tuesday, cut wrap off. Protect wound with clean , dry dressing until able to contact us. Please apply skin lotion to dry leg skin daily Please buy slippers or larger shoes to protect your feet from injury. NOTE: Return to clinic in 1 Week(s) for doctor visit. Please bring your dressing sup plies to each visit. NOTE: Compression Tubigrips ARE to be put on upon arising. They may be laundered in the w ashing machine, then hang to dry. The doctor is requesting you wear a 1 Layer tubigrip that is equal to 8-10 mmHg comp ression. (FOR ONE WEEK PLEASE WEAR THE TUBI ELECTRONIC BENCH TECHNICIAN TO BED WELL FOR PROTECTION OF THE WOUNDS, PER Arlin ALLISON) Hygiene of general wound care: Avoid tap [...] care orders are being faxed to: HARPAL QUINTERO, [place] Signature Date: docume nted in this encounter Plan of [...]
--- OUTSIDE RECORDS SUMMARY | ~2020-01-19 | XMS | Encounter Summary ---
Demographics + + + | Address | [address] | | | [place] [address] | + + + | Home Phone [...] Team Providers + +------+ + | Care Form Raiser Name | Role | Phone | + +------+ + PCP | Unavailable | + +------+ + Encounter Details +--------+ + + + + | Date | Type | Department | Care Team | Description | +--------+ + + + + | 07/12/ | Hospital | [facility] | Jaziel Allison, | Venous insufficiency | | 2013 | Encounter | CENTER OUTPATIENT | MD Umm AMAODR | | | | | WOUND CARE [address] | [facility] [place] | | | | | [place] | [place] [address] | | | | | [address] | [phone] | | | | | [phone] | | | +--------+ + + + [...] encounter Progress Notes Jaziel Allison MD - 07/12/2013 2:43 PM PDTFormatting of this note might be different fro m the original. Progress Notes by Jaziel Allison MD at 07/12/13 9410 Author: Jaziel Allison MD Service: (none) Author Type: Physician Filed: 07/12/13 0311 Encounter Date: 07/12/2013 Status: Signed Hot Molder: Jaziel Allison MD (Physician) Subjective: Jono Tabares is a [...] Notes by Demetria Padilla RN at 07/12/13 7256 Author: Demetria Padilla RN Service: (none) Author Type: Registered Nurse Filed: 07/12/13 1452 Encounter Date: 07/12/2013 Status: Signed Hot Molder: Demetria Padilla RN (Registered Nurse) Jono Tabares [...] n/a Footwear in place on this visit: Slipper: docume nted in this encounter Miscellaneous Notes Miscellaneous - Conversion Transaction, Provider Unknown - 07/12/2013 1:19 PM PDTFormattin g of this note might be different from the original. Patient Instructions by Nyasia Graham RN at 07/12/13 7311 Author: Nyasia Graham RN Service: (none) Author Type: Registered Nurse Filed: 07/12/13 1322 Encounter Date: 07/12/2013 Status: Signed Hot Molder: Nyasia Graham RN (Registered Nurse) PLEASE READ THE FOLLOWING INSTRUCTIONS THOROUGHLY THERE ARE SOME CHANGES. BEFORE DOING WOUND CARE: 1. Wash your hands. 2. Put on gloves. 3. Remove dressing. 4. Remove gloves. 5. Wash your hands. 6. Put on new gloves. Every Other Day TO RIGHT WATKINS : 1. Cleanse wound with Normal Saline or [...] AREAS WITH KERLIX AND SECURE WITH TAPE. RIGHT LATERAL ANKLE WAS HEALED, LEAVE FOAM IN PLACE FOR ONE WEEK THEN LEAVE OPEN TO AIR. Please apply skin lotion to dry leg skin daily Please buy slippers or larger shoes to protect your feet from injury. NOTE: Return to clinic in 1 Week(s) for doctor visit. Please bring your dressing sup plies to each visit. NOTE: Compression Tubigrips ARE to be put on upon arising. They may be laundered in the [employer] ashing machine, then hang to dry. The doctor is requesting you wear a 1 Layer tubigrip that is equal to 8-10 mmHg comp ression. (FOR ONE WEEK PLEASE WEAR THE [employer] RETAIL SALESMAN TO BED WELL FOR PROTECTION OF THE [...] to: HARPAL QUINTERO OREGON MD Signature Date: docume nted in this encounter [...]
--- OUTSIDE RECORDS SUMMARY | ~2020-01-19 | XMS | Encounter Summary ---
Demographics + + + | Address | [address] | | | [place] [address] | + + + | Home Phone | | + + + | Preferred Language | Unknown | + + + | Marital Status | Single | + + + | Congregational Affiliation | [id number] | + + + [...] Team Providers + +------+ + | Care Sanitary Engineering Teacher Name | Role | Phone | + +------+ + PCP | Unavailable | + +------+ + Encounter Details +--------+ + + + + | Date | Type | Department | Care Team | Description | +--------+ + + + + | 07/26/ | Hospital | [facility] | Cassie Yin, | Ulcer of leg, | | 2013 | Encounter | CENTER OUTPATIENT | MD Umm [place] | chronic, left, with | | | | WOUND CARE [address] | [address] | unspecified severity | | | | [address] [place], [place] | [place] [address] | (HCC); Ulcer of | | | | [address] | [phone] | leg, chronic, right, | | | | [phone] | | with unspecified | | | [...] documented as of this encounter Progress Notes Cassie Yin - 07/26/2013 1:23 PM PDTFormatting of this note might be different from tripp mccann. Progress Notes by Cassie Yin MD at 07/26/13 6659 Author: Cassie Yin MD Service: (none) Author Type: Physician Filed: 07/26/13 5148 Encounter Date: 07/26/2013 Status: Signed Clerical Secretary: Cassie Yin MD (Physician) Subjective: Jono Tabares [...] this note might be different from tripp stacy original. Progress Notes by Brooklyn Garcia RN at 07/26/13 5193 Author: Brooklyn Garcia RN Service: (none) Author Type: Registered Nurse Filed: 07/26/13 6532 Encounter Date: 07/26/2013 Status: Signed Clerical Secretary: Brooklyn Garcia RN (Registered Nurse) Jono Tabares [...] serous fluid. docume nted in this encounter Miscellaneous Notes Miscellaneous - Conversion Transaction, Provider Unknown - 07/26/2013 12:57 PM PDTFormattin g of this note might be different from the original. Patient Instructions by Brooklyn Garcia RN at 07/26/13 1257 Author: Brooklyn Garcia RN Service: (none) Author Type: Registered Nurse Filed: 07/26/13 1338 Encounter Date: 07/26/2013 Status: Addendum Clerical Secretary: Nyasia Graham RN (Registered Nurse) Related Notes: Original Note by Nyasia Graham RN (Registered Nurse) filed at 07/26/13 13 [address] in place for 7 days. Do not get the wrap wet. IF THERE IS INCREASED PAIN, TINGLING, NUMBNESS, COLD TOES PLEASE CUT THE WRAPS OFF AND DRESS BEFORE AND USE THE [employer] RESIDENTIAL CARE FACILITY MANAGER. BEFORE DOING WOUND CARE: 1. Wash your hands. 2. Put on gloves. 3. Remove dressing. 4. Remove gloves. 5. Wash your hands. 6. Put on new gloves. Every Other Day TO RIGHT LOWER LEG AND LEFT LOWER LE. Cleanse WOUNDS with Normal Saline or WOUND [...] loosens, or slips call wound center at [phone]. If it is after our hours of 8-4, Tuesday through Tuesday, cut wrap off. Protect wound with clean , dry dressing until able to contact us. Please apply skin lotion to dry leg skin daily Please buy slippers or larger shoes to protect your feet from injury. Please elevate legs as much as possible, [...] (FOR ONE WEEK PLEASE WEAR THE [employer] RESIDENTIAL CARE FACILITY MANAGER TO BED WELL FOR PROTECTION OF THE [...]
--- OUTSIDE RECORDS SUMMARY | ~2020-01-19 | XMS | Encounter Summary ---
Demographics + + + | Address | [address] | | | [place] [address] | + + + | Home Phone [...] + + | Author | [facility] | | | and [place] | + + + | Organization | [facility] | | | [...] Team Providers + +------+ + | Care Personal Security Specialist Name | Role | Phone | + +------+ + PCP | Unavailable | + +------+ + Encounter Details +--------+ + + + + | Date | Type | Department | Care Team | Description | +--------+ + + + + | 06/28/ | Hospital | [facility] | Jaziel Billy, | Ulcer of other part | | 2013 | Encounter | CENTER OUTPATIENT | MD Umm AMAODR | of lower limb (HCC) | | | | WOUND CARE [address] | [place], | | | | | [place] | [place] [address] | | | | | [address] | [phone] | | | | | [phone] | | | +--------+ + + + [...] Notes by Jaziel Billy MD at 06/28/13 7588 Author: Jaziel Billy MD Service: (none) Author Type: Physician Filed: 06/28/13 1621 Encounter Date: 06/28/2013 Status: Signed Loan Auditor: Jaziel Billy MD (Physician) Subjective: Jono Tabares [...] w/pressure. Pt tolerated procedure well. See jimmie nunezsterling for wound details (pre and post). No exposed tendon, muscle or bone noted. Dressing applied by nursing. Pt to f/u as scheduled. See discharge for wound treatments onversio n Transaction, Provider Unknown - 06/28/2013 1:51 PM PDTFormatting of this note might be di fferent from the original. Progress Notes by Elaine Bach RN at 06/28/13 8075 Author: Elaine Bach RN Service: (none) Author Type: Registered Nurse Filed: 06/28/13 7949 Encounter Date: 06/28/2013 Status: Signed Loan Auditor: Elaine Bach RN (Registered Nurse) Jono Tabares [...] place on this visit: Regular Shoe: bilateral docume nted in this encounter Miscellaneous Notes Miscellaneous - Conversion Transaction, Provider Unknown - 06/28/2013 2:54 PM PDTFormattin g of this note might be different from the original. Patient Instructions by Nyasia Graham RN at 06/28/13 1454 Author: Nyasia Graham RN Service: (none) Author Type: Registered Nurse Filed: 06/28/13 1457 Encounter Date: 06/28/2013 Status: Addendum Loan Auditor: Nyasia Graham RN (Registered Nurse) Related Notes: Original Note by Nyasia Graham RN (Registered Nurse) filed at 06/28/13 14 57 PLEASE READ THE FOLLOWING INSTRUCTIONS THOROUGHLY THERE ARE SOME CHANGES. BEFORE DOING WOUND CARE: 1. Wash your hands. 2. Put on gloves. 3. Remove dressing. 4. Remove gloves. 5. Wash your hands. 6. Put on new gloves. Every Other Day TO RIGHT ANKLE : 1. Cleanse wound with Normal Saline [...] arising. They should be taken off at [facility]. They may be laundered in the washing machine, then hang to dry. The doctor is reque sting you wear a 1 Layer tubigrip that is equal to 8-10 mmHg compression. Hygiene of general wound care: Avoid tap [...]
--- OUTSIDE RECORDS SUMMARY | ~2020-01-19 | XMS | Encounter Summary ---
Demographics + + + | Address | [address] | | | [place] [address] | + + + | Home Phone [...] Author + + + | Author | [facility] | | | and [place] | + + + | Organization | [facility] | | | [...] Team Providers + +------+ + | Care Scrap Drop Crane Operator Name | Role | Phone | + +------+ + PCP | Unavailable | + +------+ + Encounter Details +--------+ + + + + | Date | Type | Department | Care Team | Description | +--------+ + + + + | 12/12/ | Hospital | [facility] | Alexx Knight MD | Urosepsis; Chest | | 2012 - | Encounter | [facility] | [address] | pain; Hip pain, | | | | CLINICAL DECISION | RYAN Wilson | chronic; Acute | | 12/16/ | | [address] | [address] | kidney injury (HCC); | | 2012 | | [place], [place] | | Morbid obesity | | | | [address] | | ([facility]); Septic shock | | | | [phone] | | ([facility]); Urinary tract | | | | | [...] documented as of this encounter Discharge Summaries Abe, Pete - 12/16/2012 10:00 AM PDTFormatting of this note might be different from the or iginal. Discharge Summaries by Pete Fish MD at 12/16/12 1000 Author: Pete Fish MD Service: Hospitalist Author Type: Physician Filed: 12/16/12 1002 Date of Service: 12/16/12 1000 Status: Signed University Counselor: Pete Fish MD (Physician) [facility] Service: Hospitalist Physician Discharge Summary Pt: Seth Tabares AGE/SEX: 62 y.o. male ROOM: [facility]317-1 PCP: ABRAN VALDOVINOS : 1950 Admit date: 12/12/2012 Discharge date and time: 12/16/2012 10:01 AM Admitting Physician: Alexx Knight MD Discharge Physician: Pete Fish MD Consults: [...] GERD presents wi th generalised weakness to [facility] Pt had a fever of 101.3, maintained [...] suggestive of stroke. Discharge Vitals: Filed Vitals: 12/15/12200912/15/12 2258 12/16/12 0333 12/16/12 0748 BP: 147/75 [...] Behavior is normal. Judgment normal. LABS: Lab 12/15/12 0458 12/14/12 0416 12/13/12 0233 WBC 6.6 8.7 [...] MD 12/16/2012 10:01 AM documented in this encounter Progress Notes Conversion Transaction, Provider Unknown - 12/16/2012 4:15 PM PDTFormatting of this note m ight be different from the original. Progress Notes by Ignacio Tobar RN at 12/16/12 1615 Author: Ignacio Tobar RN Service: (none) Author Type: Registered Nurse Filed: 12/16/12 1619 Date of Service: 12/16/12 161 Status: Signed University Counselor: Ignacio Tobar RN (Registered Nurse) Pt VSS. Pt transported to [facility] by [facility]. Pt has no complaints at this time. IGNACIO VILLANUEVA RN onver keith Transaction, Provider Unknown - 12/15/2012 5:58 PM PDT Progress Notes by Cady Collins RN at 12/15/121757 Author: Cady Collins RN Service: (none) Author Type: Registered Nurse Filed: 12/15/121800 Date of Service: 12/15/121757 Status: Signed University Counselor: Cady Collins RN (Registered Nurse) Pt up in chair for most of morning shift. Pt worked with PT and is looking forward to worki with PT tomorrow. Medicated with tylenol for hip pain which was ineffective and was given Percocet with good relief. Vital signs stable. Will continue to monitor. Cady Collins RN onver keith Transaction, Provider Unknown - 12/15/2012 2:35 PM PDT Case Management by Ruth Giron RN at 12/15/12 0685 Author: Ruth Giron RN Service: (none) Author Type: Registered Nurse Filed: 12/15/12 1440 Date of Service: 12/15/12 1435 Status: Signed University Counselor: Ruth Giron RN (Registered Nurse) Discharge Planning: Called [place] [facility] ph: [phone] and spoke to Luna pa re: transport back to [facility] in [place], [place]. Milo stated pt is in their syste m and is eligible to receive free rides under his [facility] Health Plan ([facility] Health Plan) . After several calls-Milo called [...] Milo recommended that pt be transferred to [facility] via ambulance. Will notify MD. RUTH GIRON 12/15/2012 2:40 PM onver keith Transaction, Provider Unknown - 12/15/2012 1:14 PM PDT Case Management by Ruth Giron RN at 12/15/12 1314 Author: Ruth Giron RN Service: (none) Author Type: Registered Nurse Filed: 12/15/12 1328 Date of Service: 12/15/12 1314 Status: Signed University Counselor: Ruth Giron RN (Registered Nurse) Discharge Planning: Received return call from Manny at [facility] in [place], [place]. Stated they have obta ined insur auth from [facility] for pt to return to [facility]. Manny stated they will accept pt over weekend. SNF paperwork placed on chart-MD needs to s ign. Dr. Ravi will be accepting MD at [facility], MD to MD call is not needed per Manny. If pt is discharged over weekend, please call Manny ph#[phone] and she will coordinate admit time with their charge nurse. Please fax completed orders and copies of prescription s, and updated MD notes/dc summary to [facility] fax#[phone]. RUTH GIRON 12/15/2012 1:28 PM onver keith Transaction, Provider Unknown - 12/15/2012 11:07 AM PDT Case Management by Ruth Giron RN at 12/15/12 1104 Author: Ruth Giron RN Service: (none) Author Type: Registered Nurse Filed: 12/15/12 1116 Date of Service: 12/15/121106 Status: Signed University Counselor: Ruth Giron RN (Registered Nurse) Discharge Planning: Per MD, anticipate possible discharge tomorrow (12/16/12). Reviewed previous CRM notes. Met w/pt in room to discuss dc plan. Pt sitting up in chair, A/O, pleasant, conversant. Stated he has been living at [facility] prior to admit to hospital. He would like to return to [facility] until he gets stronger, then possibly go to an INTERMEDI[facility] in the future. Discussed transportation-stated his friend Ingrid Patel ph#[phone] may be able to give him a ride-called this no# left VM, requested he call myself or pt re: if she can provide t ransportation. Pt stated he also has a friend Scottethan Palafox who is the deacon of his anabaptist ph#[phone] who may be able to help if Ingrid can't. Stated he has a couple of other friends but does n ot have their phone numbers. Briefly discussed cost of taxikeenan, w/c taxi-stated he cannot afford to pay anything for a ride. Called Manny-rehabilitation case coordinator at [facility] [phone]-stated they will accept pt back to their facility pending auth from [facility] Health Plan (she will try to obtain auth to day). Faxed H&PMD notes to [facility] fax# [phone]. Awaiting call from [facility] re: final acceptance/insurance auth. RUTH GIRON 12/15/2012 11:16 AM Pete Nogueira 12/15/2012 9:41 AM PDT Progress Notes by Pete Fish MD at 12/15/12940 Author: Pete Fish MD Service: Hospitalist Author Type: Physician Filed: 12/15/1256 Date of Service: 12/15/12940 Status: Signed University Counselor: Pete Fish MD (Physician) [facility] Service: Hospitalist Progress Note Pt: Seth Tabares AGE/SEX: 62 y.o. male ROOM: [address] [place] [address] : 1950 PCP: ABRAN VALDOVINOS ADMIT DATE: 12/12/2012 TODAY'S DATE: 12/15/2012 Hospital Day/Hospital Course: LOS: 3 days The patient is a 62 y.o. male with significant past medical history of OA, GERD presents wi th generalised weakness to [facility] [place] Pt had a fever of 101.3, maintained [...] Infusions lactated ringers 75 mL/hr at 12/15/12 8729 DISCONTD: norepinephrine in D5W 64 mcg/mL Stopped [...] Behavior is normal. Judgment normal. LABS: Lab 12/15/12 0458 12/14/12 0416 12/13/12 0233 WBC 6.6 8.7 [...] Component Value Date PHOS 2.0* 12/15/2012 Lab 12/15/12 0457 12/14/12 1255 12/14/12 0416 [...] GERD presents w ith generalised weakness to [facility] [place] Pt had a fever of 101.3, maintained a BP over 100 systolic per EMS and admitted to ICU with Sepsis From E-Coli UTI Septic shock due to E-Coli Urinary tract infection: Resolved. velazquez sensitive E-coli and will continue with ceftriaxone for now. Morbid obesity: counseled regarding Wt reduction Acute kidney injury: Resolved MANAGER BUILDING to initiate the DC plan PETE FISH MD, FACP 12/15/2012 9:41 AM onversion Transaction, Prov ider Unknown - 12/15/2012 8:15 AM PDTFormatting of this note might be different from the or iginal. Progress Notes by Meño Miller PT at 12/15/12 0815 Author: Meño Miller PT Service: (none) Author Type: Physical Therapist Filed: 12/15/12916 Date of Service: 12/15/12814 Status: Signed University Counselor: Meño Miller PT (Physical Therapist) 12/15/12 0815 PT Last Visit PT Received On 12/15/12 [...] note might be different from the domenica peñaloza. Progress Notes by Alexx Knight MD at 12/14/12356 Author: Alexx Knight MD Service: Chemistry Professor Author Type: Physician Filed: 12/14/1204 Date of Service: 12/14/12356 Status: Addendum University Counselor: Alexx Knight MD (Physician) Related Notes: Original Note by Alexx Knight MD (Physician) filed at 12/14/12 0703 [facility] Service: Chemistry Professor Progress Note Seth Tabares 62 y.o. Hospital Day: LOS: 2 days Post-Op Day: * No surgery found * Treatment Team: Admitting Provider: Alexx Knight MD SUBJECTIVE Patient Summary: The patient is a 62 y.o. male with significant past medical history as below who presents with generalised weakness to [facility] . The pt was a t [facility] around 4 pm with complaints of chest [...] occasional blood. He was told by his jumpbasting lining baster that he has thickening of his carotid artery. The patient was seen in the Er and he was found to be hypotensive. He was started on presso rs which was increased to current level. The patient is dependent for his activities on the [place] [facility] staff due to being obese. ICU TIMELINE:12/13/2012 [...] documentation of the nurs es. DATA Lab 12/14/126 12/13/123 12/12/12 2130 WBC 8.7 21.8* 12.8* HGB [...] DISEASE: Ecoli UTI pansensitive organism as per [facility] [place] cultures Continue ceftriaxone HEME: Leucocytosis resolved Stable [...] plan exclusive of all other procedures. Alexx Knight MD 12/14/2012 7:03 AM onversion Transaction , Provider Unknown - 12/13/2012 4:25 PM PDT Case Management by CAMERON Bryant at 12/13/12 3139 Author: CAMERON Bryant Service: (none) Author Type: Flight Surveyor Filed: 12/13/12 1327 Date of Service: 12/13/12 3255 Status: Signed University Counselor: CAMERON Bryant (Flight Surveyor) Called [facility] Pipe Smoking Machine Operator Manny to discuss 62 y.o pt's referral. CM spoke to Manny about pt's financial concerns about going over the 20 day coverage at [facility]. MARIKA let Manny know that [place] Medicaid application had been started, as per guarantor account maint enance notes, and is pending. Manny assured CM that [facility] would check in on the pt's application at the local office as soon as possible. Benjamin Nunes Apartment Manager Student Supervised, CAMERON Bryant onver keith Transaction, Provider Unknown - 12/13/2012 3:51 PM PDT Case Management by CAMERON Bryant at 12/13/12 8364 Author: CAMERON Bryant Service: (none) Author Type: Flight Surveyor Filed: 12/13/12 5493 Date of Service: 12/13/121550 Status: Signed University Counselor: CAMERON Bryant (Flight Surveyor) Met with 62 y.o. Pt to discuss future d/c plans. Introduced CM's role in d/c planning and meeting pts needs. Before being transferred from [place] pt was a resident at [facility]. Pt reports being in and out of [facility] twice. The pt was first in [facility] for PT rehab from July 24-August 11. Pt returned to [facility] after a fall on Dec 10. Whe n he is not at [facility] pt lives alone in a one-story apartment. [...] a half brother and half sister in [place], [place] he has not seen or talked to them for five years. CM explained to pt that he would l ikely need rehab and discussed options. Pt prefers to go back to [facility] but fears abou t paying for it when his 20 days coverage expires. CM faxed referral to [facility]. Benjamin Nunes Apartment Manager Student Supervised, CAMERON Bryant onver keith Transaction, Provider Unknown - 12/13/2012 3:14 PM PDT Progress Notes by Lisa Bowen RN at 12/13/121513 Author: Lisa Bowen RN Service: Infectious Disease Author Type: Registered Nurse Filed: 12/13/121513 Date of Service: 12/13/121513 Status: Signed University Counselor: Lisa Bowen RN (Registered Nurse) Infection Prevention Note: Patient with hx of MRSA. Currently, nasal PCR is positive for MRSA on 12/13/12. Contact Pr ecautions are required for this admission. Lisa Bowen RN, BA, Natural Resources Faculty Member onver keith Transaction, Provider Unknown - 12/13/2012 9:36 AM PDT Progress Notes by Nohemy Urieb RN at 12/13/12935 Author: Nohemy Uribe RN Service: Wound/Ostomy Care Author Type: Registered Nurse Filed: 12/13/12938 Date of Service: 12/13/12935 Status: Signed University Counselor: Nohemy Uribe RN (Registered Nurse) Patient seen today by sheet metal supervisor for evaluation due to a low Catrachito [...] Progress Notes by Cheli Crowley RPH at 12/13/12100 Author: Cheli Crowley RPH Service: (none) Author Type: Pharmacist Filed: 12/13/12100 Date of Service: 12/13/12100 Status: Signed University Counselor: Cheli Crowley RPH (Pharmacist) Clinical Pharmacy Note: Renal Monitoring Seth Tabares 62 y.o. male Height: 172.7 cm Weight: 181.4 kg Serum Creatinine: 1.85 mg/dL Pharmacy dosing for renal function per Dr. Knight. Currently, there are no medications needing to be adjusted. Pharmacy will continue to monit or for changes in medication orders and in renal function and adjust accordingly. Cheli Crowley PharmD 12/13/2012 1:00 AM docume nted in this encounter H&P Notes Alexx Knight MD - 12/13/2012 12:03 AM PDT H&P by Alexx Knight MD at 12/13/12 0003 Author: Alexx Knight MD Service: Chemistry Professor Author Type: Physician Filed: 12/13/12 0019 Date of Service: 12/13/12 0003 Status: Signed University Counselor: Alexx Knight MD (Physician) [facility] Service: Chemistry Professor Admission History & Physical Seth Tabares 62 y.o. Date of Admission: 12/12/2012 Requesting Physician: Dr moncada , Emergency Department Indication for ICU Admission: shock History Obtained From: patient, chart review CHIEF COMPLAINT: Chief Complaint Patient presents with Urinary Tract Infection urosepsis HISTORY OF PRESENT ILLNESS The patient is a 62 y.o. male with significant past medical history as below who presents with generalised weakness [facility] of [facility] pain, SOB, and nausea. Pt was weak and unable to stand very well per EMS. Pt was treated with 9 liters of normal saline, and 3.375 Zosyn. Pt had a feve r of 101.3, maintained a BP over 100 systolic per EMS. While the pt was being transferred hi s BP was 104/77. Pt did not come with any imaging. Pt indicates that his hips were hurting h im from chronic pain but has no other complaints at this time. He also complains of pain whi le urination and occasional blood. He was told by his jumpbasting lining baster that he has thickening of his carotid artery. The patient was seen in the Er and he was found to be hypotensive. He was started on presso rs which was increased to current level. The patient is dependent for his activities on the [place] staff due to being obese. REVIEW OF SYSTEMS A comprehensive review of systems was negative PAST MEDICAL HISTORY: Past Medical History Diagnosis Date E. coli sepsis Cellulitis GERD (gastroesophageal reflux disease) Osteoarthrosis PAST SURGICAL HISTORY: Past Surgical History Procedure Date Tonsillectomy Testicle surgery MEDICATION ALLERGIES: No Known Allergies MEDICATIONS PRIOR TO ADMISSION: Prescriptions prior to admission Medication Sig Dispense Refill HYDROcodone-acetaminophen (NORCO) 5-325 MG per tablet Take 1 tablet by mouth every 6 (s ix) hours as needed. FAMILY HISTORY OF SIGNIFICANCE: No family history on file. SOCIAL HISTORY: History Smoking status Never Smoker Smokeless tobacco Not on file PHYSICAL EXAM Vital Signs: BP 89/58 | Pulse 100 | Temp 100.5 F (38.1 C) (Oral) | Resp 16 | Ht 1.727 m (5' 8") | Wt 181.439 kg (400 lb) | BMI 60.82 kg/m2 | SpO2 94% EXAM GEN: Awake, alert, oriented x3, NAD [...] documentation of the nurs es. DATA Lab 12/12/122129 WBC 12.8* HGB 11.7* HCT 35.6* PLT 248 Lab 12/12/122129 NA 140 K 3.7 CL 108 CO2 22* BUN 21 CREATININE 1.85* LABGLOM -- GLUCOSE -- CALCIUM -- Lab 12/12/122129 MG 1.5* Lab 12/12/122129 INR 1.4 Lab 12/12/122129 ALKPHOS -- BILITOT 1.9* BILIDIR -- PROT 6.1* ALT 47 AST 78* Ua rbc 50-100 Wbc 11-15 I+bacteria Culture as per [facility] E coli in urine velazquez sensiitve IMAGING Xr Chest Ap Portable 12/12/2012 1. Probable mild interstitial pulmonary edema. 2. Right basilar atelectasis. LEM LIST Active Problems: Septic shock Urinary tract infection, site not specified Morbid obesity Acute kidney injury ASSESSMENT & PLAN NEURO: The patient is awake and alert . He never lost consiousness CARDIOVASCULAR: Patient is on pressors for now. Will insert a arterial line to get a good blood pressure reading Echo in the morning Patient denies any chest pain at present PULMONARY: Saturating well on 2 l nasal cannula GI: GI prophylaxis not indicated RENAL: LESLY ? Prerenal Will hydrate with ringer lactate and monitor the renal function Baseline renal function is not know Will get a US of the abdomen Will consider Ct of the abdomen without contrast to see if he has renal stones in view o f crystals, rbc and pain while urinating INFECTIOUS DISEASE: uti Will treat with ceftriaxone No other clear source of infection The organism is pansensitive Will treat with EGD of sepsis. Will aim a MAP of 65 . Will monitor lactate and Scvo2 HEME: Leucocytosis secondary to infection Stable H/h ENDOCRINE: endotool as necessary PROPHYLAXIS: Stress ulcer prophylaxis: not indicated DVT prophylaxis: heparin sq, scd Disposition: Will monitor in ICU Code Status: Full Code Primary Care Physician: ABRAN VALDOVINOS *Please bill 60 minutes of critical care time spent evaluating the patient, reviewing the d abril and formulating a plan exclusive of all other procedures. Alexx Knight MD 12/13/2012 12:03 AM documented in this enc ounter Procedure Notes Alexx Knight MD - 12/13/2012 1:44 AM PDT Procedures by Alexx Knihgt MD at 12/13/12143 Author: Alexx Knight MD Service: (none) Author Type: Physician Filed: 12/13/12145 Date of Service: 12/13/12143 Status: Signed University Counselor: Alexx Knight MD (Physician) Procedure Orders: 1. Insert arterial line [[id number]] ordered by Alexx Knight MD at 12/13/12144 Post-procedure Diagnoses: 1. Septic shock(785.52) [785.52] 2. Urinary tract infection, site not specified [599.0] [facility] Service: Chemistry Professor BEDSIDE PROCEDURE NOTE Insert Arterial Line Date/Time: 12/13/2012 1:45 AM Performed by: ALEXX KNIGHT Authorized by: ALEXX KNIGHT Consent: Verbal consent obtained. The procedure was performed in an emergent situation. Risks and benefits: risks, benefits and alternatives were discussed Consent given by: patient Patient understanding: patient states understanding of the procedure being performed Site marked: the operative site was marked Required items: required blood products, implants, devices, and special equipment available Patient identity confirmed: verbally with patient and arm band Time out: Immediately prior to procedure a "time out" was called to verify the correct christos ent, procedure, equipment, support associate and site/side marked as required. Preparation: Patient was prepped and draped in the usual sterile fashion. Indications: multiple ABGs and hemodynamic monitoring Location: right axillary. Anesthesia: local infiltration Local anesthetic: lidocaine 1% without epinephrine Anesthetic total: 3 ml Patient sedated: no Preparation: skin prepped with 2% chlorhexidine Skin prep agent dried: skin prep agent completely dried prior to procedure Sterile barriers: all five maximum sterile barriers used - cap, mask, sterile gown, sterile gloves, and large sterile sheet Hand hygiene: hand hygiene performed prior to central venous catheter insertion Seldinger technique: Seldinger technique used Number of attempts: 1 Post-procedure: line sutured Post-procedure CMS: normal Patient tolerance: Patient tolerated the procedure well with no immediate complications. Comments: Ultrasound was used for the procedure Alexx Knight MD 12/13/2012 aAlexx garcia MD - 1:42 AM PDT Procedures by Alexx Knight MD at 12/13/12141 Author: Alexx Knight MD Service: (none) Author Type: Physician Filed: 12/13/12143 Date of Service: 12/13/12141 Status: Signed University Counselor: Alexx Knight MD (Physician) Procedure Orders: 1. Central line [[id number]] ordered by Alexx Knight MD at 12/13/12141 Post-procedure Diagnoses: 1. Septic shock(785.52) [785.52] 2. Urinary tract infection, site not specified [599.0] [facility] Service: Chemistry Professor BEDSIDE PROCEDURE NOTE Central Line Date/Time: 12/13/2012 1:42 AM Performed by: ALEXX KNIGHT Authorized by: ALEXX KNIGHT Consent: Verbal consent obtained. The procedure was performed in an emergent situation. Risks and benefits: risks, benefits and alternatives were discussed Consent given by: patient Patient understanding: patient states understanding of the procedure being performed Site marked: the operative site was marked Patient identity confirmed: verbally with patient and arm band Time out: Immediately prior to procedure a "time out" was called to verify the correct christos ent, procedure, equipment, support associate and site/side marked as required. Indications: vascular access and central pressure monitoring Anesthesia: local infiltration Local anesthetic: lidocaine 1% without epinephrine Anesthetic total: 5 ml Patient sedated: no Preparation: skin prepped with 2% chlorhexidine Skin prep agent dried: skin prep agent completely dried prior to procedure Sterile barriers: all five maximum sterile barriers used - cap, mask, sterile gown, sterile gloves, and large sterile sheet Hand hygiene: hand hygiene performed prior to central venous catheter insertion Location details: right internal jugular Patient position: Trendelenburg Catheter type: triple lumen Pre-procedure: landmarks identified Ultrasound guidance: yes Number of attempts: 2 Successful placement: yes Post-procedure: line sutured and dressing applied Assessment: blood return through all parts, placement verified by x-ray and no pneumothorax on x-ray Patient tolerance: Patient tolerated the procedure well with no immediate complications. Comments: The patient has a difficult anatomy even with the ultrasound it was difficult to dilate the tract Alexx Knight MD 12/13/2012 documented in this enc ounter ED Notes Conversion Transaction, Provider Unknown - 12/12/2012 10:29 PM PDTFormatting of this note m ight be different from the original. ED Notes by Alistair Herrera RN at 12/12/122228 Author: Alistair Herrera RN Service: (none) Author Type: Registered Nurse Filed: 12/12/122228 Date of Service: 12/12/122228 Status: Signed University Counselor: Alistair Herrera RN (Registered Nurse) Patient is resting comfortably. Alistair Herrera RN 12/12/122228 onver keith Transaction, Provider Unknown - 12/12/2012 10:29 PM PDT ED Notes by Alistair Herrera RN at 12/12/122228 Author: Alistair Herrera RN Service: (none) Author Type: Registered Nurse Filed: 12/12/122228 Date of Service: 12/12/122228 Status: Signed University Counselor: Alistair Herrera RN (Registered Nurse) at bedside. Alistair Herrera RN 12/12/122228 Pepito Rizvi DO - 12/12/2012 9:17 PM PDTFormatting of this note might be different from the or iginal. ED Provider Notes by Pepito Moncada DO at 12/12/122116 Author: Pepito Moncada DO Service: (none) Author Type: Physician Filed: 12/31/12 0340 Date of Service: 12/12/122116 Status: Signed University Counselor: Pepito Moncada DO (Physician) Procedure Orders: 1. Critical Care [[id number]] ordered by Monika Arguelles at 12/12/12 8656 [facility] Department of Emergency Medicine 9:17 PM History of Present Illness Patient Identification Seth Tabares is a 62 y.o. male. Patient information was obtained from patient and EMS personnel. History/Exam limitations: none. Patient presented to the Emergency Department by: [facility] Chief Complaint Chief Complaint Patient presents with Urinary Tract Infection urosepsis The patient presents to ED per EMS. Pt was transferred from [facility] in [place] s/p urosepsis/E-Coli. The pt was at [facility] around 4 pm with complaints of chest pain, SOB , and nausea. Pt was weak and unable to stand very well per EMS. Pt was treated with 2 narco , 9 liters of normal saline, and 3.375 Zosyn. Pt had a fever of 101.3, maintained a BP over 100 systolic per EMS. While the pt was being transferred his BP was 104/77. Pt did not come with any imaging. Pt indicates that his hips were hurting him from chronic pain but has no other complaints at this time. History of cardiac disease. PCP: ABRAN VALDOVINOS Past Medical History Diagnosis Date E. coli sepsis Cellulitis GERD (gastroesophageal reflux disease) Osteoarthrosis Past Surgical History Procedure Date Tonsillectomy Testicle surgery Prior to Admission medications Not on File No Known Allergies History Social History Marital Status: Single Spouse Name: N/A Number of Children: N/A Years of Education: N/A Occupational History Not on file. Social History Main Topics Smoking status: Never Smoker Smokeless tobacco: Not on file Alcohol Use: No Drug Use: No Sexually Active: Other Topics Concern Not on file Social History Narrative No narrative on file No family history on file. Review of Systems Constitutional: Negative for fever, chills Eyes: Negative for vision changes Nose: Negative for congestion, nosebleeds Throat: Negative for sore throat CV/Resp: Negative for chest pain, [id number], cough GI: Negative for abdominal pain, nausea, vomiting, or diarrhea : Negative for urinary problems Musculoskeletal: Positive for chronic hip pain Skin: Negative for rash Neuro/Psych: Negative for headache Endo/heme/Lymph: Negative for swollen lymph nodes, easy bruising All other systems reviewed and negative except as noted. Physical Exam BP 80/48 | Pulse 108 | Temp 100.5 F (38.1 C) (Oral) | Resp 16 | Ht 1.727 m (5' 8") | Wt 181.439 kg (400 lb) | BMI 60.82 kg/m2 | SpO2 94% Vital signs interpretation: hypotensive, tachycardic, febrile Pulse Oximetry interpretation: Mildly Hypoxemic General: Alert, speaking full sentences Eyes: Normal inspection, pupils equal and round, non-icteric ENT: Ears normal Nose normal Pharynx normal Tongue dry Neck: Normal inspection Supple Cardiovascular: Tachycardic Rhythm normal No murmurs Respiratory: Breath sounds normal bilaterally No rales, wheezing or rhonchi Lungs sound clear Abdomen: Soft, non-tender, non-distended No guarding or rebound Back: Normal inspection Skin: Color normal Warm and dry No rash Bloody drainage around the boykin site Neuro: Alert, no AMS No gross motor/sensory deficits Medical Decision Making and Emergency Department Course ED Department Course The patient presents to ED per EMS. Pt was transferred from [facility] in [place] s/p urosepsis/E-Coli. 9:46 [address] ICU [address] Stevens. Pt is still tachycardic and hypotensive at this time. Upon review of the patient s history, physical and the results of studies I believe that the patient warrants admission to the hospital for further evaluation and treatment. I have spoken with the patient regarding the need for admission to the hospital, and the patient h as expressed understanding of this. I will call and arrange for admission at this time. Records Reviewed Old medical records. No previous [facility] ED visits available in [facility] for review. Laboratory Evaluation Results Procedure Component Value Ref Range Date/Time CBC with differential [[id number]] (Abnormal) Collected:12/12/122129 Order Status:Completed Updated:12/12/122222 Specimen Information:Blood WBC 12.8 (H) 3.8 - 11.0 K/uL RBC 4.10 (L) 4.20 - 5.70 M/uL HGB 11.7 (L) 13.2 - 17.0 g/dL HCT 35.6 (L) 39.0 - 50.0 % MCV 86.8 80.0 - 100.0 fl MCH 28.5 27.0 - 34.0 pg MCHC 32.8 32.0 - 35.5 g/dL RDW SD 49.0 37 - 53 fl PLT 248 150 - 400 K/uL MPV 7.1 fl DIFF TYPE MANUAL Neutrophils Manual 75 % Bands 20 % METAMYELOCYTES 2 % Lymphocytes Manual 2 % Monocytes Manual 1 % Neutrophils Absolute 9.5 (H) 1.9 - 7.4 K/uL Bands Manual 2.6 (H) 0 - 0.2 K/uL Metamyelocytes Absolute 0.3 (H) 0 K/uL Lymphocytes Absolute 0.3 (L) 1.0 - 3.9 K/uL Monocytes Absolute 0.1 0 - 0.8 K/uL MORPHOLOGY RBC AND PLT MORPHOLOGY APPEAR NORMAL Comprehensive metabolic panel [[id number]] (Abnormal) Collected:12/12/122129 Order Status:Completed Updated:12/12/122213 Specimen Information:Blood SODIUM 140 135 - 143 mmol/L POTASSIUM 3.7 3.5 - 4.9 mmol/L CHLORIDE 108 99 - 109 mmol/L CO2 22 (L) 23 - 32 mmol/L ANION GAP AGAP 15 5 - 20 mmol/L GLUCOSE 101 (H) 65 - 99 mg/dL BUN 21 8 - 25 mg/dL CREATININE 1.85 (H) 0.70 - 1.30 mg/dL BUN/CREAT 12 CALCIUM 7.2 (L) 8.5 - 10.2 mg/dL TOTAL PROTEIN 6.1 (L) 6.3 - 8.2 g/dL Albumin 2.4 (L) 3.3 - 4.8 g/dL GLOBULIN 3.7 1.3 - 4.9 g/dL A/G 0.7 (L) 1.0 - 2.4 TBIL 1.9 (H) 0.1 - 1.5 mg/dL ALK PHOS 179 (H) 35 - 115 U/L AST 78 (H) 10 - 45 U/L ALT 47 10 - 65 U/L EGFR 40 (L) >60 mL/min/1.73m2 Lipase [[id number]] (Abnormal) Collected:12/12/122129 Order Status:Completed Updated:12/12/122213 Specimen Information:Blood LIPASE 45 (L) 73 - 393 U/L Magnesium [[id number]] (Abnormal) Collected:12/12/122129 Order Status:Completed Updated:12/12/122213 Specimen Information:Blood MAGNESIUM 1.5 (L) 1.7 - 2.4 mg/dL Phosphorus [[id number]] (Abnormal) Collected:12/12/122129 Order Status:Completed Updated:12/12/122213 Specimen Information:Blood PHOSPHORUS 1.8 (L) 2.3 - 4.8 mg/dL Urine microscopic [[id number]] (Abnormal) Collected:12/12/122129 Order Status:Completed Updated:12/12/122210 Specimen Information:Urine / Urine, Catheter WBC 11-15 0 - 5 /hpf RBC 50-100 0 - 5 /hpf EPITHELIAL 1-5 /lpf BACTERIA 1+ (A) NONE SEEN Crystals 2+ /hpf Protime [[id number]] Collected:12/12/122129 Order Status:Completed Updated:12/12/122207 Specimen Information:Blood INR 1.4 aPTT [[id number]] Collected:12/12/122129 Order Status:Completed Updated:12/12/122207 Specimen Information:Blood APTT 35 24 - 40 seconds WBC 4.6 H and H 2.7 Platelet 322 glucose 96 vands 27 Creatine 1.52 GFR 47 AST 46 Lactic acid 31.8 Nl values range from .5 to 19.8 Sodium 135 Potassium 3.7 ROBERT gap 16.7 Urine 4+ bacteria Positive nitrite Leukocytes high WBC 50 RBC 10 I personally reviewed the lab results and they have been posted to the chart. Pertinent po sitive and negative findings have been addressed appropriately. Radiology and EKG Evaluation Imaging Results XR chest AP portable (Final result) Result time:12/12/122238 Final result by Rad Results In Jorge Alberto (12/12/12 21:55:38) Impression: 1. Probable mild interstitial pulmonary edema. 2. Right basilar atelectasis. Narrative: SETH TABARES XR CHEST 1 VIEW 12/12/2012 9:44 PM History: 62 years. Male. Acute dyspnea and chest pain, presenting to the emergency room. Technique: AP portable supine technique was performed at 0939 hours. Comparison: No prior exam. Findings: The inspiratory effort is moderate. Interstitial peribronchial infiltrates sugge st mild interstitial pulmonary edema. Some increased density partially secures the right hem idiaphragm, suggesting atelectasis. The right hemidiaphragm is mildly elevated, probably a chronic finding. The cardiac volume is normal. The upper lobe pulmonary vasculature is distended due to the supine position. Oss icles appear intact. The thoracic aorta is normal, without dilatation or calcification. ED Interpretation Documented by Monika Arguelles (12/12/12 1751, [facility] Emergency Department, Emergency Medicine) Nl heart size, right hemidiaphragm elevation, mild peribronchial edema. CXR viewed independently and interpreted by me contemporaneously: Pepito Moncada DO EKG from [facility], unable to read their time. Sinus tachycardia rhythm at 132. Normal [place] and [place] Normal QRS and [place] Normal QT and QTc left axis deviation Left anterior fascicular block T wave inversions in lead AVL Nonspecific ST abnormality Interpreted by Pepito Moncada DO EKG at : 21:53 Sinus tachycardic rhythm at 107. Normal [place] and [place] Normal QRS Normal QT and QTc [place] leftward Probable LAFB T wave inversion in AVL are resolved compared to the one in [place] Normal ST without acute ischemic changes Interpreted by Pepito Moncada DO ED Diagnoses Final diagnoses Urosepsis Associated Orders DIET SODIUM RESTRICTED Chest pain Hip pain, chronic Disposition: ED Disposition Admit/Observation Bed request special needs: None Diagnosis?: urosepsis, chest pain, hip pain Additional Documentation Critical Care Performed by: PEPITO MONCADA Authorized by: PEPITO MONCADA Total critical care time: 35 minutes Critical care time was exclusive of separately billable procedures and treating other patie nts. Critical care was necessary to treat or prevent imminent or life-threatening deterioration of the following conditions: cardiac failure, dehydration, circulatory failure, sepsis and s hock. Critical care was time spent personally by me on the following activities: blood draw for s pecimens, development of treatment plan with patient or surrogate, discussions with consulta nts, evaluation of patient's response to treatment, examination of patient, obtaining histor y from patient or surrogate, ordering and performing treatments and interventions, ordering and review of laboratory studies, ordering and review of radiographic studies, pulse oximetr y, re-evaluation of patient's condition and review of old charts. Attending Note: Documentation assistance provided by Monika Arguelles (Scribe). Information recorded by the scribe has been reviewed and validated by me. I phil long with its contents. DO Pepito De Luna DO 12/31/12339 onversion Transactio n, Provider Unknown - 12/12/2012 9:05 PM PDT ED Notes by Kevin Gore RN at 12/12/122104 Author: Kevin Gore RN Service: (none) Author Type: Registered Nurse Filed: 12/12/122104 Date of Service: 12/12/122104 Status: Signed University Counselor: Kevin Gore RN (Registered Nurse) Bed:06
Expected date:
Expected time:
Means of arrival:
Comments:
Trans lizet onver keith Transaction, Provider Unknown - 12/12/2012 8:50 PM PDT ED Notes by Elin An RN at 12/12/122049 Author: Elin An RN Service: (none) Author Type: Registered Nurse Filed: 12/12/122055 Date of Service: 12/12/122049 Status: Signed University Counselor: Elin An RN (Registered Nurse) Patient being Transfer from [facility]. Patient being transferred for urosepsis/E-Coli. Patient was slightly confused on arrival, alert and oriented now. Has a boykin and 18 gauge x 2 in AC's. Cr 1.52, GFR 47, lactic acid 31.8, Bands 27, WBC WNL. Pt given Zosyn 3.375mg, 4m g Zofran, and a total of 8 liters of NS. Patient is pale in color, obese. Vs BP 104/77, HR 1 03, Resp 26, Temp 99.9, SPO2 94% on 3 liters n/c. Elin An RN 12/12/122055 onver keith Transaction, Provider Unknown - 12/12/2012 8:47 PM PDT ED Notes by Ritchie Bernal RN at 12/12/122046 Author: Ritchie Bernal RN Service: (none) Author Type: Registered Nurse Filed: 12/12/122046 Date of Service: 12/12/122046 Status: Signed University Counselor: Ritchie Bernal RN (Registered Nurse) Bed:04
Expected date:
Expected time:
Means of arrival:
Comments:
docume nted in this encounter Plan of [...] Conversion - 11/24/2018 7:30 PM PDT SETH TABARES yearsXR CHEST 1 | | VIEW12/14/2012 5:17 [...] Prior study for comparison -- none. FINDINGS: All Round Logger | | | demonstrates prominent body habitus [...] 4 measures about 13 x 7 mm. Boykin catheter in | | | a collapsed [...] Prior study for comparison -- none. FINDINGS: All Round Logger demonstrates prominent body | | habitus which [...] | | about 13 x 7 mm. Boykin catheter in a collapsed urinary bladder. There [...] | Testing performed at | | | [address] [address] SPECIAL REQUESTS | | | CENTRAL | | | Testing performed at [facility];[address] [place] [address] | | | CULTURE NO GROWTH 6 DAYS | | | Testing performed at | | | [facility], [address] [place] [address] REPORT STATUS | | | 12/19/2012 FINAL [...] | Testing performed at | | | [facility];[address] [place] [address];[place] [address] SPECIAL REQUESTS | | | ART LINE | | | Testing performed at [facility];[address] [place] [address];[place] [address] | | | CULTURE NO GROWTH 6 DAYS | | | Testing performed at | | | L, [address] [place] [address] REPORT STATUS | | | 12/19/2012 FINAL [...] EXTERNAL LAB | | Testing performed at [facility];[address] [place] [address];[place] [address] MRSA PCR | | | POSITIVE for MRSA by PCRAbnormal | | | Testing performed at [facility];[address] [place] [address];[place] [address] | | + + + + +---------+ [...] Performed At | + + + | SEHT TABARES 1950 62 years XR CHEST 1 [...] Dennis Azul Conversion - 11/24/2018 7:30 PM PDT SETH TABARES89 yearsXR CHEST 1 | | VIEW12/13/2012 1:41 [...] (500), | | | | | | script editor SANDIP KAMARA (2) | | | | | | on 12/13/2012 8:58:48 AM | | | | | | | | | | + + + + + + + + | Specimen | + + | | + + + + + | Narrative | Performed At | + + + | [facility] | EXTERNAL LAB | + [...] Conversion - 11/24/2018 7:30 PM PDT [facility] VIEW12/12/2012 | | 9:44 PM [...] WORKUP | | | Testing performed at [facility], [address] [place] [address], | | | [place] [address] REPORT STATUS | | | 12/14/2012 FINAL [...]
--- OUTSIDE RECORDS SUMMARY | ~2020-01-19 | XMS | Encounter Summary ---
Demographics + + + | Address | [address] | | | [place] [address] | + + + | Home Phone | | + + + | Preferred Language | Unknown | + + + | Marital Status | Single | + + + | Bahai Affiliation | 1041 | + + + | Race | White | + + + | Ethnic Group | Not or | + + + Author + + + | Author | [facility] | | | and [place] | + + + | Organization | [facility] | | | [...] Providers + +------+ + | Care Senior Civil Engineer Name | Role | Phone | + +------+ + PCP | Unavailable | + +------+ + Encounter Details +--------+ + + + + | Date | Type | Department | Care Team | Description | +--------+ + + + + | 10/04/ | Hospital | [facility] | Jaziel Billy, | Ulcer of leg, | | 2013 | Encounter | CENTER OUTPATIENT | MD Umm AMADOR | chronic, left, | | | | WOUND CARE [address] | [place] [address] [place], | limited to breakdown | | | | [place], [place] | [place] [address] | of skin (HCC) | | | | [address] | [phone] | | | | | [phone] | | | +--------+ + + + [...] 10/04/13 1525 Encounter Date: 10/04/2013 Status: Signed Product Representative: Jaziel Billy MD (Physician) Subjective: Seth Tabares [...] Notes by Nyasia Graham RN at 10/04/13 1232 Author: Nyasia Graham RN Service: (none) Author Type: Registered Nurse Filed: 10/04/13 1525 Encounter Date: 10/04/2013 Status: Signed Product Representative: Nyasia Graham RN (Registered Nurse) Seth Tabares is a 63 y.o. male who presents today for Wound Care visit. He presents accom panied by school boat driver. He arrived: Wheelchair. Transfer Assistance: None [...] yes Compression in place as prescribed: tubi web marketing intern Offloading in place as prescribed: n/a Footwear in place on this visit: Other Footwear: socks Patient was wearing compression socks provided by Dr. Steele; new wounds noted with compressio n; has not been wearing them this week because of deterioration with them. Has been wearing tubigrips. docume nted in this encounter Miscellaneous Notes Miscellaneous - Conversion Transaction, Provider Unknown - 10/04/2013 12:41 PM PDTFormattin g of this note might be different from the original. Patient Instructions by Elaine Bach RN at 10/04/13 2092 Author: Elaine Bach RN Service: (none) Author Type: Registered Nurse Filed: 10/04/13 6746 Encounter Date: 10/04/2013 Status: Addendum Product Representative: Deonna Adkins RN (Registered Nurse) Related Notes: Original Note by Deonna Adkins RN (Registered Nurse) filed at 10/04/13 6235 BEFORE DOING WOUND CARE: 1. Wash your hands. 2. Put on gloves. 3. Remove dressing. 4. Remove gloves. 5. Wash your hands. 6. Put on new gloves. APPLY LOTION TO BOTH LOWER LEGS IN AREAS OF DRY SKIN DAILY Every Other Day TO LEFT LEG OPEN WOUNDS : HOME HEALTH PLEASE CHANGE MON/WED/FRI 1. Cleanse wound with Normal Saline. If residual zinc remains, may wipe off with mineral o il on a gauze. 2. Then reapply protective barrier (zinc oxide-desitin like) around wound. 3. Put Wound Gel on base of wound. 4. Then Alginate Silver. 5. Cover with dry gauze. 6. Secure with roll gauze, & tape. 7. APPLY 1 LAYER OF TUBI HOME HEALTH: PLEASE CHECK RIGHT LEG, EACH TIME THE DRESSING IS CHANGED ON THE LEFT, FOR ARE OF BREAKDOWN. DO CONTINUE TO HAVE SETH USE LIFT [...] on LOW heat setting. The doctor is requesting you wear a 1 Layer tubigrip that is equal to 8-10 mmHg com pression. Please elevate legs as much as possible, [...] PCP (DR KASHIF Mike/RAFFAELE PUGA) Signature Date: Ydoar fernandes in this encounter Plan of Treatment [...]
--- OUTSIDE RECORDS SUMMARY | ~2020-01-19 | XMS | Encounter Summary ---
Demographics + + + | Address | [address] | | | [place] [address] | + + + | Home Phone [...] Team Providers + +------+ + | Care Retail Selling Floor Leader Name | Role | Phone | + +------+ + PCP | Unavailable | + +------+ + Encounter Details +--------+ + + + + | Date | Type | Department | Care Team | Description | +--------+ + + + + | 08/30/ | Hospital | [facility] | Jaziel Billy, | Ulcer of leg, | | 2013 | Encounter | CENTER OUTPATIENT | MD Umm AMADOR | chronic, unspecified | | | | WOUND CARE [address] | [place] [address] [place], | laterality, with | | | | [address] [place], [place] | [place] [address] | unspecified severity | | | | [address] | [phone] | (HCC) | | | | [phone] | | | +--------+ + + + [...] Notes by Jaziel Billy MD at 08/30/13 1816 Author: Jaziel Billy MD Service: (none) Author Type: Physician Filed: 09/06/13 1226 Encounter Date: 08/30/2013 Status: Addendum Excavator Backhoe Operator: Jaziel Billy MD (Physician) Related Notes: Original Note by Jaziel Billy MD (Physician) filed at 08/30/13 7505 Subjective: Seth Tabares is a 63 y.o. [...] scheduled. onversio n Transaction, Provider Unknown - 08/30/2013 1:38 PM PDTFormatting of this note might be di fferent from the original. Progress Notes by Leon Pierre RN at 08/30/13 9093 Author: eLon Pierre RN Service: (none) Author Type: Registered Nurse Filed: 08/30/13 8557 Encounter Date: 08/30/2013 Status: Signed Excavator Backhoe Operator: Leon Pierre RN (Registered Nurse) Seth Tabares is a [...] Miscellaneous - Conversion Transaction, Provider Unknown - 08/30/2013 1:49 PM PDTFormattin g of this note might be different from the original. Patient Instructions by Leon Pierre RN at 08/30/13 8978 Author: Leon Pierre RN Service: (none) Author Type: Registered Nurse Filed: 08/30/13 1411 Encounter Date: 08/30/2013 Status: Addendum Excavator Backhoe Operator: Leon Pierre RN (Registered Nurse) Related Notes: Original Note by Leon Pierre RN (Registered Nurse) filed at 08/30/13 14 06 LEFT LOWER LEG IS HEALED. MAY BE LEFT OPEN TO AIR. DO CONTINUE TUBIGRIP STOCKING DAILY. BEFORE DOING WOUND CARE: 1. Wash your hands. 2. Put on gloves. 3. Remove dressing. 4. Remove gloves. 5. Wash your hands. 6. Put on new gloves. APPLY LOTION TO BOTH LOWER LEGS IN AREAS OF DRY SKIN DAILY NOTE: PLEASE USE GAUZE AND ABD PADS OVER THE AQUACEL SILVER AND USE A SIZEABLE PIECE OF TH E AQUACEL SILVER TO DRESS MEDIAL ASPECT OF RIGHT CALF DRAINAGE IS LARGE, UNPREDICTABLE AN D NEEDS TO BE ABSORBED WELL BETWEEN DRESSING CHANGES. 3 TIMES PER WEEK: TO RIGHT LOWER EXTREMITY: 1. Cleanse wound with Normal Saline. 2. PAT DRY. 4. COVER OPEN, DRAINING SKIN AREAS WITH Aquacel Silver. 5. Cover with dry gauze. 6. Secure with roll gauze, & tape. (may secure top and body of gauze wrap with mefix-like tape) 7. APPLY 1 LAYER TUBI BANQUET HOUSEPERSON (Please do not use marta wrap or coban to secure dressings) DO CONTINUE TO HAVE SETH USE LIFT RECLINER. THE ENERGY HE SAVES USING IT TO GET UP AND D OWN WILL BE BEST USED TO WALK FURTHER. Tubigrips need to be put on upon [...]
--- OUTSIDE RECORDS SUMMARY | ~2020-01-19 | XMS | Encounter Summary ---
Demographics + + + | Address | [address] | | | [place] [address] | + + + | Home Phone | | + + + | Preferred Language | Unknown | + + + | Marital Status | Single | + + + | Amish Affiliation | [id number] | + + + | Race | White | + + + | Ethnic Group | Not or | + + + Author + + + | Author | [facility] | | | and [place] | + + + | Organization | [facility] | | [...] + +------+ + | Care Director Of Counseling Name | Role | Phone | + +------+ + PCP | Unavailable | + +------+ + Encounter Details +--------+ + + + + | Date | Type | Department | Care Team | Description | +--------+ + + + + | 07/05/ | Hospital | [facility] | Jaziel Billy, | Open wound of ankle, | | 2013 | Encounter | CENTER OUTPATIENT | MD Umm AMADOR | right, subsequent | | | | WOUND CARE [address] | [facility] [address], | encounter; Venous | | | | [place], [place] | [place] [address] | insufficiency | | | | [address] | [phone] | | | | | [phone] | | | +--------+ + + + [...] documented as of this encounter Progress Notes Conversion Transaction, Provider Unknown - 2013 4:22 PM PDTFormatting of this note m ight be different from the original. Progress Notes by Deonna Adkins RN at 07/05/13 1622 Author: Deonna Adkins RN Service: (none) Author Type: Registered Nurse Filed: 07/05/13 1623 Encounter Date: 2013 Status: Signed Stone Spreader Operator: Deonna Adkins RN (Registered Nurse) PT H&P, VENOUS, SANIYA, & ARTERIAL DUPLEX STUDIES FAXED TO DR CORTES FOR VASCULAR EVAL, CONFIR MED WITH ANDREY THAT RECORDS WERE RECEIVED. Jaziel Boudreaux MD - 2013 2:16 PM PDTFormatting of this note might be different from the o riginal. Progress Notes by Jaziel Billy MD at 07/05/13 7696 Author: Jaziel Billy MD Service: (none) Author Type: Physician Filed: 07/05/13 1422 Encounter Date: 2013 Status: Signed Stone Spreader Operator: Jaziel Billy MD (Physician) Subjective: Jono [...] Notes by Elaine Bach RN at 07/05/13 4379 Author: Elaine Bach RN Service: (none) Author Type: Registered Nurse Filed: 07/05/13 3791 Encounter Date: 2013 Status: Signed Stone Spreader Operator: Elaine Bach RN (Registered Nurse) Jono [...] socks bilateral docume nted in this encounter Miscellaneous Notes Miscellaneous - Conversion Transaction, Provider Unknown - 2013 1:44 PM PDTFormattin g of this note might be different from the original. Patient Instructions by Deonna Adkins RN at 07/05/13 5339 Author: Deonna Adkins RN Service: (none) Author Type: Registered Nurse Filed: 07/05/13 6469 Encounter Date: 2013 Status: Addendum Stone Spreader Operator: Deonna Adkins RN (Registered Nurse) Related Notes: Original Note by Deonna Adkins RN (Registered Nurse) filed at 07/05/13 6808 PLEASE READ THE FOLLOWING INSTRUCTIONS THOROUGHLY THERE [...] dressing sup plies to each visit. A referral has been made to Dr. Cortes for lower leg vascular evaluation. If you have not heard from his office in 2-3 days, please call it at [phone]. NOTE: Compression Tubigrips ARE to be put on upon arising. They should be taken off at be [facility]. They may be laundered in [...] to: HARPAL QUINTERO OREGON MD Signature Date: Ronal mcleaned in this encounter Plan of Treatment Not [...]
--- OUTSIDE RECORDS SUMMARY | ~2020-01-19 | XMS | Encounter Summary ---
Demographics + + + | Address | [address] | | | [place] [address] | + + + | Home Phone | | + + + | Preferred Language | Unknown | + + + | Marital Status | Single | + + + | Spiritism Affiliation | 1041 | + + + [...] Team Providers + +------+ + | Care Press And Blow Machine Tender Name | Role | Phone | + +------+ + PCP | Unavailable | + +------+ + Encounter Details +--------+ + + + + | Date | Type | Department | Care Team | Description | +--------+ + + + + | 08/23/ | Hospital | [facility] | Jaziel Billy, | Morbid obesity | | 2013 | Encounter | CENTER OUTPATIENT | MD Umm AMADOR | ([facility]); Ulcer of leg, | | | | WOUND CARE [address] | [facility] [place], | chronic, | | | | [address] [place], [place] | [place] [address] | unspecified | | | | [address] | [phone] | laterality, limited | | | | [phone] | | to breakdown of skin | [...] Notes by Jaziel Billy MD at 08/23/13 1762 Author: Jaziel Billy MD Service: (none) Author Type: Physician Filed: 08/23/13 2589 Encounter Date: 08/23/2013 Status: Signed Operating Room Manager: Jaziel Billy MD (Physician) Subjective: Jnoo Tabares is a 63 y.o. male who [...] left inner foot stop wraps t ubi nurses' aide Assessment / Plan: [place] ulcer tissues examined. [...] Notes by Demetria Padilla RN at 08/23/13 9161 Author: Demetria Padilla RN Service: (none) Author Type: Registered Nurse Filed: 08/23/13 1535 Encounter Date: 08/23/2013 Status: Signed Operating Room Manager: Demetria Padilla RN (Registered Nurse) Jono Tabares [...] place on this visit: Regular Shoe: docume nted in this encounter Miscellaneous Notes Miscellaneous - Conversion Transaction, Provider Unknown - 08/23/2013 1:05 PM PDTFormattin g of this note might be different from the original. Patient Instructions by Leon Pierre RN at 08/23/13 1305 Author: Leon Pierre RN Service: (none) Author Type: Registered Nurse Filed: 08/23/13 1321 Encounter Date: 08/23/2013 Status: Addendum Operating Room Manager: Leon Pierre RN (Registered Nurse) Related Notes: Original Note by Leon Pierre RN (Registered Nurse) filed at 08/23/13 13 12 BEFORE DOING WOUND CARE: 1. Wash your hands. 2. Put on gloves. 3. Remove dressing. 4. Remove gloves. 5. Wash your hands. 6. Put on new gloves. APPLY LOTION TO BOTH LOWER LEGS IN AREAS OF DRY SKIN. 3 TIMES PER WEEK: TO LEFT LOWER EXTREMITY AND RIGHT LOWER EXTREMITY : 1. Cleanse wound with Normal Saline. If residual zinc remains, may wipe off with mineral o il on a gauze. 2. Then reapply protective barrier (zinc oxide-desitin like) around OPEN ulcer skin. 3. Put Wound Gel on base of wound. 4. Then Aquacel Silver. 5. Cover with dry gauze. 6. Secure with roll gauze, & tape. (may secure top and body of gauze wrap with mefix-like tape) 7. APPLY 1 LAYER TUBI COMMISSIONING AGENT (Please do not use marta wrap or coban to secure dressings) Tubigrips need to be put on upon [...] PCP (DR KASHIF Mike/RAFFAELE PUGA) Signature Date: docume nted in this encounter [...]
--- OUTSIDE RECORDS SUMMARY | ~2020-01-19 | XMS | Encounter Summary ---
Demographics + + + | Address | [address] | | | [place] [address] | + + + | Home Phone [...] + | Author | [facility] | | | and [place] | + + + | Organization | [facility] | | | and [...] Team Providers + +------+ + | Care Postal Mail Carrier Name | Role | Phone | + +------+ + PCP | Unavailable | + +------+ + Encounter Details +--------+ + + + + | Date | Type | Department | Care Team | Description | +--------+ + + + + | 06/21/ | Hospital | [facility] | Jaziel Billy, | Ulcer of other part | | 2013 | Encounter | CENTER OUTPATIENT | MD Umm AMADOR | of lower limb (HCC) | | | | WOUND CARE [address] | [place], | | | | | [place] | [place] [address] | | | | | [address] | [phone] | | | | | [phone] | | | +--------+ + + + [...] 06/21/13 1531 Encounter Date: 06/21/2013 Status: Signed Lacrosse Coach: Jaziel Billy MD (Physician) Subjective: Jono Tabares [...] Notes by Brooklyn Garcia RN at 06/21/13 3525 Author: Brooklyn Garcia RN Service: (none) Author Type: Registered Nurse Filed: 06/21/13 3835 Encounter Date: 06/21/2013 Status: Signed Lacrosse Coach: Brooklyn Garcia RN (Registered Nurse) Jono Tabares [...] Miscellaneous - Conversion Transaction, Provider Unknown - 06/21/2013 2:39 PM PDTFormattin g of this note might be different from the original. Patient Instructions by Nyasia Graham RN at 06/21/13 1576 Author: Nyasia Graham RN Service: (none) Author Type: Registered Nurse Filed: 06/21/13 1440 Encounter Date: 06/21/2013 Status: Signed Lacrosse Coach: Nyasia Graham RN (Registered Nurse) PLEASE READ [...]
--- OUTSIDE RECORDS SUMMARY | ~2020-01-19 | XMS | Clinical Summary ---
Demographics + + + | Address | [address] [place] [address] RD | | | [place] [address] | + + + | Home Phone | | + + + | Preferred Language | Unknown | + + + | Marital Status | Single | + + + | Episcopal Affiliation | 1041 | + + + [...] Team Providers + +------+ + | Care Gathering Worker Name | Role | Phone | + [...] + + + Last Filed Vital Signs Not on file Plan of Treatment + + +-------+ + | Health Maintenance | Due Date | Last | Comments | | | | Done | | + + +-------+ + | Vaccine: | | | | | Dtap/Tdap/Td (1 - | 2 | | | | Tdap) | | | | + + +-------+ + | Vaccine: Zoster (1 | | | | | of 2) | 3 | | | + + +-------+ + | Vaccine: | | | | | Pneumococcal 65+ (1 | 8 | | | | of 1 - PPSV23) | | | | + + +-------+ + | Vaccine: Influenza | | | | | (#1) | 0 | | | + + +-------+ + Results Not on filefrom Last 3 Months Additional Health Concerns + + + + + | Infection | Onset Date | Last Indicated | Resolved Time | + + + + + | Methicillin-resistan | 12/13/2012 | 12/13/2012 | | | t Staphylococcus | | | | | aureus | | | | + + + + +"
--- OUTSIDE RECORDS SUMMARY | ~2020-01-19 | XMS | Encounter Summary ---
Demographics + + + | Address | [address] | | | [place] [address] | + + + | Home Phone [...] Team Providers + +------+ + | Care Head Of Commission Department Name | Role | Phone | + +------+ + PCP | Unavailable | + +------+ + Encounter Details +--------+ + + + + | Date | Type | Department | Care Team | Description | +--------+ + + + + | 05/31/ | Hospital | [facility] | Jaziel Billy, | Open wound of both | | 2013 | Encounter | CENTER OUTPATIENT | MD Umm AMADOR | legs with | | | | WOUND CARE [address] | [place], | complication | | | | [place] | [place] [address] | | | | | [address] | [phone] | | | | | [phone] | | | +--------+ + + + [...] Notes by Jaziel Billy MD at 05/31/13 1657 Author: Jaziel Billy MD Service: (none) Author Type: Physician Filed: 06/07/13 1236 Encounter Date: 05/31/2013 Status: Signed Stucco Laborer: Jaziel Billy MD (Physician) Related Notes: Original Note by Jaziel Billy MD (Physician) filed at 05/31/13 1705 CHIEF COMPLAINT This is a 62-year-old man who was seen at the wound care clinic for the first time because of wounds to his lower extremities. HISTORY OF PRESENT ILLNESS Patient's difficulties started approximately 1 month ago, when he had a rash with possible open area and was placed on antibiotic by his primary physician in the [place] area. The r camron went on to become more extensive after the antibiotic. Steroids were tried and patient w as sent to [facility] 3 days later for possible redmans' or scalde d skin syndrome-type problems; the patient is unsure of exactly what the diagnosis was. He w as treated with IV antibiotics, etc., at the [facility] and his up per and lower [...] his teenage years he has been to he has qncx-sw-nnju grinding on the left hip and 80% [...] a left undescended testis. 2. Tonsillectomy in [facility] in 1957. FAMILY HISTORY Positive for his father having throat cancer. He at 99. His mother at 94 from an [place]. She had had renal failure as well as a CVA shortly before she . His oldest half-brot her had pancreatic cancer and at 78. 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 Pupils are pinpoint, consistent wi th narcotic use currently. NECK: Supple. No stepoff [...] Notes by Brooklyn Garcia RN at 05/31/13 1503 Author: Brooklyn Garcia RN Service: (none) Author Type: Registered Nurse Filed: 05/31/13 1507 Encounter Date: 05/31/2013 Status: Signed Stucco Laborer: Brooklyn Garcia RN (Registered Nurse) Jono Tabares is a 62 y.o. male who presents today for InitialWound Care visit. He present s accompanied by HOME ORGANIZER. He arrived: Wheelchair. Transfer Assistance: Manual Pending [...] Extremity Assessment Flowsheet Patient temporarily living at [facility] in [place]. States developed bright red rash ab out 3 weeks ago after taking antibiotics (unknown type) and steroids. Wounds on legs and fee t developed About two days later. Presents with wrap bilaterally to lower extremities. docume nted in this encounter Miscellaneous Notes Miscellaneous - Conversion Transaction, Provider Unknown - 05/31/2013 2:10 PM PSTFormattin g of this note might be different from the original. Patient Instructions by Brooklyn Garcia RN at 05/31/13 1410 Author: Brooklyn Garcia RN Service: (none) Author Type: Registered Nurse Filed: 05/31/13 1537 Encounter Date: 05/31/2013 Status: Addendum Stucco Laborer: Nyasia Graham RN (Registered Nurse) Related Notes: Original Note by Brooklyn Garcia RN (Registered Nurse) filed at 05/31/13 1413 Please ask [facility] to fax us a medication list as well as the name of the antibiotic yo u were on when had the reaction. BEFORE DOING WOUND CARE: 1. Wash your hands. 2. Put on gloves. 3. Remove dressing. 4. Remove gloves. 5. Wash your hands. 6. Put on new gloves. Every Other Day TO RIGHT AND LEFT LEGS AND TOES : 1. Cleanse wound with Normal Saline. If residual zinc remains, may wipe off with mineral o il on a gauze. 2. PUT WOUND GEL ON OPEN WOUND AREAS. 3. THEN COVER OPEN WOUNDS WITH AQUACEL SILVER 4. COVER WITH DRY GAUZE. 5. COVER ENTIRE LOWER LEGS AND OPEN AREAS WITH KERLIX AND SECURE WITH TAPE. NOTE: You are being given a complimentary 3 day supply of dressings to treat your wound. We are unable to provide you with dressings beyond the 3 day period. Further needs may be f ulfilled by visiting your local pharmaceutical retail stores. NOTE: Return to clinic in 1 Week(s) [...] wound care orders are being faxed to: CRISELDA MENG Signature Date docume nted in this encounter Plan of [...]
--- OUTSIDE RECORDS SUMMARY | ~2020-01-19 | XMS | Encounter Summary ---
Demographics + + + | Address | [address] | | | [place] [address] | + + + | Home Phone [...] Author + + + | Author | [facility] | | | and [place] | + + + | Organization | [facility] | | | [...] Team Providers + +------+ + | Care Guard Rail Installer Name | Role | Phone | + +------+ + PCP | Unavailable | + +------+ + Encounter Details +--------+ + + + + | Date | Type | Department | Care Team | Description | +--------+ + + + + | 08/16/ | Hospital | [facility] | Jaziel Billy, | Ulcer of leg, | | 2013 | Encounter | CENTER OUTPATIENT | MD Umm AMADOR | chronic, left, | | | | WOUND CARE [address] | [place] [address] [address], | limited to breakdown | | | | [place], [place] | [place] [address] | of skin (HCC) | | | | [address] | [phone] | | | | | [phone] | | | +--------+ + + + [...] Notes by Jaziel Billy MD at 08/16/13 4355 Author: Jaziel Billy MD Service: (none) Author Type: Physician Filed: 08/16/13 1344 Encounter Date: 08/16/2013 Status: Signed Colloid Mill Operator: Jaziel Billy MD (Physician) Subjective: Jono [...] Notes by Elaine Bach RN at 08/16/13 1851 Author: Elaine Bach RN Service: (none) Author Type: Registered Nurse Filed: 08/16/13 7762 Encounter Date: 08/16/2013 Status: Signed Colloid Mill Operator: Elaine Bach RN (Registered Nurse) Jono [...] on this visit: Other Footwear: slippers docume nted in this encounter Miscellaneous Notes Miscellaneous - Conversion Transaction, Provider Unknown - 08/16/2013 1:16 PM PDTFormattin g of this note might be different from the original. Patient Instructions by Nyasia Graham RN at 08/16/13 1316 Author: Nyasia Graham RN Service: (none) Author Type: Registered Nurse Filed: 08/16/13 1456 Encounter Date: 08/16/2013 Status: Addendum Colloid Mill Operator: Nyasia Graham RN (Registered Nurse) Related Notes: Original Note by Nyasia Graham RN (Registered Nurse) filed at 08/16/13 13 32 BEFORE DOING WOUND CARE: 1. Wash your [...] 6. Secure with roll gauze, & tape. (OK TO USE NENA WRAP OR COBAN) 7. APPLY 2 LAYER TUBI YARN TWISTER SIZE F Tubigrips need to be put on upon [...] HARPAL PCP (DR KASHIF Mike/RAFFAELE PUGA) Signature Date docume nted in this encounter [...]
--- OUTSIDE RECORDS SUMMARY | ~2020-01-19 | XMS | Encounter Summary ---
Demographics + + + | Address | [address] | | | [place] [address] | + + + | Home Phone [...] Team Providers + +------+ + | Care Division Operations Manager Name | Role | Phone | + +------+ + PCP | Unavailable | + +------+ + Encounter Details +--------+ + + + + | Date | Type | Department | Care Team | Description | +--------+ + + + + | 09/06/ | Hospital | [facility] | Jaziel Billy, | Ulcer of leg, | | 2013 | Encounter | CENTER OUTPATIENT | MD Umm AMADOR | chronic, unspecified | | | | WOUND CARE [address] | [facility] [place], | laterality, limited | | | | [address] [place], [place] | [place] [address] | to breakdown of | | | | [address] | [phone] | skin (HCC) | | | | [phone] | | | +--------+ + + + [...] Notes by Jaziel Billy MD at 09/06/13 5756 Author: Jaziel Billy MD Service: (none) Author Type: Physician Filed: 09/06/13 1412 Encounter Date: 09/06/2013 Status: Signed Brass Wind Instruments Tube Bender: Jaziel Billy MD (Physician) Subjective: Seth Tabares [...] Notes by Elaine Bach RN at 09/06/13 7227 Author: Elaine Bach RN Service: (none) Author Type: Registered Nurse Filed: 09/06/13 5878 Encounter Date: 09/06/2013 Status: Signed Brass Wind Instruments Tube Bender: Elaine Bach RN (Registered Nurse) Seth Tabares is a [...] on this visit: Other Footwear: SOCKS docume nted in this encounter Miscellaneous Notes Miscellaneous - Conversion Transaction, Provider Unknown - 09/06/2013 12:56 PM PDTFormattin g of this note might be different from the original. Patient Instructions by Elaine Bach RN at 09/06/13 8176 Author: Elaine Bach RN Service: (none) Author Type: Registered Nurse Filed: 09/06/13 1334 Encounter Date: 09/06/2013 Status: Addendum Brass Wind Instruments Tube Bender: Nyasia Graham RN (Registered Nurse) Related Notes: Original Note by Elaine Bach RN (Registered Nurse) filed at 09/06/13 12 58 BEFORE DOING WOUND CARE: 1. Wash your hands. 2. Put on gloves. 3. Remove dressing. 4. Remove gloves. 5. Wash your hands. 6. Put on new gloves. APPLY LOTION TO BOTH LOWER LEGS IN AREAS OF DRY SKIN DAILY EVERY OTHER DAY Wound Care TO Open areas on right and left lower legs. : HOME HEALTH PLEASE CHANGE ON MON/WED/FRI 1. Cleanse wound with normal [...]
[~2020-01-19 08:10] MED LIST changes: +CEFPODOXIME PR200 MG PO; +HYDROCORTISON28.4 G5 PR; +LEVOTHYROXINE100 MCG PO; +NYSTATIN1 EAC9 TOP; +NYSTATIN15 G1 TOP; +PRAVACHOL40 MG PO; +VITAMIN D325 MC2 PO; +ZESTRIL20 MG PO
[2020-01-19] MEDS ORDERED: KEFLEX500 MG PO (10:01)
== END 2020-01-19 10:10 | disposition home or self-care (01) ==
LOC: ED 08:10
DX: N39.0 Urinary tract infection, site not specified (principal); E66.01 Morbid (severe) obesity due to excess calories; K21.9 Gastro-esophageal reflux disease without esophagitis; E03.9 Hypothyroidism, unspecified; Z88.8 Allergy status to other drugs, medicaments and biological substances; Z88.2 Allergy status to sulfonamides; Z88.1 Allergy status to other antibiotic agents; Z79.899 Other long term (current) drug therapy
CPT/HCPCS: 81001; 99283

== ENCOUNTER 2020-02-24 18:57 | Inpatient (IN) | payer MEDICARE, OTHER ==
[~2020-02-24] VITALS: Ht 170.2 cm; Wt 165.0 kg
[~2020-02-24 18:57] MED LIST changes: +KEFLEX500 MG PO
--- NOTE | 2020-02-25 00:30 | NUR ---
PATIENT ARRIVED VIA STRETCHER. MAX ASSIST BY 4 STAFF MEMEBERS TO MOVE TO BED. PATIENT IS ALERT. DENIES PAIN. VS STABLE. NO NAUSEA. TOLERATING ROOM AIR, LUNGS ARE CLEAR. MARSHALL OUTPUT QS. LEGS ELEVATED. REDNESS NOTED ON LEFT LOWER EXTREMITY, CHRONIC ACCORDING TO THE PATIENT. BETTER THAN IT HAS BEEN. 3+ EDEMA IN YOLANDA FEET, 2+ EDEMA IN YOLANDA LOWER LEGS. ALSO CHRONIC FOR THE PATIENT. IV VANCO INFUSING FROM ED. IV SITE WNL.
--- NOTE | 2020-02-25 01:00 | NUR ---
SECOND ORDERED DOSE OF VANCO STARTED, SITE WNL. PATIENT DENIES NEEDS.
--- NOTE | 2020-02-25 01:45 | NUR ---
IV FLUIDS STARTED PER ORDER, SITE WNL. PATIENT APPEARS TO BE SLEEPING SOUNDLY. VS STABLE.
--- NOTE | 2020-02-25 03:57 | NUR ---
PATIENT REPORTS PAIN /, REQUEST PRN TYLENOL WHICH WAS PROVIDED. PATIENT DOES NOT WANT TO TAKE ANY OTHER TYPES OF PAIN MEDICATION FOR PERSONAL REASONS. VS STABLE. GOOD URINE OUTPUT. IV FLUIDS PER ORDER, SITE WNL. PATIENT DENIED ANY NEEDS AT THIS TIME. OFFERED TO REPOSITION WHICH PATIENT HE REFUSED. CALL LIGHT IN REACH.
--- NOTE | 2020-02-25 06:00 | NUR ---
PATIENT RESTING IN BED WATCHING TV. DENIES ANY CONCERNS. VS STABLE. GOOD URINE OUTPUT. FRESH ICE WATER PROVIDED.
--- NOTE | 2020-02-25 08:03 | NUR ---
REPORT RECEIVED FROM NIGHTSHIFT RN, WILL CONTINUE PLAN OF CARE.
--- NOTE | 2020-02-25 08:32 | NUR ---
PT LAYING IN BED EATING BREAKFAST AND WATCHING TV. PT IS ALERT AND ORIENTED TO LOCATION, SELF, AND EVENT. PT REPORTS PAIN 5/10 ON RIGHT HIP THAT HE STATES IS FROM ARTHRITIS BUT DOES NOT WANT TYLENOL. PT REPORTS NO NAUSEA AND STATES HE DOES NOT WANT HIS PRN MILK OF MAGNESIA HE CAN GO UP TO 3 DAYS WITHOUT BOWEL MOVEMENTS. PT REPORTS NO FURTHER NEEDS WHEN ASKED AT THIS TIME. IV FLUIDS INFUSING, PT ON ROOM AIR SPO2 OF 96%. WILL CONTINUE PLAN OF CARE. BED IN LOWEST POSITION, CALL LIGHT WITHIN REACH.
--- NOTE | 2020-02-25 09:19 | NUR ---
PT LAYING IN BED WITH EYES CLOSED. PT STATES HES RESTING. IV ABX STARTED AND INFUSING AT ORDERED RATE (SEE MAR). PT REPORTS NO FURTHER NEEDS AT THIS TIME, WILL CONTINUE PLAN OF CARE. CALL LIGHT WITHIN REACH, BED IN LOWEST POSITION.
--- NOTE | 2020-02-25 10:40 | NUR ---
RESPONDED TO CALL LIGHT, PT LAYING IN BED ALERT AND ORIENTED. PT STATES THAT HE WOULD LIKE TO ORDER LUNCH AND THAT HE WOULD LIKE A TYLENOL FOR HIS PAIN. PRN TYLENOL GIVE TO PT FOR PAIN IN THE RIGHT ARM AND SHOULDER. PT STATES THIS PAIN IS CHRONIC AND WAS CURRENTLY AT A 7/10. PT REPORTS NO FURTHER NEEDS, WILL CONTINUE PLAN OF CARE. CALL LIGHT WITHIN REACH, BED IN LOWEST POSITION.
--- NOTE | 2020-02-25 11:07 | NUR ---
IV ABX COMPLETE. PT NOW INFUSING LR ORDERED. NEW BAG OF LR STARTED. PT REPORTS NO FURTHER NEEDS AT THIS TIME AND IS WATCHING TV. BED IN LOWEST POSITION, CALL LIGHT IN REACH, WILL CONTINUE PLAN OF CARE.
--- NOTE | 2020-02-25 11:51 | NUR ---
PT LAYIN IN BED AWAKE AND WATCHING TV. PT REPORTS NO FURTHER NEEDS. DR OLEA IN EARLIER TO ASSESS PT AND UPDATE ON POC. IV FLUIDS DECREASED TO 75 PER VERBAL ORDERS. PLAN IS TO TRANSFER PT. TO THE MEDICAL SURGICAL FLOOR. WILL CONTINUE PLAN OF CARE. CALL LIGHT WITHIN REACH, BED IN LOWEST POSITION.
--- NOTE | 2020-02-25 13:06 | NUR ---
Vancomycin dosed at 2500mg x 1 then 1500mg q 12 hr. Draw vancomycin trough level 02/26/2020 @ 5718
--- NOTE | 2020-02-25 13:47 | NUR ---
MED REC COMPLETE
--- NOTE | 2020-02-25 14:25 | NUR ---
PT ARRIVED TO THE FLOOR AT THIS TIME FROM CCU. PT WAS TRANSFERRED IN HIS BED AND THEN PT WAS ABLE TO STAND PIVOT TO THE BED. PT TOLERATED WELL ALTHOUGH HE DID HAVE SOME SHORTNESS OF BRATH DURING THE PROCESS. 5 STAFF MEMEBERS IN ROOM FOR SAFETY DURING THE TRANSFER PROCESS. ONCE PT WAS IN BED PT STATED ALL HE NEEDED WAS HIS WATER CUP AND THE TV REMOTE, BOTH ITEMS PROVIDED TO PT BY THIS RN. NO OTHER NEEDS OR CONCERNS STATED AT THIS TIME.
--- NOTE | 2020-02-25 14:34 | NUR ---
REPORT GIVEN TO [facility] GEOFF HARMAN AT 1400. PT TRANSFERRED OVER IN BED WITH ALL BELONGINGS AT 1425. PT TRANSFERRED ON TO BARIATRIC BED WITH THE HELP OF OTHER RN'S. PT WAS ABLE TO USE FWW TO TURN AND SHUFFLE SIDEWAYS INTO POSITION. PT THEN HELPED UP ONTO BARIATRIC BED AND REPOSITIONED INTO A MORE COMFORTABLE POSITION. GEOFF HARMAN IN ROOM TO CONTINUE PLAN OF CARE.
--- NOTE | 2020-02-25 17:15 | NUR ---
THIS RN IN PTS ROOM TO ASSIST PYSICAL THERAPY WITH STANDING PT UP. PT TOELRATED WELL, WITH MINOR SHORTNESS OF BREATH WHEN HE SAT BACK DOWN. THIS RN ASSISTED PT TO LAY DOWN INTO A COMFORTABLE POSTION.
--- NOTE | 2020-02-25 20:22 | NUR ---
PATIENT RESTING QUIETLY IN BED WATCHING TV, CALL LIGHT IN REACH AND NO NEEDS AT THIS TIME.
--- NOTE | 2020-02-25 20:57 | NUR ---
PATIENT SAYS HIS LEFT SIDE PAIN HAS STAYED ABOUT THE SAME, BUT HE WILL BE OK UNTIL HIS NEXT TYLENOL IS DUE. IV PATENT ASSESSMENT DONE.
--- NOTE | 2020-02-25 23:10 | NUR ---
GEOFF WHEELER AND MYSELF USED THE EROS LIFT TO REPOSITION THE PATIENT TO MAKE HIM MORE COMFORTABLE AND PATIENT PLACED IN AUTO ROTATION TO PREVENT BED SORES WHEN PLACED BACK IN BED. CALL LIGHT IS IN REACH IS PATIENT'S WATER.
--- NOTE | 2020-02-26 01:10 | NUR ---
PATIENT IV SL AT THIS TIME, PATIENT RESTING QUIETLY. CALL LIGHT IN REACH.
--- NOTE | 2020-02-26 01:15 | NUR ---
PATIENT RESTING QUIETLY, EYES CLOSED, RESPIRATIONS REGULAR AND EVEN. CALL LIGHT IN REACH.
--- NOTE | 2020-02-26 02:18 | NUR ---
PATIENT RESTING QUIETLY, EYES CLOSED, RESPIRATIONS REGULAR AND EVEN, CALL LIGHT IN REACH.
--- NOTE | 2020-02-26 04:40 | NUR ---
Patient has been repositioned for comfort a couple times, bed put in rotation for awhile and then in opti-rest when he was tired of rotation. taking in po fluids, iv saline locked during the night, boykin putting out good urine. Patient's pain finally down to 5/10 from being at 9/10 most of the night, this was just done with positioning and tylenol. Call light in reach and patient in a better mood this am, affect not as flat.
--- NOTE | 2020-02-26 07:55 | NUR ---
PATIENT RESTING IN BED. WHITE BOARD UPDATED. PATIENT'S HANDS AND FACE WASHED. CALL LIGHT WITHIN REACH. NO OTHER NEEDS AT THIS TIME
--- NOTE | 2020-02-26 08:01 | NUR ---
THIS RN RECEIVED REPORT FROM ARETHA TELLEZ. PT STATES THAT HE DOESN'T WANT TO ORDER PT STATING "WHATEVER".
--- NOTE | 2020-02-26 09:20 | NUR ---
THIS RN IN PTS ROOM TO DO PTS ASSESSMENT AND GIVE THE MORNING MEDS. WHEN THIS RN WAS DOING PT EDUCATION ON HIS MEDS PT STATED "WHATEVER" ABOUT LEARNING ABOUT THEM. PT STATED THAT HE DID NOT WANT TO ORDER BREAKFAST THIS AM
--- NOTE | 2020-02-26 09:46 | NUR ---
PATIENT RESTING IN BED. VITAL SIGNS AND I&O DONE. PATIENT REFUSED TO ORDER BREAKFAST. RN NOTIFIED. CALL LIGHT WITHIN REACH. NO OTHER NEEDS AT THIS TIME
--- NOTE | 2020-02-26 11:00 | NUR ---
THIS RN IN PTS ROOM TO CHECK ON PT AND TURN OFF PTS IV ANTIBIOTIC. PT STATED THAT HE WAS READY FOR LUNCH AND HAD ORDERED. PT DENIED THE NEED FOR TYLENOL AT THIS TIME
--- NOTE | 2020-02-26 13:00 | NUR ---
this rn in pts room per pt request for some tylenol. this rn able to provide pt with 500mg of tylenol. pt appeared cold so this rn provided pt with another blanket. pt stated he felt better being more covered up
--- NOTE | 2020-02-26 13:14 | NUR ---
PATIENT RESTING IN BED. VITAL SIGNS AND I&O DONE. HIGH SYSTOLIC BLOOD PRESSURE AND CLOUDY URINE. RN NOTIFIED. CALL LIGHT WITHIN REACH. NO OTHER NEEDS AT THIS TIME
--- NOTE | 2020-02-26 17:47 | NUR ---
PT IS SEEN FOR A WOUND CONSULST OF BILATERAL THIGHS/BUTTOCKS. THE PT DECLINES STANDING UP, REPORTING HE HAS ALREADY BEEN UP A COUPLE TIMES TODAY AND HE DOESN'T HAVE THE ENERGY FOR IT NOW. KIMANI TELLEZ, HELPS ME ROLL HIM ENOUGH TO VISUALIZE HIS WOUNDS. THEY ARE DEFINITELY EXORIACTION FROM SCOOTING IN HIS WHEELCHAIR, CAUSING FRICTION. THE PERIWOUND SKIN IS INCREDIBLY DRY AND FLAKY. NOT A LOT CAN PHYSICALLY BE DONE AT THIS TIME, DUE TO THE PT'S SIZE AND HIS CURRENT INABILITY TO STAND UP. IT IS RECOMMENDED THAT THE NURSE WASH THE WOUNDS WITH WARM WATER AND A WASH CLOTH TOMORROW MORNING, THEN APPLY MEDIHONEY AND AN ABD PAD TO BILATERAL WOUNDS. BARRIER CREAM/LOTION WOULD NOT HURT EITHER FOR THE PERIWOUND SKIN.
--- NOTE | 2020-02-26 20:56 | NUR ---
PATIENT SAYS HE IS REALLY NOT HAVING PAIN AT THIS TIME AND WILL CALL IF HE FEELS HE NEEDS TYLENOL. PATIENT ADMITS TO BEING A LITTLE DISCOURAGED AND I TRIED TO TALK TO HIM ABOT HTIS FOR AWWHILE FAR FUTURE PLACEMENT TO HELP PUT HIS MIND AT EASE. PATIENT SAYS,"I'M DOING OK AND WILL CALL IF I NEED YOU." CALL LIGHT IN REACH AND FRESH WATER GIVEN.
--- NOTE | 2020-02-26 22:25 | NUR ---
PATIENT RESTING QUIETLY, IV VANCO IS ABOUT HALF WAY FINISHED, PATIENT SAYS HE HAS NO NEEDS AT THIS TIME. CALL LIGHT AND WATER IN REACH.
--- NOTE | 2020-02-26 22:46 | NUR ---
MARSHALL CARE DONE AND PM WASH UP FOR SLEEP COMPLETE. PATIENT HAS NO OTHER NEEDS AT THIS TIME. CALL LIGHT IN REACH.
--- NOTE | 2020-02-27 00:05 | NUR ---
AT 2330 I WENT TO CHECK ON THE PATIENT AND HE WAS ASLEEP, BUT HAD PULLED OUT HIS IV AND HAD ANTIBIOTIC GOING, SO A NOTE WAS SENT TO TO INFORM HIM DOSE MAY HAVE NOT BEEN COMPLETE. NEW 22G IV PLACED IN THE PATIENT'S RIGHT HAND WITH GOOD BLOOD RETURN AND IV FLUSHES WELL, PATIENT TRYING TO GO BACK TO SLEEP, WET GOWN AND LINENS CHANGED. CALL LIGHT AND WATER IN PLACE.
--- NOTE | 2020-02-27 01:11 | NUR ---
PATIENT RESTING IN BED, NOT NEEDS AT THIS TIME, NO C/O PAIN, ALL LIGHT IN REACH.
--- NOTE | 2020-02-27 02:25 | NUR ---
PATIENT STARTED TO HAVE 7/10 PAIN IN HIS KNEES AND WAS GIVEN TYLENOL FOR THAT AND REPOSITIONED IN THE BED, AND HE SAYS HE IS MORE COMFORTABLE NOW. CALL LIGHT IN REACH, NEW WATER AT BEDSIDE.
--- NOTE | 2020-02-27 04:19 | NUR ---
PATIENT'S PAIN IS DOWN TO 1/10 AFTER TYLENOL, TOP SHEET A LITTLE SWEATY AND WAS CHANGED. PATIENT HAS NO OTHER NEEDS AT THIS TIME AND IS WATCHING TV. CALL LIGHT IS IN REACH AND PATIENT'S BED IS IN AUTO ROTATION MODE.
--- NOTE | 2020-02-27 07:48 | NUR ---
this rn received report from dewayne lobato. pt appears to be resting comfortably with repirations noted this am
--- NOTE | 2020-02-27 09:00 | NUR ---
THIS RN IN PTS ROOM WITH [facility] SENIOR BENEFITS SPECIALIST MI[place]. PT VERY QUIET THIS AM AND STATES THAT HE IS READY TO LEAVE THE HOSPITAL. PT DOESN'T HAVE MUCH TO CONTRIBUTE TO HOLDING A CONVERSATION. PT STATES THAT HE HAS NO PAIN THIS AM. PTS LEFT LOWER LEG LOOKS TO BE IMPROVED, IT APPEARS TO BE PINK IN COLOR (PREVIOUSLY WAS RED) AND IS WARM TO THE TOUCH COMPARED TO YESTERDAY WHEN IT WAS HOT TO TOUCH.
--- NOTE | 2020-02-27 09:09 | NUR ---
Call from [facility], they would like chart notes and are concerned for change of condition. Chart sent with progress notes, H&P, and Covid test.
--- NOTE | 2020-02-27 11:00 | NUR ---
ANSWERED CALL LIGHT, PATIENT AT SIDE OF BED WITH P/T. PATIENT IN AWKARD POSITION, UNABLE TO GET HIS FEET SAFELY UNDER HIM. CALLED FOR MORE STAFF AND EROS SLING TO GET PATIENT BACK TO BED. NEW JEFFERY UNDER PATIENT, FRESH WATER PROVIDED. RN ASSESSING IV SITE.
--- NOTE | 2020-02-27 13:30 | NUR ---
Spoke with Jono. No change in plan for dc and return to [facility].
--- NOTE | 2020-02-27 14:07 | NUR ---
VITALS AND I&OS CHARTED, TAKEN BY STUDENT. CALLIGHT IN REACH, NO OTHER NEEDS AT THIS TIME
--- NOTE | 2020-02-27 18:28 | NUR ---
VITALS AND I&OS CHARTED. PATIENT REFUSED DINNER. MARSHALL EMTPIED. PATIENT RESTING AGAIN WITH EYES CLOSED.
--- NOTE | 2020-02-27 19:35 | NUR ---
PATIENT RESTING QUIETLY IN BED WATCHING TV, NO NEEDS AT THIS TIME. RACHEL LIGHT IN REACH.
--- NOTE | 2020-02-27 21:35 | NUR ---
PATIENT RESTING QUIETLY, HAS NO NEEDS AT THIS TIME AND IS WATCHING TV. CALL LIGHT IS IN REACH.
--- NOTE | 2020-02-27 23:30 | NUR ---
PATIENT RESTING QUITELY, EYES CLOSED, RESPIRATIONS REGULAR AND EVEN, CALL LIGHT IN REACH.
--- NOTE | 2020-02-28 00:29 | NUR ---
PATIENT CALLED AND I WENT DOWN TO CHECK ON HIM AND HE WAS ASLEEP WITH HIS THUMB ON THE CALL LIGHT. SHUT ALARM OFF. PATIENT'S EYES CLOSED AND RESPIRATIONS REGULAR AND EVEN. CALL LIGHT IN RIGHT HAND.
--- NOTE | 2020-02-28 02:08 | NUR ---
PATIENT RESTING QUIETLY, TILTED TO HIS RIGHT SIDE, CALL LIGHT IN REACH, RESPIRATIONS REGULAR AND EVEN, AND EYES CLOSED.
--- NOTE | 2020-02-28 04:15 | NUR ---
PATIENT'S CHUX UNDER HIS LEFT LEG WAS VERY WET, WITH PATIENT'S ASSISTANCE AND WHAT SEEMED LIKE A LOT PAIN FOR THE PATIENT, A DRY CHUX WAS PLACED AND THE OLD WET ONE REMOVED, BUT PATIENT DID NOT WANT ANYTHING FOR PAIN. PATIENT'S WATER GLASS REFILLED AND CALL LIGHT IS IN REACH IF HE NEEDS ANYTHING.
--- NOTE | 2020-02-28 06:11 | NUR ---
KESHIA HAS HAD A REALLY FLAT AFFECT MOST OF THE NIGHT, HAS NOT WANTED ANYTHING FOR PAIN, WOULD'T TAKE TYLENOL, SAID,"IF I WANT SOME TYLENOL I WILL CALL AND LET YOU KNOW I WANT TYLENOL. PATIENT HAS BEEN SWEATY, AND HIS LEFT LEG HAS BEEN WEEPING A LOT, AND CHUX HAVE BEEN CHANGED. PATIENT HAS JUST SEEMED DISINTERESTED ALL NIGHT. CALL LIGHT IN REACH.
--- NOTE | 2020-02-28 08:00 | NUR ---
PT RESTING ON BED WITH EYES CLOSED, RESPONDS TO NAME, LINENS CHANGED AND CLEAN GOWN BY FLOWER MACHINE OPERATOR, REFUSED TO ORDER BREAKFAST, UPSET HIS PREVIOUS ORDER WAS NOT CORRECT. HE HAD RECIEVED 2 SLICES OF URUGUAYAN TOAST INSTEAD OF JUST ONE . DRINKING WATER, MARSHALL PATENT. CALL LIGHT IN EASY REACH. CHUX CHANGED TO LLEG, SOCKS REMOVED, NOTED 5CM RAISED BLISTER TO LATERAL ASPECT OF HEEL, CLEANED WITH WOUND CLEANSER, DRY ABD APPLIED TO BLISTER AND BACK OF LEG TO ALLOW FREQUENT CHANGING DUE TO CONTINUES WEEPING.
--- NOTE | 2020-02-28 11:54 | NUR ---
SAT UP ON EDGE OF BED ASSISTING 2 PHYSICAL THERAPISTS, UNABLE TO STAND, FOLLOWED INSTRUCTION FOR EXERCISES THAN ASSISTED BACK TO BED AND POSITIONED FOR COMFORT, DECLINED TYLENOL OFFERED FOR C/O ACHES IN LEGS AND BACK. CLEAN ABDS TO BACK OF L LEG AND LEFT HEEL BLISTER. ELEVATED ON PILLOWS. CALL LIGHT IN EASY REACH. VANCOMYCIN INFUSING.
--- NOTE | 2020-02-28 13:52 | NUR ---
DR OLEA IN TO SEE PT, PLEASED WITH PROGRESS, PLAN TO DC HOME TOMORROW. PT DENIES ANY NEEDS AT THIS TIME.
--- NOTE | 2020-02-28 14:15 | NUR ---
GRAIN ELEVATOR OPERATOR REPORTING PT HAS TEMP 101.1, I SPOKE TO DR OLEA AND NEW ORDERS ENTERED, BLOOD CULTURES TO BE DRAWN. ORDERS NOTED.
--- NOTE | 2020-02-28 14:17 | NUR ---
PATIENT IS REFUSING TO EAT, HE DIDNT EAT BREAKFAST OR LUNCH. PATIENT HAS NOT DRANK HARDLY ANYTHING.
--- NOTE | 2020-02-28 17:46 | NUR ---
PT DRANK 200ML ICE WATER WITH MEDS, BUT CONT. TO REFUSE MEALS OR ANYTHING ELSE TO DRINK T-101.4, C/O PAIN ALL OVER BODY, AGAIN REFUSING TYLENOL. GETS ANGRY WHEN IT IS OFFERED, STATES "I WILL TELL YOU IF I WANT IT".
--- NOTE | 2020-02-28 18:07 | NUR ---
CALL PLACE TO DR OLEA AND DISCUSSED CONCERNS ABOUT LOW FLUID INTAKE, ONGOING TEMP, AND DARK URINE. DR OLEA STATES HE WILL ENTER ORDERS FOR IV FLUIDS AND TORADOL FOR PAIN/FEVER.
--- NOTE | 2020-02-28 18:29 | NUR ---
IVF INFUSING, TORADOL GIVEN, PULLED UP AND REPOSITIONED IN BED. LL LEG CONT. TO WEEP BUT REDNESS MUCH IMPROVED, ABD PADS CHANGED TO L HEEL AND LEG TO KEEP DRY, LEGS ELEVATED ON PILLOWS. MARSHALL CATH IS SECURE. DENIES ANY NEEDS.
--- NOTE | 2020-02-28 19:20 | NUR ---
Pt lying in bed. Eyes closed. RR WNL and unlabored breathing. Shift report recieved by RN, white board cleared. Call light in reach, no further concerns at this time.
--- NOTE | 2020-02-28 21:00 | NUR ---
Pt lying in bed. VS stable, Scheduled meds given. Denies pain. Assessment complete. Redness and swelling shown on bilateral legs. Weeping shown on the L foot. Assited pt to stand per request. Linens changed and repositioned pt in bed. Call light in reach. No further needs at this time.
--- NOTE | 2020-02-28 21:10 | NUR ---
pt REQUESTED TO STAND, 2PA FWW TO STAND AT THE BEDSIDE. WOUND ON BUTTOCKS VISUALIZED BY ROSA MARIA TELLEZ. pt WAS ABLE TO STAND WITH FWW WHILE LINENS AND GOWN WERE CHANGED. REQUIRED ASSISTANCE TO LIFT LEGS INTO BED. INCREASED RESPIRATION RATE AND LABORED BREATHING DURING EXERTION, RECOVERED WHEN RESTING IN BED.
--- NOTE | 2020-02-28 21:41 | NUR ---
IN RICKI GAEL TO ASST RN WITH BEDF MAKING AND REPOSITIONING OF PT, NO FURHTER NEEDS FROM RN'S OR PT AT THIS TIME
--- NOTE | 2020-02-28 23:20 | NUR ---
Pt lying in bed. Eyes closed, RR WNL and unlabored breathing. Call light in reach.
--- NOTE | 2020-02-29 01:18 | NUR ---
CALL LIGHT ON. pt STATED "IT'S TUESDAY, I'M SUPPOSED TO BE GOING HOME NOW." ORIENTED pt TO TIME. NO NEEDS AT THIS TIME. CALL LIGHT WITHIN REACH.
--- NOTE | 2020-02-29 02:57 | NUR ---
PT LYING IN BED. EYES CLOSED. RR WNL WITH UNLABORED BREATHING. CALL LIGHT IN REACH.
--- NOTE | 2020-02-29 06:30 | NUR ---
PT LYING IN BED. C/O PAIN 01/11. PRN PAIN MED ADMINISTERED PER REQUEST. REPOSITIONED PT IN BED. BLE WARM TO TOUCH, SWELLING AND REDNESS NOTED. SORE NOTED ON L LATERAL ANKLE. YELLOW DRAINAGE ON CHUX. NEW ABD AND CHUX IN PLACE. MARSHALL EMPTIED SEDIMENT NOTED. CALL LIGHT IN REACH.
--- NOTE | 2020-02-29 09:00 | NUR ---
PT IS STATING HE WILL BE LEAVING TODAY, REFUSING TO BE TURNED SO I RACHEL ASSESS SKIN ON BACK AND BUTTOCKS TODAY, ATTEMPTED TO SMOOTH LINENS OUT, KEEPING LEGS ELEVATED ON PILLOWS, CHUX WET WITH SERROUS FLUID FROM BACK OF RLE AND BLISTER ON R HEEL. NOTED INCREASED EDEMA THIS AM. LUNGS DIMINISHED, REFUSING IS. WILL SPEAK TO DR OLEA.
--- NOTE | 2020-02-29 10:14 | NUR ---
PATIENT AWAKE IN BED, RN ASSISTED THIS HAND I TUBE BENDER TO REPOSTITION PATIENT HIGHER IN BED, USING GREEN SHEET. VITALS AND I&OS AHRTED, MARSHALL EMPTIED. SEDIMENT IN DRK "PINK/ORANGE URINE, RN NOTIFIED. CALL LIGHT IN REACH, NO OTHER NEEDS AT THIS TIME
--- NOTE | 2020-02-29 11:42 | NUR ---
PT IV IN R HAND HAS INFILTRATED, REFUSING TO HAVE IV RESTARTED, HAS NOT COMPLETED VANCO INFUSION, SPOKE WITH DR OLEA PT IS STATING HE IS LEAVING, CONT. TO REFUSE ALL CARE.
--- NOTE | 2020-02-29 11:44 | NUR ---
PHYSICAL THERAPY AND SPEECH THERAPIST IN ROOM AND PT AGREED TO TRY TO STAND, REQUEST PANTS BE PUT ON FIRST, USING LIFT FOR PROTECTION, PT UNABLE TO STAND, PT LIFTED WITH LIFT TO CHAIR, CONT. TO STATES HE IS LEAVING TODAY. DR OLEA IN TO TALK TO PATIENT NOW.
--- NOTE | 2020-02-29 12:08 | NUR ---
CALL LIGHT ANSWERED. PT REQUEST PRN TYLENOL FOR 10/10 R HAND PAIN. CHECKED WITH PRIMARY RN; PRN TYLENOL ADMINISTERED. NO FURTHER NEEDS AT THIS TIME
[2020-02-29] MEDS ORDERED: DOXYCYCLINE HY100 MG PO (12:22)
--- NOTE | 2020-02-29 12:46 | NUR ---
DISCHARGE ORDERS PRINTED, AND TRANSPORTATION IS BEING ARRANGED TO RETURN TO ASSISTED LIVING. PATIENT IS PLEASED. [facility] WILL BE FOLLOWING PATIENT FOR MARSHALL CARE AND ONGOING SKIN CARE.
--- NOTE | 2020-02-29 13:21 | NUR ---
CALL PLACED TO [facility] AND I SPOKE WITH KIEL, I GAVE HER UPDATE ON PATIENT AND ANSWERED QUESTIONS FOR RETURN TO FACILITY ANSWERE.
--- NOTE | 2020-02-29 13:45 | NUR ---
[facility] TRANSPORT HERE, PT TO STRETCHER USING LIFT, ALL PERSONAL BELONGINGS SENT. PT HAD EATEN 100% OF LUNCH. PLEASED TO BE GOING HOME.
== END 2020-02-29 13:45 | disposition home health service (06) | DRG 871 ==
LOC: ED 18:57 → CCU 23:22 → MS 02-25 14:08
PROVIDERS: ADMIT Internal Medicine; ATTEND Internal Medicine
DX: A41.9 Sepsis, unspecified organism (principal); R53.2 Functional quadriplegia; N17.9 Acute kidney failure, unspecified; L03.116 Cellulitis of left lower limb; Z68.43 Body mass index [BMI] 50.0-59.9, adult; Z20.828 Contact with and (suspected) exposure to other viral communicable diseases; R65.20 Severe sepsis without septic shock; E66.01 Morbid (severe) obesity due to excess calories; E86.0 Dehydration; E03.9 Hypothyroidism, unspecified; E78.5 Hyperlipidemia, unspecified; N40.0 Benign prostatic hyperplasia without lower urinary tract symptoms; I12.9 Hypertensive chronic kidney disease with stage 1 through stage 4 chronic kidney disease, or unspecified chronic kidney disease; N18.9 Chronic kidney disease, unspecified; K21.9 Gastro-esophageal reflux disease without esophagitis; G89.29 Other chronic pain; D64.9 Anemia, unspecified; Z66 Do not resuscitate; Z88.8 Allergy status to other drugs, medicaments and biological substances; Z88.2 Allergy status to sulfonamides; Z79.899 Other long term (current) drug therapy
CPT/HCPCS: 36415; 51702; 71045; 80048; 80053; 80202; 81001; 83605; 85007; 85025; 85032; 85610; 85730; 87040; 87088; 97163; 97167; 97530; 97535; 99285-25; C9803; J0696; J1650; J1885; J3370; J7030; J7060; J7121; U0003

== ENCOUNTER 2020-03-15 08:20 | Emergency (ER) | payer MEDICARE, OTHER ==
[~2020-03-15] VITALS: Ht 170.2 cm; Wt 164.7 kg
[~2020-03-15 08:20] MED LIST changes: +DOXYCYCLINE HY100 MG PO
--- OUTSIDE RECORDS SUMMARY | 2020-03-15 08:22 | XMS ---
PreManage Notification: SETH DUGGAN Security Cell Tuber Machine Events No recent Security Events currently on file CRITERIA MET - History of Sepsis - [facility] - 2 Visits in 30 Days CARE PROVIDERS RAFFAELE JOSEPH Nurse Practitioner: 04/09/2019-Current PHONE: Unknown Musa Alonso Eyelet Machine Operator/Machine Operator Hay Stacker 12/04/2019-Current PHONE: [phone] Kiran has no Care Guidelines for this patient. [facility] VISIT COUNT (12 MO.) [address] [place] [address] TOTAL 4 NOTE: Visits indicate total known visits. ED/UCC VISIT TRACKING (12 MO.) 03/15/2020 08:21 [facility] [place] TYPE: Emergency COMPLAINT: - LOWER EXTREMITY PAIN 02/24/2020 18:58 [facility] [place] TYPE: Emergency COMPLAINT: - WEAKNESS 01/19/2020 08:11 [facility] [place] TYPE: Emergency COMPLAINT: - URINE PROBLEM DIAGNOSES: - Allergy status to sulfonamides - Urinary tract infection, site not specified - Hypothyroidism, unspecified - Allergy status to other drugs, medicaments and biological substances - Morbid (severe) obesity due to excess calories - Gastro-esophageal reflux disease without esophagitis - Allergy status to other antibiotic agents - Other retirement (current) drug therapy 04/09/2019 03:25 [facility] TYPE: Emergency COMPLAINT: - COUGH INPATIENT VISIT TRACKING (12 MO.) 02/24/2020 23:22 [facility] TYPE: Medical Surgical COMPLAINT: - SEVERE SEPSIS DIAGNOSES: - Contact with and (suspected) exposure to other viral communicable diseases - Cellulitis of left lower limb - Hyperlipidemia, unspecified - Anemia, unspecified - Functional quadriplegia - Gastro-esophageal reflux disease without esophagitis - Hypertensive chronic kidney disease with stage 1 through stage 4 chronic kidney disease, or unspecified chronic kidney disease - Hypothyroidism, unspecified - Do not resuscitate - Benign prostatic hyperplasia without lower urinary tract symptoms - Dehydration - Anemia, unspecified - Allergy status to sulfonamides - Morbid (severe) obesity due to excess calories - Sepsis, unspecified organism - Acute kidney failure, unspecified - Hyperlipidemia, unspecified - Allergy status to other drugs, medicaments and biological substances - Body mass index [BMI] 50.0-59.9, adult - Severe sepsis without septic shock - Contact with and (suspected) exposure to other viral communicable diseases - Benign prostatic hyperplasia without lower urinary tract symptoms - Chronic kidney disease, unspecified - Dehydration - Severe sepsis without septic shock - Other chronic pain - Other retirement (current) drug therapy - Morbid (severe) obesity due to excess calories - Cellulitis of left lower limb - Body mass index [BMI] 50.0-59.9, adult - Functional quadriplegia - Allergy status to sulfonamides - Hypertensive chronic kidney disease with stage 1 through stage 4 chronic kidney disease, or unspecified chronic kidney disease - Allergy status to other drugs, medicaments and biological substances - Other chronic pain - Chronic kidney disease, unspecified - Do not resuscitate - Hypothyroidism, unspecified - Other superintendent container terminal (current) drug therapy - Gastro-esophageal reflux disease without esophagitis - Acute kidney failure, unspecified 04/09/2019 08:19 [facility] TYPE: Medical Surgical COMPLAINT: - UTI, SEPSIS DIAGNOSES: - Hyperlipidemia, unspecified - Hypothyroidism, unspecified - Other retirement (current) drug therapy - Obesity, unspecified - Other chronic pain - Do not resuscitate - Sepsis, unspecified organism - Allergy status to sulfonamides - Tinea corporis - Severe sepsis without septic shock - Urinary tract infection, site not specified - Body mass index [BMI] 50.0-59.9, adult - Benign prostatic hyperplasia without lower urinary tract symptoms - Sepsis due to streptococcus, group B - Essential (primary) hypertension - Other malaise - Allergy status to other drugs, medicaments and biological substances [email or web address]
== END 2020-03-15 16:18 | disposition short-term general hospital (02) ==
LOC: ED 08:20
DX: N17.9 Acute kidney failure, unspecified (principal); L89.159 Pressure ulcer of sacral region, unspecified stage; N13.2 Hydronephrosis with renal and ureteral calculous obstruction; E66.9 Obesity, unspecified; E03.9 Hypothyroidism, unspecified; N18.9 Chronic kidney disease, unspecified; Z88.8 Allergy status to other drugs, medicaments and biological substances; Z88.2 Allergy status to sulfonamides; Z88.1 Allergy status to other antibiotic agents; Z79.899 Other long term (current) drug therapy; Z20.828 Contact with and (suspected) exposure to other viral communicable diseases
CPT/HCPCS: 74176; 80053; 81001; 85025; 96374; 99285-25; C9803; J1170; J7030; J7121; U0003